=== PATIENT | female | born 1955 | race African-American/Black ===

== ENCOUNTER 2016-08-26 15:07 | Emergency (ER) | payer MEDICAID ==
[2016-08-26 15:33] VITALS: BP 153/94
[2016-08-26] MEDS ORDERED: IPRATROPIUM/ALBUTEROL 0.5-2.5 MG/3 ML AMPUL NEB ONE (15:35)
[2016-08-26] MEDS ORDERED: PREDNISONE 20 MG TABLET PO ONE (15:35)
--- NOTE | 2016-08-26 15:37 | ER Document Report ---
ED Medical Screen (RME) - General Chief Complaint: Cough Stated Complaint: COUGH Mode of Arrival: Ambulatory Information source: Patient Notes: 60-year-old female presents to the emergency department complaining of cough and shortness of breath over the last 4 days. Reports history of COPD and states feels like a flareup. Denies fever or chest pain without cough. I have greeted and performed a rapid initial assessment of this patient. A comprehensive ED assessment and evaluation of the patient, analysis of test results and completion of the medical decision making process will be conducted by additional ED providers. TRAVEL OUTSIDE OF THE [place] IN LAST 30 DAYS: No - Related Data Allergies/Adverse Reactions: No Known Allergies Allergy (Verified 08/26/16 15:35) Past Medical History - Social History Chew tobacco use (# tins/day): No Frequency of alcohol use: Occasional Drug Abuse: None - Past Medical History Cardiac Medical History: Reports: Hx Hypertension Pulmonary Medical History: Reports: Hx Asthma, Hx COPD Renal/ Medical History: Reports: Hx Kidney Stones. Denies: Hx Peritoneal Dialysis Past Surgical History: Reports: Hx Breast Surgery - biopsy right breast - Immunizations Hx Diphtheria, Pertussis, Tetanus Vaccination: Yes Physical Exam - Vital signs Vitals: Temp Pulse Resp BP Pulse Ox 98.3 F 81 18 153/94 H 95 08/26/16 15:31 08/26/16 15:31 08/26/16 15:31 08/26/16 15:31 08/26/16 15:31 - General General appearance: Alert In distress: None - Respiratory Respiratory status: No respiratory distress. No: Tachypnea Breath sounds: Rhonchi - Mild scattered bilaterally, Wheezing - Mild expiratory Course - Vital Signs Vital signs: Temp Pulse Resp BP Pulse Ox 98.3 F 81 18 153/94 H 95 08/26/16 15:31 08/26/16 15:31 08/26/16 15:31 08/26/16 15:31 08/26/16 15:31
--- NOTE | 2016-08-26 18:04 | ER Document Report ---
ED Respiratory Problem - General Chief Complaint: Cough Stated Complaint: COUGH Time seen by provider: 18:04 Mode of Arrival: Ambulatory Information source: Patient Notes: The patient is a 60-year-old female with a history of COPD and hypertension who presents to the emergency room with cough, shortness of breath, subjective fevers. She's been taking TheraFlu. TRAVEL OUTSIDE OF THE [place] IN LAST 30 DAYS: No - HPI Patient complains to provider of: COPD Onset: Last week Duration: Continuous Initiating Event: URI Quality of pain: Dull Severity: Mild Pain Level: 1 Context: Hx COPD Short of Breath: Mild Chest pain/discomfort: denies: Center, Constant, Heaviness, Intermittent, Left, Pain, Radiates to arm, Radiates to back, Radiates to jaw, Right, Tightness, Worse with deep breaths Cough: Nonproductive Sputum amount: denies: None, Scant, Small, Moderate, Large, Copious Sputum color: denies: Brown, Clear, Creamy, Henriquez, Green, Panther Burn tinged, Red (blood ), Red Specks, Rust, Small Clots, Perez, White, Yellow Sputum consistency: denies: Frothy, Mucoid, Mucoid Plug, Tenacious, Thick, Thin At home treatment: denies: Bronchodilators, CPAP, Diuretics, Inhaled steroids, Oral steroids, Oxygen, Singulair, Theophylline Associated symptoms: Chills, Congestion, Cough, Fever Similar symptoms previously: Yes Recently seen / treated by doctor: No - Related Data Allergies/Adverse Reactions: No Known Allergies Allergy (Verified 08/26/16 15:35) Past Medical History - General Information source: Patient - Social History Smoking Status: Current Every Day Smoker Cigarette use (# per day): Yes - 1 pack per day Chew tobacco use (# tins/day): No Smoking Education Provided: No Frequency of alcohol use: Occasional Drug Abuse: None Lives with: Family Family History: Reviewed & Not Pertinent Patient has suicidal ideation: No Patient has homicidal ideation: No - Past Medical History Cardiac Medical History: Reports: Hx Hypertension Pulmonary Medical History: Reports: Hx Asthma, Hx COPD Renal/ Medical History: Reports: Hx Kidney Stones. Denies: Hx Peritoneal Dialysis Past Surgical History: Reports: Hx Breast Surgery - biopsy right breast - Immunizations Hx Diphtheria, Pertussis, Tetanus Vaccination: Yes Review of Systems - Review of Systems Constitutional: Chills, Fever EENT: No symptoms reported Cardiovascular: No symptoms reported Respiratory: See HPI Gastrointestinal: No symptoms reported Genitourinary: No symptoms reported Female Genitourinary: No symptoms reported Musculoskeletal: No symptoms reported Skin: No symptoms reported Hematologic/Lymphatic: No symptoms reported Neurological/Psychological: No symptoms reported Physical Exam - Vital signs Vitals: Temp Pulse Resp BP Pulse Ox 98.3 F 81 18 153/94 H 95 08/26/16 15:31 08/26/16 15:08/26/16 15:08/26/16 15:08/26/16 15:31 Notes: Physical exam: GENERAL: [id number] female, alert and oriented 3, no acute distress. HEAD: Atraumatic, normocephalic. EYES: Pupils equal round and reactive to light, extraocular movements intact, sclera anicteric, conjunctiva are normal. ENT: TMs normal, nares patent, oropharynx clear without exudates. Moist mucous membranes. NECK: Normal range of motion, supple without lymphadenopathy or JVD. LUNGS: Bilateral wheezing HEART: Regular rate and rhythm without murmurs, rubs or gallops. ABDOMEN: Soft, normoactive bowel sounds. No tenderness to palpation. No guarding, no rebound. No masses appreciated. EXTREMITIES: Normal range of motion, no pitting or edema. No clubbing or cyanosis. NEUROLOGICAL: Cranial nerves II through XII grossly intact. Normal speech, normal gait. PSYCH: Normal mood, normal affect. SKIN: Warm, Dry, normal turgor, no rashes or lesions noted. Course - Vital Signs Vital signs: Temp Pulse Resp BP Pulse Ox 98.3 F 81 18 153/94 H 08/26/16 15:31 08/26/16 15:31 08/26/16 15:08/26/16 15:08/26/16 15:31 - Diagnostic Test Radiology reviewed: Image reviewed, Reports reviewed - Chest x-ray shows no infiltrates or effusions Discharge - Discharge Clinical Impression: bronchitis with bronchospasm, COPD exacerbation Condition: Stable Disposition: HOME, SELF-CARE Instructions: Bronchitis With Bronchospasm (Wheezing) ([facility]), Chronic Obstructive Lung Disease ([facility]) Additional Instructions: Recommendations: Rest, drink plenty of fluids. Take steroids as prescribed: Start the prednisone tomorrow (you were given today 's dose in the ER). Take the antibiotic as prescribed. Take the Percocet as needed: See the narcotic instruction sheet. Use the inhaler every 4-6 hours as needed. Follow-up with Dr. Crawford this coming week. Return to the emergency room for worsening shortness of breath. Prescriptions: Albuterol Sulfate [Albuterol Sulfate 2.5mg/3 mL] 2.5 mg IH Q4 #14 ml Azithromycin [Zithromax 250 mg Tablet] 250 mg PO ASDIR PRN #6 tablet PRN Reason: Nebulizer [Nebulizer Machine] 1 each MC ASDIR PRN #1 kit PRN Reason: Oxycodone HCl/Acetaminophen [Percocet 5-325 mg Tablet] 1 - 2 tab PO ASDIR PRN # 15 tablet PRN Reason: Prednisone [Deltasone 20 mg Tablet] 3 tab PO DAILY 5 Days Referrals: NAHUM ALANIS MD [Primary Care Provider] - Follow up in 3-5 days
[2016-08-26] MEDS ORDERED: GUAIFENESIN 600 MG TABLET.SA PO ONE (18:05)
[2016-08-26] MEDS ORDERED: NORMAL SALINE 500 ML IV PRN (18:05)
[2016-08-26] MEDS ORDERED: OXYCODONE-ACETAMINOPHEN 5-325 MG TABLET PO ONE (18:06)
[2016-08-26] MEDS ORDERED: ALBUTEROL SULFATE HFA (90 MCG/PUFF) 8 GM MDI (1 MDI/ER DISP) IH PRN (19:57)
[2016-08-26] MEDS ORDERED: AZITHROMYCIN 250 MG TABLET PO ONE (19:58)
== END 2016-08-26 20:22 | disposition home or self-care (01) ==
LOC: ER 15:07
DX: J44.1 Chronic obstructive pulmonary disease with (acute) exacerbation (principal); J45.909 Unspecified asthma, uncomplicated; I10 Essential (primary) hypertension; R05 Cough; R06.02 Shortness of breath; R50.9 Fever, unspecified; F17.210 Nicotine dependence, cigarettes, uncomplicated
CPT/HCPCS: 99283; 71020; Q0144; J3490 ×2; J7512; J7620

== ENCOUNTER 2016-10-27 06:32 | Inpatient (IN) | payer MEDICAID ==
[2016-10-27] MEDS ORDERED: DILTIAZEM HCL/D5W 125 MG/125 ML RTUINJ IV ONE (06:43)
[2016-10-27] MEDS: DILTIAZEM HCL/D5W 125 ML IV PRN ×2 (06:49→16:58)
--- NOTE | 2016-10-27 07:00 | ER Document Report ---
ED General - General Chief Complaint: Breathing Difficulty Stated Complaint: DIFFICULTY BREATHING/BACK PAIN Mode of Arrival: Medic Information source: Patient, Emergency Med Personnel, [facility] Records Notes: 60-year-old female history COPD A. fib presents with complaints of shortness of breath and heart racing. Patient was found by EMS to have a heart rate in the 180s was given Cardizem boluses. Patient noted to be satting 82% on room air TRAVEL OUTSIDE OF THE [place] IN LAST 30 DAYS: No - HPI Onset: Yesterday Onset/Duration: Persistent Quality of pain: No pain Severity: Mild Pain Level: Denies Associated symptoms: Nonproductive cough, Shortness of breath Exacerbated by: Denies Relieved by: Denies Similar symptoms previously: No Recently seen / treated by doctor: No - Related Data Allergies/Adverse Reactions: No Known Allergies Allergy (Verified 08/26/16 15:35) Past Medical History - Social History Smoking Status: Former Smoker Cigarette use (# per day): No Chew tobacco use (# tins/day): No Smoking Education Provided: No Family History: Reviewed & Not Pertinent - Past Medical History Cardiac Medical History: Reports: Hx Hypertension Pulmonary Medical History: Reports: Hx Asthma, Hx COPD Renal/ Medical History: Reports: Hx Kidney Stones. Denies: Hx Peritoneal Dialysis Past Surgical History: Reports: Hx Breast Surgery - biopsy right breast - Immunizations Hx Diphtheria, Pertussis, Tetanus Vaccination: Yes Review of Systems - Review of Systems Notes: REVIEW OF SYSTEMS: CONSTITUTIONAL : Denies fever, chills, or sweats. Denies recent illness. EENT: Denies eye, ear, throat, or mouth pain or symptoms. Denies nasal or sinus congestion or discharge. Denies throat, tongue, or mouth swelling or difficulty swallowing. CARDIOVASCULAR: Admits to palpitations RESPIRATORY: Admits to shortness of breath GASTROINTESTINAL: Denies abdominal pain or distention. Denies nausea, vomiting , or diarrhea. Denies blood in vomitus, stools, or per rectum. Denies black, tarry stools. Denies constipation. GENITOURINARY: Denies difficulty urinating, painful urination, burning, frequency, blood in urine, or discharge. FEMALE GENITOURINARY: Denies vaginal bleeding, heavy or abnormal periods, irregular periods. Denies vaginal discharge or odor. MUSCULOSKELETAL: Denies back or neck pain or stiffness. Denies joint pain or swelling. SKIN: Denies rash, lesions or sores. HEMATOLOGIC : Denies easy bruising or bleeding. LYMPHATIC: Denies swollen, enlarged glands. NEUROLOGICAL: Denies confusion or altered mental status. Denies passing out or loss of consciousness. Denies dizziness or lightheadedness. Denies headache. Denies weakness or paralysis or loss of use of either side. Denies problems with gait or speech. Denies sensory loss, numbness, or tingling. Denies seizures. PSYCHIATRIC: Denies anxiety or stress. Denies depression, suicidal ideation, or homicidal ideation. ALL OTHER SYSTEMS REVIEWED AND NEGATIVE. Dictation was performed using [employer] voice recognition software PHYSICAL EXAMINATION: GENERAL: Well-appearing, well-nourished and in no acute distress. HEAD: Atraumatic, normocephalic. EYES: Pupils equal round and reactive to light, extraocular movements intact, conjunctiva are normal. ENT: Nares patent, oropharynx clear without exudates. Moist mucous membranes. NECK: Normal range of motion, supple without lymphadenopathy LUNGS: Breath sounds clear to auscultation bilaterally and equal. No wheezes rales or rhonchi. Patient satting 90% on 4 L nasal cannula HEART: Irregular rate and rhythm ABDOMEN: Soft, nontender, nondistended abdomen. No guarding, no rebound. No masses appreciated. Female : deferred Musculoskeletal: Normal range of motion, no pitting or edema. No cyanosis. NEUROLOGICAL: Cranial nerves grossly intact. Normal speech, normal gait. Normal sensory, motor exams PSYCH: Normal mood, normal affect. SKIN: Warm, Dry, normal turgor, no rashes or lesions noted. Physical Exam - Vital signs Vitals: Resp Pulse Ox 45 H 92 10/27/16 06:46 10/27/16 06:46 Course - Re-evaluation Re-evalutation: 10/27/16 07:00 Patient will be sent emergently for CTa of her chest, she started on a Cardizem drip 10/27/16 08:42 Patient is noted to be hypokalemic with renal insufficiency, CT is still pending , she will be admitted to hospitalist service on Cardizem drip Spoke with Dr yañez he does not beleive this is his patient - Vital Signs Vital signs: Temp Pulse Resp BP Pulse Ox 39 H 128/56 H 95 10/27/16 07:16 10/27/16 07:16 10/27/16 07:16 - Laboratory Result Diagrams: 10/27/16 07:34 10/27/16 07:34 Laboratory results interpreted by me: 10/27/16 10/27/16 07:34 07:34 RBC 3.70 L Hgb 11.4 L Hct 33.9 L RDW 15.7 H Potassium 2.9 L* BUN 38 H Creatinine 1.78 H Est GFR ( Amer) 35 L Est GFR (Non-Af Amer) 29 L Glucose 70 L Calcium 8.1 L Total Bilirubin 4.9 H Direct Bilirubin 3.6 H AST 159 H ALT 71 H Creatine Kinase 834 H Total Protein 6.0 L Albumin 2.9 L - Diagnostic Test Radiology reviewed: Image reviewed, Reports reviewed Critical Care Note - Critical Care Note Total time excluding time spent on procedures (mins): 45 Comments: 41 minutes of critical care time spent in direct contact evaluating and reevaluating the patient, treating symptoms, reviewing labs and studies and speaking with family and consultants excluding any procedures Discharge - Discharge Clinical Impression: Hypokalemia, Hypoxemia, Atrial fibrillation with rapid ventricular response Condition: Critical Disposition: ADMITTED INPATIENT Admitting Provider: Hospitalist Unit Admitted: [facility]
[2016-10-27 07:49] LABS: HEMATOCRIT 33.9 % (36.0-47.0); HEMOGLOBIN 11.4 g/dL (12.0-15.5); HGB HCT DIFFERENCE 0.3; MEAN CORPUSCULAR HEMOGLOBIN 30.9 pg (27.0-33.4); MEAN CORPUSCULAR HGB CONC 33.7 g/dL (32.0-36.0); MEAN CORPUSCULAR VOLUME 91 fl (80-97); RED CELL DISTRIBUTION WIDTH 15.7 % (11.5-14.0); WHITE BLOOD COUNT 4.4 10^3/uL (4.0-10.5)
[2016-10-27 08:05] LABS: ALBUMIN 2.9 g/dL (3.5-5.0); ANION GAP 17 (5-19); BLOOD UREA NITROGEN 38 mg/dL (7-20); CALCIUM 8.1 mg/dL (8.4-10.2); CARBON DIOXIDE 25 mmol/L (22-30); CHLORIDE 99 mmol/L (98-107); CREATININE RESULT 1.78 mg/dL (0.52-1.25); GLUCOSE 70 mg/dL (75-110); SODIUM 141.2 mmol/L (137-145)
[2016-10-27 08:07] LABS: ALANINE AMINOTRANSFERASE 71 U/L (9-52); ALKALINE PHOSPHATASE 66 U/L (38-126); ASPARTATE AMINO TRANSFERASE 159 U/L (14-36); BILIRUBIN,DIRECT 3.6 mg/dL (0.0-0.4); BILIRUBIN,TOTAL 4.9 mg/dL (0.2-1.3); CREATINE KINASE 834 U/L (30-135)
[2016-10-27 08:11] LABS: POTASSIUM 2.9 mmol/L (3.6-5.0)
[2016-10-27] MEDS ORDERED: POTASSIUM CHLORIDE 10 MEQ TABLET.SA PO ONE ×2 (08:12→12:08)
[2016-10-27] MEDS ORDERED: NORMAL SALINE 1000 ML 1,000 ML IV PRN (08:16)
[2016-10-27 08:17] LABS: TROPONIN I 0.022 ng/mL
[2016-10-27 08:19] LABS: CREATINE KINASE MB < 0.22 ng/mL (<4.55)
[2016-10-27 08:39] LABS: BAND NEUTROPHILS % (MANUAL) 28 % (3-5); BASOPHILS % (MANUAL) 0 % (0-2); EOSINOPHILS % (MANUAL) 0 % (0-6); LYMPHOCYTES % (MANUAL) 15 % (13-45); NUCLEATED RED BLOOD CELLS 21 /100 WBC (0); TOTAL CELLS COUNTED 100
[2016-10-27 08:50] LABS: TOXIC GRANULATION 1+; TOXIC VACUOLATION PRESENT
[2016-10-27 08:51] LABS: ANISOCYTOSIS 1+; HYPOCHROMASIA 1+; PLATELET CLUMPS PRESENT; POLYCHROMASIA 1+; TARGET CELLS 2+
[2016-10-27] MEDS ORDERED: LEVOFLOXACIN 750 MG/D5W RTU 150 ML IV ONE (09:39)
[2016-10-27] MEDS ORDERED: MORPHINE SULFATE 10 MG/ML INJ IV ONE (09:50)
[2016-10-27] MEDS: NORMAL SALINE 1000 ML 1,000 ML IV PRN ×3 (10:01→15:36)
[2016-10-27] MEDS ORDERED: LEVALBUTEROL HCL NEB 1.25 MG/3 ML AMPUL NEB PRN (12:01)
[2016-10-27] MEDS ORDERED: ACETAMINOPHEN 325 MG TABLET PO PRN (12:01)
--- NOTE | 2016-10-27 13:11 | PDOC CONSULTATION ---
Consultation Consult Date: 10/27/16 Attending physician:: MAURA KNOX Consult reason:: Atrial fibrillation History of Present Illness Admission Date/PCP: 10/27/16 09:04 NAHUM ALANIS MD Patient complains of: Dyspnea, cough, fever and chills History of Present Illness: 60-year-old female history COPD A. fib presents with complaints of shortness of breath and heart racing. Patient on questioning admitted to having some cough as well as fever and chills. Patient's overall is a poor historian. Patient was found by EMS to have a heart rate in the 180s was given Cardizem boluses. Patient was noted to be hypoxemic and was placed on oxygen supplementation. On questioning patient denied chest pain. Patient denied any prior history of myocardial infarction or congestive heart failure. I was asked to evaluate patient in view of atrial fibrillation. Patient claims that she has a prior history of atrial fibrillation and irregular heart beat. She has not been on any chronic anticoagulation. Patient has noted intermittent racing of the heart off and on but mainly on exertion. Patient claims she has not being actively followed for this condition by any physician. Patient noted some increased palpitations recently. Past Medical History Cardiac Medical History: Reports: Atrial Fibrillation, Hypertension Pulmonary Medical History: Reports: Asthma, Chronic Obstructive Pulmonary Disease (COPD) Social History Information Source: Patient Smoking Status: Former Smoker Frequency of Alcohol Use: Social Drugs: Cocaine - Advance Directive Resuscitation Status: Full Code Surrogate healthcare decision maker:: Patient's children Family History Family History: Reviewed & Not Pertinent Parental Family History Reviewed: Yes Children Family History Reviewed: Yes Sibling(s) Family History Reviewed.: Yes - Negative for premature coronary artery disease or sudden cardiac in the family amongst first degree relatives. Medication/Allergy Home Medications: Albuterol Sulfate [Albuterol Sulfate 2.5mg/3 mL] 1 vial NEB Q4 10/27/16 Allergies/Adverse Reactions: No Known Allergies Allergy (Verified 08/26/16 15:35) Review of Systems Review of Systems: Please see history of present illness and past medical history as wall. Constitutional: Fever and chills reported. Head : No recent chronic headaches, recent head injury. Eyes: No recent eye pain, diplopia, redness, discharge, acute visual changes. Ears: No recent chronic ear pain, acute hearing loss, ear discharge. Oral cavity: No recent ulcerations, bleeding, oral cavity discomfort. Neck: No recent acute neck pain reported. Hematologic: No recent easy bruising or bleeding or hematologic malignancy reported. Lymphatic: No recent lymphatic malignancy, chronic lymphadenopathy reported yet Cardiovascular system review: See history of present illness. Describes history of palpitations in the past and previous diagnosis of atrial fibrillation when she was in her confinement. Respiratory system review: Recent cough with very scant sputum production reported but no hemoptysis, blood clots in the lungs reported. Mild Shortness of breath on exertion Gastrointestinal system review: Negative for any recent acute or chronic abdominal pain, hematemesis, melena, recent change in bowel habits. Genitourinary system review: No recent acute or chronic hematuria, flank pain, UTI etc. reported. Skin system review: Negative for any recent abnormal bruising, no rash, no pruritus reported. Neurologic: No prior history of strokes, mini strokes, seizure disorder. Psychologic: No history of major psychosis or major depression reported. Musculoskeletal: Minor aches and pains reported. No acute joint swelling reported. Endocrine: No recent polyuria, polydipsia, recent heat or cold intolerance. Physical Exam Vital Signs: Temp Pulse Resp BP Pulse Ox 99.4 F 33 H 113/75 94 10/27/16 11:53 10/27/16 12:30 10/27/16 12:30 10/27/16 12:30 Intake & Output 10/26/16 10/27/16 10/28/16 06:59 06:59 06:59 Weight 71.2 kg Exam: GENERAL: well-nourished and in no acute distress. Alert and oriented x3 HEAD: Atraumatic, normocephalic. EYES: Pupils equal round and reactive to light, extraocular movements intact, sclera anicteric, conjunctiva are normal. ENT: TMs normal, nares patent, oropharynx clear without exudates. Moist mucous membranes. No oral ulcerations or bleeding gums noted NECK: supple without lymphadenopathy. Trachea is central. No cervical or axillary lymphadenopathy noted. Carotids are 2+, JVD WNL LUNGS: Respiration seems nonlabored, no significant accessory muscle action noted. Right basal crackles, dullness and egophony noted. CHEST: Palpation of the chest wall shows no significant chest wall tenderness. No other significant abnormalities noted. 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 ABDOMEN: Soft, no significant tenderness appreciated, normoactive bowel sounds. No guarding, no rebound. No rigidity noted . No masses appreciated. EXTREMITIES: Pedal pulses are 1-2+, no calf tenderness noted. No clubbing or cyanosis.trace to 1+ pedal edema noted NEUROLOGICAL: Focused neurological exam showed no significant neurologic deficit. Normal speech, no focal weakness appreciated. PSYCH: Normal mood, normal affect. Judgment and insight within normal limits. SKIN: No significant ecchymosis, rash, ulcerations or signs of pruritus noted. MUSCULOSKELETAL EXAM: No significant joint swelling noted. Results Laboratory Results: 10/27/16 10:04 Lactic Acid 1.8 EKG Comments: Not available for review at this point Impressions: Chest/Abdomen CTA 10/27/16 06:41 IMPRESSION: Diffuse right lower lobe pneumonia. Assessment & Plan - Diagnosis (1) Atrial fibrillation with RVR Is this a current diagnosis for this admission?: Yes (2) Hypokalemia Is this a current diagnosis for this admission?: Yes (3) Pneumonia Qualifiers: Pneumonia type: due to unspecified organism Laterality: right Lung location: lower lobe of lung Qualified Code(s): J18.1 - Lobar pneumonia, unspecified organism Is this a current diagnosis for this admission?: Yes (4) Hypoxemia Is this a current diagnosis for this admission?: Yes - Notes Notes: Atrial fibrillation with rapid ventricular response: Patient gives history of prior atrial fibrillation. At this point will recommend rate control and chronic anticoagulation for at least one month. Possible that patient's atrial fibrillation could have been precipitated by pneumonia and hypokalemia. Hypokalemia: Recommend correction and maintaining potassium level over 4 mg/L. Recommend also checking magnesium level and keeping magnesium over 1.6 mg percent. Pneumonia: Patient noted to have right lower lobe pneumonia. Continue with antibiotic therapy. Hypoxemia: Continue with oxygen supplementation and treatment of pneumonia. Have ordered a 2-D echocardiogram to evaluate underlying cardiac structural abnormalities etc. and atrial fibrillation. - Time Time Spent: 30 to 50 Minutes - CODE STATUS was discussed, patient remains full code. Surrogate decision-maker MARY JO BEE. Multiple medical problems were addressed.More than 50% of the time spent coordinating care, discussing management plans with involved caregivers. Management plans discussed with involved personnels. Medical decision making was of moderate to high complexity, patient's has multiple severe comorbidities. Medications reviewed and adjusted accordingly: Yes
[2016-10-27] MEDS: IPRATROPIUM BROMIDE 0.02% NEB 0.5 MG/2.5 ML AMPUL NEB SCH ×2 (14:15→19:57)
[2016-10-27] MEDS: LEVALBUTEROL HCL NEB 1.25 MG/3 ML AMPUL NEB SCH ×2 (14:15→19:58)
[2016-10-27 14:26] LABS: CHOLESTEROL 118.74 mg/dL (0-200); Direct HDL 20 mg/dL (>40); MAGNESIUM 1.7 mg/dL (1.6-2.3); TRIGLYCERIDES 253 mg/dL (<150)
[2016-10-27 14:39] LABS: DIRECT LDL < 30 mg/dL (<100); VLDL CHOLESTEROL 50.6 mg/dL (10-31)
[2016-10-27 14:40] LABS: CREATINE KINASE MB 1.22 ng/mL (<4.55); TROPONIN I 0.019 ng/mL
--- NOTE | 2016-10-27 15:13 | PDOC H&P ---
History of Present Illness Admission Date/PCP: 10/27/16 12:01 NAHUM ALANIS MD Patient complains of: Shortness of breath History of Present Illness: 60-year-old female history COPD A. fib presents with complaints of shortness of breath and heart racing. Patient on questioning admitted to having some cough as well as fever and chills. Patient's overall is a poor historian. Apparently the patient has been sick this weekend with coughing and shortness of breath . There is associated wheezing . Cough is productive of yellowish phlegm . Patient will take home inhalers of 40 some relief of symptoms . Patient continues to do usual activities including cooking , doing outside grilling . Patient also chronic smoker and continues to smoke . Symptoms got progressively worse that she develops dyspnea on exertion with limited mobility around. Patient would intermittently rest and symptoms will improve . However earlier today it is worse therefore the ambulance was called . Patient was found by EMS to have a heart rate in the 180s was given Cardizem boluses. Patient was noted to be hypoxemic and was placed on oxygen supplementation. On questioning patient denied chest pain. Patient denied any prior history of myocardial infarction or congestive heart failure. In the emergency room, the patient was given boluses of fluids, intravenous Cardizem drip was instituted, patient was referred for admission. CT of the chest revealed no pulmonary embolism, but did show a dense infiltrate of the right lower. Past Medical History Past Medical History: Medication reconciliation pending verification from the patient's pharmacist. Cardiac Medical History: Reports: Atrial Fibrillation, Hyperlipidema, Hypertension Pulmonary Medical History: Reports: Asthma, Chronic Obstructive Pulmonary Disease (COPD) Psychiatric Medical History: Reports: Substance Abuse - Cocaine in the past, as well as alcohol, Tobacco Dependency, Other Past Surgical History Past Surgical History: Reports: None - Patient denies any recent operation. Social History Information Source: Patient Smoking Status: Current Every Day Smoker Cigarettes Packs Per Day: 2 Last Time Smoked: monday Frequency of Alcohol Use: Occasional Hx Recreational Drug Use: No Drugs: None Hx Prescription Drug Abuse: No - Advance Directive Resuscitation Status: Full Code Family History Family History: None - Patient denies any illness in the family Parental Family History Reviewed: Yes Children Family History Reviewed: Yes Sibling(s) Family History Reviewed.: Yes Medication/Allergy Home Medications: Albuterol Sulfate [Albuterol Sulfate 2.5mg/3 mL] 1 vial NEB Q4 10/27/16 Allergies/Adverse Reactions: No Known Allergies Allergy (Verified 08/26/16 15:35) Review of Systems Constitutional: PRESENT: headache(s) - Occasional, weakness - Generalized. ABSENT: chills, fever(s), night sweats, weight gain, weight loss Eyes: ABSENT: visual disturbances Ears: ABSENT: hearing changes Nose, Mouth, and Throat: PRESENT: sore throat - Mild. ABSENT: mouth pain Cardiovascular: PRESENT: dyspnea on exertion, palpitations. ABSENT: chest pain , edema, orthropnea Respiratory: PRESENT: cough, sputum - Yellowish, other - Wears oxygen at home. ABSENT: hemoptysis Gastrointestinal: ABSENT: abdominal pain, constipation, diarrhea, hematemesis, hematochezia, melena, nausea, vomiting Genitourinary: ABSENT: difficulty urinating, dysuria, hematuria Musculoskeletal: ABSENT: joint swelling Integumentary: ABSENT: pruritus, rash, wounds Neurological: ABSENT: abnormal gait, abnormal speech, confusion, dizziness, focal weakness, syncope Psychiatric: ABSENT: anxiety, depression, homidical ideation, suicidal ideation Endocrine: ABSENT: cold intolerance, heat intolerance, polydipsia, polyphagia, polyuria Hematologic/Lymphatic: ABSENT: easy bleeding, easy bruising Physical Exam Vital Signs: Temp Pulse Resp BP Pulse Ox 100.4 F 105 H 25 H 145/79 H 94 10/27/16 14:07 10/27/16 14:07 10/27/16 14:07 10/27/16 14:07 10/27/16 12:30 Intake & Output 10/26/16 10/27/16 10/28/16 06:59 06:59 06:59 Weight 82 kg General appearance: PRESENT: mild distress, obese Head exam: PRESENT: atraumatic, normocephalic Eye exam: PRESENT: conjunctiva pink, EOMI, PERRLA. ABSENT: scleral icterus Ear exam: PRESENT: normal external ear exam. ABSENT: drainage Mouth exam: PRESENT: dry mucosa, neck supple, tongue midline, other - No thrush noted Throat exam: ABSENT: post pharyngeal erythema, tonsillar erythema Neck exam: ABSENT: carotid bruit, JVD, lymphadenopathy, thyromegaly Respiratory exam: PRESENT: decreased breath sounds, wheezes - Mild bilateral. ABSENT: rales, rhonchi Cardiovascular exam: PRESENT: irregular rhythm, +S1, +S2. ABSENT: diastolic murmur, gallop, rubs, systolic murmur Pulses: PRESENT: normal dorsalis pedis pul Vascular exam: PRESENT: normal capillary refill GI/Abdominal exam: PRESENT: hypoactive bowel sounds, normal bowel sounds, soft. ABSENT: distended, guarding, mass, organolmegaly, rebound, tenderness Rectal exam: PRESENT: deferred Extremities exam: PRESENT: full ROM, other - Trace lower extremity edema. ABSENT: calf tenderness, clubbing Neurological exam: PRESENT: alert, awake, oriented to person, oriented to place , oriented to time, oriented to situation Psychiatric exam: PRESENT: appropriate affect, normal mood. ABSENT: homicidal ideation, suicidal ideation Skin exam: PRESENT: dry, intact, warm. ABSENT: cyanosis, rash Results Laboratory Results: 10/27/16 13:47 Magnesium 1.7 Triglycerides 253 H Cholesterol 118.74 LDL Cholesterol Direct < 30 VLDL Cholesterol 50.6 H HDL Cholesterol 20 L 10/27/16 10/27/16 13:47 13:47 Creatine Kinase 1403 H CK-MB (CK-2) 1.22 Troponin I 0.019 Impressions: Chest/Abdomen CTA 10/27/16 06:41 IMPRESSION: Diffuse right lower lobe pneumonia. Assessment & Plan - Diagnosis (1) Pneumonia Qualifiers: Pneumonia type: due to unspecified organism Laterality: right Lung location: lower lobe of lung Qualified Code(s): J18.1 - Lobar pneumonia, unspecified organism Is this a current diagnosis for this admission?: Yes (2) Atrial fibrillation with RVR Is this a current diagnosis for this admission?: Yes (3) Sepsis Qualifiers: Sepsis type: sepsis due to unspecified organism Qualified Code(s): A41.9 - Sepsis, unspecified organism Is this a current diagnosis for this admission?: Yes (4) COPD exacerbation Is this a current diagnosis for this admission?: Yes (5) Hypokalemia Is this a current diagnosis for this admission?: Yes (6) Transaminitis Is this a current diagnosis for this admission?: Yes (7) Essential hypertension Is this a current diagnosis for this admission?: Yes (8) Hyperlipidemia Qualifiers: Hyperlipidemia type: unspecified Qualified Code(s): E78.5 - Hyperlipidemia, unspecified Is this a current diagnosis for this admission?: Yes (9) Substance abuse Is this a current diagnosis for this admission?: Yes - Time Time Spent: 50 to 70 Minutes - Inpatient Certification Based on my medical assessment, after consideration of the patient's comorbidities, presenting symptoms, or acuity I expect that the services needed warrant INPATIENT care.: Yes I certify that my determination is in accordance with my understanding of Medicare's requirements for reasonable and necessary INPATIENT services [42 CFR 412.3e].: Yes Medical Necessity: Need Close Monitoring Due to Risk of Patient Decompensation, Need For IV Fluids, Need For Continuous Telemetry Monitoring, Need for Nebulizer Therapy and Monitoring of Response, Risk of Complication if Not Cared For in Hospital 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 We will continue the Cardizem drip and wean. We will begin oral Cardizem as well. In the meantime we'll culture the patient's blood sputum and urine. Begin intravenous antibiotic with cefepime and Levaquin. We will replace electrolytes and hydrate the patient. Cardiology will be consulted and a 2-D echocardiogram will be obtained. I will put the patient on round the clock nebulizer and oral steroids. DVT prophylaxis with Lovenox will be placed. We will monitor electrolytes and creatinine. We will obtain an abdominal ultrasound to evaluate the abnormal liver function tests. Further testing depends on the initial evaluation as outlined above.
[2016-10-27] MEDS: METHYLPREDNISOLONE INJ 125 MG/2 ML SDV IV SCH ×2 (15:35→22:31)
[2016-10-27] MEDS: DILTIAZEM HCL 30 MG TABLET PO SCH (17:43)
[2016-10-27 17:48] LABS: APPEARANCE,URINE SLIGHTLY-CLOUDY; BILIRUBIN,URINE NEGATIVE (NEGATIVE); GLUCOSE, URINE NEGATIVE (NEGATIVE); KETONES,URINE NEGATIVE (NEGATIVE); LEUKOCYTE ESTERASE,URINE NEGATIVE (NEGATIVE); NITRITE,URINE NEGATIVE (NEGATIVE); PROTEIN,URINE 100 mg/dL (NEGATIVE); URINE SPECIFIC GRAVITY 1.033; UROBILINOGEN,URINE NEGATIVE mg/dL (<2.0)
--- NOTE | 2016-10-27 19:16 | XCELERA REPORT ---
[address] [address] Transthoracic Echocardiogram Report Name: SAMARA COLLIER Age: 60 yrs Gender: Female : 1955 Patient Status: Inpatient Patient Location: [id number]\S\[id number]\A Study Date: 10/27/2016 02:45 PM Height: 60 in Weight: 156 lb BSA: 1.7 m2 Procedure: A complete two-dimensional transthoracic echocardiogram was performed (2D, M-mode, spectral and color flow Doppler). The study was technically difficult with many images being suboptimal in quality. Reason For Study: atrial fibrillation Ordering Physician: AFIA SHER Performed By: Zuly Love Interpretation Summary The study was technically difficult with many images being suboptimal in quality. The left ventricular ejection fraction is normal. LV diastolic function could not be adequately assessed due to atrial fibrilation. There is mild concentric left ventricular hypertrophy. The left ventricle is grossly normal size. Wall motion cannot be accurately commented on, but no definite regional wall motion abnormalities noted. The right ventricle is mildly dilated. The left atrium is mildly dilated. The right atrium is normal in size There is a trace amount of mitral regurgitation There is no mitral valve stenosis. No aortic regurgitation is present. There is no aortic valve stenosis There is a trace or physiologic amount of tricuspid regurgitation Tricuspid regurgitation jet envelope not well defined to measure RV systolic pressure accurately. The aortic root is not well visualized but is probably normal size. The inferior vena cava was not well visualized There is no pericardial effusion. MMode/2D Measurements \T\ Calculations RVDd: 3.2 cm LVIDd: 4.3 cm FS: 29.8 % Ao root diam: 3.1 cm IVSd: 1.1 cm LVIDs: 3.0 cm EDV(Teich): 83.2 ml LVPWd: 1.1 cm ESV(Teich): 35.6 ml Ao root area: 7.5 cm2 EF(Teich): 57.3 % LA dimension: 3.7 cm Doppler Measurements \T\ Calculations MV E max dasia: MV P1/2t max dasia: Ao V2 max: LV V1 max P.5 cm/sec 90.1 cm/sec 134.7 cm/sec 2.8 mmHg MV P1/2t: 68.1 msec Ao max PG: LV V1 max: 7.3 mmHg 83.9 cm/sec MVA(P1/2t): 3.2 cm2 MV dec slope: 387.6 cm/sec2 PA V2 max: 116.0 cm/sec PA max P.4 mmHg Left Ventricle The left ventricle is grossly normal size. There is mild concentric left ventricular hypertrophy. The left ventricular ejection fraction is normal. LV diastolic function could not be adequately assessed due to atrial fibrilation. Wall motion cannot be accurately commented on, but no definite regional wall motion abnormalities noted. Right Ventricle The right ventricle is mildly dilated. There is normal right ventricular wall thickness. The right ventricular systolic function is normal. Atria The right atrium is normal in size. The left atrium is mildly dilated. Interarterial septum not well visualized and not well dopplered. Cannot comment on ASD/PFO presence. Mitral Valve The mitral valve leaflets are sclerotic, but show no functional abnormalities. There is no mitral valve stenosis. There is a trace amount of mitral regurgitation. Aortic Valve The aortic valve is grossly normal. There is no aortic valve stenosis. No aortic regurgitation is present. Tricuspid Valve The tricuspid valve is not well visualized, but is grossly normal. There is no tricuspid stenosis. There is a trace or physiologic amount of tricuspid regurgitation. Tricuspid regurgitation jet envelope not well defined to measure RV systolic pressure accurately. Pulmonic Valve The pulmonic valve is not well visualized. Great Vessels The aortic root is not well visualized but is probably normal size. The inferior vena cava was not well visualized. Effusions There is no pericardial effusion. : AFIA SHER > Afia Sher
[2016-10-27 21:22] LABS: CREATINE KINASE MB 0.81 ng/mL (<4.55); TROPONIN I 0.02 ng/mL
[2016-10-27 21:41] LABS: PATH REVIEW PATHOLOGIST REVIEWED
[2016-10-27] MEDS ORDERED: CEFEPIME 2 GM/D5W RTU 50 ML IV SCH (22:00)
[2016-10-27] MEDS: CEFEPIME HCL 2 GM in DEXTROSE 5%-WATER 50 ML IV SCH (22:30)
[2016-10-27] MEDS: GUAIFENESIN 600 MG TABLET.SA PO SCH (22:31)
[2016-10-28] MEDS: DILTIAZEM HCL 30 MG TABLET PO SCH ×4 (00:14→17:23)
[2016-10-28] MEDS: IPRATROPIUM BROMIDE 0.02% NEB 0.5 MG/2.5 ML AMPUL NEB SCH ×4 (01:40→20:22)
[2016-10-28] MEDS: LEVALBUTEROL HCL NEB 1.25 MG/3 ML AMPUL NEB SCH ×4 (01:40→20:22)
[2016-10-28 02:30] LABS: HGB HCT DIFFERENCE 0.6; MEAN CORPUSCULAR HEMOGLOBIN 30.9 pg (27.0-33.4); MEAN CORPUSCULAR HGB CONC 34.1 g/dL (32.0-36.0); MEAN CORPUSCULAR VOLUME 91 fl (80-97); RED BLOOD COUNT 2.97 10^6/uL (3.72-5.28); RED CELL DISTRIBUTION WIDTH 15.4 % (11.5-14.0)
[2016-10-28 02:35] LABS: HEMOGLOBIN 9.2 g/dL (12.0-15.5)
[2016-10-28 02:48] LABS: ANION GAP 14 (5-19); BLOOD UREA NITROGEN 35 mg/dL (7-20); CALCIUM 7.2 mg/dL (8.4-10.2); CARBON DIOXIDE 20 mmol/L (22-30); CHLORIDE 107 mmol/L (98-107); CREATININE RESULT 1.35 mg/dL (0.52-1.25); GLUCOSE 132 mg/dL (75-110); POTASSIUM 3.2 mmol/L (3.6-5.0); SODIUM 140.7 mmol/L (137-145)
[2016-10-28 02:57] LABS: CREATINE KINASE MB 1.86 ng/mL (<4.55)
[2016-10-28 02:58] LABS: CREATINE KINASE 2334 U/L (30-135)
[2016-10-28 03:03] LABS: BASOPHILS % (MANUAL) 0 % (0-2); EOSINOPHILS % (MANUAL) 0 % (0-6); LYMPHOCYTES % (MANUAL) 11 % (13-45); TOTAL CELLS COUNTED 100
[2016-10-28 03:05] LABS: ANISOCYTOSIS 1+; POIKILOCYTOSIS 1+; POLYCHROMASIA 1+; TARGET CELLS 1+; TOXIC GRANULATION 1+; TOXIC VACUOLATION PRESENT; TROPONIN I < 0.012 ng/mL
[2016-10-28 03:08] LABS: BAND NEUTROPHILS % (MANUAL) 24 % (3-5)
[2016-10-28 03:12] LABS: WHITE BLOOD COUNT 9.6 10^3/uL (4.0-10.5)
[2016-10-28] MEDS: NORMAL SALINE 1000 ML 1,000 ML IV PRN ×3 (03:23→23:50)
[2016-10-28] MEDS: LANSOPRAZOLE 30 MG TAB.RAP.DR PO SCH (07:51)
[2016-10-28] MEDS: METHYLPREDNISOLONE INJ 125 MG/2 ML SDV IV SCH ×3 (07:52→21:44)
[2016-10-28] MEDS: ENOXAPARIN SODIUM INJ 40 MG/0.4 ML DISP.SYRIN SUBCUT SCH (08:26)
[2016-10-28] MEDS: GUAIFENESIN 600 MG TABLET.SA PO SCH ×2 (08:29→21:44)
[2016-10-28] MEDS: CEFEPIME HCL 2 GM in DEXTROSE 5%-WATER 50 ML IV SCH ×2 (08:30→21:42)
[2016-10-28 09:58] LABS: NUCLEATED RED BLOOD CELLS 16 /100 WBC (0)
--- NOTE | 2016-10-28 10:51 | PDOC PROGRESS REPORT ---
Subjective Progress Note for:: 10/28/16 Subjective:: Patient improved. Shortness of breath is better. Tachycardia is better. No temperature spikes, nausea or vomiting, respiratory distress, chest pain, PND, orthopnea. Denies having any diarrhea. Physical Exam Vital Signs: Temp Pulse Resp BP Pulse Ox 98.4 F 85 16 100/58 L 96 10/28/16 07:26 10/28/16 09:56 10/28/16 07:36 10/28/16 09:56 10/28/16 07:36 Pulse Oximeter Continuous Start: 10/27/16 12: 02 Freq: RTQ4 Status: Active Document 10/28/16 07:36 LDA (Rec: 10/28/16 09:17 LDA [id number]) Pulse Oximetry Assessment Oxygen Saturation (92-100) 96 Oxygen Flow Rate (L/min) 3 Equipment Usage Equipment in Use Continuous SpO2 Machine # 14 Intake & Output 10/27/16 10/28/16 10/29/16 06:59 06:59 06:59 Intake Total 193 Balance 1931 Weight 67.8 kg General appearance: PRESENT: no acute distress, cooperative Head exam: PRESENT: normocephalic Eye exam: PRESENT: EOMI Mouth exam: PRESENT: moist, neck supple Neck exam: ABSENT: JVD Respiratory exam: PRESENT: clear to auscultation adelso - Anteriorly bilateral, decreased breath sounds. ABSENT: rhonchi, wheezes Cardiovascular exam: PRESENT: irregular rhythm. ABSENT: gallop GI/Abdominal exam: PRESENT: soft. ABSENT: distended, tenderness Extremities exam: PRESENT: other - Trace edema Neurological exam: PRESENT: alert, awake, oriented to situation Skin exam: PRESENT: dry, warm. ABSENT: cyanosis Results Laboratory Results: 10/28/16 02:19 10/28/16 02:19 10/27/16 10/27/16 10/28/16 13:47 15:15 02:19 WBC 9.6 D RBC 2.97 L Hgb 9.2 L D Hct 27.0 L MCV 91 MCH 30.9 MCHC 34.1 RDW 15.4 H Plt Count 157 Seg Neutrophils % Not Reportable Lymphocytes % Not Reportable Monocytes % Not Reportable Eosinophils % Not Reportable Basophils % Not Reportable Absolute Neutrophils Not Reportable Absolute Lymphocytes Not Reportable Absolute Monocytes Not Reportable Absolute Eosinophils Not Reportable Absolute Basophils Not Reportable Sodium Potassium Chloride Carbon Dioxide Anion Gap BUN Creatinine Est GFR ( Amer) Est GFR (Non-Af Amer) Glucose Calcium Magnesium 1.7 Triglycerides 253 H Cholesterol 118.74 LDL Cholesterol Direct < 30 VLDL Cholesterol 50.6 H HDL Cholesterol 20 L Urine Color YELLOW Urine Appearance SLIGHTLY-CLOUDY Urine pH 6.0 Ur Specific [place] 1.033 Urine Protein 100 H Urine Glucose (UA) NEGATIVE Urine Ketones NEGATIVE Urine Blood MODERATE H Urine Nitrite NEGATIVE Ur Leukocyte Esterase NEGATIVE Urine WBC (Auto) 3 Urine RBC (Auto) 2 10/28/16 02:19 WBC RBC Hgb Hct MCV MCH MCHC RDW Plt Count Seg Neutrophils % Lymphocytes % Monocytes % Eosinophils % Basophils % Absolute Neutrophils Absolute Lymphocytes Absolute Monocytes Absolute Eosinophils Absolute Basophils Sodium 140.7 Potassium 3.2 L Chloride 107 Carbon Dioxide 20 L Anion Gap 14 BUN 35 H Creatinine 1.35 H Est GFR ( Amer) 48 L Est GFR (Non-Af Amer) 40 L Glucose 132 H Calcium 7.2 L Magnesium Triglycerides Cholesterol LDL Cholesterol Direct VLDL Cholesterol HDL Cholesterol Urine Color Urine Appearance Urine pH Ur Specific [place] Urine Protein Urine Glucose (UA) Urine Ketones Urine Blood Urine Nitrite Ur Leukocyte Esterase Urine WBC (Auto) Urine RBC (Auto) 10/27/16 10/27/16 10/27/16 13:47 13:47 20:15 Creatine Kinase 1403 H 2079 H CK-MB (CK-2) 1.22 Troponin I 0.019 10/27/16 10/28/16 10/28/16 20:15 02:19 02:19 Creatine Kinase 2334 H Cancelled CK-MB (CK-2) 0.81 Troponin I 0.020 10/28/16 02:19 Creatine Kinase CK-MB (CK-2) 1.86 Troponin I < 0.012 Impressions: Chest/Abdomen CTA 10/27/16 06:41 IMPRESSION: Diffuse right lower lobe pneumonia. Abdomen Ultrasound 10/28/16 00:00 IMPRESSION: FATTY LIVER. PANCREAS PARTIALLY OR COMPLETELY OBSCURED. No shadowing gallstones. Mild gallbladder sludge. . Assessment & Plan - Diagnosis (1) Pneumonia Qualifiers: Pneumonia type: due to unspecified organism Laterality: right Lung location: lower lobe of lung Qualified Code(s): J18.1 - Lobar pneumonia, unspecified organism Is this a current diagnosis for this admission?: Yes (2) Atrial fibrillation with RVR Is this a current diagnosis for this admission?: Yes (3) Sepsis Qualifiers: Sepsis type: sepsis due to unspecified organism Qualified Code(s): A41.9 - Sepsis, unspecified organism Is this a current diagnosis for this admission?: Yes (4) COPD exacerbation Is this a current diagnosis for this admission?: Yes (5) Hypokalemia Is this a current diagnosis for this admission?: Yes (6) Transaminitis Is this a current diagnosis for this admission?: Yes (7) Essential hypertension Is this a current diagnosis for this admission?: Yes (8) Hyperlipidemia Qualifiers: Hyperlipidemia type: unspecified Qualified Code(s): E78.5 - Hyperlipidemia, unspecified Is this a current diagnosis for this admission?: Yes (9) Substance abuse Is this a current diagnosis for this admission?: Yes - Time Time Spent with patient: 25-34 minutes - Plan Summary Plan Summary: Continue current antibiotics. Continue steroids and nebulizers. Continue Cardizem orally. Decrease intravenous fluids. Replace potassium. Recheck electrolytes. Recheck liver function tests in a.m. abnormality may just be related to sludge. Continue supportive care. Discontinue Cardizem drip.
[2016-10-28] MEDS: POTASSIUM CHLORIDE 10 MEQ TABLET.SA PO SCH ×2 (11:05→14:38)
--- NOTE | 2016-10-28 12:52 | PDOC PROGRESS REPORT ---
Subjective Progress Note for:: 10/28/16 Subjective:: Patient seems to be doing better with gradual improvement. Pt is denying any chest arm or neck discomfort. Patient denying any PND, orthopnea. Patient denied any sustained palpitations, dizziness, syncope, near syncope. Patient denying any fever chills. Patient denying any other significant discomfort. Patient is maintaining atrial fibrillation which seems at least persistent. Review of systems: Rest review of systems negative. Medications: Medications have been reviewed. Physical Exam Vital Signs: Temp Pulse Resp BP Pulse Ox 98.4 F 85 16 100/58 L 97 10/28/16 07:26 10/28/16 09:56 10/28/16 07:36 10/28/16 09:56 10/28/16 11:42 Pulse Oximeter Continuous Start: 10/27/16 12: 02 Freq: RTQ4 Status: Active Document 10/28/16 11:42 LDA (Rec: 10/28/16 11:42 LDA [email or web address]) Pulse Oximetry Assessment Oxygen Saturation (92-100) 97 Oxygen Flow Rate (L/min) 3 Oxygen Delivery Method Nasal Cannula Equipment Usage Equipment in Use Continuous SpO2 Machine # 14 Intake & Output 10/27/16 10/28/16 10/29/16 06:59 06:59 06:59 Intake Total 1930 Balance 193 Weight 67.8 kg Exam: GENERAL: well-nourished and in no acute distress. Alert and oriented x3 HEAD: Atraumatic, normocephalic. EYES: Pupils equal round and reactive to light, extraocular movements intact, sclera anicteric, conjunctiva are normal. ENT: TMs normal, nares patent, oropharynx clear without exudates. Moist mucous membranes. No oral ulcerations or bleeding gums noted NECK: supple without lymphadenopathy. Trachea is central. No cervical or axillary lymphadenopathy noted. Carotids are 2+, JVD WNL LUNGS: Respiration seems nonlabored, no significant accessory muscle action noted. Right basal fine crackles, dullness and egophony noted. CHEST: Palpation of the chest wall shows no significant chest wall tenderness. No other significant abnormalities noted. 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 ABDOMEN: Soft, no significant tenderness appreciated, normoactive bowel sounds. No guarding, no rebound. No rigidity noted . No masses appreciated. EXTREMITIES: Pedal pulses are 1-2+, no calf tenderness noted. No clubbing or cyanosis.trace pedal edema noted NEUROLOGICAL: Focused neurological exam showed no significant neurologic deficit. Normal speech, no focal weakness appreciated. PSYCH: Normal mood, normal affect. Judgment and insight within normal limits. SKIN: No significant ecchymosis, rash, ulcerations or signs of pruritus noted. MUSCULOSKELETAL EXAM: No significant joint swelling noted. Results Laboratory Results: 10/28/16 02:19 10/28/16 02:19 10/27/16 10/27/16 10/28/16 13:47 15:15 02:19 WBC 9.6 D RBC 2.97 L Hgb 9.2 L D Hct 27.0 L MCV 91 MCH 30.9 MCHC 34.1 RDW 15.4 H Plt Count 157 Seg Neutrophils % Not Reportable Lymphocytes % Not Reportable Monocytes % Not Reportable Eosinophils % Not Reportable Basophils % Not Reportable Absolute Neutrophils Not Reportable Absolute Lymphocytes Not Reportable Absolute Monocytes Not Reportable Absolute Eosinophils Not Reportable Absolute Basophils Not Reportable Sodium Potassium Chloride Carbon Dioxide Anion Gap BUN Creatinine Est GFR ( Amer) Est GFR (Non-Af Amer) Glucose Calcium Magnesium 1.7 Triglycerides 253 H Cholesterol 118.74 LDL Cholesterol Direct < 30 VLDL Cholesterol 50.6 H HDL Cholesterol 20 L Urine Color YELLOW Urine Appearance SLIGHTLY-CLOUDY Urine pH 6.0 Ur Specific [place] 1.033 Urine Protein 100 H Urine Glucose (UA) NEGATIVE Urine Ketones NEGATIVE Urine Blood MODERATE H Urine Nitrite NEGATIVE Ur Leukocyte Esterase NEGATIVE Urine WBC (Auto) 3 Urine RBC (Auto) 2 10/28/16 02:19 WBC RBC Hgb Hct MCV MCH MCHC RDW Plt Count Seg Neutrophils % Lymphocytes % Monocytes % Eosinophils % Basophils % Absolute Neutrophils Absolute Lymphocytes Absolute Monocytes Absolute Eosinophils Absolute Basophils Sodium 140.7 Potassium 3.2 L Chloride 107 Carbon Dioxide 20 L Anion Gap 14 BUN 35 H Creatinine 1.35 H Est GFR ( Amer) 48 L Est GFR (Non-Af Amer) 40 L Glucose 132 H Calcium 7.2 L Magnesium Triglycerides Cholesterol LDL Cholesterol Direct VLDL Cholesterol HDL Cholesterol Urine Color Urine Appearance Urine pH Ur Specific [place] Urine Protein Urine Glucose (UA) Urine Ketones Urine Blood Urine Nitrite Ur Leukocyte Esterase Urine WBC (Auto) Urine RBC (Auto) 10/27/16 10/27/16 10/27/16 13:47 13:47 20:15 Creatine Kinase 1403 H 2079 H CK-MB (CK-2) 1.22 Troponin I 0.019 10/27/16 10/28/16 10/28/16 20:15 02:19 02:19 Creatine Kinase 2334 H Cancelled CK-MB (CK-2) 0.81 Troponin I 0.020 10/28/16 02:19 Creatine Kinase CK-MB (CK-2) 1.86 Troponin I < 0.012 Impressions: Chest/Abdomen CTA 10/27/16 06:41 IMPRESSION: Diffuse right lower lobe pneumonia. Abdomen Ultrasound 10/28/16 00:00 IMPRESSION: FATTY LIVER. PANCREAS PARTIALLY OR COMPLETELY OBSCURED. No shadowing gallstones. Mild gallbladder sludge. . Assessment & Plan - Diagnosis (1) Atrial fibrillation with RVR Is this a current diagnosis for this admission?: Yes (2) Hypokalemia Is this a current diagnosis for this admission?: Yes (3) Pneumonia Qualifiers: Pneumonia type: due to unspecified organism Laterality: right Lung location: lower lobe of lung Qualified Code(s): J18.1 - Lobar pneumonia, unspecified organism Is this a current diagnosis for this admission?: Yes (4) Hypoxemia Is this a current diagnosis for this admission?: Yes (5) Elevated CK Is this a current diagnosis for this admission?: Yes - Notes Notes: Atrial fibrillation with rapid ventricular response: So far atrial fibrillation is persistent. Rate is now better controlled. Continue current dose of Cardizem. Patient gives history of prior atrial fibrillation. At this point will recommend rate control and chronic anticoagulation for at least one month if not long-term. Possible that patient's atrial fibrillation could have been precipitated by pneumonia and hypokalemia. Hypokalemia: Recommend correction and maintaining potassium level over 4 mg/L. Recommend also checking magnesium level and keeping magnesium over 1.6 mg percent. Pneumonia: Patient noted to have lower lobe pneumonia. Continue with antibiotic therapy. Hypoxemia: Continue with oxygen supplementation and treatment of pneumonia. Elevated total CK: Most likely related to sepsis, hypokalemia, hypophosphatemia etc. Could consider repeating a total CK prior to discharge. 2-D echocardiogram was obtained yesterday and reviewed. It showed well- preserved LVEF. No significant valvular abnormalities or other structural cardiac abnormalities were noted. - Time Time with patient: Greater than 35 minutes - 2-D echo results, ultrasound liver results and prognosis with atrial fibrillation etc. discussed. CODE STATUS was discussed, patient remains full code. Surrogate decision-maker unchanged. Multiple medical problems were addressed.More than 50% of the time spent coordinating care, discussing management plans with involved caregivers. Management plans discussed with involved personnels. Medical decision making was of moderate to high complexity, patient's has multiple severe comorbidities. Medications reviewed and adjusted accordingly: Yes
[2016-10-29] MEDS: DILTIAZEM HCL 30 MG TABLET PO SCH ×5 (00:02→23:44)
[2016-10-29] MEDS: LEVALBUTEROL HCL NEB 1.25 MG/3 ML AMPUL NEB SCH ×4 (02:00→21:03)
[2016-10-29] MEDS: IPRATROPIUM BROMIDE 0.02% NEB 0.5 MG/2.5 ML AMPUL NEB SCH ×4 (02:00→19:55)
[2016-10-29 06:05] LABS: ALANINE AMINOTRANSFERASE 123 U/L (9-52); ALBUMIN 2.5 g/dL (3.5-5.0); ALKALINE PHOSPHATASE 79 U/L (38-126); ANION GAP 15 (5-19); ASPARTATE AMINO TRANSFERASE 481 U/L (14-36); BILIRUBIN,DIRECT 2.1 mg/dL (0.0-0.4); BILIRUBIN,TOTAL 2.8 mg/dL (0.2-1.3); BLOOD UREA NITROGEN 41 mg/dL (7-20); CALCIUM 8.3 mg/dL (8.4-10.2); CARBON DIOXIDE 18 mmol/L (22-30); CHLORIDE 112 mmol/L (98-107); CREATININE RESULT 1.15 mg/dL (0.52-1.25); GLUCOSE 151 mg/dL (75-110); POTASSIUM 3.8 mmol/L (3.6-5.0); SODIUM 145.1 mmol/L (137-145); TOTAL PROTEIN 5.5 g/dL (6.3-8.2)
[2016-10-29] MEDS: METHYLPREDNISOLONE INJ 125 MG/2 ML SDV IV SCH ×3 (06:54→21:26)
[2016-10-29] MEDS: LANSOPRAZOLE 30 MG TAB.RAP.DR PO SCH (06:55)
[2016-10-29 07:19] LABS: HEMATOCRIT 25.6 % (36.0-47.0); HEMOGLOBIN 8.6 g/dL (12.0-15.5); HGB HCT DIFFERENCE 0.2; MEAN CORPUSCULAR HEMOGLOBIN 30.7 pg (27.0-33.4); MEAN CORPUSCULAR HGB CONC 33.5 g/dL (32.0-36.0); MEAN CORPUSCULAR VOLUME 91 fl (80-97); RED CELL DISTRIBUTION WIDTH 15.4 % (11.5-14.0)
[2016-10-29 07:25] LABS: WHITE BLOOD COUNT 22.7 10^3/uL (4.0-10.5)
[2016-10-29] MEDS: ENOXAPARIN SODIUM INJ 40 MG/0.4 ML DISP.SYRIN SUBCUT SCH (08:38)
[2016-10-29] MEDS: GUAIFENESIN 600 MG TABLET.SA PO SCH ×2 (09:33→21:26)
[2016-10-29] MEDS: LEVOFLOXACIN 750 MG/D5W RTU 750 MG/150 ML RTUPB IV SCH (09:33)
[2016-10-29] MEDS: CEFEPIME HCL 2 GM in DEXTROSE 5%-WATER 50 ML IV SCH (10:45)
[2016-10-29] MEDS ORDERED: 1/2 NORMAL SALINE 1,000 ML IV PRN (10:53)
--- NOTE | 2016-10-29 11:03 | PDOC PROGRESS REPORT ---
Subjective Progress Note for:: 10/29/16 Subjective:: Continues to feel better. Denies any abdominal pain at all, no nausea or vomiting, no chills or fever. Tolerating oral intake well. Shortness of breath is much better. No diarrhea. No chest pain, denies any wheezing. Still with a lot of coughing however. Physical Exam Vital Signs: Temp Pulse Resp BP Pulse Ox 98.1 F 89 16 119/77 98 10/29/16 08:19 10/29/16 08:32 10/29/16 08:32 10/29/16 08:19 10/29/16 08:32 Pulse Oximeter Continuous Start: 10/27/16 12: 02 Freq: RTQ4 Status: Active Document 10/29/16 08:32 LDA (Rec: 10/29/16 08:52 LDA [email or web address]) Pulse Oximetry Assessment Oxygen Saturation (92-100) 98 Oxygen Flow Rate (L/min) 3 Oxygen Delivery Method Nasal Cannula Equipment Usage Equipment in Use Continuous SpO2 Machine # 14 Intake & Output 10/28/16 10/29/16 10/30/16 06:59 06:59 06:59 Intake Total 1931 2555 Output Total 0 Balance 1931 2555 Weight 67.8 kg 68.5 kg General appearance: PRESENT: no acute distress, cooperative, obese Head exam: PRESENT: normocephalic Eye exam: PRESENT: EOMI Mouth exam: PRESENT: moist, neck supple Neck exam: ABSENT: JVD Respiratory exam: PRESENT: rhonchi - few. ABSENT: crackles, wheezes Cardiovascular exam: PRESENT: irregular rhythm. ABSENT: gallop GI/Abdominal exam: PRESENT: hypoactive bowel sounds, soft. ABSENT: distended, tenderness Extremities exam: PRESENT: other - Trace lower extremity edema Neurological exam: PRESENT: alert, awake, oriented to situation Skin exam: PRESENT: dry, warm. ABSENT: cyanosis Results Laboratory Results: 10/29/16 06:31 10/29/16 04:43 10/29/16 10/29/16 10/29/16 04:43 04:43 06:31 WBC Cancelled 22.7 H D RBC Cancelled 2.80 L Hgb Cancelled 8.6 L Hct Cancelled 25.6 L MCV Cancelled 91 MCH Cancelled 30.7 MCHC Cancelled 33.5 RDW Cancelled 15.4 H Plt Count Cancelled 180 Sodium 145.1 H Potassium 3.8 Chloride 112 H Carbon Dioxide 18 L Anion Gap 15 BUN 41 H Creatinine 1.15 Est GFR ( Amer) 58 L Est GFR (Non-Af Amer) 48 L Glucose 151 H Calcium 8.3 L Total Bilirubin 2.8 H AST 481 H ALT 123 H Alkaline Phosphatase 79 Total Protein 5.5 L Albumin 2.5 L 10/27/16 10/27/16 10/27/16 13:47 13:47 20:15 Creatine Kinase 1403 H 2079 H CK-MB (CK-2) 1.22 Troponin I 0.019 10/27/16 10/28/16 10/28/16 20:15 02:19 02:19 Creatine Kinase 2334 H Cancelled CK-MB (CK-2) 0.81 Troponin I 0.020 10/28/16 02:19 Creatine Kinase CK-MB (CK-2) 1.86 Troponin I < 0.012 Impressions: Chest/Abdomen CTA 10/27/16 06:41 IMPRESSION: Diffuse right lower lobe pneumonia. Abdomen Ultrasound 10/28/16 00:00 IMPRESSION: FATTY LIVER. PANCREAS PARTIALLY OR COMPLETELY OBSCURED. No shadowing gallstones. Mild gallbladder sludge. . Assessment & Plan - Diagnosis (1) Pneumonia Qualifiers: Pneumonia type: due to unspecified organism Laterality: right Lung location: lower lobe of lung Qualified Code(s): J18.1 - Lobar pneumonia, unspecified organism Is this a current diagnosis for this admission?: Yes (2) Atrial fibrillation with RVR Is this a current diagnosis for this admission?: Yes (3) Sepsis Qualifiers: Sepsis type: sepsis due to unspecified organism Qualified Code(s): A41.9 - Sepsis, unspecified organism Is this a current diagnosis for this admission?: Yes (4) COPD exacerbation Is this a current diagnosis for this admission?: Yes (5) Hypokalemia Is this a current diagnosis for this admission?: Yes (6) Transaminitis Is this a current diagnosis for this admission?: Yes (7) Essential hypertension Is this a current diagnosis for this admission?: Yes (8) Hyperlipidemia Qualifiers: Hyperlipidemia type: unspecified Qualified Code(s): E78.5 - Hyperlipidemia, unspecified Is this a current diagnosis for this admission?: Yes (9) Substance abuse Is this a current diagnosis for this admission?: Yes - Time Time Spent with patient: 25-34 minutes - Plan Summary Plan Summary: We will increase intravenous fluids. Monitor liver function test. Obtain hepatitis panel. WBC elevation might be just related to steroids. We will recheck in the morning. We will discontinue cefepime and continue the intravenous Levaquin. Monitor creatinine and electrolytes.heart rate is controlled at this time. Heart rate is currently controlled at this time.
--- NOTE | 2016-10-29 12:00 | PDOC PROGRESS REPORT ---
Subjective Progress Note for:: 10/29/16 Subjective:: Patient seems to be doing better with gradual improvement. Pt is denying any chest arm or neck discomfort. Patient denying any PND, orthopnea. Patient denied any sustained palpitations, dizziness, syncope, near syncope. Patient denying any fever chills. Patient denying any other significant discomfort. Patient is maintaining atrial fibrillation which seems at least persistent. Still in atrial fibrillation, heart rate is well controlled. Review of systems: Rest review of systems negative. Medications: Medications have been reviewed. Physical Exam Vital Signs: Temp Pulse Resp BP Pulse Ox 98.1 F 89 16 119/77 98 10/29/16 08:19 10/29/16 08:32 10/29/16 08:32 10/29/16 08:19 10/29/16 08:32 Pulse Oximeter Continuous Start: 10/27/16 12: 02 Freq: RTQ4 Status: Active Document 10/29/16 08:32 LDA (Rec: 10/29/16 08:52 LDA [email or web address]) Pulse Oximetry Assessment Oxygen Saturation (92-100) 98 Oxygen Flow Rate (L/min) 3 Oxygen Delivery Method Nasal Cannula Equipment Usage Equipment in Use Continuous SpO2 Machine # 14 Intake & Output 10/28/16 10/29/16 10/30/16 06:59 06:59 06:59 Intake Total 1931 2555 Output Total 0 Balance 1931 2555 Weight 67.8 kg 68.5 kg Exam: GENERAL: well-nourished and in no acute distress. Alert and oriented x3 HEAD: Atraumatic, normocephalic. EYES: Pupils equal round and reactive to light, extraocular movements intact, sclera anicteric, conjunctiva are normal. ENT: TMs normal, nares patent, oropharynx clear without exudates. Moist mucous membranes. No oral ulcerations or bleeding gums noted NECK: supple without lymphadenopathy. Trachea is central. No cervical or axillary lymphadenopathy noted. Carotids are 2+, JVD WNL LUNGS: Respiration seems nonlabored, no significant accessory muscle action noted. Right basal crackles noted. Mild right basal dullness noted on percussion. CHEST: Palpation of the chest wall shows no significant chest wall tenderness. No other significant abnormalities noted. 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 ABDOMEN: Soft, no significant tenderness appreciated, normoactive bowel sounds. No guarding, no rebound. No rigidity noted . No masses appreciated. EXTREMITIES: Pedal pulses are 1-2+, no calf tenderness noted. No clubbing or cyanosis.trace to 1+ pedal edema noted NEUROLOGICAL: Focused neurological exam showed no significant neurologic deficit. Normal speech, no focal weakness appreciated. PSYCH: Normal mood, normal affect. Judgment and insight within normal limits. SKIN: No significant ecchymosis, rash, ulcerations or signs of pruritus noted. MUSCULOSKELETAL EXAM: No significant joint swelling noted. Results Laboratory Results: 10/29/16 06:31 10/29/16 04:43 10/29/16 10/29/16 10/29/16 04:43 04:43 06:31 WBC Cancelled 22.7 H D RBC Cancelled 2.80 L Hgb Cancelled 8.6 L Hct Cancelled 25.6 L MCV Cancelled 91 MCH Cancelled 30.7 MCHC Cancelled 33.5 RDW Cancelled 15.4 H Plt Count Cancelled 180 Sodium 145.1 H Potassium 3.8 Chloride 112 H Carbon Dioxide 18 L Anion Gap 15 BUN 41 H Creatinine 1.15 Est GFR ( Amer) 58 L Est GFR (Non-Af Amer) 48 L Glucose 151 H Calcium 8.3 L Total Bilirubin 2.8 H AST 481 H ALT 123 H Alkaline Phosphatase 79 Total Protein 5.5 L Albumin 2.5 L 10/27/16 10/27/16 10/27/16 13:47 13:47 20:15 Creatine Kinase 1403 H 2079 H CK-MB (CK-2) 1.22 Troponin I 0.019 10/27/16 10/28/16 10/28/16 20:15 02:19 02:19 Creatine Kinase 2334 H Cancelled CK-MB (CK-2) 0.81 Troponin I 0.020 10/28/16 02:19 Creatine Kinase CK-MB (CK-2) 1.86 Troponin I < 0.012 Impressions: Chest/Abdomen CTA 10/27/16 06:41 IMPRESSION: Diffuse right lower lobe pneumonia. Abdomen Ultrasound 10/28/16 00:00 IMPRESSION: FATTY LIVER. PANCREAS PARTIALLY OR COMPLETELY OBSCURED. No shadowing gallstones. Mild gallbladder sludge. . Assessment & Plan - Diagnosis (1) Atrial fibrillation with RVR Is this a current diagnosis for this admission?: Yes (2) Hypokalemia Is this a current diagnosis for this admission?: Yes (3) Pneumonia Qualifiers: Pneumonia type: due to unspecified organism Laterality: right Lung location: lower lobe of lung Qualified Code(s): J18.1 - Lobar pneumonia, unspecified organism Is this a current diagnosis for this admission?: Yes (4) Hypoxemia Is this a current diagnosis for this admission?: Yes (5) Elevated CK Is this a current diagnosis for this admission?: Yes - Notes Notes: Atrial fibrillation with rapid ventricular response: So far atrial fibrillation is persistent. Rate is now better controlled. Continue current dose of Cardizem. Patient gives history of prior atrial fibrillation. At this point will recommend rate control and chronic anticoagulation for at least one month if not long-term. Hypokalemia: Recommend correction and maintaining potassium level over 4 mg/L. Recommend also checking magnesium level and keeping magnesium over 1.6 mg percent. Hypokalemia has improved. Pneumonia: Patient noted to have right lower lobe pneumonia. Continue with antibiotic therapy. Hypoxemia: Continue with oxygen supplementation and treatment of pneumonia. Elevated total CK: Most likely related to sepsis, hypokalemia, hypophosphatemia etc. Could consider repeating a total CK prior to discharge. Abnormal liver function test: Patient had ultrasound of the abdomen. Possibly related to pneumonia. May consider GI evaluation 2-D echocardiogram was reviewed. It showed well-preserved LVEF. No significant valvular abnormalities or other structural cardiac abnormalities were noted. - Time Time with patient: 15-25 minutes - CODE STATUS was discussed, patient remains full code. Surrogate decision-maker MARY JO BEE. Multiple medical problems were addressed.More than 50% of the time spent coordinating care, discussing management plans with involved caregivers. Management plans discussed with involved personnels. Medical decision making was of moderate complexity, patient's has multiple severe comorbidities. Medications reviewed and adjusted accordingly: Yes
[2016-10-29] MEDS: 1/2 NORMAL SALINE 1,000 ML IV PRN ×2 (12:03→23:45)
[2016-10-30] MEDS: IPRATROPIUM BROMIDE 0.02% NEB 0.5 MG/2.5 ML AMPUL NEB SCH ×4 (01:42→20:20)
[2016-10-30] MEDS: LEVALBUTEROL HCL NEB 1.25 MG/3 ML AMPUL NEB SCH ×4 (01:42→20:22)
[2016-10-30 04:41] LABS: HEMATOCRIT 24.7 % (36.0-47.0); HEMOGLOBIN 8.2 g/dL (12.0-15.5); HGB HCT DIFFERENCE -0.1; MEAN CORPUSCULAR HEMOGLOBIN 30.3 pg (27.0-33.4); MEAN CORPUSCULAR HGB CONC 33.2 g/dL (32.0-36.0); MEAN CORPUSCULAR VOLUME 91 fl (80-97); RED BLOOD COUNT 2.71 10^6/uL (3.72-5.28); RED CELL DISTRIBUTION WIDTH 15.2 % (11.5-14.0); WHITE BLOOD COUNT 27.7 10^3/uL (4.0-10.5)
[2016-10-30 05:02] LABS: ALANINE AMINOTRANSFERASE 123 U/L (9-52); ALBUMIN 2.4 g/dL (3.5-5.0); ALKALINE PHOSPHATASE 76 U/L (38-126); ANION GAP 15 (5-19); ASPARTATE AMINO TRANSFERASE 226 U/L (14-36); BILIRUBIN,DIRECT 1.1 mg/dL (0.0-0.4); BILIRUBIN,TOTAL 1.7 mg/dL (0.2-1.3); BLOOD UREA NITROGEN 45 mg/dL (7-20); CALCIUM 8.2 mg/dL (8.4-10.2); CARBON DIOXIDE 17 mmol/L (22-30); CHLORIDE 109 mmol/L (98-107); CREATINE KINASE 1551 U/L (30-135); CREATININE RESULT 1.14 mg/dL (0.52-1.25); GLUCOSE 138 mg/dL (75-110); POTASSIUM 3.6 mmol/L (3.6-5.0); SODIUM 140.6 mmol/L (137-145); TOTAL PROTEIN 5.3 g/dL (6.3-8.2)
[2016-10-30] MEDS: DILTIAZEM HCL 30 MG TABLET PO SCH ×4 (05:43→23:58)
[2016-10-30] MEDS: METHYLPREDNISOLONE INJ 125 MG/2 ML SDV IV SCH (05:43)
[2016-10-30] MEDS: LANSOPRAZOLE 30 MG TAB.RAP.DR PO SCH (05:44)
[2016-10-30 06:01] LABS: BAND NEUTROPHILS % (MANUAL) 8 % (3-5); BASOPHILS % (MANUAL) 0 % (0-2); EOSINOPHILS % (MANUAL) 0 % (0-6); LYMPHOCYTES % (MANUAL) 2 % (13-45); TOTAL CELLS COUNTED 100
[2016-10-30 06:04] LABS: ANISOCYTOSIS SLIGHT; BURR CELLS SLIGHT; OVALOCYTES 1+; POIKILOCYTOSIS 2+; POLYCHROMASIA SLIGHT; TOXIC GRANULATION 1+; TOXIC VACUOLATION PRESENT
[2016-10-30 06:05] LABS: TARGET CELLS 1+; TEAR DROP CELLS SLIGHT
[2016-10-30 06:06] LABS: NUCLEATED RED BLOOD CELLS 18 /100 WBC (0)
[2016-10-30] MEDS: GUAIFENESIN 600 MG TABLET.SA PO SCH ×2 (10:50→21:38)
[2016-10-30] MEDS: ENOXAPARIN SODIUM INJ 40 MG/0.4 ML DISP.SYRIN SUBCUT SCH (10:50)
[2016-10-30] MEDS ORDERED: 1/2 NORMAL SALINE 1,000 ML IV PRN (11:17)
--- NOTE | 2016-10-30 11:27 | PDOC PROGRESS REPORT ---
Subjective Progress Note for:: 10/30/16 Subjective:: Shortness of breath is much better. Denies any nausea or vomiting chills or fever. Denies diarrhea. Able to move around in the room. No dizziness or lightheadedness. No PND or orthopnea. No wheezing. Physical Exam Vital Signs: Temp Pulse Resp BP Pulse Ox 97.7 F 93 16 130/85 H 91 L 10/30/16 08:01 10/30/16 08:01 10/30/16 08:01 10/30/16 08:01 10/30/16 08:01 Pulse Oximeter Continuous Start: 10/27/16 12: 02 Freq: RTQ4 Status: Active Document 10/30/16 07:33 LDA (Rec: 10/30/16 07:37 LDA [email or web address]) Pulse Oximetry Assessment Oxygen Saturation (92-100) 100 Oxygen Flow Rate (L/min) 3 Oxygen Delivery Method Nasal Cannula Equipment Usage Equipment in Use Continuous SpO2 Machine # 14 Intake & Output 10/29/16 10/30/16 10/31/16 06:59 06:59 06:59 Intake Total 2555 2435 Output Total 0 600 Balance 2555 1835 Weight 68.5 kg 71.9 kg General appearance: PRESENT: no acute distress, cooperative, obese Head exam: PRESENT: normocephalic Eye exam: PRESENT: EOMI Mouth exam: PRESENT: moist, neck supple Neck exam: ABSENT: JVD Respiratory exam: PRESENT: clear to auscultation [place] - Anteriorly, decreased breath sounds - Right base posteriorly. ABSENT: rhonchi, wheezes Cardiovascular exam: PRESENT: irregular rhythm. ABSENT: gallop GI/Abdominal exam: PRESENT: normal bowel sounds, soft. ABSENT: distended, tenderness Extremities exam: ABSENT: pedal edema Neurological exam: PRESENT: alert, awake, oriented to person, oriented to place , oriented to time, oriented to situation Skin exam: PRESENT: dry, warm. ABSENT: cyanosis Results Laboratory Results: 10/30/16 04:03 10/30/16 04:03 10/30/16 10/30/16 04:03 04:03 WBC 27.7 H RBC 2.71 L Hgb 8.2 L Hct 24.7 L MCV 91 MCH 30.3 MCHC 33.2 RDW 15.2 H Plt Count 184 Seg Neutrophils % Not Reportable Lymphocytes % Not Reportable Monocytes % Not Reportable Eosinophils % Not Reportable Basophils % Not Reportable Absolute Neutrophils Not Reportable Absolute Lymphocytes Not Reportable Absolute Monocytes Not Reportable Absolute Eosinophils Not Reportable Absolute Basophils Not Reportable Sodium 140.6 Potassium 3.6 Chloride 109 H Carbon Dioxide 17 L Anion Gap 15 BUN 45 H Creatinine 1.14 Est GFR ( Amer) 59 L Est GFR (Non-Af Amer) 48 L Glucose 138 H Calcium 8.2 L Total Bilirubin 1.7 H AST 226 H ALT 123 H Alkaline Phosphatase 76 Total Protein 5.3 L Albumin 2.4 L 10/27/16 10/27/16 10/27/16 13:47 13:47 20:15 Creatine Kinase 1403 H 2079 H CK-MB (CK-2) 1.22 Troponin I 0.019 10/27/16 10/28/16 10/28/16 20:15 02:19 02:19 Creatine Kinase 2334 H Cancelled CK-MB (CK-2) 0.81 Troponin I 0.020 10/28/16 10/30/16 02:19 04:03 Creatine Kinase 1551 H CK-MB (CK-2) 1.86 Troponin I < 0.012 Impressions: Chest/Abdomen CTA 10/27/16 06:41 IMPRESSION: Diffuse right lower lobe pneumonia. Abdomen Ultrasound 10/28/16 00:00 IMPRESSION: FATTY LIVER. PANCREAS PARTIALLY OR COMPLETELY OBSCURED. No shadowing gallstones. Mild gallbladder sludge. . Assessment & Plan - Diagnosis (1) Pneumonia Qualifiers: Pneumonia type: due to unspecified organism Laterality: right Lung location: lower lobe of lung Qualified Code(s): J18.1 - Lobar pneumonia, unspecified organism Is this a current diagnosis for this admission?: Yes (2) Atrial fibrillation with RVR Is this a current diagnosis for this admission?: Yes (3) Sepsis Qualifiers: Sepsis type: sepsis due to unspecified organism Qualified Code(s): A41.9 - Sepsis, unspecified organism Is this a current diagnosis for this admission?: Yes (4) COPD exacerbation Is this a current diagnosis for this admission?: Yes (5) Hypokalemia Is this a current diagnosis for this admission?: Yes (6) Transaminitis Is this a current diagnosis for this admission?: Yes (7) Essential hypertension Is this a current diagnosis for this admission?: Yes (8) Hyperlipidemia Qualifiers: Hyperlipidemia type: unspecified Qualified Code(s): E78.5 - Hyperlipidemia, unspecified Is this a current diagnosis for this admission?: Yes (9) Substance abuse Is this a current diagnosis for this admission?: Yes - Time Time Spent with patient: 25-34 minutes - Plan Summary Plan Summary: WBC is trending up. We will add cefepime to current antibiotic therapy. Obtain follow-up chest x-ray. Discontinue steroids. Check HIDA scan for the abnormal liver function tests. Awaiting hepatitis panel. Out of bed with physical therapy.
[2016-10-30] MEDS ORDERED: CEFEPIME 1 GM/D5W RTU 1 GM/50 ML RTUPB IV SCH (11:30)
--- NOTE | 2016-10-30 13:03 | PDOC PROGRESS REPORT ---
Subjective Progress Note for:: 10/30/16 Subjective:: Patient seems to be doing better with gradual improvement. Pt is denying any chest arm or neck discomfort. Patient denying any PND, orthopnea. Patient denied any sustained palpitations, dizziness, syncope, near syncope. Patient denying any fever chills. Patient denying any other significant discomfort. Patient claims significant improvement in her dyspnea. Lab work was reviewed. Liver functions are improving. Patient however noted to have drop in hemoglobin gradually. Patient is maintaining atrial fibrillation which seems at least persistent. Still in atrial fibrillation, heart rate is well controlled. Review of systems: Rest review of systems negative. Medications: Medications have been reviewed. Physical Exam Vital Signs: Temp Pulse Resp BP Pulse Ox 97.7 F 93 16 130/85 H 98 10/30/16 08:01 10/30/16 08:01 10/30/16 08:01 10/30/16 08:01 10/30/16 12:00 Pulse Oximeter Continuous Start: 10/27/16 12: 02 Freq: RTQ4 Status: Active Document 10/30/16 12:00 LDA (Rec: 10/30/16 12:52 LDA [email or web address]) Pulse Oximetry Assessment Oxygen Saturation (92-100) 98 Oxygen Flow Rate (L/min) 2 Oxygen Delivery Method Nasal Cannula Equipment Usage Equipment in Use Continuous SpO2 Machine # 14 Intake & Output 10/29/16 10/30/16 10/31/16 06:59 06:59 06:59 Intake Total 2555 2435 Output Total 0 600 Balance 2555 1835 Weight 68.5 kg 71.9 kg Exam: GENERAL: well-nourished and in no acute distress. Alert and oriented x3 HEAD: Atraumatic, normocephalic. EYES: Pupils equal round and reactive to light, extraocular movements intact, sclera anicteric, conjunctiva are normal. ENT: TMs normal, nares patent, oropharynx clear without exudates. Moist mucous membranes. No oral ulcerations or bleeding gums noted NECK: supple without lymphadenopathy. Trachea is central. No cervical or axillary lymphadenopathy noted. Carotids are 2+, JVD WNL LUNGS: Respiration seems nonlabored, no significant accessory muscle action noted. Right basal crackles are noted No wheezes rales or rhonchi noted. Mild right basal dullness noted. CHEST: Palpation of the chest wall shows no significant chest wall tenderness. No other significant abnormalities noted. 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 ABDOMEN: Soft, no significant tenderness appreciated, normoactive bowel sounds. No guarding, no rebound. No rigidity noted . No masses appreciated. EXTREMITIES: Pedal pulses are 1-2+, no calf tenderness noted. No clubbing or cyanosis.trace pedal edema noted NEUROLOGICAL: Focused neurological exam showed no significant neurologic deficit. Normal speech, no focal weakness appreciated. PSYCH: Normal mood, normal affect. Judgment and insight within normal limits. SKIN: No significant ecchymosis, rash, ulcerations or signs of pruritus noted. MUSCULOSKELETAL EXAM: No significant joint swelling noted. Results Laboratory Results: 10/30/16 04:03 10/30/16 04:03 10/30/16 10/30/16 04:03 04:03 WBC 27.7 H RBC 2.71 L Hgb 8.2 L Hct 24.7 L MCV 91 MCH 30.3 MCHC 33.2 RDW 15.2 H Plt Count 184 Seg Neutrophils % Not Reportable Lymphocytes % Not Reportable Monocytes % Not Reportable Eosinophils % Not Reportable Basophils % Not Reportable Absolute Neutrophils Not Reportable Absolute Lymphocytes Not Reportable Absolute Monocytes Not Reportable Absolute Eosinophils Not Reportable Absolute Basophils Not Reportable Sodium 140.6 Potassium 3.6 Chloride 109 H Carbon Dioxide 17 L Anion Gap 15 BUN 45 H Creatinine 1.14 Est GFR ( Amer) 59 L Est GFR (Non-Af Amer) 48 L Glucose 138 H Calcium 8.2 L Total Bilirubin 1.7 H AST 226 H ALT 123 H Alkaline Phosphatase 76 Total Protein 5.3 L Albumin 2.4 L 10/27/16 10/27/16 10/27/16 13:47 13:47 20:15 Creatine Kinase 1403 H 2079 H CK-MB (CK-2) 1.22 Troponin I 0.019 10/27/16 10/28/16 10/28/16 20:15 02:19 02:19 Creatine Kinase 2334 H Cancelled CK-MB (CK-2) 0.81 Troponin I 0.020 10/28/16 10/30/16 02:19 04:03 Creatine Kinase 1551 H CK-MB (CK-2) 1.86 Troponin I < 0.012 Impressions: Chest/Abdomen CTA 10/27/16 06:41 IMPRESSION: Diffuse right lower lobe pneumonia. Abdomen Ultrasound 10/28/16 00:00 IMPRESSION: FATTY LIVER. PANCREAS PARTIALLY OR COMPLETELY OBSCURED. No shadowing gallstones. Mild gallbladder sludge. . Assessment & Plan - Diagnosis (1) Atrial fibrillation with RVR Is this a current diagnosis for this admission?: Yes (2) Hypokalemia Is this a current diagnosis for this admission?: Yes (3) Pneumonia Qualifiers: Pneumonia type: due to unspecified organism Laterality: right Lung location: lower lobe of lung Qualified Code(s): J18.1 - Lobar pneumonia, unspecified organism Is this a current diagnosis for this admission?: Yes (4) Hypoxemia Is this a current diagnosis for this admission?: Yes (5) Abnormal liver function test Is this a current diagnosis for this admission?: Yes - Notes Notes: Atrial fibrillation with RVR: Heart rate is well controlled. Currently patient just on Lovenox, DVT prophylaxis dose. We need to make a decision about chronic anticoagulation. Patient [id number] however is low. Therefore there is not much significant benefit be obtained from chronic anticoagulation. Hypokalemia: Improved Pneumonia: Improved will review chest x-ray and will obtain one tomorrow morning , with PA and lateral. Hypoxemia: Patient noted to have intermittent low oxygen saturation. Abnormal liver function tests: Possibly related to significant pneumonia but sometimes could be related to sepsis. These are improving. Will order chest x-ray PA and lateral for tomorrow morning, we will also check an EKG. - Time Time with patient: 15-25 minutes - CODE STATUS was discussed, patient remains full code. Surrogate decision-maker unchanged. Multiple medical problems were addressed.More than 50% of the time spent coordinating care, discussing management plans with involved caregivers. Management plans discussed with involved personnels. Medical decision making was of moderate complexity, patient's has multiple severe comorbidities.
[2016-10-30] MEDS: CEFEPIME 1 GM/D5W RTU 1 GM/50 ML RTUPB IV SCH (14:56)
[2016-10-30] MEDS: 1/2 NORMAL SALINE 1,000 ML IV PRN (23:58)
[2016-10-31] MEDS: IPRATROPIUM BROMIDE 0.02% NEB 0.5 MG/2.5 ML AMPUL NEB SCH ×4 (01:44→19:43)
[2016-10-31] MEDS: LEVALBUTEROL HCL NEB 1.25 MG/3 ML AMPUL NEB SCH ×4 (01:44→19:43)
[2016-10-31] MEDS: CEFEPIME 1 GM/D5W RTU 1 GM/50 ML RTUPB IV SCH ×2 (03:16→14:36)
[2016-10-31 05:12] LABS: HEMATOCRIT 24.9 % (36.0-47.0); HEMOGLOBIN 8.3 g/dL (12.0-15.5); MEAN CORPUSCULAR HEMOGLOBIN 30.6 pg (27.0-33.4); MEAN CORPUSCULAR HGB CONC 33.3 g/dL (32.0-36.0); MEAN CORPUSCULAR VOLUME 92 fl (80-97); RED BLOOD COUNT 2.71 10^6/uL (3.72-5.28); RED CELL DISTRIBUTION WIDTH 15.5 % (11.5-14.0)
[2016-10-31 05:26] LABS: ANION GAP 14 (5-19); BLOOD UREA NITROGEN 45 mg/dL (7-20); CALCIUM 8.6 mg/dL (8.4-10.2); CARBON DIOXIDE 18 mmol/L (22-30); CHLORIDE 109 mmol/L (98-107); CREATINE KINASE 1277 U/L (30-135); GLUCOSE 139 mg/dL (75-110); POTASSIUM 4.1 mmol/L (3.6-5.0); SODIUM 140.5 mmol/L (137-145)
[2016-10-31 05:57] LABS: WHITE BLOOD COUNT 24.7 10^3/uL (4.0-10.5)
[2016-10-31] MEDS: DILTIAZEM HCL 30 MG TABLET PO SCH ×3 (06:52→17:24)
[2016-10-31] MEDS: LANSOPRAZOLE 30 MG TAB.RAP.DR PO SCH (06:52)
[2016-10-31] MEDS: LEVOFLOXACIN 750 MG/D5W RTU 750 MG/150 ML RTUPB IV SCH (10:28)
[2016-10-31] MEDS: GUAIFENESIN 600 MG TABLET.SA PO SCH ×2 (10:28→21:31)
--- NOTE | 2016-10-31 10:42 | EKG REPORT ---
SEVERITY:- ABNORMAL ECG - A-FLUTTER W/ PREDOM 4:1 AV BLOCK, A-RATE 283 BORDERLINE INFERIOR Q WAVES BORDERLINE PROLONGED QT INTERVAL : Confirmed by: Afia Rodrigues 31-Oct-2016 10:41:19
[2016-10-31] MEDS: ENOXAPARIN SODIUM INJ 40 MG/0.4 ML DISP.SYRIN SUBCUT SCH (11:46)
--- NOTE | 2016-10-31 14:27 | PDOC PROGRESS REPORT ---
Subjective Progress Note for:: 10/31/16 Subjective:: Patient continues to improve. No nausea or vomiting. No abdominal pain or diarrhea. Denies any increasing shortness of breath. Did have coughing reportedly with some dried blood on one episode. Patient denies any chest pain at all. No dizziness or lightheadedness. She mentioned is not on oxygen at home, but has home nebulizer. Physical Exam Vital Signs: Temp Pulse Resp BP Pulse Ox 98.1 F 78 16 112/78 96 10/31/16 11:15 10/31/16 13:38 10/31/16 13:38 10/31/16 11:15 10/31/16 13:38 Pulse Oximeter Continuous Start: 10/27/16 12: 02 Freq: RTQ4 Status: Complete Document 10/31/16 12:00 HCR (Rec: 10/31/16 13:07 HCR [email or web address]) Pulse Oximetry Assessment Equipment Usage Equipment Standby Continuous SpO2 Machine # 14 Intake & Output 10/30/16 10/31/16 11/01/16 06:59 06:59 06:59 Intake Total 2435 1529 100 Output Total 600 650 Balance 1835 879 100 Weight 71.9 kg 73 kg General appearance: PRESENT: no acute distress, cooperative Head exam: PRESENT: normocephalic Eye exam: PRESENT: EOMI Mouth exam: PRESENT: moist, neck supple Neck exam: ABSENT: JVD Respiratory exam: PRESENT: clear to auscultation adelso. ABSENT: rhonchi, wheezes Cardiovascular exam: PRESENT: irregular rhythm. ABSENT: gallop GI/Abdominal exam: PRESENT: soft. ABSENT: distended, tenderness Extremities exam: ABSENT: pedal edema Neurological exam: PRESENT: alert, awake, oriented to situation Skin exam: ABSENT: cyanosis Results Laboratory Results: 10/31/16 04:07 10/31/16 04:07 10/31/16 10/31/16 04:07 04:07 WBC 24.7 H RBC 2.71 L Hgb 8.3 L Hct 24.9 L MCV 92 MCH 30.6 MCHC 33.3 RDW 15.5 H Plt Count 241 Sodium 140.5 Potassium 4.1 Chloride 109 H Carbon Dioxide 18 L Anion Gap 14 BUN 45 H Creatinine 1.20 Est GFR ( Amer) 55 L Est GFR (Non-Af Amer) 46 L Glucose 139 H Calcium 8.6 10/27/16 10/27/16 10/27/16 13:47 13:47 20:15 Creatine Kinase 1403 H 2079 H CK-MB (CK-2) 1.22 Troponin I 0.019 10/27/16 10/28/16 10/28/16 20:15 02:19 02:19 Creatine Kinase 2334 H Cancelled CK-MB (CK-2) 0.81 Troponin I 0.020 10/28/16 10/30/16 10/31/16 02:19 04:03 04:07 Creatine Kinase 1551 H 1277 H CK-MB (CK-2) 1.86 Troponin I < 0.012 Impressions: Chest/Abdomen CTA 10/27/16 06:41 IMPRESSION: Diffuse right lower lobe pneumonia. Abdomen Ultrasound 10/28/16 00:00 IMPRESSION: FATTY LIVER. PANCREAS PARTIALLY OR COMPLETELY OBSCURED. No shadowing gallstones. Mild gallbladder sludge. . Chest X-Ray 10/30/16 00:00 IMPRESSION: Right lower lobe pneumonia. Hepatobiliary Scan Nuclear Medicine 10/31/16 00:00 IMPRESSION: NORMAL STUDY WITHOUT CYSTIC OR COMMON DUCT OBSTRUCTION. NORMAL GALLBLADDER EJECTION FRACTION. IV CHOLECYSTOKININ REPRODUCED THE PATIENT'S SYMPTOMS. Assessment & Plan - Diagnosis (1) Pneumonia Qualifiers: Pneumonia type: due to unspecified organism Laterality: right Lung location: lower lobe of lung Qualified Code(s): J18.1 - Lobar pneumonia, unspecified organism Is this a current diagnosis for this admission?: Yes (2) Atrial fibrillation with RVR Is this a current diagnosis for this admission?: Yes (3) Sepsis Qualifiers: Sepsis type: sepsis due to unspecified organism Qualified Code(s): A41.9 - Sepsis, unspecified organism Is this a current diagnosis for this admission?: Yes (4) COPD exacerbation Is this a current diagnosis for this admission?: Yes (5) Hypokalemia Is this a current diagnosis for this admission?: Yes (6) Transaminitis Is this a current diagnosis for this admission?: Yes (7) Essential hypertension Is this a current diagnosis for this admission?: Yes (8) Hyperlipidemia Qualifiers: Hyperlipidemia type: unspecified Qualified Code(s): E78.5 - Hyperlipidemia, unspecified Is this a current diagnosis for this admission?: Yes (9) Substance abuse Is this a current diagnosis for this admission?: Yes - Time Time Spent with patient: 25-34 minutes - Plan Summary Plan Summary: Patient's heart rate improved. WBC seems to trend down. I will continue current antibiotics. No increasing infiltrate on follow-up chest x-ray. HIDA scan was negative. Persistent increased probably related to steroids. This has been discontinued. We will check for home oxygen requirement. Continue nebulizers. Continue physical therapy. Possible discharge in the morning if WBC continues to improve.
--- NOTE | 2016-10-31 20:08 | PDOC PROGRESS REPORT ---
Subjective Progress Note for:: 10/31/16 Subjective:: Patient seems to be doing better. She is going down for hepatobiliary scan. Pt is denying any chest arm or neck discomfort. Patient denying any PND, orthopnea. Patient denied any sustained palpitations, dizziness, syncope, near syncope. Patient denying any fever chills. Patient denying any other significant discomfort. Patient claims significant improvement in her dyspnea. Lab work was reviewed. Liver functions are improving. Patient however noted to have drop in hemoglobin gradually. Chest x-ray obtained yesterday was reviewed showed significant improvement in pulmonary infiltrate. Patient is maintaining atrial fibrillation which is persistent. Still in atrial fibrillation, heart rate is well controlled. Review of systems: Rest review of systems negative. Medications: Medications have been reviewed. Physical Exam Vital Signs: Temp Pulse Resp BP Pulse Ox 98.6 F 70 20 129/91 H 92 10/31/16 19:22 10/31/16 19:22 10/31/16 19:22 10/31/16 19:22 10/31/16 19:22 Pulse Oximeter Continuous Start: 10/27/16 12: 02 Freq: RTQ4 Status: Complete Document 10/31/16 12:00 HCR (Rec: 10/31/16 13:07 HCR [email or web address]) Pulse Oximetry Assessment Equipment Usage Equipment Standby Continuous SpO2 Machine # 14 Intake & Output 10/30/16 10/31/16 11/01/16 06:59 06:59 06:59 Intake Total 2435 1529 1950 Output Total 600 650 900 Balance 0121 777 1397 Weight 71.9 kg 73 kg Exam: GENERAL: well-nourished and in no acute distress. Alert and oriented x3 HEAD: Atraumatic, normocephalic. EYES: Pupils equal round and reactive to light, extraocular movements intact, sclera anicteric, conjunctiva are normal. ENT: TMs normal, nares patent, oropharynx clear without exudates. Moist mucous membranes. No oral ulcerations or bleeding gums noted NECK: supple without lymphadenopathy. Trachea is central. No cervical or axillary lymphadenopathy noted. Carotids are 2+, JVD WNL LUNGS: Respiration seems nonlabored, no significant accessory muscle action noted. Right basal crackles are noted. No dullness appreciated today. CHEST: Palpation of the chest wall shows no significant chest wall tenderness. No other significant abnormalities noted. 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 ABDOMEN: Soft, no significant tenderness appreciated, normoactive bowel sounds. No guarding, no rebound. No rigidity noted . No masses appreciated. EXTREMITIES: Pedal pulses are 1-2+, no calf tenderness noted. No clubbing or cyanosis.trace pedal edema noted NEUROLOGICAL: Focused neurological exam showed no significant neurologic deficit. Normal speech, no focal weakness appreciated. PSYCH: Normal mood, normal affect. Judgment and insight within normal limits. SKIN: No significant ecchymosis, rash, ulcerations or signs of pruritus noted. MUSCULOSKELETAL EXAM: No significant joint swelling noted. Results Laboratory Results: 10/31/16 04:07 10/31/16 04:07 10/31/16 10/31/16 04:07 04:07 WBC 24.7 H RBC 2.71 L Hgb 8.3 L Hct 24.9 L MCV 92 MCH 30.6 MCHC 33.3 RDW 15.5 H Plt Count 241 Sodium 140.5 Potassium 4.1 Chloride 109 H Carbon Dioxide 18 L Anion Gap 14 BUN 45 H Creatinine 1.20 Est GFR ( Amer) 55 L Est GFR (Non-Af Amer) 46 L Glucose 139 H Calcium 8.6 10/27/16 10/27/16 10/27/16 13:47 13:47 20:15 Creatine Kinase 1403 H 2079 H CK-MB (CK-2) 1.22 Troponin I 0.019 10/27/16 10/28/16 10/28/16 20:15 02:19 02:19 Creatine Kinase 2334 H Cancelled CK-MB (CK-2) 0.81 Troponin I 0.020 10/28/16 10/30/16 10/31/16 02:19 04:03 04:07 Creatine Kinase 1551 H 1277 H CK-MB (CK-2) 1.86 Troponin I < 0.012 Impressions: Chest/Abdomen CTA 10/27/16 06:41 IMPRESSION: Diffuse right lower lobe pneumonia. Abdomen Ultrasound 10/28/16 00:00 IMPRESSION: FATTY LIVER. PANCREAS PARTIALLY OR COMPLETELY OBSCURED. No shadowing gallstones. Mild gallbladder sludge. . Chest X-Ray 10/30/16 00:00 IMPRESSION: Right lower lobe pneumonia. Hepatobiliary Scan Nuclear Medicine 10/31/16 00:00 IMPRESSION: NORMAL STUDY WITHOUT CYSTIC OR COMMON DUCT OBSTRUCTION. NORMAL GALLBLADDER EJECTION FRACTION. IV CHOLECYSTOKININ REPRODUCED THE PATIENT'S SYMPTOMS. Assessment & Plan - Diagnosis (1) Atrial fibrillation with RVR Is this a current diagnosis for this admission?: Yes (2) Hypokalemia Is this a current diagnosis for this admission?: Yes (3) Pneumonia Qualifiers: Pneumonia type: due to unspecified organism Laterality: right Lung location: lower lobe of lung Qualified Code(s): J18.1 - Lobar pneumonia, unspecified organism Is this a current diagnosis for this admission?: Yes (4) Hypoxemia Is this a current diagnosis for this admission?: Yes (5) Abnormal liver function test Is this a current diagnosis for this admission?: Yes - Notes Notes: Atrial fibrillation: Heart rate well controlled on current dose of Cardizem. Will recommend switching to long acting Cardizem. Hypokalemia: This has resolved. Pneumonia: This has improved. Hypoxemia: Improved Abnormal liver function test: Possibly related to sepsis and pneumonia. This is improving. Chest x-ray results reviewed with the patient. Will follow tomorrow. As noted above due to low chads score at this point along with pneumonia, will not recommend chronic anticoagulation but may need to be considered as an outpatient on going basis. - Time Time with patient: 15-25 minutes - CODE STATUS was discussed, patient remains full code. Surrogate decision-maker unchanged. Multiple medical problems were addressed.More than 50% of the time spent coordinating care, discussing management plans with involved caregivers. Management plans discussed with involved personnels. Medical decision making was of moderate to high complexity , patient's has multiple severe comorbidities. Medications reviewed and adjusted accordingly: Yes
[2016-10-31] MEDS: 1/2 NORMAL SALINE 1,000 ML IV PRN (21:00)
[2016-10-31] MEDS: DILTIAZEM HCL 120 MG CAP.SR.24H PO SCH (21:29)
[2016-11-01] MEDS: IPRATROPIUM BROMIDE 0.02% NEB 0.5 MG/2.5 ML AMPUL NEB SCH ×4 (01:59→19:41)
[2016-11-01] MEDS: LEVALBUTEROL HCL NEB 1.25 MG/3 ML AMPUL NEB SCH ×4 (01:59→19:41)
[2016-11-01] MEDS: CEFEPIME 1 GM/D5W RTU 1 GM/50 ML RTUPB IV SCH ×2 (02:26→14:39)
[2016-11-01 05:00] LABS: HEMATOCRIT 25.6 % (36.0-47.0); HEMOGLOBIN 8.4 g/dL (12.0-15.5); HGB HCT DIFFERENCE -0.4; MEAN CORPUSCULAR HEMOGLOBIN 30.3 pg (27.0-33.4); MEAN CORPUSCULAR HGB CONC 32.8 g/dL (32.0-36.0); MEAN CORPUSCULAR VOLUME 93 fl (80-97); RED BLOOD COUNT 2.77 10^6/uL (3.72-5.28); RED CELL DISTRIBUTION WIDTH 15.5 % (11.5-14.0)
[2016-11-01] MEDS: LANSOPRAZOLE 30 MG TAB.RAP.DR PO SCH (05:43)
[2016-11-01] MEDS: ENOXAPARIN SODIUM INJ 40 MG/0.4 ML DISP.SYRIN SUBCUT SCH (09:17)
[2016-11-01] MEDS: DILTIAZEM HCL 120 MG CAP.SR.24H PO SCH ×2 (09:19→21:23)
[2016-11-01] MEDS: GUAIFENESIN 600 MG TABLET.SA PO SCH ×2 (09:20→21:22)
[2016-11-01] MEDS: 1/2 NORMAL SALINE 1,000 ML IV PRN (11:42)
--- NOTE | 2016-11-01 14:45 | PDOC PROGRESS REPORT ---
Subjective Progress Note for:: 11/01/16 Subjective:: Patient complains of some cough. Physical Exam Vital Signs: Temp Pulse Resp BP Pulse Ox 98.3 F 87 18 150/85 H 97 11/01/16 12:56 11/01/16 14:00 11/01/16 13:48 11/01/16 12:56 11/01/16 12:56 Pulse Oximeter Continuous Start: 10/27/16 12: 02 Freq: RTQ4 Status: Complete Document 10/31/16 12:00 HCR (Rec: 10/31/16 13:07 HCR [email or web address]) Pulse Oximetry Assessment Equipment Usage Equipment Standby Continuous SpO2 Machine # 14 Intake & Output 10/31/16 11/01/16 11/02/16 06:59 06:59 06:59 Intake Total 1529 3950 900 Output Total 650 1400 1000 Balance 879 2550 -100 Weight 73 kg 76.8 kg General appearance: PRESENT: no acute distress Eye exam: PRESENT: conjunctiva pink. ABSENT: scleral icterus Mouth exam: PRESENT: moist, tongue midline Neck exam: ABSENT: JVD Respiratory exam: PRESENT: clear to auscultation adelso, rhonchi - Coarse rhonchi bilaterally.. ABSENT: rales, wheezes Cardiovascular exam: PRESENT: RRR. ABSENT: diastolic murmur, rubs, systolic murmur GI/Abdominal exam: PRESENT: normal bowel sounds, soft. ABSENT: distended, guarding, mass, organolmegaly, rebound, tenderness Extremities exam: ABSENT: calf tenderness, clubbing, pedal edema Neurological exam: PRESENT: alert, awake, oriented to person, oriented to place , oriented to time, oriented to situation, CN II-XII grossly intact. ABSENT: motor sensory deficit Psychiatric exam: PRESENT: appropriate affect Skin exam: PRESENT: dry, intact, warm. ABSENT: cyanosis, rash Results Laboratory Results: 11/01/16 04:33 10/31/16 04:07 11/01/16 04:33 WBC 26.7 H RBC 2.77 L Hgb 8.4 L Hct 25.6 L MCV 93 MCH 30.3 MCHC 32.8 RDW 15.5 H Plt Count 293 10/27/16 10/27/16 10/27/16 13:47 13:47 20:15 Creatine Kinase 1403 H 2079 H CK-MB (CK-2) 1.22 Troponin I 0.019 10/27/16 10/28/16 10/28/16 20:15 02:19 02:19 Creatine Kinase 2334 H Cancelled CK-MB (CK-2) 0.81 Troponin I 0.020 10/28/16 10/30/16 10/31/16 02:19 04:03 04:07 Creatine Kinase 1551 H 1277 H CK-MB (CK-2) 1.86 Troponin I < 0.012 11/01/16 04:33 Creatine Kinase 1528 H CK-MB (CK-2) Troponin I Impressions: Chest/Abdomen CTA 10/27/16 06:41 IMPRESSION: Diffuse right lower lobe pneumonia. Abdomen Ultrasound 10/28/16 00:00 IMPRESSION: FATTY LIVER. PANCREAS PARTIALLY OR COMPLETELY OBSCURED. No shadowing gallstones. Mild gallbladder sludge. . Chest X-Ray 10/30/16 00:00 IMPRESSION: Right lower lobe pneumonia. Hepatobiliary Scan Nuclear Medicine 10/31/16 00:00 IMPRESSION: NORMAL STUDY WITHOUT CYSTIC OR COMMON DUCT OBSTRUCTION. NORMAL GALLBLADDER EJECTION FRACTION. IV CHOLECYSTOKININ REPRODUCED THE PATIENT'S SYMPTOMS. Assessment & Plan - Diagnosis (1) Pneumonia Qualifiers: Pneumonia type: due to unspecified organism Laterality: right Lung location: lower lobe of lung Qualified Code(s): J18.1 - Lobar pneumonia, unspecified organism Is this a current diagnosis for this admission?: YesPlan: Patient is clinically improving. Continue with the cefepime and Levaquin. Cultures are negative so far. (2) Atrial fibrillation with RVR Is this a current diagnosis for this admission?: YesPlan: Patient is in a regular rhythm currently. (3) COPD exacerbation Is this a current diagnosis for this admission?: YesPlan: Continue with nebulizers. (4) Elevated CK Is this a current diagnosis for this admission?: YesPlan: Continues to have elevated creatine kinase but denies any muscle pains. (5) Essential hypertension Is this a current diagnosis for this admission?: YesPlan: Blood pressure is under adequate control. (6) Hyperlipidemia Qualifiers: Hyperlipidemia type: unspecified Qualified Code(s): E78.5 - Hyperlipidemia, unspecified Is this a current diagnosis for this admission?: Yes - Time Time Spent with patient: 25-34 minutes - Inpatient Certification Medical Necessity: Need for IV Antibiotics - Plan Summary Plan Summary: Her white count remains elevated. If it begins to decrease we can hopefully discharge him on oral antibiotics.
--- NOTE | 2016-11-01 20:13 | PDOC PROGRESS REPORT ---
Subjective Progress Note for:: 11/01/16 Subjective:: Patient seems to be doing better. Pt is denying any chest arm or neck discomfort. Patient denying any PND, orthopnea. Patient denied any sustained palpitations, dizziness, syncope, near syncope. Patient denying any fever chills. Patient denying any other significant discomfort. Patient claims significant improvement in her dyspnea. Lab work was reviewed. Liver functions are improving. Patient actually noted to be in sinus rhythm. Review of systems: Rest review of systems negative. Medications: Medications have been reviewed. Physical Exam Vital Signs: Temp Pulse Resp BP Pulse Ox 98.3 F 85 20 131/79 H 94 11/01/16 15:23 11/01/16 15:23 11/01/16 15:23 11/01/16 15:23 11/01/16 15:23 Pulse Oximeter Continuous Start: 10/27/16 12: 02 Freq: RTQ4 Status: Complete Document 10/31/16 12:00 HCR (Rec: 10/31/16 13:07 HCR [email or web address]) Pulse Oximetry Assessment Equipment Usage Equipment Standby Continuous SpO2 Machine # 14 Intake & Output 10/31/16 11/01/16 11/02/16 06:59 06:59 06:59 Intake Total 1529 3950 2100 Output Total 650 1400 1300 Balance 879 2550 800 Weight 73 kg 76.8 kg Exam: GENERAL: well-nourished and in no acute distress. Alert and oriented x3 HEAD: Atraumatic, normocephalic. EYES: Pupils equal round and reactive to light, extraocular movements intact, sclera anicteric, conjunctiva are normal. ENT: TMs normal, nares patent, oropharynx clear without exudates. Moist mucous membranes. No oral ulcerations or bleeding gums noted NECK: supple without lymphadenopathy. Trachea is central. No cervical or axillary lymphadenopathy noted. Carotids are 2+, JVD WNL LUNGS: Respiration seems nonlabored, no significant accessory muscle action noted. A few right basal crackles noted. CHEST: Palpation of the chest wall shows no significant chest wall tenderness. No other significant abnormalities noted. 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 ABDOMEN: Soft, no significant tenderness appreciated, normoactive bowel sounds. No guarding, no rebound. No rigidity noted . No masses appreciated. EXTREMITIES: Pedal pulses are 1-2+, no calf tenderness noted. No clubbing or cyanosis.trace to 1+ pedal edema noted NEUROLOGICAL: Focused neurological exam showed no significant neurologic deficit. Normal speech, no focal weakness appreciated. PSYCH: Normal mood, normal affect. Judgment and insight within normal limits. SKIN: No significant ecchymosis, rash, ulcerations or signs of pruritus noted. MUSCULOSKELETAL EXAM: No significant joint swelling noted. Results Laboratory Results: 11/01/16 04:33 10/31/16 04:07 11/01/16 04:33 WBC 26.7 H RBC 2.77 L Hgb 8.4 L Hct 25.6 L MCV 93 MCH 30.3 MCHC 32.8 RDW 15.5 H Plt Count 293 10/27/16 10/27/16 10/27/16 13:47 13:47 20:15 Creatine Kinase 1403 H 2079 H CK-MB (CK-2) 1.22 Troponin I 0.019 10/27/16 10/28/16 10/28/16 20:15 02:19 02:19 Creatine Kinase 2334 H Cancelled CK-MB (CK-2) 0.81 Troponin I 0.020 10/28/16 10/30/16 10/31/16 02:19 04:03 04:07 Creatine Kinase 1551 H 1277 H CK-MB (CK-2) 1.86 Troponin I < 0.012 11/01/16 04:33 Creatine Kinase 1528 H CK-MB (CK-2) Troponin I Impressions: Chest/Abdomen CTA 10/27/16 06:41 IMPRESSION: Diffuse right lower lobe pneumonia. Abdomen Ultrasound 10/28/16 00:00 IMPRESSION: FATTY LIVER. PANCREAS PARTIALLY OR COMPLETELY OBSCURED. No shadowing gallstones. Mild gallbladder sludge. . Chest X-Ray 10/30/16 00:00 IMPRESSION: Right lower lobe pneumonia. Hepatobiliary Scan Nuclear Medicine 10/31/16 00:00 IMPRESSION: NORMAL STUDY WITHOUT CYSTIC OR COMMON DUCT OBSTRUCTION. NORMAL GALLBLADDER EJECTION FRACTION. IV CHOLECYSTOKININ REPRODUCED THE PATIENT'S SYMPTOMS. Assessment & Plan - Diagnosis (1) Atrial fibrillation with RVR Is this a current diagnosis for this admission?: Yes (2) Hypokalemia Is this a current diagnosis for this admission?: Yes (3) Pneumonia Qualifiers: Pneumonia type: due to unspecified organism Laterality: right Lung location: lower lobe of lung Qualified Code(s): J18.1 - Lobar pneumonia, unspecified organism Is this a current diagnosis for this admission?: Yes (4) Hypoxemia Is this a current diagnosis for this admission?: Yes (5) Abnormal liver function test Is this a current diagnosis for this admission?: Yes - Notes Notes: Atrial fibrillation: Rate converted to sinus rhythm. Patient was switched to long-acting Cardizem yesterday and she seems to be tolerating it well.. Hypokalemia: This has resolved. Pneumonia: This has improved. Hypoxemia: Improved Abnormal liver function test: Possibly related to sepsis and pneumonia. This is improving. Chest x-ray results reviewed with the patient. Will follow tomorrow. As noted above due to low chads score at this point along with pneumonia, will not recommend chronic anticoagulation but may need to be considered as an outpatient on going basis. Patient has converted to sinus rhythm. Will obtain a EKG for confirmation. At this point will sign off as patient is stable from cardiac standpoint. Discussed with Dr. rubio. - Time Time with patient: 15-25 minutes - CODE STATUS was discussed, patient remains full code. Surrogate decision-maker unchanged. Multiple medical problems were addressed.More than 50% of the time spent coordinating care, discussing management plans with involved caregivers. Management plans discussed with involved personnels. Medical decision making was of moderate to high complexity , patient's has multiple severe comorbidities. Medications reviewed and adjusted accordingly: Yes
--- NOTE | 2016-11-01 22:17 | EKG REPORT ---
SEVERITY:- ABNORMAL ECG - SINUS RHYTHM PROBABLE LEFT ATRIAL ABNORMALITY BORDERLINE T ABNORMALITIES, ANT-LAT LEADS : Confirmed by: Afia Rodrigues 01-Nov-2016 22:15:59
[2016-11-02] MEDS: IPRATROPIUM BROMIDE 0.02% NEB 0.5 MG/2.5 ML AMPUL NEB SCH ×2 (02:57→08:11)
[2016-11-02] MEDS: LEVALBUTEROL HCL NEB 1.25 MG/3 ML AMPUL NEB SCH ×2 (02:57→08:11)
[2016-11-02] MEDS: CEFEPIME 1 GM/D5W RTU 1 GM/50 ML RTUPB IV SCH (02:59)
[2016-11-02] MEDS: LANSOPRAZOLE 30 MG TAB.RAP.DR PO SCH (06:06)
[2016-11-02 06:56] LABS: HEMATOCRIT 26.4 % (36.0-47.0); HEMOGLOBIN 8.5 g/dL (12.0-15.5); HGB HCT DIFFERENCE -0.9; MEAN CORPUSCULAR HEMOGLOBIN 29.5 pg (27.0-33.4); MEAN CORPUSCULAR HGB CONC 32.2 g/dL (32.0-36.0); MEAN CORPUSCULAR VOLUME 92 fl (80-97); RED BLOOD COUNT 2.88 10^6/uL (3.72-5.28); RED CELL DISTRIBUTION WIDTH 15.8 % (11.5-14.0); WHITE BLOOD COUNT 19.1 10^3/uL (4.0-10.5)
[2016-11-02 07:11] LABS: ANION GAP 11 (5-19); BLOOD UREA NITROGEN 27 mg/dL (7-20); CALCIUM 8.3 mg/dL (8.4-10.2); CARBON DIOXIDE 20 mmol/L (22-30); CHLORIDE 109 mmol/L (98-107); CREATININE RESULT 0.84 mg/dL (0.52-1.25); GLUCOSE 92 mg/dL (75-110); POTASSIUM 3.9 mmol/L (3.6-5.0)
[2016-11-02 07:53] LABS: BAND NEUTROPHILS % (MANUAL) 3 % (3-5); BASOPHILS % (MANUAL) 0 % (0-2); EOSINOPHILS % (MANUAL) 2 % (0-6); LYMPHOCYTES % (MANUAL) 17 % (13-45); NUCLEATED RED BLOOD CELLS 14 /100 WBC (0); TOTAL CELLS COUNTED 100
[2016-11-02 08:03] LABS: ANISOCYTOSIS 1+; ROULEAUX 1+
[2016-11-02 08:04] LABS: HYPOCHROMASIA 1+; TARGET CELLS 1+
[2016-11-02 08:05] LABS: POLYCHROMASIA 1+; TOXIC GRANULATION SLIGHT
[2016-11-02] MEDS: ENOXAPARIN SODIUM INJ 40 MG/0.4 ML DISP.SYRIN SUBCUT SCH (08:34)
[2016-11-02] MEDS: DILTIAZEM HCL 120 MG CAP.SR.24H PO SCH (09:36)
[2016-11-02] MEDS: GUAIFENESIN 600 MG TABLET.SA PO SCH (09:36)
[2016-11-02 09:41] LABS: WHITE BLOOD COUNT 26.7 10^3/uL (4.0-10.5)
[2016-11-02] MEDS ORDERED: LEVOFLOXACIN 750 MG TABLET PO SCH (10:00)
[2016-11-02 11:11] VITALS: BP 137/71
[2016-11-02 14:09] LABS: PATH REVIEW PATHOLOGIST REVIEWED
--- NOTE | 2016-11-02 18:19 | PDOC DISCHARGE SUMMARY ---
General - Admit/Disc Date/PCP Admission Date/Primary Care Provider: 10/27/16 12:01 NAHUM ALANIS MD Discharge Date: 11/02/16 - Discharge Diagnosis (1) Pneumonia Is this a current diagnosis for this admission?: YesSummary: Negative cultures. (2) Atrial fibrillation with RVR Is this a current diagnosis for this admission?: YesSummary: Patient has returned to normal sinus rhythm. She was evaluated by cardiology felt that anticoagulation was not indicated. (3) COPD exacerbation Is this a current diagnosis for this admission?: Yes (4) Elevated CK Is this a current diagnosis for this admission?: Yes (5) Essential hypertension Is this a current diagnosis for this admission?: Yes (6) Hyperlipidemia Is this a current diagnosis for this admission?: Yes - Additional Information Resuscitation Status: Full Code Discharge Diet: Regular Discharge Activity: Activity As Tolerated Home Medications: Albuterol Sulfate [Albuterol Sulfate 2.5mg/3 mL] 1 vial NEB Q4 10/27/16 Diltiazem HCl [Cardizem Cd 120 mg Capsule] 120 mg PO Q12 #60 cap.sr.24h Levofloxacin [Levaquin 750 mg Tablet] 750 mg PO Q2DAYS #4 tablet 11/02/16 History of Present Illness History of Present Illness: SAMARA COLLIER is a 60 year old female with history of atrial fibrillation and COPD presented with shortness of breath and palpitations. Patient also had cough fevers and chills. The patient developed progressive dyspnea and she was found to have atrial fibrillation and rapid ventricular rate along with a pneumonia. Hospital Course Hospital Course: 60-year-old female who presented with shortness of breath was found to have atrial fibrillation with rapid ventricular rate as well as a right lower lobe pneumonia. Patient was put on cefepime and Levaquin initially. Patient negative cultures and she was changed to just Levaquin. The patient also did receive steroids because of COPD exacerbation. She was treated with diltiazem for her heart rate and eventually returned back to a normal sinus rhythm. She was evaluated by cardiology who felt that she did not need to be anticoagulated because of a low chads score. Patient was ambulating well without oxygen and had normal oxygen saturations. Physical Exam Vital Signs: Temp Pulse Resp BP Pulse Ox 98.4 F 71 16 137/71 H 93 11/02/16 11:20 11/02/16 11:20 11/02/16 11:20 11/02/16 11:20 11/02/16 11:20 Pulse Oximeter Continuous Start: 10/27/16 12: 02 Freq: RTQ4 Status: Complete Document 10/31/16 12:00 HCR (Rec: 10/31/16 13:07 HCR [email or web address]) Pulse Oximetry Assessment Equipment Usage Equipment Standby Continuous SpO2 Machine # 14 Intake & Output 11/01/16 11/02/16 11/03/16 06:59 06:59 06:59 Intake Total 3950 3550 Output Total 1400 2350 Balance 2550 1200 Weight 76.8 kg 78.2 kg General appearance: PRESENT: no acute distress Eye exam: PRESENT: conjunctiva pink. ABSENT: scleral icterus Mouth exam: PRESENT: moist, tongue midline Neck exam: ABSENT: JVD Respiratory exam: PRESENT: clear to auscultation adelso. ABSENT: rales, rhonchi, wheezes Cardiovascular exam: PRESENT: RRR. ABSENT: diastolic murmur, rubs, systolic murmur Vascular exam: PRESENT: normal capillary refill GI/Abdominal exam: PRESENT: normal bowel sounds, soft. ABSENT: distended, guarding, mass, organolmegaly, rebound, tenderness Extremities exam: ABSENT: calf tenderness, clubbing, pedal edema Neurological exam: PRESENT: alert, awake, oriented to person, oriented to place , oriented to time, oriented to situation, CN II-XII grossly intact. ABSENT: motor sensory deficit Psychiatric exam: PRESENT: appropriate affect Skin exam: PRESENT: dry, intact, warm. ABSENT: cyanosis, rash Results Laboratory Results: 11/02/16 05:21 11/02/16 05:21 11/01/16 11/02/16 11/02/16 04:33 05:21 05:21 WBC 26.7 H 19.1 H RBC 2.77 L 2.88 L Hgb 8.4 L 8.5 L Hct 25.6 L 26.4 L MCV 93 92 MCH 30.3 29.5 MCHC 32.8 32.2 RDW 15.5 H 15.8 H Plt Count 293 351 Seg Neutrophils % Not Reportable Lymphocytes % Not Reportable Monocytes % Not Reportable Eosinophils % Not Reportable Basophils % Not Reportable Absolute Neutrophils Not Reportable Absolute Lymphocytes Not Reportable Absolute Monocytes Not Reportable Absolute Eosinophils Not Reportable Absolute Basophils Not Reportable Sodium 140.0 Potassium 3.9 Chloride 109 H Carbon Dioxide 20 L Anion Gap 11 BUN 27 H Creatinine 0.84 Est GFR ( Amer) > 60 Est GFR (Non-Af Amer) > 60 Glucose 92 Calcium 8.3 L 10/27/16 10/27/16 10/27/16 13:47 13:47 20:15 Creatine Kinase 1403 H 2079 H CK-MB (CK-2) 1.22 Troponin I 0.019 10/27/16 10/28/16 10/28/16 20:15 02:19 02:19 Creatine Kinase 2334 H Cancelled CK-MB (CK-2) 0.81 Troponin I 0.020 10/28/16 10/30/16 10/31/16 02:19 04:03 04:07 Creatine Kinase 1551 H 1277 H CK-MB (CK-2) 1.86 Troponin I < 0.012 11/01/16 04:33 Creatine Kinase 1528 H CK-MB (CK-2) Troponin I Impressions: Chest/Abdomen CTA 10/27/16 06:41 IMPRESSION: Diffuse right lower lobe pneumonia. Abdomen Ultrasound 10/28/16 00:00 IMPRESSION: FATTY LIVER. PANCREAS PARTIALLY OR COMPLETELY OBSCURED. No shadowing gallstones. Mild gallbladder sludge. . Chest X-Ray 10/30/16 00:00 IMPRESSION: Right lower lobe pneumonia. Hepatobiliary Scan Nuclear Medicine 10/31/16 00:00 IMPRESSION: NORMAL STUDY WITHOUT CYSTIC OR COMMON DUCT OBSTRUCTION. NORMAL GALLBLADDER EJECTION FRACTION. IV CHOLECYSTOKININ REPRODUCED THE PATIENT'S SYMPTOMS. Qualifiers PATEINT BEING DISCHARGED WITH ANY OF THE FOLLOWING DIAGNOSIS?: No Plan Discharge Plan: Patient is discharged home in stable condition. Will follow up with primary care in 2 weeks. Time Spent: Less than 30 Minutes
== END 2016-11-02 12:15 | disposition home or self-care (01) | DRG 871 ==
LOC: ER 06:32 → EH 09:04 → UNDOADMIN 09:04 → EH 12:01 → 3W 12:49 → EH 12:49 → 3W 14:03
PROC: 3E0F73Z Introduction of Anti-inflammatory into Respiratory Tract, Via Natural or Artificial Opening (ICD-10-PCS; principal; 2016-10-27)
DX: A41.9 Sepsis, unspecified organism (principal); J18.1 Lobar pneumonia, unspecified organism; J44.0 Chronic obstructive pulmonary disease with (acute) lower respiratory infection; J44.1 Chronic obstructive pulmonary disease with (acute) exacerbation; I48.91 Unspecified atrial fibrillation; I10 Essential (primary) hypertension; E78.5 Hyperlipidemia, unspecified; F17.210 Nicotine dependence, cigarettes, uncomplicated; E87.6 Hypokalemia; F19.10 Other psychoactive substance abuse, uncomplicated; R74.0 Nonspecific elevation of levels of transaminase and lactic acid dehydrogenase [LDH]; R09.02 Hypoxemia; E83.39 Other disorders of phosphorus metabolism; Z79.899 Other long term (current) drug therapy; Z79.51 Long term (current) use of inhaled steroids
CPT/HCPCS: 36415; 71020; 71275; 76705; 78227; 80048; 80053; 80061; 80074; 80076; 81001; 82550; 82553; 83605; 83735; 84484; 85025; 85027; 87040; 93005; 93010; 93306; 93976; 94762; 96365; 96366; 99291; A9537; J0692; J1650; J1956; J2270; J2805; J2930; J3490; J7030; Q9969

== ENCOUNTER → 2016-11-30 | Outpatient (CLI) | payer MEDICAID ==
--- NOTE | 2016-11-30 08:21 | RADIOLOGY REPORT (SQ) ---
EXAM DESCRIPTION: CHEST PA/LAT COMPLETED DATE/TIME: 11/30/2016 7:50 am REASON FOR STUDY: PERSONAL HISTORY OF PNEUMONIA (RECURRENT) COMPARISON: 10/30/2016 EXAM PARAMETERS: NUMBER OF VIEWS: two views TECHNIQUE: Digital Frontal and Lateral radiographic views of the chest acquired. RADIATION DOSE: NA LIMITATIONS: none FINDINGS: LUNGS AND PLEURA: There is slight haziness remaining in the right lung base and posteriorl y on the lateral view. Compared to the earlier study, there is significant improvement. MEDIASTINUM AND HILAR STRUCTURES: No masses or contour abnormalities. HEART AND VASCULAR STRUCTURES: Heart normal size. No evidence for failure. BONES: No acute findings. HARDWARE: None in the chest. OTHER: No other significant finding. IMPRESSION: Significant improvement in the right lower lobe pneumonia with mild residual findings. TECHNICAL DOCUMENTATION: JOB ID: [id number] [email or web address]- All Rights Reserved
== END ==
LOC: RAD 07:39
PROVIDERS: ATTEND Family Medicine
DX: Z87.01 Personal history of pneumonia (recurrent) (principal)
CPT/HCPCS: 71020

== ENCOUNTER 2017-09-01 09:28 | Inpatient (IN) | payer MEDICAID ==
[2017-09-01] MEDS ORDERED: NORMAL SALINE 1000 ML 1,000 ML IV ONE (09:33)
[2017-09-01] MEDS ORDERED: IPRATROPIUM/ALBUTEROL 0.5-2.5 MG/3 ML AMPUL NEB ONE (09:42)
[2017-09-01 09:44] LABS: HEMATOCRIT 36.4 % (36.0-47.0); HEMOGLOBIN 11.8 g/dL (12.0-15.5); MEAN CORPUSCULAR HEMOGLOBIN 31.5 pg (27.0-33.4); MEAN CORPUSCULAR HGB CONC 32.6 g/dL (32.0-36.0); MEAN CORPUSCULAR VOLUME 97 fl (80-97); PLATELET COUNT 146 10^3/uL (150-450); RED BLOOD COUNT 3.77 10^6/uL (3.72-5.28); RED CELL DISTRIBUTION WIDTH 16.8 % (11.5-14.0); WHITE BLOOD COUNT 2.9 10^3/uL (4.0-10.5)
[2017-09-01 09:49] LABS: PROTHROMBIN TIME 12.8 SEC (11.4-15.4)
[2017-09-01 10:01] LABS: ALANINE AMINOTRANSFERASE 97 U/L (9-52); ALBUMIN 4.2 g/dL (3.5-5.0); ALKALINE PHOSPHATASE 190 U/L (38-126); ANION GAP 16 (5-19); ASPARTATE AMINO TRANSFERASE 307 U/L (14-36); BILIRUBIN,DIRECT 0.4 mg/dL (0.0-0.4); BILIRUBIN,TOTAL 1.1 mg/dL (0.2-1.3); BLOOD UREA NITROGEN 6 mg/dL (7-20); CALCIUM 9.2 mg/dL (8.4-10.2); CARBON DIOXIDE 26 mmol/L (22-30); CHLORIDE 98 mmol/L (98-107); GLUCOSE 89 mg/dL (75-110); POTASSIUM 3.4 mmol/L (3.6-5.0); SODIUM 139.8 mmol/L (137-145); TOTAL PROTEIN 7.3 g/dL (6.3-8.2)
--- NOTE | 2017-09-01 10:20 | RADIOLOGY REPORT (SQ) ---
EXAM DESCRIPTION: CHEST PA/LAT COMPLETED DATE/TIME: 09/01/2017 10:11 am REASON FOR STUDY: cough, fever COMPARISON: 11/30/2016 EXAM PARAMETERS: NUMBER OF VIEWS: two views TECHNIQUE: Digital Frontal and Lateral radiographic views of the chest acquired. RADIATION DOSE: NA LIMITATIONS: none FINDINGS: LUNGS AND PLEURA: Minimal increased density in left lung base suggesting pneumonia. MEDIASTINUM AND HILAR STRUCTURES: No masses or contour abnormalities. HEART AND VASCULAR STRUCTURES: Heart normal size. No evidence for failure. BONES: No acute findings. HARDWARE: None in the chest. OTHER: No other significant finding. IMPRESSION: Minimal increased density in the left lung base suggesting pneumonia. TECHNICAL DOCUMENTATION: JOB ID: [id number] [employer]- All Rights Reserved
[2017-09-01 10:22] LABS: ABSOLUTE LYMPHOCYTES# (MANUAL) 1.1 10^3/uL (0.5-4.7); ABSOLUTE MONOCYTES # (MANUAL) 0.3 10^3/uL (0.1-1.4); ABSOLUTE NEUTROPHILS# (MANUAL) 1.5 10^3/uL (1.7-8.2); BASOPHILS % (MANUAL) 0 % (0-2); EOSINOPHILS % (MANUAL) 0 % (0-6); LYMPHOCYTES % (MANUAL) 36 % (13-45); MONOCYTES % (MANUAL) 11 % (3-13); NUCLEATED RED BLOOD CELLS 1 /100 WBC (0); SEGMENTED NEUTROPHILS % (MAN) 52 % (42-78); TOTAL CELLS COUNTED 100
[2017-09-01 10:24] LABS: ANISOCYTOSIS 2+; PLATELET COMMENT DECREASED; TARGET CELLS 2+
[2017-09-01] MEDS ORDERED: CEFTRIAXONE 1 GM/D5W RTU 1 GM/50 ML RTUPB IV ONE (10:24)
--- NOTE | 2017-09-01 10:26 | ER Document Report ---
ED General - General Chief Complaint: Nausea/Vomiting Stated Complaint: WEAKNESS Time Seen by Provider: 09/01/17 09:33 Mode of Arrival: Medic Information source: Patient Notes: 61-year-old female history of COPD presents with complaints of generalized weakness of 4 day duration. Patient notes she has been feeling ill coughing febrile and has not been eating or drinking anything. Patient notes she has had history of A. fib is on Cardizem but has not been taking her medications or the past few days as well TRAVEL OUTSIDE OF THE [place] IN LAST 30 DAYS: No - HPI Onset: Last week Onset/Duration: Persistent Quality of pain: Achy Severity: Mild Pain Level: 1 Associated symptoms: Productive cough, Nausea, Vomiting, Shortness of breath Exacerbated by: Denies Relieved by: Denies Similar symptoms previously: Yes Recently seen / treated by doctor: Yes - Related Data Allergies/Adverse Reactions: No Known Allergies Allergy (Verified 08/26/16 15:35) Past Medical History - Social History Smoking Status: Never Smoker Cigarette use (# per day): No Chew tobacco use (# tins/day): No Smoking Education Provided: No Family History: Reviewed & Not Pertinent - Past Medical History Cardiac Medical History: Reports: Hx Atrial Fibrillation, Hx Hypercholesterolemia, Hx Hypertension Pulmonary Medical History: Reports: Hx Asthma, Hx COPD Renal/ Medical History: Reports: Hx Kidney Stones. Denies: Hx Peritoneal Dialysis Past Surgical History: Reports: Hx Breast Surgery - biopsy right breast - Immunizations Hx Diphtheria, Pertussis, Tetanus Vaccination: Yes Review of Systems - Review of Systems Notes: REVIEW OF SYSTEMS: CONSTITUTIONAL : Admits fevers chills EENT: Denies eye, ear, throat, or mouth pain or symptoms. Denies nasal or sinus congestion or discharge. Denies throat, tongue, or mouth swelling or difficulty swallowing. CARDIOVASCULAR: Denies chest pain. Denies palpitations or racing or irregular heart beat. Denies ankle edema. RESPIRATORY: Admits to productive cough GASTROINTESTINAL: Denies abdominal pain or distention. Denies nausea, vomiting , or diarrhea. Denies blood in vomitus, stools, or per rectum. Denies black, tarry stools. Denies constipation. GENITOURINARY: Denies difficulty urinating, painful urination, burning, frequency, blood in urine, or discharge. FEMALE GENITOURINARY: Denies vaginal bleeding, heavy or abnormal periods, irregular periods. Denies vaginal discharge or odor. MUSCULOSKELETAL: Denies back or neck pain or stiffness. Denies joint pain or swelling. SKIN: Denies rash, lesions or sores. HEMATOLOGIC : Denies easy bruising or bleeding. LYMPHATIC: Denies swollen, enlarged glands. NEUROLOGICAL: Denies confusion or altered mental status. Denies passing out or loss of consciousness. Denies dizziness or lightheadedness. Denies headache. Denies weakness or paralysis or loss of use of either side. Denies problems with gait or speech. Denies sensory loss, numbness, or tingling. Denies seizures. PSYCHIATRIC: Denies anxiety or stress. Denies depression, suicidal ideation, or homicidal ideation. ALL OTHER SYSTEMS REVIEWED AND NEGATIVE. PHYSICAL EXAMINATION: GENERAL: Frail ill-appearing female HEAD: Atraumatic, normocephalic. EYES: Pupils equal round and reactive to light, extraocular movements intact, conjunctiva are normal. ENT: Nares patent, oropharynx clear without exudates. Moist mucous membranes. NECK: Normal range of motion, supple without lymphadenopathy LUNGS: Tachypneic rhonchorous HEART: Tachycardic irregular rate and rhythm ABDOMEN: Soft, nontender, nondistended abdomen. No guarding, no rebound. No masses appreciated. Female : deferred Musculoskeletal: Normal range of motion, no pitting or edema. No cyanosis. NEUROLOGICAL: Cranial nerves grossly intact. Normal speech, normal gait. Normal sensory, motor exams PSYCH: Normal mood, normal affect. SKIN: Warm, Dry, normal turgor, no rashes or lesions noted. Dictation was performed using [employer] voice recognition software Physical Exam - Vital signs Vitals: Resp 38 H 09/01/17 09:36 Course - Re-evaluation Re-evalutation: 09/01/17 17:53 Patient's presentation is consistent with pneumonia, chest x-ray did confirm this, patient was started on antibiotics, initially heart rate was 150s-160s A. fib per EMS they had given a fluid bolus which improved the heart rates in the 90s, however while in the emergency department heart rate did go back into A. fib RVR, Cardizem bolus and drip were started. Patient will be admitted to the hospitalist service - Vital Signs Vital signs: Temp Pulse Resp BP Pulse Ox 102.9 F H 92 14 143/75 H 93 09/01/17 15:16 09/01/17 16:44 09/01/17 16:44 09/01/17 14:01 09/01/17 16:44 - Laboratory Result Diagrams: 09/01/17 09:00 09/01/17 09:00 Laboratory results interpreted by me: 09/01/17 09/01/17 09/01/17 09:00 09:00 09:00 WBC 2.9 L Hgb 11.8 L RDW 16.8 H Plt Count 146 L Abs Neuts (Manual) 1.5 L VBG pH Potassium 3.4 L BUN 6 L AST 307 H ALT 97 H Alkaline Phosphatase 190 H NT-Pro-B Natriuret Pep 4070 H 09/01/17 09:57 WBC Hgb RDW Plt Count Abs Neuts (Manual) VBG pH 7.44 H Potassium BUN AST ALT Alkaline Phosphatase NT-Pro-B Natriuret Pep - Diagnostic Test Radiology reviewed: Image reviewed, Reports reviewed - EKG Interpretation by Me Rhythm: A.Fib Critical Care Note - Critical Care Note Total time excluding time spent on procedures (mins): 37 Comments: 37 minutes of critical care time spent in direct contact evaluating and reevaluating the patient, treating symptoms, reviewing labs and studies and speaking with family and consultants excluding any procedures Discharge - Discharge Clinical Impression: Hypoxemia, COPD exacerbation Pneumonia Qualifiers: Pneumonia type: due to unspecified organism Laterality: left Lung location: lower lobe of lung Qualified Code(s): J18.1 - Lobar pneumonia, unspecified organism Condition: Fair Disposition: ADMITTED INPATIENT Admitting Provider: Hospitalist Unit Admitted: [facility]
[2017-09-01 10:27] LABS: VENOUS BLOOD BASE EXCESS 3.1 mmol/L; VENOUS BLOOD HCO3 27.6 mmol/L (20-32); VENOUS BLOOD PCO2 41.4 mmHg (35-63); VENOUS BLOOD PH 7.44 (7.30-7.42)
[2017-09-01] MEDS: NORMAL SALINE 1000 ML 1,000 ML IV PRN ×2 (10:39→12:23)
[2017-09-01] MEDS ORDERED: DILTIAZEM HCL INJ 25 MG/5 ML VIAL IV ONE (10:50)
[2017-09-01] MEDS ORDERED: DILTIAZEM HCL/D5W 125 MG/125 ML RTUINJ IV PRN (10:50)
[2017-09-01] MEDS ORDERED: CEFTRIAXONE INJ 1000 MG VIAL IV ONE (10:53)
[2017-09-01] MEDS ORDERED: ALBUTEROL SULFATE 0.083% NEB 2.5 MG/3 ML AMPUL NEB PRN (11:41)
[2017-09-01] MEDS ORDERED: BENZONATATE 100 MG CAPSULE PO PRN (12:02)
[2017-09-01] MEDS ORDERED: BENZONATATE 100 MG CAPSULE PO ONE (12:02)
[2017-09-01 12:09] LABS: APPEARANCE,URINE CLEAR; BILIRUBIN,URINE NEGATIVE (NEGATIVE); COLOR,URINE STRAW; GLUCOSE, URINE NEGATIVE (NEGATIVE); KETONES,URINE TRACE mg/dL (NEGATIVE); LEUKOCYTE ESTERASE,URINE NEGATIVE (NEGATIVE); NITRITE,URINE NEGATIVE (NEGATIVE); PROTEIN,URINE NEGATIVE (NEGATIVE); URINE SPECIFIC GRAVITY 1.005; UROBILINOGEN,URINE NEGATIVE mg/dL (<2.0)
--- NOTE | 2017-09-01 13:15 | EKG REPORT ---
SEVERITY:- ABNORMAL ECG - ATRIAL FIBRILLATION-FLUTTER MULTIPLE PREMATURE COMPLEXES, VENT. BORDERLINE T ABNORMALITIES, INFERIOR LEADS : Confirmed by: Wing Casey MD 01-Sep-2017 13:15:14
[2017-09-01] MEDS ORDERED: INFLUENZA ADLT QUAD (36MOS+) 2017-18 VAC 0.5 ML SYR IM PRN (14:24)
[2017-09-01] MEDS ORDERED: FUROSEMIDE INJ/PF 40 MG/4 ML SDV IV ONE (14:51)
[2017-09-01] MEDS ORDERED: LEVALBUTEROL HCL NEB 1.25 MG/3 ML AMPUL NEB PRN (14:52)
[2017-09-01] MEDS ORDERED: ENOXAPARIN SODIUM INJ 60 MG/0.6 ML DISP.SYRIN SUBCUT ONE (15:30)
--- NOTE | 2017-09-01 16:33 | RADIOLOGY REPORT (SQ) ---
EXAM DESCRIPTION: CTA CHEST COMPLETED DATE/TIME: 09/01/2017 4:19 pm REASON FOR STUDY: Hypoxia, afib, tachypnea COMPARISON: CT angio chest 10/27/2016 Chest films 09/01/2017, 11/30/2016 TECHNIQUE: CT scan of the chest performed using helical scanning technique with dynamic intravenous contrast injection. Images reviewed with lung, soft tissue and bone windows. Reconstructed coronal and sagittal MPR images reviewed. Additional 3 dimensional post-processing performed to develop Maximal Intensity Projection images (DC P). All images stored on PACS. All CT scanners at this facility use dose modulation, iterative reconstruction, and/or weight based d osing when appropriate to reduce radiation dose to as low as reasonably achievable (ALARA). [facility]: Dose Right [facility]: CareDose [facility]: Dose Right [facility]: Teradose 4D [facility]: [employer] Energy CONTRAST TYPE AND DOSE: contrast/concentration: Isovue 370.00 mg/ml; Total Contrast Delivered: 60.0 ml; Total Saline Delivered: 105.0 ml Contrast bolus optimized for the pulmonary arteries. Not diagnostic for the aorta. RENAL FUNCTION: Creatinine 0.7 RADIATION DOSE: CT Rad equipment meets quality standard of care and radiation dose reduction techniq ues were employed. CTDIvol: 11.2 - 11.3 mGy. DLP: 399 mGy-cm. . LIMITATIONS: None. FINDINGS: LUNGS AND PLEURA: There is early or developing infiltrate in the left lower lobe worrisome for pneumonia with new. Right lung clear. No pleural effusions or pneumothorax. No worrisome pulmonary nodules. AORTA AND GREAT VESSELS: No aneurysm. Contrast bolus not optimized for the aorta. HEART: No pericardial effusion. Moderate LAD coronary artery calcifications. Mild cardiomegaly PULMONARY ARTERIES: No emboli visualized in the main pulmonary arteries or the segmental branches. HILAR AND MEDIASTINAL STRUCTURES: No identified masses or abnormal nodes. HARDWARE: None in the chest. UPPER ABDOMEN: Profound fatty infiltration of the liver THYROID AND OTHER SOFT TISSUES: No masses. No adenopathy. BONES: No acute or significant finding. 3D MIPS: Confirm above findings. OTHER: No other significant finding. IMPRESSION: No CT angio evidence of acute pulmonary emboli Early or developing left lower lobe pneumonia. Asymmetric pulmonary edema could have this appearance . Advanced fatty infiltration the liver COMMENT: Quality ID # [id number]: Final reports with documentation of one or more dose reduction techniques (e.g., Automated exposure control, adjustment of the mA and/or kV according to patient size, use of iterative reconstruction technique) TECHNICAL DOCUMENTATION: JOB ID: [id number] [employer]- All Rights Reserved Reading location - IP/workstation name: [email or web address]
[2017-09-01] MEDS ORDERED: POTASSIUM CHLORIDE 10 MEQ TABLET.SA PO ONE (17:00)
[2017-09-01] MEDS: DOCUSATE SODIUM 100 MG CAPSULE PO SCH (17:45)
[2017-09-01 19:10] LABS: A TYPE INFLUENZA AG POSITIVE (NEGATIVE); B INFLUENZA AG NEGATIVE (NEGATIVE)
[2017-09-01] MEDS: ACETAMINOPHEN 325 MG TABLET PO PRN (19:43)
--- NOTE | 2017-09-01 19:53 | HISTORY AND PHYSICAL E ---
History and Physical NAME: SAMARA COLLIER : 1955 AGE: 61Y ADMITTED: 09/01/2017 ROOM: 333 CODE STATUS: Full code. PRIMARY CARE PROVIDER: Dr. Faulkner. CHIEF COMPLAINT: Shortness of breath. HISTORY OF PRESENT ILLNESS: The patient is a 61-year-old -[place] female with a past medical history of atrial fibrillation and chronic obstructive pulmonary disease. The patient presented to the emergency department with a chief complaint of weakness and shortness of breath. The patient stated that her symptoms had begun about 3 days ago where she noticed an increasing fatigue, also noted some nausea and an episode of vomiting. The patient denies any dizziness, chest pain. The patient does admit to a dry cough but has not been producing any sputum. The patient stated that she felt tightness and wheezing across her chest x-ray. The patient's chest x-ray was suggestive of a left lower lobe pneumonia and the patient was referred to the hospitalist for admission and management. While in the emergency department the patient was noted to be significantly tachycardic, was started and bolused on a Cardizem drip. The patient was found to be significantly hypertensive as well. The patient's creatinine was found to be 0.67 and the patient was bolused 3 liters of sepsis fluids. Upon evaluation the patient was found to be acutely dyspneic. The patient's BNP was found to be 4070 and the patient did have rales lung sounds. PAST MEDICAL HISTORY: 1. Atrial fibrillation. 2. Hypercholesterolemia. 3. Hypertension. 4. Chronic obstructive pulmonary disease. PAST SURGICAL HISTORY: Right breast biopsy. ALLERGIES: No known drug allergies. HOME MEDICATIONS: 1. Hydrochlorothiazide 25 mg p.o. daily. 2. Albuterol nebs 2.5 mg inhalation q.4 hours p.r.n. SOCIAL HISTORY: The patient currently resides at home. The patient's surrogate decision maker is her daughter, Madeline, who may be reached at [phone]. The patient does admit to tobacco use. The patient smokes between 1-2 packs of cigarettes daily. The patient denies any alcohol use or illicit drug use. FAMILY MEDICAL HISTORY: The patient denies any family history of atrial fibrillation but admits to a long family history of heart problems in general. The patient does have a daughter who is healthy. The patient's parents are of heart problems. REVIEW OF SYSTEMS: CONSTITUTIONAL: The patient denies any dizziness, admits to weakness, fevers, chills. The patient has had a very poor appetite. INTEGUMENTARY: The patient denies any diaphoresis, rashes, bruising, itching. HEENT: The patient denies any vision changes, hearing loss. No nasal drainage or sore throat. No headache. CARDIOVASCULAR: The patient admits to heart palpitations, as well as shortness of breath but denies any chest pain or edema. RESPIRATORY: Denies any sputum production or hemoptysis, admits to a strong cough. GASTROINTESTINAL: Denies any nausea, vomiting, diarrhea, abdominal pain. No diarrhea, bloody hematemesis, constipation, melena. No hematochezia. GENITOURINARY: Denies any hematuria, polyuria, or dysuria. MUSCULOSKELETAL: Denies any acute or chronic joint pains. NEUROLOGIC: No seizures, tremors, or loss of consciousness. HEMATOLOGIC: Denies any gogo bleeding, easy bruising. ENDOCRINE: Denies any recent weight changes. PSYCHIATRIC: Denies any suicidal or homicidal ideation. The rest of the review of the other organ systems is negative. PHYSICAL EXAMINATION: GENERAL: On examination the patient is a well-developed, well-nourished 61-year-old -[place] female who is awake, alert, and oriented to person, place, time, and situation. She is verbal, conversational, does not appear to be in any acute distress. VITAL SIGNS: Temperature is 102.9, pulse 117, respirations 18, blood pressure is 143/75, oxygen saturation is 95% on room air. SKIN: Warm and dry; no rash. She is not diaphoretic. HEENT: Pupils equal, round reactive to light and accommodation. Conjunctivae are pink. Sclerae are nonicteric. No mouth lesions. Tongue is midline. NECK: Supple. No JVD. No palpable lymphadenopathy or thyromegaly. CARDIOVASCULAR: Heart is irregularly irregular, tachycardic, no rub. CHEST: The patient does have bilateral basilar crackles. Symmetrical, mildly labored. ABDOMEN: Soft, nontender, nondistended. Bowel sounds are present. No palpable organomegaly. BACK: No CVA tenderness or sacral edema. EXTREMITIES: No clubbing, cyanosis, edema, or peripheral signs of embolization. Pedal pulses +1 noted bilaterally. Capillary refill is less than 1. DIAGNOSTICS: Lab values are as follows, hematology obtained on 09/01/2017; WBC 12.9, hemoglobin is 12.8, hematocrit is 36.4, platelet count is 146,000. Arterial blood gas obtained on 09/01/2017; pH is 7.44, pCO2 is 41.4, bicarb is 27.3. Chemistry obtained on 09/01/2017; sodium is 139, potassium 3.4, chloride is 98, carbon dioxide 26, BUN is 6, creatinine is 0.67, glucose 99, calcium of 9.2, bilirubin is 1.1, AST 307, ALT is 97, alk-phos 190. BNP is 4070. Total protein 7.3, albumin 4.2. IMPRESSION AND PLAN: 1. Left lower lobe pneumonia. Will cover for community acquired pneumonia at this time but also will screen for influenza and follow. 2. Sepsis secondary to the above. Do believe the patient has recommend too much sepsis fluids at this point as the patient does have crackles. In the meantime we will continue antibiotics and follow. 3. Hypokalemia. This is mild but will replace. 4. Atrial fibrillation with rapid ventricular response. The patient does appear more comfortable on Cardizem drip. Will continue now and cover the patient with Lovenox and will consult cardiology. 5. Acute on chronic hypoxemic respiratory failure. Will continue supplemental O2. Will use nebulizers judiciously given the patient's RVR. 6. Hypertension. Will hold the patient's home blood pressure medications but IV p.r.n. coverage. CODE STATUS: The patient is a full code. DISPOSITION: We will admit the patient to inpatient IMCU as the patient's expected length of stay should surpass 2 midnights. TIME SPENT: On this admission, including assessment, plan, physical examination, patient education, review of records is 60 minutes. DICTATING PHYSICIAN: ASHU GU NP [id number] PHY#: [id number] ID: [id number] JOB#: [id number] ACCT: [id number] cc: >
[2017-09-01 20:04] LABS: APPEARANCE,URINE CLEAR; BILIRUBIN,URINE NEGATIVE (NEGATIVE); COLOR,URINE STRAW; GLUCOSE, URINE NEGATIVE (NEGATIVE); KETONES,URINE TRACE mg/dL (NEGATIVE); LEUKOCYTE ESTERASE,URINE NEGATIVE (NEGATIVE); NITRITE,URINE NEGATIVE (NEGATIVE); PROTEIN,URINE NEGATIVE (NEGATIVE); URINE SPECIFIC GRAVITY 1.015; UROBILINOGEN,URINE NEGATIVE mg/dL (<2.0)
[2017-09-01] MEDS: ENOXAPARIN SODIUM INJ 80 MG/0.8 ML DISP.SYRIN SUBCUT SCH (21:58)
[2017-09-01] MEDS ORDERED: ENOXAPARIN SODIUM INJ 60 MG/0.6 ML DISP.SYRIN SUBCUT SCH (22:00)
[2017-09-01] MEDS: OSELTAMIVIR PHOSPHATE 75 MG CAPSULE PO SCH (22:04)
[2017-09-01] MEDS: GUAIFENESIN 600 MG TABLET.SA PO SCH (22:04)
[2017-09-01] MEDS: METOPROLOL TARTRATE 25 MG TABLET PO SCH (22:41)
[2017-09-02] MEDS ORDERED: VANCOMYCIN HCL 0 MG in DEXTROSE 5%-WATER 250 ML IV NR (04:00)
[2017-09-02] MEDS ORDERED: PIPERACILLIN/TAZOBACTAM 3.375 GM VIAL IV PRN (04:14)
[2017-09-02] MEDS ORDERED: VANCOMYCIN HCL INJ 1000 MG VIAL IV PRN (04:18)
[2017-09-02] MEDS ORDERED: PIPERACILLIN/TAZOBACTAM 3.375 GM VIAL IV ONE (04:26)
[2017-09-02] MEDS ORDERED: VANCOMYCIN HCL INJ 1000 MG VIAL ONE (04:27)
[2017-09-02] MEDS ORDERED: VANCOMYCIN HCL 1,000 MG in DEXTROSE 5%-WATER 250 ML IV ONE (04:30)
[2017-09-02] MEDS: PIPERACILLIN SODIUM/TAZOBACTAM 3.375 GM in NORMAL SALINE 100 ML IV SCH ×3 (06:13→17:11)
[2017-09-02 06:52] LABS: HEMATOCRIT 31.7 % (36.0-47.0); HEMOGLOBIN 10.4 g/dL (12.0-15.5); MEAN CORPUSCULAR HEMOGLOBIN 31.6 pg (27.0-33.4); MEAN CORPUSCULAR HGB CONC 32.8 g/dL (32.0-36.0); MEAN CORPUSCULAR VOLUME 96 fl (80-97); PLATELET COUNT 112 10^3/uL (150-450); RED BLOOD COUNT 3.29 10^6/uL (3.72-5.28); RED CELL DISTRIBUTION WIDTH 16.9 % (11.5-14.0); WHITE BLOOD COUNT 3.7 10^3/uL (4.0-10.5)
[2017-09-02 07:34] LABS: ANION GAP 14 (5-19); BLOOD UREA NITROGEN 5 mg/dL (7-20); CALCIUM 8.1 mg/dL (8.4-10.2); CARBON DIOXIDE 24 mmol/L (22-30); CHLORIDE 98 mmol/L (98-107); GLUCOSE 97 mg/dL (75-110); POTASSIUM 3.3 mmol/L (3.6-5.0); SODIUM 136.2 mmol/L (137-145)
[2017-09-02] MEDS ORDERED: CEFTRIAXONE SODIUM 1,000 MG in NORMAL SALINE 100 ML IV SCH (10:00)
[2017-09-02] MEDS ORDERED: CEFTRIAXONE 1 GM/D5W RTU 1 GM/50 ML RTUPB IV SCH (10:00)
[2017-09-02] MEDS ORDERED: AZITHROMYCIN 500 MG in DEXTROSE 5%-WATER 250 ML IV SCH (10:00)
[2017-09-02] MEDS ORDERED: ENOXAPARIN SODIUM INJ 40 MG/0.4 ML DISP.SYRIN SUBCUT SCH (10:00)
[2017-09-02] MEDS: ENOXAPARIN SODIUM INJ 80 MG/0.8 ML DISP.SYRIN SUBCUT SCH ×2 (10:38→21:26)
[2017-09-02] MEDS: ACETAMINOPHEN 325 MG TABLET PO PRN (10:38)
[2017-09-02] MEDS: OSELTAMIVIR PHOSPHATE 75 MG CAPSULE PO SCH ×2 (10:39→21:29)
[2017-09-02] MEDS: METOPROLOL TARTRATE 25 MG TABLET PO SCH ×2 (10:39→21:26)
[2017-09-02] MEDS: GUAIFENESIN 600 MG TABLET.SA PO SCH ×2 (10:39→21:29)
[2017-09-02] MEDS: DOCUSATE SODIUM 100 MG CAPSULE PO SCH ×2 (10:40→17:11)
--- NOTE | 2017-09-02 15:54 | PDOC PROGRESS REPORT ---
Subjective Progress Note for:: 09/02/17 Subjective:: Patient admitted with breath and patient found to be tachycardic as well as hypotensive in the emergency room. He was started on Cardizem drip and received IV fluid resuscitation. Patient states that she is feeling better today with improvement in his breathing. She is still weak which is to be expected. Reason For Visit: RVR, PNA Physical Exam Vital Signs: Temp Pulse Resp BP Pulse Ox 99.2 F 66 16 116/70 94 09/02/17 13:00 09/02/17 13:00 09/02/17 13:00 09/02/17 13:00 09/02/17 13:00 Intake & Output 09/01/17 09/02/17 09/03/17 06:59 06:59 06:59 Intake Total 894 Balance 894 Weight 56 kg General appearance: PRESENT: no acute distress, well-developed, well-nourished Head exam: PRESENT: atraumatic, normocephalic Eye exam: PRESENT: conjunctiva pink, EOMI, PERRLA. ABSENT: scleral icterus Ear exam: PRESENT: normal external ear exam Mouth exam: PRESENT: moist, tongue midline Neck exam: ABSENT: carotid bruit, JVD, lymphadenopathy, thyromegaly Respiratory exam: PRESENT: decreased breath sounds, rales, rhonchi. ABSENT: wheezes Cardiovascular exam: PRESENT: RRR. ABSENT: diastolic murmur, rubs, systolic murmur Pulses: PRESENT: normal dorsalis pedis pul Vascular exam: PRESENT: normal capillary refill GI/Abdominal exam: PRESENT: normal bowel sounds, soft. ABSENT: distended, guarding, mass, organolmegaly, rebound, tenderness Rectal exam: PRESENT: deferred Extremities exam: PRESENT: full ROM. ABSENT: calf tenderness, clubbing, pedal edema Neurological exam: PRESENT: alert, awake, oriented to person, oriented to place , oriented to time, oriented to situation, CN II-XII grossly intact. ABSENT: motor sensory deficit Psychiatric exam: PRESENT: appropriate affect, normal mood. ABSENT: homicidal ideation, suicidal ideation Skin exam: PRESENT: dry, intact, warm. ABSENT: cyanosis, rash Results Laboratory Results: 09/02/17 06:10 09/02/17 06:10 02/23/18 02/24/18 02/24/18 19:30 06:10 06:10 WBC 3.7 L RBC 3.29 L Hgb 10.4 L Hct 31.7 L MCV 96 MCH 31.6 MCHC 32.8 RDW 16.9 H Plt Count 112 L Sodium 136.2 L Potassium 3.3 L Chloride 98 Carbon Dioxide 24 Anion Gap 14 BUN 5 L Creatinine 0.68 Est GFR ( Amer) > 60 Est GFR (Non-Af Amer) > 60 Glucose 97 Calcium 8.1 L Magnesium 1.5 L Urine Color STRAW Urine Appearance CLEAR Urine pH 6.0 Ur Specific Randolph 1.015 Urine Protein NEGATIVE Urine Glucose (UA) NEGATIVE Urine Ketones TRACE H Urine Blood SMALL H Urine Nitrite NEGATIVE Ur Leukocyte Esterase NEGATIVE Urine WBC (Auto) 0 Urine RBC (Auto) 0 Impressions: Chest/Abdomen CTA 09/01/17 00:00 IMPRESSION: No CT angio evidence of acute pulmonary emboli Early or developing left lower lobe pneumonia. Asymmetric pulmonary edema could have this appearance. Advanced fatty infiltration the liver Chest X-Ray 09/01/17 09:34 IMPRESSION: Minimal increased density in the left lung base suggesting pneumonia. Assessment & Plan - Time Time Spent with patient: 15-24 minutes Medications reviewed and adjusted accordingly: Yes Anticipated discharge: Home - Plan Summary Plan Summary: Left lower lobe pneumonia currently on empiric antibiotics. Will continue with these 2. Influenza B+ currently on Tamiflu 3. Sepsis secondary to respiratory infection this is resolving 4. Atrial fibrillation with a rapid ventricular response. She is currently off Cardizem drip 5. Acute on chronic respiratory failure secondary to pneumonia and flu this is improving 6. Hypertension with blood pressure currently better controlled
[2017-09-02] MEDS ORDERED: POTASSIUM CHLORIDE 10 MEQ TABLET.SA PO ONE (15:55)
[2017-09-02] MEDS ORDERED: MAGNESIUM SULFATE 4 GM/100 ML RTUPB IV ONE (17:00)
[2017-09-02] MEDS: VANCOMYCIN HCL 500 MG in DEXTROSE 5%-WATER 100 ML IV SCH (18:15)
[2017-09-03] MEDS: PIPERACILLIN SODIUM/TAZOBACTAM 3.375 GM in NORMAL SALINE 100 ML IV SCH ×3 (00:01→12:44)
[2017-09-03] MEDS ORDERED: PIPERACILLIN SODIUM/TAZOBACTAM 3.375 GM in NORMAL SALINE 100 ML IV ONE (01:30)
[2017-09-03] MEDS: VANCOMYCIN HCL 500 MG in DEXTROSE 5%-WATER 100 ML IV SCH (05:34)
[2017-09-03] MEDS: OSELTAMIVIR PHOSPHATE 75 MG CAPSULE PO SCH ×2 (09:39→22:18)
[2017-09-03] MEDS: GUAIFENESIN 600 MG TABLET.SA PO SCH ×2 (09:39→22:17)
[2017-09-03] MEDS: ENOXAPARIN SODIUM INJ 80 MG/0.8 ML DISP.SYRIN SUBCUT SCH (09:39)
[2017-09-03] MEDS: METOPROLOL TARTRATE 25 MG TABLET PO SCH ×2 (09:40→22:17)
[2017-09-03] MEDS: DOCUSATE SODIUM 100 MG CAPSULE PO SCH ×2 (09:40→17:45)
--- NOTE | 2017-09-03 14:03 | PDOC PROGRESS REPORT ---
Subjective Progress Note for:: 09/03/17 Subjective:: Patient admitted with breath and patient found to be tachycardic as well as hypotensive in the emergency room. He was started on Cardizem drip and received IV fluid resuscitation. Patient states that she is feeling better today with improvement in his breathing. She is still weak which is to be expected. Reason For Visit: Atrial fib with RVR, PNA Physical Exam Vital Signs: Temp Pulse Resp BP Pulse Ox 98.6 F 72 18 140/74 H 93 09/03/17 12:58 09/03/17 12:58 09/03/17 12:58 09/03/17 12:58 09/03/17 12:58 Intake & Output 09/02/17 09/03/17 09/04/17 06:59 06:59 06:59 Intake Total 894 2214 Balance 894 2214 Weight 56 kg 57 kg General appearance: PRESENT: no acute distress Head exam: PRESENT: atraumatic, normocephalic Eye exam: PRESENT: conjunctiva pink, EOMI, PERRLA. ABSENT: scleral icterus Ear exam: PRESENT: normal external ear exam Mouth exam: PRESENT: moist, tongue midline Neck exam: ABSENT: carotid bruit, JVD, lymphadenopathy, thyromegaly Respiratory exam: PRESENT: rhonchi - scattered. ABSENT: rales, wheezes Cardiovascular exam: PRESENT: RRR. ABSENT: diastolic murmur, rubs, systolic murmur Pulses: PRESENT: normal dorsalis pedis pul Vascular exam: PRESENT: normal capillary refill GI/Abdominal exam: PRESENT: normal bowel sounds, soft. ABSENT: distended, guarding, mass, organolmegaly, rebound, tenderness Rectal exam: PRESENT: deferred Extremities exam: PRESENT: full ROM. ABSENT: calf tenderness, clubbing, pedal edema Neurological exam: PRESENT: alert, awake, oriented to person, oriented to place , oriented to time, oriented to situation, CN II-XII grossly intact. ABSENT: motor sensory deficit Psychiatric exam: PRESENT: appropriate affect, normal mood. ABSENT: homicidal ideation, suicidal ideation Skin exam: PRESENT: dry, intact, warm. ABSENT: cyanosis, rash Results Laboratory Results: 09/02/17 06:10 09/02/17 06:10 Impressions: Chest/Abdomen CTA 09/01/17 00:00 IMPRESSION: No CT angio evidence of acute pulmonary emboli Early or developing left lower lobe pneumonia. Asymmetric pulmonary edema could have this appearance. Advanced fatty infiltration the liver Chest X-Ray 09/01/17 09:34 IMPRESSION: Minimal increased density in the left lung base suggesting pneumonia. Assessment & Plan - Plan Summary Plan Summary: 1.Left lower lobe pneumonia currently on empiric antibiotics. Deescalate and start monotherapy with Levaquin 2. Influenza B+ currently on Tamiflu 4. Atrial fibrillation with a rapid ventricular response. She is currently off Cardizem drip. Will dc Lovenox full strength, cont Metoprolol as tolerated. Patient has a history of Atrial Fib but was not on anticoagulant, for unknown reasons. Her Chads score is <2, Echo not done. Will refer her back to her physician for further reevaluation and treatment 5. Acute on chronic respiratory failure secondary to pneumonia and flu this is improving 6. Hypertension with blood pressure currently better controlled
[2017-09-03] MEDS ORDERED: CEFTRIAXONE 1 GM/D5W RTU 1 GM/50 ML RTUPB IV SCH (15:00)
[2017-09-03 15:40] LABS: HEMATOCRIT 34.8 % (36.0-47.0); HEMOGLOBIN 11.4 g/dL (12.0-15.5); MEAN CORPUSCULAR HEMOGLOBIN 31.5 pg (27.0-33.4); MEAN CORPUSCULAR HGB CONC 32.7 g/dL (32.0-36.0); MEAN CORPUSCULAR VOLUME 96 fl (80-97); PLATELET COUNT 144 10^3/uL (150-450); RED BLOOD COUNT 3.61 10^6/uL (3.72-5.28); RED CELL DISTRIBUTION WIDTH 17.2 % (11.5-14.0); WHITE BLOOD COUNT 3.5 10^3/uL (4.0-10.5)
[2017-09-03] MEDS: CEFTRIAXONE SODIUM 1,000 MG in NORMAL SALINE 100 ML IV SCH (17:44)
[2017-09-04 06:17] LABS: HEMATOCRIT 31.9 % (36.0-47.0); HEMOGLOBIN 10.6 g/dL (12.0-15.5); MEAN CORPUSCULAR HEMOGLOBIN 31.9 pg (27.0-33.4); MEAN CORPUSCULAR HGB CONC 33.2 g/dL (32.0-36.0); MEAN CORPUSCULAR VOLUME 96 fl (80-97); PLATELET COUNT 131 10^3/uL (150-450); RED BLOOD COUNT 3.32 10^6/uL (3.72-5.28); RED CELL DISTRIBUTION WIDTH 17.1 % (11.5-14.0); WHITE BLOOD COUNT 2.9 10^3/uL (4.0-10.5)
[2017-09-04 06:39] LABS: ANION GAP 11 (5-19); BLOOD UREA NITROGEN 9 mg/dL (7-20); CALCIUM 8.8 mg/dL (8.4-10.2); CARBON DIOXIDE 26 mmol/L (22-30); CHLORIDE 102 mmol/L (98-107); GLUCOSE 97 mg/dL (75-110); POTASSIUM 3.5 mmol/L (3.6-5.0); SODIUM 139.3 mmol/L (137-145)
[2017-09-04] MEDS: ENOXAPARIN SODIUM INJ 40 MG/0.4 ML DISP.SYRIN SUBCUT SCH (10:06)
[2017-09-04] MEDS: GUAIFENESIN 600 MG TABLET.SA PO SCH ×2 (10:06→21:21)
[2017-09-04] MEDS: OSELTAMIVIR PHOSPHATE 75 MG CAPSULE PO SCH ×2 (10:06→21:21)
[2017-09-04] MEDS: METOPROLOL TARTRATE 25 MG TABLET PO SCH ×2 (10:07→21:22)
[2017-09-04] MEDS: DOCUSATE SODIUM 100 MG CAPSULE PO SCH ×2 (10:07→19:17)
--- NOTE | 2017-09-04 12:28 | PDOC PROGRESS REPORT ---
Subjective Progress Note for:: 09/04/17 Subjective:: Patient admitted with shortness of breath and patient found to be tachycardic as well as hypotensive in the emergency room. She was started on Cardizem drip and received IV fluid resuscitation. It has been in sinus rhythm and has been receiving metoprolol intermittently sometimes been held due to bradycardia. On further questioning she tells me that she was supposed to follow with a restorative rehab aide as she does have the known history of A. fib at least 3 years but has not really followed up. She is on no anticoagulant. Two-dimensional echocardiogram done about a year ago showed LV function to be grossly intact. Patient states that she is feeling better today with improvement in her breathing. Her blood cultures were noted to be positive for gram-positive cocci in clusters and so patient would be kept in hospital for further evaluation Reason For Visit: RVR, PNA Physical Exam Vital Signs: Temp Pulse Resp BP Pulse Ox 97.8 F 81 16 137/68 H 95 09/04/17 08:03 09/04/17 11:02 09/04/17 11:02 09/04/17 08:03 09/04/17 11:02 Intake & Output 09/03/17 09/04/17 09/05/17 06:59 06:59 06:59 Intake Total 2214 1451 Output Total 0 Balance 2214 1451 Weight 57 kg 57.6 kg General appearance: PRESENT: no acute distress, cooperative Head exam: PRESENT: atraumatic Eye exam: PRESENT: conjunctival injection Ear exam: PRESENT: bleeding Neck exam: ABSENT: carotid bruit, JVD, lymphadenopathy, thyromegaly Cardiovascular exam: PRESENT: bradycardia Pulses: PRESENT: normal dorsalis pedis pul GI/Abdominal exam: PRESENT: normal bowel sounds, soft. ABSENT: distended, guarding, mass, organolmegaly, rebound, tenderness Rectal exam: PRESENT: deferred Musculoskeletal exam: PRESENT: ambulatory Neurological exam: PRESENT: alert, awake, oriented to person, oriented to place , oriented to time, oriented to situation, CN II-XII grossly intact. ABSENT: motor sensory deficit Psychiatric exam: PRESENT: appropriate affect, normal mood. ABSENT: homicidal ideation, suicidal ideation Results Laboratory Results: 09/04/17 05:50 09/04/17 05:50 09/03/17 09/03/17 09/04/17 15:10 15:10 05:50 WBC 3.5 L 2.9 L RBC 3.61 L 3.32 L Hgb 11.4 L 10.6 L Hct 34.8 L 31.9 L MCV 96 96 MCH 31.5 31.9 MCHC 32.7 33.2 RDW 17.2 H 17.1 H Plt Count 144 L 131 L Sodium Potassium Chloride Carbon Dioxide Anion Gap BUN Creatinine 0.94 Est GFR ( Amer) > 60 Est GFR (Non-Af Amer) > 60 Glucose Calcium Magnesium 09/04/17 09/04/17 05:50 05:50 WBC RBC Hgb Hct MCV MCH MCHC RDW Plt Count Sodium 139.3 Potassium 3.5 L Chloride 102 Carbon Dioxide 26 Anion Gap 11 BUN 9 Creatinine Cancelled 0.68 Est GFR ( Amer) Cancelled > 60 Est GFR (Non-Af Amer) Cancelled > 60 Glucose 97 Calcium 8.8 Magnesium Cancelled 2.1 09/01/17 11:55 Clean Catch Midstream Urine Culture - Final Mixed Urogenital Melissa Yeast, Not Glenna Albicans Impressions: Chest/Abdomen CTA 09/01/17 00:00 IMPRESSION: No CT angio evidence of acute pulmonary emboli Early or developing left lower lobe pneumonia. Asymmetric pulmonary edema could have this appearance. Advanced fatty infiltration the liver Chest X-Ray 09/01/17 09:34 IMPRESSION: Minimal increased density in the left lung base suggesting pneumonia. Assessment & Plan - Plan Summary Plan Summary: 1.Left lower lobe pneumonia currently on empiric antibiotics. Cont monotherapy with Levaquin 2. Influenza B+ currently on Tamiflu 4. Atrial fibrillation with a rapid ventricular response. She is currently off Cardizem drip. Consult Dr. Rodrigues 5. Acute on chronic respiratory failure secondary to pneumonia and flu this is improving 6. Hypertension with blood pressure currently better controlled 7. 2 BC positive for Staph, full ID to follow. Patient has continued to improve in hospital, has remained afebrile, not septic and this is apparently a Coag negative staph. At this time I will not change her antibiotics but will keep a close eye on her, repeat BC today and reeval in am.
[2017-09-04] MEDS: CEFTRIAXONE SODIUM 1,000 MG in NORMAL SALINE 100 ML IV SCH (19:13)
[2017-09-04 21:23] LABS: ALANINE AMINOTRANSFERASE 61 U/L (9-52); ALBUMIN 3.3 g/dL (3.5-5.0); ALKALINE PHOSPHATASE 121 U/L (38-126); ASPARTATE AMINO TRANSFERASE 95 U/L (14-36); BILIRUBIN,DIRECT 0.5 mg/dL (0.0-0.4); BILIRUBIN,TOTAL 0.5 mg/dL (0.2-1.3); TOTAL PROTEIN 5.7 g/dL (6.3-8.2)
[2017-09-05] MEDS: GUAIFENESIN 600 MG TABLET.SA PO SCH ×2 (10:24→21:29)
[2017-09-05] MEDS: METOPROLOL TARTRATE 25 MG TABLET PO SCH ×2 (10:24→21:29)
[2017-09-05] MEDS: OSELTAMIVIR PHOSPHATE 75 MG CAPSULE PO SCH ×2 (10:25→21:29)
[2017-09-05] MEDS: ENOXAPARIN SODIUM INJ 40 MG/0.4 ML DISP.SYRIN SUBCUT SCH (10:25)
[2017-09-05] MEDS: DOCUSATE SODIUM 100 MG CAPSULE PO SCH ×2 (10:27→17:15)
--- NOTE | 2017-09-05 15:39 | PDOC PROGRESS REPORT ---
Subjective Progress Note for:: 09/05/17 Subjective:: Patient admitted with shortness of breath and patient found to be tachycardic as well as hypotensive in the emergency room. She was started on Cardizem drip and received IV fluid resuscitation. It has been in sinus rhythm and has been receiving metoprolol intermittently sometimes been held due to bradycardia. On further questioning she tells me that she was supposed to follow with a tobacco warehouse agent as she does have the known history of A. fib at least 3 years but has not really followed up. She is on no anticoagulant. Two-dimensional echocardiogram done about a year ago showed LV function to be grossly intact. Patient states that she is feeling better today with improvement in her breathing. Her blood cultures were noted to be positive for gram-positive cocci in clusters yielding Staphylococcus hominis. Repeat blood cultures are still pending. Patient remains on empiric ceftriaxone and remains asymptomatic. Reason For Visit: RVR, PNA Physical Exam Vital Signs: Temp Pulse Resp BP Pulse Ox 98.1 F 57 L 20 149/76 H 100 09/05/17 12:26 09/05/17 14:00 09/05/17 12:26 09/05/17 12:26 09/05/17 12:26 Intake & Output 09/04/17 09/05/17 09/06/17 06:59 06:59 06:59 Intake Total 1451 100 118 Output Total 0 Balance 1451 100 118 Weight 57.6 kg 59.1 kg General appearance: PRESENT: no acute distress Head exam: PRESENT: atraumatic, normocephalic Eye exam: PRESENT: conjunctiva pink, EOMI, PERRLA. ABSENT: scleral icterus Ear exam: PRESENT: normal external ear exam Mouth exam: PRESENT: moist, tongue midline Neck exam: ABSENT: carotid bruit, JVD, lymphadenopathy, thyromegaly Respiratory exam: PRESENT: clear to auscultation adelso. ABSENT: rales, rhonchi, wheezes Cardiovascular exam: PRESENT: RRR. ABSENT: diastolic murmur, rubs, systolic murmur Pulses: PRESENT: normal dorsalis pedis pul Vascular exam: PRESENT: normal capillary refill GI/Abdominal exam: PRESENT: normal bowel sounds, soft. ABSENT: distended, guarding, mass, organolmegaly, rebound, tenderness Rectal exam: PRESENT: deferred Extremities exam: PRESENT: full ROM. ABSENT: calf tenderness, clubbing, pedal edema Neurological exam: PRESENT: alert, awake, oriented to person, oriented to place , oriented to time, oriented to situation, CN II-XII grossly intact. ABSENT: motor sensory deficit Psychiatric exam: PRESENT: appropriate affect, normal mood. ABSENT: homicidal ideation, suicidal ideation Skin exam: PRESENT: dry, intact, warm. ABSENT: cyanosis, rash Results Laboratory Results: 09/04/17 05:50 09/04/17 05:50 09/04/17 09/04/17 19:28 20:33 Total Bilirubin Cancelled 0.5 AST Cancelled 95 H ALT Cancelled 61 H Alkaline Phosphatase Cancelled 121 Total Protein Cancelled 5.7 L Albumin Cancelled 3.3 L Impressions: Chest/Abdomen CTA 09/01/17 00:00 IMPRESSION: No CT angio evidence of acute pulmonary emboli Early or developing left lower lobe pneumonia. Asymmetric pulmonary edema could have this appearance. Advanced fatty infiltration the liver Chest X-Ray 09/01/17 09:34 IMPRESSION: Minimal increased density in the left lung base suggesting pneumonia. Assessment & Plan - Time Time Spent with patient: 15-24 minutes Medications reviewed and adjusted accordingly: Yes Anticipated discharge: Home - Inpatient Certification Medical Necessity: Need for IV Antibiotics - Plan Summary Plan Summary: 1.Left lower lobe pneumonia. Continue with ceftriaxone IV 2. Influenza B+ currently on Tamiflu. Her symptoms have resolved 4. Atrial fibrillation with a rapid ventricular response. She is currently off Cardizem drip. Dr. Rodrigues has seen patient on consult and two-dimensional echocardiogram is pending 5. Acute on chronic respiratory failure secondary to pneumonia and flu this is resolved 6. Hypertension with blood pressure currently better controlled 7. 2 BC positive for Staph, full ID to follow. Patient has continued to improve in hospital, has remained afebrile, not septic and this is apparently a Coag negative staph. At this time I will not change her antibiotics as I believe this is likely a contaminant but will keep a close eye on her, follow-up on repeat BC t and if patient remains stable with negative repeat blood culture she will be discharged in a.m.
[2017-09-05] MEDS: CEFTRIAXONE SODIUM 1,000 MG in NORMAL SALINE 100 ML IV SCH (17:17)
--- NOTE | 2017-09-05 19:24 | XCELERA REPORT ---
[address] [address] Transthoracic Echocardiogram Report Name: SAMARA COLLIER Age: 61 yrs Gender: Female : 1955 Patient Status: Inpatient Patient Location: [address] [place] [address] Study Date: 09/05/2017 09:23 AM Height: 60 in Weight: 126 lb BSA: 1.5 m2 Procedure: A complete two-dimensional transthoracic echocardiogram was performed (2D, M-mode, spectral and color flow Doppler). The study was technically adequate with some images being suboptimal in quality. Reason For Study: Staph bacteremia Ordering Physician: VICKI GAMA Performed By: Jada Rodrigez Interpretation Summary Left ventricular systolic function is low normal. There is borderline concentric left ventricular hypertrophy. LV diastolic function could not be adequately assessed. The left ventricle is grossly normal size. Wall motion cannot be accurately commented on, but no definite regional wall motion abnormalities noted. The right ventricular systolic function is normal. The left atrium is mildly dilated. The right atrium is normal in size There is a trace amount of mitral regurgitation There is no mitral valve stenosis. There is a trace amount of aortic regurgitation There is no aortic valve stenosis There is a trace or physiologic amount of tricuspid regurgitation There is no tricuspid stenosis. The aortic root is not well visualized but is probably normal size. The inferior vena cava appeared normal and decreased > 50% with respiration (RAP 5-10 mmHg) There is no pericardial effusion. MMode/2D Measurements & Calculations RVDd: 2.6 cm LVIDd: 4.9 cm FS: 33.8 % Ao root diam: 2.6 cm IVSd: 0.99 cm LVIDs: 3.2 cm EDV(Teich): 112.0 ml LVPWd: 0.88 cm ESV(Teich): 42.0 ml Ao root area: 5.4 cm2 EF(Teich): 62.5 % Doppler Measurements & Calculations MV E max dasia: MV dec slope: Ao V2 max: LV V1 max P.8 cm/sec 111.6 cm/sec 3.7 mmHg MV A max dasia: 363.4 cm/sec2 Ao max PG: LV V1 max: 49.0 cm/sec MV dec time: 5.0 mmHg 96.7 cm/sec MV E/A: 1.5 0.21 sec PA V2 max: PI end-d dasia: TR max dasia: 65.5 cm/sec 132.5 cm/sec 224.3 cm/sec PA max PG: TR max P.7 mmHg 20.2 mmHg Left Ventricle The left ventricle is grossly normal size. There is borderline concentric left ventricular hypertrophy. Left ventricular systolic function is low normal. LV diastolic function could not be adequately assessed. Wall motion cannot be accurately commented on, but no definite regional wall motion abnormalities noted. Right Ventricle The right ventricle is grossly normal size. There is normal right ventricular wall thickness. The right ventricular systolic function is normal. Atria The right atrium is normal in size. The left atrium is mildly dilated. Interarterial septum not well visualized and not well dopplered. Cannot comment on ASD/PFO presence. Mitral Valve The mitral valve leaflets are sclerotic, but show no functional abnormalities. There is no mitral valve stenosis. There is a trace amount of mitral regurgitation. Aortic Valve The aortic valve is grossly normal. There is no aortic valve stenosis. There is a trace amount of aortic regurgitation. Tricuspid Valve The tricuspid valve is not well visualized, but is grossly normal. There is no tricuspid stenosis. There is a trace or physiologic amount of tricuspid regurgitation. Pulmonic Valve The pulmonic valve is not well visualized. Great Vessels The aortic root is not well visualized but is probably normal size. The inferior vena cava appeared normal and decreased > 50% with respiration (RAP 5-10 mmHg). Effusions There is no pericardial effusion. Incidental Findings No definite vegetations noted but if clinical suspicion is high, then consider SHANNON and multiple blood cultures. : VICKI GAMA > Afia Rodrigues
--- NOTE | 2017-09-05 20:15 | PDOC CONSULTATION ---
Consultation Consult Date: 09/04/17 Attending physician:: SHREYAS MITCHELL Consult reason:: Atrial fibrillation History of Present Illness Admission Date/PCP: 09/01/17 10:49 SMITA DOWNING MD Patient complains of: Shortness of breath History of Present Illness: SAMARA COLLIER is a 61-year-old female history of COPD presents with complaints of generalized weakness of 4 day duration. Patient notes she has been feeling ill coughing febrile and has not been eating or drinking anything. Patient notes she has had history of A. fib is on Cardizem but has not been taking her medications or the past few days as well. In the emergency room she was noted to be in atrial fibrillation with rapid ventricular response. She was resuscitated with IV fluids and to intermittent IV metoprolol. By the time I saw the patient yesterday she had converted back to sinus rhythm. Patient does give history of atrial fibrillation in the past. 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 A 2D echocardiogram has been ordered and will be reviewed. Past Medical History Cardiac Medical History: Reports: Atrial Fibrillation, Hyperlipidema, Hypertension Pulmonary Medical History: Reports: Asthma, Chronic Obstructive Pulmonary Disease (COPD) Social History Information Source: Patient Smoking Status: Never Smoker Frequency of Alcohol Use: Rare Hx Recreational Drug Use: No Drugs: Cocaine Hx Prescription Drug Abuse: No - Advance Directive Resuscitation Status: Full Code Family History Family History: Hypertension Parental Family History Reviewed: Yes Children Family History Reviewed: Yes Sibling(s) Family History Reviewed.: Yes Medication/Allergy Home Medications: Albuterol Sulfate [Albuterol Sulfate 2.5mg/3 mL] 1 vial IH RTQ4HP PRN 09/01/17 Triamterene/Hydrochlorothiazid [Maxzide-25 Tablet] 1 tab PO DAILY 09/01/17 Benzonatate [Tessalon Perles 100 mg Capsule] 100 mg PO Q8HP PRN #14 capsule Cefuroxime Axetil [Ceftin 500 mg Tablet] 500 mg PO BID #7 tablet 09/04/17 Metoprolol Tartrate [Lopressor 25 mg Tablet] 12.5 mg PO Q12 30 Days tablet Oseltamivir Phosphate [Tamiflu 75 mg Capsule] 75 mg PO Q12 #4 capsule 09/04/17 Allergies/Adverse Reactions: No Known Allergies Allergy (Verified 08/26/16 15:35) Review of Systems Review of Systems: Please see history of present illness and past medical history as wall. Constitutional: Generalized weakness and fever or chills reported. Head : No recent chronic headaches, recent head injury. Eyes: No recent eye pain, diplopia, redness, discharge, acute visual changes. Ears: No recent chronic ear pain, acute hearing loss, ear discharge. Oral cavity: No recent ulcerations, bleeding, oral cavity discomfort. Neck: No recent acute neck pain reported. Hematologic: No recent easy bruising or bleeding or hematologic malignancy reported. Lymphatic: No recent lymphatic malignancy, chronic lymphadenopathy reported yet Cardiovascular system review: See history of present illness. Respiratory system review: No recent chronic cough, hemoptysis, blood clots in the lungs reported. Mild Shortness of breath on exertion Gastrointestinal system review: Negative for any recent acute or chronic abdominal pain, hematemesis, melena, recent change in bowel habits. Genitourinary system review: No recent acute or chronic hematuria, flank pain, UTI etc. reported. Skin system review: Negative for any recent abnormal bruising, no rash, no pruritus reported. Neurologic: No prior history of strokes, mini strokes, seizure disorder. Psychologic: No history of major psychosis or major depression reported. Musculoskeletal: Minor aches and pains reported. No acute joint swelling reported. Endocrine: No recent polyuria, polydipsia, recent heat or cold intolerance. Physical Exam Vital Signs: Temp Pulse Resp BP Pulse Ox 98.1 F 54 L 18 135/77 H 100 09/04/17 12:46 09/04/17 14:00 09/04/17 12:46 09/04/17 12:46 09/04/17 12:46 Intake & Output 09/03/17 09/04/17 09/05/17 06:59 06:59 06:59 Intake Total 2214 1451 0 Output Total 0 Balance 2214 1451 0 Weight 57 kg 57.6 kg Exam: GENERAL: well-nourished and in no acute distress. Alert and oriented x3 HEAD: Atraumatic, normocephalic. EYES: Pupils equal round and reactive to light, extraocular movements intact, sclera anicteric, conjunctiva are normal. ENT: TMs normal, nares patent, oropharynx clear without exudates. Moist mucous membranes. No oral ulcerations or bleeding gums noted NECK: supple without lymphadenopathy. Trachea is central. No cervical or axillary lymphadenopathy noted. Carotids are 2+, JVD WNL LUNGS: Respiration seems nonlabored, no significant accessory muscle action noted. Mild bibasilar fine crackles and few scattered wheezes rales or rhonchi noted. No significant dullness noted on percussion. CHEST: Palpation of the chest wall shows no significant chest wall tenderness. No other significant abnormalities noted. 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 ABDOMEN: Soft, no significant tenderness appreciated, normoactive bowel sounds. No guarding, no rebound. No rigidity noted . No masses appreciated. EXTREMITIES: Pedal pulses are 1-2+, no calf tenderness noted. No clubbing or cyanosis.trace to 1+ pedal edema noted NEUROLOGICAL: Focused neurological exam showed no significant neurologic deficit. Normal speech, no focal weakness appreciated. PSYCH: Normal mood, normal affect. Judgment and insight within normal limits. SKIN: No significant ecchymosis, rash, ulcerations or signs of pruritus noted. MUSCULOSKELETAL EXAM: No significant joint swelling noted. Results Laboratory Results: 09/04/17 05:50 09/04/17 05:50 09/04/17 09/04/17 09/04/17 05:50 05:50 05:50 WBC 2.9 L RBC 3.32 L Hgb 10.6 L Hct 31.9 L MCV 96 MCH 31.9 MCHC 33.2 RDW 17.1 H Plt Count 131 L Sodium 139.3 Potassium 3.5 L Chloride 102 Carbon Dioxide 26 Anion Gap 11 BUN 9 Creatinine Cancelled 0.68 Est GFR ( Amer) Cancelled > 60 Est GFR (Non-Af Amer) Cancelled > 60 Glucose 97 Calcium 8.8 Magnesium Cancelled 2.1 Total Bilirubin AST ALT Alkaline Phosphatase Total Protein Albumin 09/04/17 19:28 WBC RBC Hgb Hct MCV MCH MCHC RDW Plt Count Sodium Potassium Chloride Carbon Dioxide Anion Gap BUN Creatinine Est GFR ( Amer) Est GFR (Non-Af Amer) Glucose Calcium Magnesium Total Bilirubin Cancelled AST Cancelled ALT Cancelled Alkaline Phosphatase Cancelled Total Protein Cancelled Albumin Cancelled 09/01/17 11:55 Clean Catch Midstream Urine Culture - Final Mixed Urogenital Melissa Yeast, Not Glenna Albicans EKG Comments: Atrial fibrillation with minor nonspecific T-wave changes noted. Impressions: Chest/Abdomen CTA 09/01/17 00:00 IMPRESSION: No CT angio evidence of acute pulmonary emboli Early or developing left lower lobe pneumonia. Asymmetric pulmonary edema could have this appearance. Advanced fatty infiltration the liver Chest X-Ray 09/01/17 09:34 IMPRESSION: Minimal increased density in the left lung base suggesting pneumonia. Assessment & Plan - Diagnosis (1) Atrial fibrillation with RVR Is this a current diagnosis for this admission?: Yes (2) Essential hypertension Is this a current diagnosis for this admission?: Yes (3) Hyperlipidemia Qualifiers: Hyperlipidemia type: unspecified Qualified Code(s): E78.5 - Hyperlipidemia , unspecified Is this a current diagnosis for this admission?: Yes (4) COPD exacerbation Is this a current diagnosis for this admission?: Yes (5) Pneumonia Qualifiers: Pneumonia type: due to unspecified organism Laterality: left Lung location: lower lobe of lung Qualified Code(s): J18.1 - Lobar pneumonia, unspecified organism Is this a current diagnosis for this admission?: Yes (6) Abnormal liver function test Is this a current diagnosis for this admission?: Yes - Notes Notes: Atrial fibrillation with rapid ventricular response: Patient spontaneously converted to sinus rhythm. It is unclear whether this is new onset or patient has a prior history of atrial fibrillation. At this point recommend rate control. Patient [id number] score at best is 2 therefore could be considered for chronic anticoagulation. 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 Hypertension: Currently well controlled. Dyslipidemia: Continue statin therapy. COPD with exacerbation: Continue current management plans. Pneumonia: Continue antibiotic therapy. Abnormal liver function: Consider further evaluation as needed. - Time Time Spent: 30 to 50 Minutes - CODE STATUS was discussed, patient remains full code. Surrogate decision-maker unchanged. Multiple medical problems were addressed. More than 50% of the time spent coordinating care, discussing management plans with involved caregivers. Management plans discussed with involved personnels. Medical decision making was of moderate to high complexity , patient's has multiple comorbidities. Medications reviewed and adjusted accordingly: Yes
--- NOTE | 2017-09-05 20:18 | PDOC PROGRESS REPORT ---
Subjective Progress Note for:: 09/05/17 Subjective:: Patient seems to be doing better with gradual improvement. Pt is denying any chest arm or neck discomfort. Patient denying any PND, orthopnea. Patient denied any sustained palpitations, dizziness, syncope, near syncope. Patient denying any fever chills. Patient denying any other significant discomfort. Patient is maintaining sinus rhythm. Review of systems: Rest review of systems negative. Medications: Medications have been reviewed. Reason For Visit: RVR, PNA Physical Exam Vital Signs: Temp Pulse Resp BP Pulse Ox 98.3 F 55 L 20 146/71 H 100 09/05/17 16:27 09/05/17 16:27 09/05/17 16:27 09/05/17 16:27 09/05/17 16:27 Intake & Output 09/04/17 09/05/17 09/06/17 06:59 06:59 06:59 Intake Total 1451 100 592 Output Total 0 Balance 1451 100 592 Weight 57.6 kg 59.1 kg Exam: GENERAL: well-nourished and in no acute distress. Alert and oriented x3 HEAD: Atraumatic, normocephalic. EYES: Pupils equal round and reactive to light, extraocular movements intact, sclera anicteric, conjunctiva are normal. ENT: TMs normal, nares patent, oropharynx clear without exudates. Moist mucous membranes. No oral ulcerations or bleeding gums noted NECK: supple without lymphadenopathy. Trachea is central. No cervical or axillary lymphadenopathy noted. Carotids are 2+, JVD WNL LUNGS: Respiration seems nonlabored, no significant accessory muscle action noted. Fine crackles noted left base.. Few a scattered wheezes rales or rhonchi noted. No significant dullness noted on percussion. CHEST: Palpation of the chest wall shows no significant chest wall tenderness. No other significant abnormalities noted. 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 ABDOMEN: Soft, no significant tenderness appreciated, normoactive bowel sounds. No guarding, no rebound. No rigidity noted . No masses appreciated. EXTREMITIES: Pedal pulses are 1-2+, no calf tenderness noted. No clubbing or cyanosis.trace pedal edema noted NEUROLOGICAL: Focused neurological exam showed no significant neurologic deficit. Normal speech, no focal weakness appreciated. PSYCH: Normal mood, normal affect. Judgment and insight within normal limits. SKIN: No significant ecchymosis, rash, ulcerations or signs of pruritus noted. MUSCULOSKELETAL EXAM: No significant joint swelling noted. Results Laboratory Results: 09/04/17 05:50 09/04/17 05:50 09/04/17 20:33 Total Bilirubin 0.5 AST 95 H ALT 61 H Alkaline Phosphatase 121 Total Protein 5.7 L Albumin 3.3 L EKG Comments: Patient noted to be maintaining sinus rhythm. Impressions: Chest/Abdomen CTA 09/01/17 00:00 IMPRESSION: No CT angio evidence of acute pulmonary emboli Early or developing left lower lobe pneumonia. Asymmetric pulmonary edema could have this appearance. Advanced fatty infiltration the liver Chest X-Ray 09/01/17 09:34 IMPRESSION: Minimal increased density in the left lung base suggesting pneumonia. Assessment & Plan - Diagnosis (1) Atrial fibrillation with RVR Is this a current diagnosis for this admission?: Yes (2) Essential hypertension Is this a current diagnosis for this admission?: Yes (3) Hyperlipidemia Qualifiers: Hyperlipidemia type: unspecified Qualified Code(s): E78.5 - Hyperlipidemia , unspecified Is this a current diagnosis for this admission?: Yes (4) COPD exacerbation Is this a current diagnosis for this admission?: Yes (5) Pneumonia Qualifiers: Pneumonia type: due to unspecified organism Laterality: left Lung location: lower lobe of lung Qualified Code(s): J18.1 - Lobar pneumonia, unspecified organism Is this a current diagnosis for this admission?: Yes (6) Abnormal liver function test Is this a current diagnosis for this admission?: Yes - Notes Notes: Patient maintaining sinus rhythm. 2D echo results reviewed. Will discuss chronic anticoagulation issue with the patient in the morning. Atrial fibrillation with rapid ventricular response: Patient spontaneously converted to sinus rhythm. It is unclear whether this is new onset or patient has a prior history of atrial fibrillation. At this point recommend rate control. Patient [id number] score at best is 2 therefore could be considered for chronic anticoagulation. However it is quite possible that atrial fibrillation is precipitated by pneumonia therefore at this point feel that we could just place her on aspirin as long as it is assured that she follows up closely with her travel pt. 2D echo shows no high risk features. Will discuss chronic anticoagulation issue with the patient in the morning. Hypertension: Currently well controlled. Dyslipidemia: Continue statin therapy. COPD with exacerbation: Continue current management plans. Pneumonia: Continue antibiotic therapy. Abnormal liver function: Consider further evaluation as needed. 2D echo results reviewed and discussed. Considerable time spent discussing anticoagulation issue. Patient offered follow-up appointment in my office regarding further decision plans. - Time Time with patient: Greater than 35 minutes - CODE STATUS was discussed, patient remains full code. Surrogate decision-maker unchanged. Multiple medical problems were addressed. More than 50% of the time spent coordinating care, discussing management plans with involved caregivers. Management plans discussed with involved personnels. Medical decision making was of moderate to high complexity, patient's has multiple comorbidities. Medications reviewed and adjusted accordingly: Yes
[2017-09-06 05:53] LABS: HEMATOCRIT 30.7 % (36.0-47.0); HEMOGLOBIN 10.2 g/dL (12.0-15.5); MEAN CORPUSCULAR HEMOGLOBIN 31.8 pg (27.0-33.4); MEAN CORPUSCULAR HGB CONC 33.2 g/dL (32.0-36.0); MEAN CORPUSCULAR VOLUME 96 fl (80-97); PLATELET COUNT 177 10^3/uL (150-450); RED CELL DISTRIBUTION WIDTH 17.8 % (11.5-14.0); WHITE BLOOD COUNT 4.2 10^3/uL (4.0-10.5)
[2017-09-06 08:21] VITALS: BP 140/84
[2017-09-06] MEDS: DOCUSATE SODIUM 100 MG CAPSULE PO SCH (10:23)
[2017-09-06] MEDS: METOPROLOL TARTRATE 25 MG TABLET PO SCH (10:23)
[2017-09-06] MEDS: GUAIFENESIN 600 MG TABLET.SA PO SCH (10:25)
[2017-09-06] MEDS: OSELTAMIVIR PHOSPHATE 75 MG CAPSULE PO SCH (10:25)
[2017-09-06] MEDS: ENOXAPARIN SODIUM INJ 40 MG/0.4 ML DISP.SYRIN SUBCUT SCH (10:25)
--- NOTE | 2017-09-06 10:46 | PDOC DISCHARGE SUMMARY ---
General - Admit/Disc Date/PCP Admission Date/Primary Care Provider: 09/01/17 10:49 SMITA DOWNING MD Discharge Date: 09/06/17 - Discharge Diagnosis (1) Influenza A Is this a current diagnosis for this admission?: Yes (2) Acute respiratory failure Is this a current diagnosis for this admission?: Yes (3) Atrial fibrillation with RVR Is this a current diagnosis for this admission?: Yes (4) Transaminitis Is this a current diagnosis for this admission?: Yes (5) Essential hypertension Is this a current diagnosis for this admission?: Yes (6) Sepsis Is this a current diagnosis for this admission?: Yes (7) Pneumonia Is this a current diagnosis for this admission?: Yes Summary: Left Lung - Additional Information Resuscitation Status: Full Code Discharge Diet: Cardiac Discharge Activity: Activity As Tolerated Prescriptions: Benzonatate [Tessalon Perles 100 mg Capsule] 100 mg PO Q8HP PRN #14 capsule PRN Reason: Aspirin [Aspirin 325 mg Tablet] 325 mg PO DAILY #30 tablet Cefuroxime Axetil [Ceftin 500 mg Tablet] 500 mg PO BID #7 tablet Metoprolol Tartrate [Lopressor 25 mg Tablet] 12.5 mg PO Q12 30 Days tablet Home Medications: Albuterol Sulfate [Albuterol Sulfate 2.5mg/3 mL] 1 vial IH RTQ4HP PRN 09/01/17 Triamterene/Hydrochlorothiazid [Maxzide-25 Tablet] 1 tab PO DAILY 09/01/17 Benzonatate [Tessalon Perles 100 mg Capsule] 100 mg PO Q8HP PRN #14 capsule Cefuroxime Axetil [Ceftin 500 mg Tablet] 500 mg PO BID #7 tablet 09/04/17 Metoprolol Tartrate [Lopressor 25 mg Tablet] 12.5 mg PO Q12 30 Days tablet Aspirin [Aspirin 325 mg Tablet] 325 mg PO DAILY #30 tablet 09/06/17 History of Present Illness Patient complains of: Patient was admitted with difficulty breathing and shortness of breath and she was found to have pneumonia as well as influenza a. She was started on Tamiflu as well as intravenous antibiotics and patient was also found to be initially hypoxemic and so she received supplemental oxygen. History of Present Illness: SAMARA COLLIER is a 61 year old female Hospital Course Hospital Course: Patient was admitted with difficulty breathing and shortness of breath and she was found to have pneumonia as well as influenza a. She was started on Tamiflu as well as intravenous antibiotics and patient was also found to be initially hypoxemic and so she received supplemental oxygen. Patient was also in atrial fibrillation with a rapid ventricular response and was initially treated with intravenous Cardizem. She did spontaneously convert to sinus rhythm and she continued to improve respiratory beck with complete resolution of hypoxemia. Blood cultures drawn during the course of illness initially were positive for coagulase-negative Staphylococcus hominis. Patient continues to receive ceftriaxone throughout her hospital stay and subsequent blood cultures drawn were negative. There was no sign of any bacteremia with echocardiogram showing no endocarditis and with no clinical evidence of deterioration. As such it is likely that the Staphylococcus is a contaminant. Patient will complete her antibiotic course with oral Ceftin. She was seen by the radiology assistant due to the atrial fibrillation and it is felt that because of a low chads score and anticoagulant is not required at this time. She has been started on aspirin both suggest follow-up with her radiology assistant for further evaluation and management as needed. Two-dimensional echocardiogram reveals an acceptable ejection fraction. She was started on metoprolol for her pulse has been intermittently low and so at this point she will be reduced to 12.5 mg daily with further outpatient evaluation suggested an adjustment as needed. Patient has benefited maximally from her hospital stay and so she has been discharged home. Physical Exam Vital Signs: Temp Pulse Resp BP Pulse Ox 97.9 F 44 L 22 H 140/84 H 100 09/06/17 08:10 09/06/17 08:10 09/06/17 08:10 09/06/17 08:10 09/06/17 08:10 Intake & Output 09/05/17 09/06/17 09/07/17 06:59 06:59 06:59 Intake Total 100 822 Output Total 0 Balance 100 822 Weight 59.1 kg 59.6 kg General appearance: PRESENT: no acute distress, cooperative Head exam: PRESENT: atraumatic Eye exam: PRESENT: conjunctiva pink, EOMI, PERRLA. ABSENT: scleral icterus Ear exam: PRESENT: normal external ear exam Neck exam: ABSENT: carotid bruit, JVD, lymphadenopathy, thyromegaly Respiratory exam: PRESENT: clear to auscultation adelso. ABSENT: rales, rhonchi, wheezes Cardiovascular exam: PRESENT: RRR. ABSENT: diastolic murmur, rubs, systolic murmur Pulses: PRESENT: normal dorsalis pedis pul Vascular exam: PRESENT: normal capillary refill GI/Abdominal exam: PRESENT: normal bowel sounds, soft. ABSENT: distended, guarding, mass, organolmegaly, rebound, tenderness Rectal exam: PRESENT: deferred Extremities exam: PRESENT: full ROM. ABSENT: calf tenderness, clubbing, pedal edema Musculoskeletal exam: PRESENT: ambulatory, full ROM Neurological exam: PRESENT: alert, awake, oriented to person, oriented to place , oriented to time, oriented to situation, CN II-XII grossly intact. ABSENT: motor sensory deficit Psychiatric exam: PRESENT: appropriate affect Results Laboratory Results: 09/06/17 05:20 09/04/17 05:50 09/06/17 05:20 WBC 4.2 RBC 3.20 L Hgb 10.2 L Hct 30.7 L MCV 96 MCH 31.8 MCHC 33.2 RDW 17.8 H Plt Count 177 09/01/17 11:03 Blood Blood Culture - Final Staphylococcus Hominis Impressions: Chest/Abdomen CTA 09/01/17 00:00 IMPRESSION: No CT angio evidence of acute pulmonary emboli Early or developing left lower lobe pneumonia. Asymmetric pulmonary edema could have this appearance. Advanced fatty infiltration the liver Chest X-Ray 09/01/17 09:34 IMPRESSION: Minimal increased density in the left lung base suggesting pneumonia. Qualifiers - * PATEINT BEING DISCHARGED WITH ANY OF THE FOLLOWING DIAGNOSIS?: No Plan Time Spent: Greater than 30 Minutes
--- NOTE | 2017-09-06 11:56 | PDOC PROGRESS REPORT ---
Subjective Progress Note for:: 09/06/17 Subjective:: Patient seen on morning rounds. She is sitting at bedside table and eating breakfast. Patient seems to be doing better with gradual improvement. Pt is denying any chest arm or neck discomfort. Patient denying any PND, orthopnea. Patient denied any sustained palpitations, dizziness, syncope, near syncope. Patient denying any fever chills. Patient denying any other significant discomfort. Patient is maintaining sinus rhythm. Review of systems: Rest review of systems negative. Medications: Medications have been reviewed. Reason For Visit: RVR, PNA Physical Exam Vital Signs: Temp Pulse Resp BP Pulse Ox 97.9 F 44 L 22 H 140/84 H 100 09/06/17 11:49 09/06/17 11:49 09/06/17 11:49 09/06/17 08:10 09/06/17 11:49 Intake & Output 09/05/17 09/06/17 09/07/17 06:59 06:59 06:59 Intake Total 100 822 Output Total 0 Balance 100 822 Weight 59.1 kg 59.6 kg Exam: GENERAL: well-nourished and in no acute distress. Alert and oriented x3 HEAD: Atraumatic, normocephalic. EYES: Pupils equal round and reactive to light, extraocular movements intact, sclera anicteric, conjunctiva are normal. ENT: TMs normal, nares patent, oropharynx clear without exudates. Moist mucous membranes. No oral ulcerations or bleeding gums noted NECK: supple without lymphadenopathy. Trachea is central. No cervical or axillary lymphadenopathy noted. Carotids are 2+, JVD WNL LUNGS: Respiration seems nonlabored, no significant accessory muscle action noted. Few bibasilar crackles noted left more than right. No wheezes rales or rhonchi noted. No significant dullness noted on percussion. CHEST: Palpation of the chest wall shows no significant chest wall tenderness. No other significant abnormalities noted. HEART: [place] ENZYME CHEMIST, No PSH, 1/6 LES aortic area, 1/6 espinosa systolic murmur mitral area, no rubs, no gallops. ABDOMEN: Soft, no significant tenderness appreciated, normoactive bowel sounds. No guarding, no rebound. No rigidity noted . No masses appreciated. EXTREMITIES: Pedal pulses are 1-2+, no calf tenderness noted. No clubbing or cyanosis. Negative pedal edema noted NEUROLOGICAL: Focused neurological exam showed no significant neurologic deficit. Normal speech, no focal weakness appreciated. PSYCH: Normal mood, normal affect. Judgment and insight within normal limits. SKIN: No significant ecchymosis, rash, ulcerations or signs of pruritus noted. MUSCULOSKELETAL EXAM: No significant joint swelling noted. Results Laboratory Results: 09/06/17 05:20 09/04/17 05:50 09/06/17 05:20 WBC 4.2 RBC 3.20 L Hgb 10.2 L Hct 30.7 L MCV 96 MCH 31.8 MCHC 33.2 RDW 17.8 H Plt Count 177 09/01/17 11:03 Blood Blood Culture - Final Staphylococcus Hominis Impressions: Chest/Abdomen CTA 09/01/17 00:00 IMPRESSION: No CT angio evidence of acute pulmonary emboli Early or developing left lower lobe pneumonia. Asymmetric pulmonary edema could have this appearance. Advanced fatty infiltration the liver Chest X-Ray 09/01/17 09:34 IMPRESSION: Minimal increased density in the left lung base suggesting pneumonia. Assessment & Plan - Diagnosis (1) Atrial fibrillation with RVR Is this a current diagnosis for this admission?: Yes (2) Essential hypertension Is this a current diagnosis for this admission?: Yes (3) Hyperlipidemia Qualifiers: Hyperlipidemia type: unspecified Qualified Code(s): E78.5 - Hyperlipidemia , unspecified Is this a current diagnosis for this admission?: Yes (4) COPD exacerbation Is this a current diagnosis for this admission?: Yes (5) Pneumonia Qualifiers: Pneumonia type: due to unspecified organism Laterality: left Lung location: lower lobe of lung Qualified Code(s): J18.1 - Lobar pneumonia, unspecified organism Is this a current diagnosis for this admission?: Yes (6) Abnormal liver function test Is this a current diagnosis for this admission?: Yes - Notes Notes: Atrial fibrillation with rapid ventricular response: Patient spontaneously converted to sinus rhythm. It is unclear whether this is new onset or patient has a prior history of atrial fibrillation. At this point recommend rate control. Patient [id number] score at best is 2 therefore could be considered for chronic anticoagulation. However it is quite possible that atrial fibrillation is precipitated by pneumonia therefore at this point feel that we could just place her on aspirin as long as it is assured that she follows up closely with her tray drier. 2D echo shows no high risk features. At this point feel that any chronic anticoagulation issue can be decided as an outpatient. Patient advised to follow-up with me or tray drier of her choice. Hypertension: Currently well controlled. Dyslipidemia: Continue statin therapy. COPD with exacerbation: Continue current management plans. Pneumonia: Continue antibiotic therapy. Abnormal liver function: Consider further evaluation as needed. - Time Time with patient: Greater than 35 minutes - CODE STATUS was discussed, patient remains full code. Surrogate decision-maker unchanged. Multiple medical problems were addressed. More than 50% of the time spent coordinating care, discussing management plans with involved caregivers. Management plans discussed with involved personnels. Medical decision making was of moderate to high complexity, patient's has multiple comorbidities. Medications reviewed and adjusted accordingly: Yes
== END 2017-09-06 12:21 | disposition home or self-care (01) | DRG 871 ==
LOC: ER 09:28 → EH 10:49 → 3S 12:49
PROVIDERS: ADMIT Emergency Medicine; ATTEND Emergency Medicine
PROC: 3E0F73Z Introduction of Anti-inflammatory into Respiratory Tract, Via Natural or Artificial Opening (ICD-10-PCS; principal; 2017-09-01)
DX: A41.9 Sepsis, unspecified organism (principal); J10.00 Influenza due to other identified influenza virus with unspecified type of pneumonia; J96.21 Acute and chronic respiratory failure with hypoxia; J44.1 Chronic obstructive pulmonary disease with (acute) exacerbation; J44.0 Chronic obstructive pulmonary disease with (acute) lower respiratory infection; I48.91 Unspecified atrial fibrillation; I10 Essential (primary) hypertension; E78.00 Pure hypercholesterolemia, unspecified; E87.6 Hypokalemia; F17.210 Nicotine dependence, cigarettes, uncomplicated; R00.1 Bradycardia, unspecified; K76.0 Fatty (change of) liver, not elsewhere classified; Z79.899 Other long term (current) drug therapy; Z82.49 Family history of ischemic heart disease and other diseases of the circulatory system
CPT/HCPCS: 36415; 71046; 71275; 80048; 80053; 80076; 81001; 82565; 82803; 83605; 83735; 83880; 85025; 85027; 85610; 87040; 87077; 87086; 87186; 87804; 93005; 93010; 93306; 94640; 99291; J0696; J1650; J1940; J2543; J3370; J3475; J3490; J7030; J7060; J7620

== ENCOUNTER 2017-11-22 08:29 | Day surgery (SDC) | payer MEDICAID ==
[~2017-11-22 08:29] MED LIST: KETOROLAC TROMETHAMINE 0.45% 4 DROP/0.4 ML DROPERETTE OD PRN
[2017-11-22] MEDS ORDERED: LIDOCAINE 1% INJ-PF (10 MG/ML) 30 ML SDV ONE (08:35)
[2017-11-22] MEDS ORDERED: CHONDR SU A NA/HYALUR INTRAOC KIT (SURGICARE) ONE (08:35)
[2017-11-22] MEDS ORDERED: TOBRAMYCIN SULFATE/DEXAMETH OPH OINTMENT 3.5 GM ONE (08:35)
[2017-11-22] MEDS ORDERED: EPINEPHRINE INJ/PF 1 MG/1 ML AMPULE ONE (08:35)
[2017-11-22] MEDS: TETRACAINE HCL 0.5% OPH SOLN 0.6 ML DROPERETTE OD PRN ×3 (08:41→09:05)
[2017-11-22] MEDS: TROPICAMIDE 1% OPH SOLN 3 ML OD PRN ×3 (08:41→09:01)
[2017-11-22] MEDS: CYCLOPENTOLATE 0.2%/PHENYLEPHRINE 1% OPH SOLN 2 ML OD PRN ×3 (08:42→09:01)
[2017-11-22] MEDS: BESIFLOXACIN HCL 0.6% OPH SUSP 5 ML BOTTLE OD PRN ×3 (08:42→09:24)
[2017-11-22] MEDS ORDERED: MIDAZOLAM 2 MG/2 ML INJ ONE (08:48)
[2017-11-22] MEDS ORDERED: ALBUTEROL SULFATE 0.083% NEB 2.5 MG/3 ML AMPUL NEB ONE (08:50)
== END 2017-11-22 10:04 | disposition home or self-care (01) ==
LOC: SC 08:29
PROVIDERS: ATTEND Ophthalmology
DX: H25.11 Age-related nuclear cataract, right eye (principal); H40.1112 Primary open-angle glaucoma, right eye, moderate stage; H40.1121 Primary open-angle glaucoma, left eye, mild stage; J44.9 Chronic obstructive pulmonary disease, unspecified; I10 Essential (primary) hypertension; F17.210 Nicotine dependence, cigarettes, uncomplicated; I48.91 Unspecified atrial fibrillation; Z79.82 Long term (current) use of aspirin; Z79.899 Other long term (current) drug therapy; Z79.51 Long term (current) use of inhaled steroids
CPT/HCPCS: 66984; V2630; J2250; J3490 ×5; J0171; 142

== ENCOUNTER 2017-12-06 09:28 | Day surgery (SDC) | payer MEDICAID ==
[~2017-12-06 09:28] MED LIST changes: -KETOROLAC TROMETHAMINE 0.45% 4 DROP/0.4 ML DROPERETTE OD PRN; +KETOROLAC TROMETHAMINE 0.45% 4 DROP/0.4 ML DROPERETTE OS PRN
[2017-12-06] MEDS: TROPICAMIDE 1% OPH SOLN 3 ML OS PRN ×3 (09:38→10:08)
[2017-12-06] MEDS: CYCLOPENTOLATE 0.2%/PHENYLEPHRINE 1% OPH SOLN 2 ML OS PRN ×3 (09:38→10:08)
[2017-12-06] MEDS: BESIFLOXACIN HCL 0.6% OPH SUSP 5 ML BOTTLE OS PRN ×4 (09:39→10:44)
[2017-12-06] MEDS: TETRACAINE HCL 0.5% OPH SOLN 0.6 ML DROPERETTE OS PRN ×4 (09:40→10:24)
[2017-12-06] MEDS ORDERED: MIDAZOLAM 2 MG/2 ML INJ ONE (10:06)
[2017-12-06] MEDS: EPINEPHRINE INJ/PF 1 MG/1 ML AMPULE ONE ×2 (10:34)
[2017-12-06] MEDS: LIDOCAINE 1% INJ-PF (10 MG/ML) 30 ML SDV ONE ×2 (10:34)
[2017-12-06] MEDS: CHONDR SU A NA/HYALUR INTRAOC KIT (SURGICARE) ONE ×2 (10:34)
[2017-12-06] MEDS: TOBRAMYCIN SULFATE/DEXAMETH OPH OINTMENT 3.5 GM ONE ×2 (10:44)
== END 2017-12-06 11:19 | disposition home or self-care (01) ==
LOC: SC 09:28
PROVIDERS: ATTEND Ophthalmology
DX: H25.12 Age-related nuclear cataract, left eye (principal); Z98.41 Cataract extraction status, right eye; F17.210 Nicotine dependence, cigarettes, uncomplicated; J44.9 Chronic obstructive pulmonary disease, unspecified; I10 Essential (primary) hypertension; D64.9 Anemia, unspecified; I48.91 Unspecified atrial fibrillation; Z79.82 Long term (current) use of aspirin; Z79.899 Other long term (current) drug therapy
CPT/HCPCS: 66984; V2630; J2250; J3490 ×5; J0171; 142

== ENCOUNTER 2018-10-11 23:34 | Observation (INO) | payer MEDICAID ==
[2018-10-12] MEDS ORDERED: ASPIRIN 81 MG TABLET, CHEWABLE PO ONE (00:40)
[2018-10-12] MEDS ORDERED: IPRATROPIUM/ALBUTEROL 0.5-2.5 MG/3 ML AMPUL NEB ONE (00:42)
--- NOTE | 2018-10-12 00:47 | ER Document Report ---
ED Cardiac - General Chief Complaint: Chest Pain > 30 Stated Complaint: CHEST PAIN Time Seen by Provider: 10/12/18 00:29 Primary Care Provider: SMITA DOWNING MD [Primary Care Provider] - Follow up as needed Mode of Arrival: Ambulatory Information source: Patient TRAVEL OUTSIDE OF THE [place] IN LAST 30 DAYS: No - HPI Patient complains to provider of: Chest pain Notes: Patient here with complaints of chest pain and shortness of breath. She states the pain started yesterday. Seems to be worse with exertion. She also reports that she has shortness of breath is worse with exertion as well. She does have a history of COPD, so is not uncommon for her to have shortness of breath. She denies any fever. She has a chronic cough. She not coughing up any sputum. She complains of some mild chronic leg swelling bilaterally. She is a history of hypertension, high cholesterol, A. fib. She is not anticoagulated. She drinks alcohol daily. She states that she has had several beers today. She denies any recent long trips or surgeries. No leg pain. No cancer. No history of DVT or PE. She denies any known history of CAD. No previous stents. Pain is intermittent, mild, worse with exertion. She denies any specific chest pain currently. No other specific complaints at this time. - Related Data Allergies/Adverse Reactions: No Known Allergies Allergy (Verified 11/20/17 10:58) Past Medical History - General Information source: Patient - Social History Smoking Status: Current Every Day Smoker Family History: Hypertension - Past Medical History Cardiac Medical History: Reports: Hx Atrial Fibrillation, Hx Hypercholesterolemia, Hx Hypertension - MEDICATED Denies: Hx Heart Attack Pulmonary Medical History: Reports: Hx Asthma - MEDICATED PRN, Hx COPD Neurological Medical History: Denies: Hx Cerebrovascular Accident, Hx Seizures Renal/ Medical History: Reports: Hx Kidney Stones. Denies: Hx Peritoneal Dialysis GI Medical History: Denies: Hx Hepatitis, Hx Hiatal Hernia, Hx Ulcer Infectious Medical History: Denies: Hx Hepatitis Past Surgical History: Reports: Hx Breast Surgery - biopsy right breast. Denies: Hx Hysterectomy, Hx Mastectomy, Hx Open Heart Surgery, Hx Pacemaker - Immunizations Hx Diphtheria, Pertussis, Tetanus Vaccination: Yes Review of Systems - Review of Systems -: Yes All other systems reviewed and negative Physical Exam - Vital signs Vitals: Temp Pulse Resp BP Pulse Ox 97.5 F 84 20 135/77 H 97 10/11/18 23:56 10/11/18 23:56 10/11/18 23:56 10/11/18 23:56 10/11/18 23:56 - Notes Notes: GENERAL: alert, cooperative, nontoxic, no distress. HEAD: normocephalic, atraumatic EYES: conjunctiva pink without discharge, no external redness or swelling. EARS: no external swelling, no external redness NOSE: atraumatic, no external swelling MOUTH/THROAT: mucous membranes moist and pink, posterior pharynx without erythema, swelling, exudate. No trismus or drooling. NECK: soft, supple, full range of motion, no meningismus. CHEST: no distress, lungs equal throughout. Expiratory wheezes throughout. Good air movement. No rales, rhonchi. CARDIAC: regular rate irregular rhythm, no murmur, normal capillary refill, normal pulses. +1 pitting edema to the bilateral lower extremities ABDOMEN: Soft, nontender. BACK: full range of motion, no CVA tenderness. EXTREMITIES: full range of motion of all extremities. No redness, swelling pitting edema to the lower extremities. NEURO: alert and oriented x 3, no focal deficits, full range of motion of all extremities. PYSCH: appropriate mood, affect. Patient is cooperative. SKIN: pink, warm, dry, no rash. Course - Re-evaluation Re-evalutation: 10/12/18 03:38 Patient is nontoxic-appearing stable vitals. The patient here with complaints of exertional chest pain and shortness of breath. This started yesterday. Patient has a history of A. fib, COPD, hypertension, high cholesterol. She denies any history of CAD. She is a smoker. Heart score is 4. EKG shows A. fib rate controlled 94. Troponin is negative. Chest x-ray shows no acute abno rmality. Remainder the patient's labs are unremarkable aside from mild elevation of her LFTs, likely secondary to alcohol abuse. Alcohol was 274. Patient denies any history of withdrawal. At this point the patient will require admission to the hospital for further evaluation and management of her chest pain. I discussed this with the patient. I have discussed it with the hospitalist. - Vital Signs Vital signs: Temp Pulse Resp BP Pulse Ox 97.5 F 84 16 112/77 99 04/04/19 23:56 10/11/18 23:56 10/12/18 03:00 10/12/18 03:00 10/12/18 03:00 - Laboratory Result Diagrams: 10/12/18 00:54 10/12/18 00:54 Laboratory results interpreted by me: 10/12/18 10/12/18 10/12/18 00:54 00:54 00:54 RDW 16.7 H Seg Neuts % (Manual) 27 L Lymphocytes % (Manual) 62 H Abs Neuts (Manual) 1.1 L PT 16.4 H Carbon Dioxide 18 L BUN 25 H AST 91 H ALT 55 H Alkaline Phosphatase 180 H - Diagnostic Test Radiology reviewed: Image reviewed, Reports reviewed - Negative - EKG Interpretation by Me Rate: Normal Rhythm: A.Fib When compared to previous EKG there are: Other - A. fib with no obvious ST wave depression or elevation. No obvious STEMI. No change from previous EKG. Discharge - Discharge Clinical Impression: Chest pain, Atrial fibrillation, AA (alcohol abuse) Condition: Stable Disposition: ADMITTED OBSERVATION Admitting Provider: Brian (Hospitalist) Unit Admitted: Telemetry Referrals: SMITA DOWNING MD [Primary Care Provider] - Follow up as needed
[2018-10-12 01:25] LABS: INTERNATIONAL RATION (INR) 1.26; PARTIAL THROMBOPLASTIN TIME 32.8 SEC (23.5-35.8); PROTHROMBIN TIME 16.4 SEC (11.4-15.4)
[2018-10-12 01:45] LABS: ALANINE AMINOTRANSFERASE 55 U/L (9-52); ALBUMIN 4.3 g/dL (3.5-5.0); ALCOHOL 274 mg/dL (NONE DETECTED); ALKALINE PHOSPHATASE 180 U/L (38-126); ANION GAP 15 (5-19); ASPARTATE AMINO TRANSFERASE 91 U/L (14-36); BILIRUBIN,DIRECT 0.4 mg/dL (0.0-0.4); BILIRUBIN,TOTAL 0.9 mg/dL (0.2-1.3); BLOOD UREA NITROGEN 25 mg/dL (7-20); CALCIUM 9.5 mg/dL (8.4-10.2); CARBON DIOXIDE 18 mmol/L (22-30); CHLORIDE 106 mmol/L (98-107); CREATINE KINASE 88 U/L (30-135); GLUCOSE 91 mg/dL (75-110); POTASSIUM 3.6 mmol/L (3.6-5.0); TOTAL PROTEIN 8.1 g/dL (6.3-8.2)
[2018-10-12 01:54] LABS: CREATINE KINASE MB 1.62 ng/mL (<4.55); NT PRO BNP 429 pg/mL (5-900)
[2018-10-12 01:55] LABS: HEMATOCRIT 43.3 % (36.0-47.0); HEMOGLOBIN 14.7 g/dL (12.0-15.5); MEAN CORPUSCULAR HEMOGLOBIN 32.3 pg (27.0-33.4); MEAN CORPUSCULAR HGB CONC 33.9 g/dL (32.0-36.0); MEAN CORPUSCULAR VOLUME 95 fl (80-97); PLATELET COUNT 198 10^3/uL (150-450); RED BLOOD COUNT 4.55 10^6/uL (3.72-5.28); RED CELL DISTRIBUTION WIDTH 16.7 % (11.5-14.0)
[2018-10-12 01:58] LABS: ABSOLUTE LYMPHOCYTES# (MANUAL) 2.5 10^3/uL (0.5-4.7); ABSOLUTE MONOCYTES # (MANUAL) 0.3 10^3/uL (0.1-1.4); ABSOLUTE NEUTROPHILS# (MANUAL) 1.1 10^3/uL (1.7-8.2); BASOPHILS % (MANUAL) 2 % (0-2); EOSINOPHILS % (MANUAL) 0 % (0-6); LYMPHOCYTES % (MANUAL) 62 % (13-45); MONOCYTES % (MANUAL) 8 % (3-13); SEGMENTED NEUTROPHILS % (MAN) 27 % (42-78); TOTAL CELLS COUNTED 100
[2018-10-12 01:59] LABS: HYPOCHROMASIA 1+; PLATELET COMMENT ADEQUATE; POLYCHROMASIA 1+
--- NOTE | 2018-10-12 02:00 | RADIOLOGY REPORT (SQ) ---
EXAM DESCRIPTION: Chest single view CLINICAL HISTORY: 62 years Female, cp COMPARISON: 09/01/2017 FINDINGS: Lungs are clear, with no focal infiltrate, pneumothorax, or pleural effusion. Mediastinum is within normal limits for this positioning. Bony structures are unremarkable. IMPRESSION: 1. No acute pulmonary findings.
[2018-10-12 02:06] LABS: URINE AMPHETAMINES SCREEN NEGATIVE; URINE BARBITURATES SCREEN NEGATIVE; URINE BENZODIAZEPINES SCREEN NEGATIVE; URINE COCAINE SCREEN NEGATIVE; URINE MARIJUANA (THC) SCREEN NEGATIVE; URINE METHADONE SCREEN NEGATIVE; URINE PHENCYCLIDINE SCREEN NEGATIVE
[2018-10-12] MEDS ORDERED: IPRATROPIUM/ALBUTEROL 0.5-2.5 MG/3 ML AMPUL NEB PRN (04:05)
[2018-10-12] MEDS ORDERED: ONDANSETRON HCL INJ/PF 4 MG/2 ML SDV IV PRN (04:05)
[2018-10-12] MEDS ORDERED: GLUCAGON,HUMAN RECOMB 1 MG INJ SUBCUT PRN (04:05)
[2018-10-12] MEDS ORDERED: ACETAMINOPHEN 325 MG TABLET PO PRN (04:05)
[2018-10-12] MEDS ORDERED: DEXTROSE 50%-WATER 25 GM/50 ML DISP.SYRIN IV PRN ×2 (04:05)
[2018-10-12] MEDS ORDERED: DEXTROSE 40% GEL 15 GM TUBE PO PRN ×2 (04:05)
--- NOTE | 2018-10-12 05:37 | PDOC H&P ---
History of Present Illness Admission Date/PCP: 10/12/18 03:42 SMITA DOWNING MD Patient complains of: chest discomfort History of Present Illness: SAMARA COLLIER is a 62 year old woman who has an alcohol use disorder and who came to the ED with complaints of chest pain and shortness of breath. She states the pain started yesterday. Seems to be worse with exertion and worse with palpation of chest. She describes the pain as intermittent aching and intermittent sudden onset sharpness. No diaphoresis, nausea, emesis or radiation of pain. Nothing has really made the pain better. SHe felt that earlier today her left leg was weaker than her right, now resolved. She also reports that she has shortness of breath, and is worse with exertion as well. She does have a history of COPD, so is not uncommon for her to have shortness of breath. She denies any fever. She has a chronic cough. She is coughing up white sputum. She denies any recent long trips or surgeries. No leg pain. No cancer. No history of DVT or PE. She denies any known history of CAD. Admitted to hospitalist under obs status for CP evaluation. Past Medical History Cardiac Medical History: Reports: Atrial Fibrillation, Hyperlipidema, Hypertension - MEDICATED Denies: Coronary Artery Disease, Myocardial Infarction, Pulmonary Embolism Pulmonary Medical History: Reports: Asthma - MEDICATED PRN, Chronic Obstructive Pulmonary Disease (COPD) EENT Medical History: Denies: Cataracts, Ears Neurological Medical History: Denies: Ischemic CVA, Seizures Endocrine Medical History: Denies: Hypothyroidism Renal/ Medical History: Denies: Chronic Kidney Disease Malignancy Medical History: Denies: None GI Medical History: Denies: Gastroesophageal Reflux Disease, Hepatitis, Hiatal Hernia Musculoskeltal Medical History: Reports: Arthritis Denies: Fibromyalgia Skin Medical History: Denies: Eczema, Psoriasis Psychiatric Medical History: Reports: Alcohol Dependency, Tobacco Dependency Traumatic Medical History: Reports: None Hematology: Denies: Anemia, Sickle Cell Disease Infectious Medical History: Reports: None Past Surgical History Past Surgical History: Reports: Other - she had a right breast biopsy, neg for malignancy Social History Information Source: Patient, [facility] Records Occupation: retired, disabled for COPD and orthopedic abnormalities Lives with: Family Smoking Status: Current Every Day Smoker Cigarettes Packs Per Day: 0.5 Frequency of Alcohol Use: Heavy Amount of Alcoholic Beverages Per Day: at least a few beers Hx Recreational Drug Use: No Hx Prescription Drug Abuse: No Past Social History Note: lives with her daughter in [place] - Advance Directive Resuscitation Status: Full Code Surrogate healthcare decision maker:: meenu Ramirez [phone] Family History Family History: CAD, CVA, Hypertension, Malignancy Parental Family History Reviewed: Yes Children Family History Reviewed: Yes Sibling(s) Family History Reviewed.: Yes Medication/Allergy Home Medications: Albuterol Sulfate [Albuterol Sulfate 2.5mg/3 mL] 1 vial IH [id number] PRN 09/01/17 Triamterene/Hydrochlorothiazid [Maxzide-25 Tablet] 1 tab PO DAILY 09/01/17 Metoprolol Tartrate [Lopressor 25 mg Tablet] 12.5 mg PO Q12 30 Days tablet 09/04/17 Aspirin [Aspirin 325 mg Tablet] 325 mg PO DAILY #30 tablet 09/06/17 Allergies/Adverse Reactions: No Known Allergies Allergy (Verified 11/20/17 10:58) Review of Systems ROS unobtainable: Other - not full ROS as she is intoxicated Constitutional: PRESENT: weakness Eyes: ABSENT: visual disturbances Ears: ABSENT: hearing changes Nose, Mouth, and Throat: ABSENT: headache(s), sore throat Cardiovascular: PRESENT: chest pain, dyspnea on exertion. ABSENT: orthropnea, palpitations Respiratory: PRESENT: cough, dyspnea, sputum Gastrointestinal: PRESENT: dysphagia. ABSENT: abdominal pain, coffee ground emesis, melena, nausea Genitourinary: ABSENT: difficulty urinating, dysuria Musculoskeletal: PRESENT: back pain Integumentary: ABSENT: diaphoresis Neurological: ABSENT: focal weakness Psychiatric: ABSENT: anxiety, depression Physical Exam Vital Signs: Temp Pulse Resp BP Pulse Ox 97.5 F 84 16 112/77 99 10/11/18 23:56 10/11/18 23:56 10/12/18 03:00 10/12/18 03:00 10/12/18 03:00 Intake & Output 10/10/18 10/11/18 10/12/18 06:59 06:59 06:59 Weight 63.5 kg General appearance: PRESENT: no acute distress, cooperative, thin Head exam: PRESENT: atraumatic, normocephalic Eye exam: PRESENT: conjunctival injection, EOMI. ABSENT: periorbital swelling, scleral icterus Ear exam: PRESENT: normal external ear exam Mouth exam: PRESENT: moist, tongue midline, other - white coating over tongue Teeth exam: ABSENT: edentulous Respiratory exam: PRESENT: chest wall tenderness, clear to auscultation adelso, unlabored, wheezes. ABSENT: rales Cardiovascular exam: PRESENT: RRR. ABSENT: systolic murmur Pulses: PRESENT: normal radial pulses, normal dorsalis pedis pul Vascular exam: PRESENT: normal capillary refill GI/Abdominal exam: PRESENT: normal bowel sounds, soft. ABSENT: distended, ten derness Rectal exam: PRESENT: deferred Gentrourinary exam: ABSENT: indwelling catheter Extremities exam: ABSENT: pedal edema, tenderness Neurological exam: PRESENT: awake, oriented to person, oriented to place, oriented to situation, CN II-XII grossly intact Psychiatric exam: PRESENT: appropriate affect. ABSENT: anxious, depressed Focused psych exam: ABSENT: paranoid Skin exam: PRESENT: intact, warm. ABSENT: dry Results Laboratory Results: 10/12/18 00:54 10/12/18 00:54 10/12/18 10/12/18 00:54 00:54 WBC 4.0 RBC 4.55 Hgb 14.7 Hct 43.3 MCV 95 MCH 32.3 MCHC 33.9 RDW 16.7 H Plt Count 198 Seg Neutrophils % Not Reportable Lymphocytes % Not Reportable Monocytes % Not Reportable Eosinophils % Not Reportable Basophils % Not Reportable Absolute Neutrophils Not Reportable Absolute Lymphocytes Not Reportable Absolute Monocytes Not Reportable Absolute Eosinophils Not Reportable Absolute Basophils Not Reportable Sodium 139.0 Potassium 3.6 Chloride 106 Carbon Dioxide 18 L Anion Gap 15 BUN 25 H Creatinine 0.75 Est GFR ( Amer) > 60 Est GFR (Non-Af Amer) > 60 Glucose 91 Calcium 9.5 Magnesium 2.1 Total Bilirubin 0.9 AST 91 H ALT 55 H Alkaline Phosphatase 180 H Total Protein 8.1 Albumin 4.3 10/12/18 10/12/18 10/12/18 00:54 00:54 02:11 Creatine Kinase 88 CK-MB (CK-2) 1.62 Troponin I Not Reportable < 0.012 NT-Pro-B Natriuret Pep 429 Impressions: Chest X-Ray 10/12/18 00:40 IMPRESSION: 1. No acute pulmonary findings. Assessment and Plan - Diagnosis (1) Chest pain Is this a current diagnosis for this admission?: Yes Plan: has TTP over the chest wall, so musculoskeletal pain, tylenol prn. Also has a dull ache that comes and goes, mild, cardiac enzymes ordered. EKG shows rate controlled afib. Tele ordered. She is intoxicated so stress test may not be safe, will monitor and reeval later today to see if stress test is indicated. (2) COPD (chronic obstructive pulmonary disease) Qualifiers: COPD type: COPD with acute exacerbation Qualified Code(s): J44.1 - Chronic obstructive pulmonary disease with (acute) exacerbation Is this a current diagnosis for this admission?: Yes Plan: pt has expiratory wheezing, some dyspnea and recent sputum, CXR clear. Will start prednisone for 5 days, 20 mg per day. Will start scheudled and prn duonebs. Will start doxycycline 100 mg po BID. (3) Atrial fibrillation Qualifiers: Atrial fibrillation type: chronic Qualified Code(s): I48.2 - Chronic atrial fibrillation Is this a current diagnosis for this admission?: Yes Plan: stable, cont her home meds, she is not anticoagulated, she is not sure why, perhaps we can learn this from her daughter who will be in this am (4) Alcohol use disorder Is this a current diagnosis for this admission?: Yes Plan: EtOH level elevated, smells of EtoH, not withdrawing but certainly has that potential, will watch closely and start withdrawal start meds if indicated - Time Time Spent with patient: 35 or more minutes Anticipated discharge: Home Within: within 24 hours - Inpatient Certification Based on my medical assessment, after consideration of the patient's comorbidities, presenting symptoms, or acuity I expect that the services needed warrant INPATIENT care.: No I certify that my determination is in accordance with my understanding of Medicare's requirements for reasonable and necessary INPATIENT services [42 CFR 412.3e].: No
[2018-10-12] MEDS ORDERED: ALBUTEROL SULFATE 0.042% NEB (1.25 MG/3 ML) AMPUL NEB PRN (05:40)
[2018-10-12] MEDS: HEPARIN SOD (PORCINE) 5,000 UNIT/ML 1 ML SYRINGE SUBCUT SCH ×2 (06:10→14:40)
--- NOTE | 2018-10-12 07:39 | EKG REPORT ---
SEVERITY:- ABNORMAL ECG - ATRIAL FIBRILLATION, V-RATE 77-130 LEFT VENTRICULAR HYPERTROPHY INFERIOR INFARCT, AGE INDETERMINATE : Confirmed by: Wing Casey MD 12-Oct-2018 07:38:54
[2018-10-12] MEDS: IPRATROPIUM/ALBUTEROL 0.5-2.5 MG/3 ML AMPUL NEB SCH ×2 (08:31→14:01)
[2018-10-12 08:58] LABS: INTERNATIONAL RATION (INR) 1.42; PROTHROMBIN TIME 18.1 SEC (11.4-15.4)
[2018-10-12 08:59] LABS: PARTIAL THROMBOPLASTIN TIME 36.5 SEC (23.5-35.8)
[2018-10-12 09:26] LABS: CREATINE KINASE MB 1.42 ng/mL (<4.55)
[2018-10-12 09:35] LABS: TROPONIN I < 0.012 ng/mL
[2018-10-12] MEDS ORDERED: DOXYCYCLINE HYCLATE 100 MG TABLET PO SCH (10:00)
[2018-10-12] MEDS ORDERED: PREDNISONE 10 MG TABLET PO SCH (10:00)
[2018-10-12] MEDS ORDERED: ASPIRIN 81 MG TABLET, CHEWABLE PO SCH (10:00)
[2018-10-12] MEDS ORDERED: METOPROLOL TARTRATE 25 MG TABLET PO ONE (11:27)
[2018-10-12 15:32] LABS: CREATINE KINASE MB 1.47 ng/mL (<4.55)
[2018-10-12 15:34] LABS: TROPONIN I < 0.012 ng/mL
[2018-10-12 16:29] VITALS: BP 145/72
[2018-10-12] MEDS ORDERED: METOPROLOL TARTRATE 25 MG TABLET PO SCH (22:00)
--- NOTE | 2018-10-13 08:26 | PDOC DISCHARGE SUMMARY ---
General - Admit/Disc Date/PCP Admission Date/Primary Care Provider: 10/12/18 03:42 SMITA DOWNING MD Discharge Date: 10/12/18 - Discharge Diagnosis (1) Chest pain Is this a current diagnosis for this admission?: Yes Summary: The patient's troponins were all less than 0.012. EKG revealed no acute changes. 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 The patient was chest pain free this morning. I will discharge the patient to home. I will defer to her primary care provider for additional stress testing. Noncardiac chest pain for this patient may likely be reflux related versus musculoskeletal. (2) Essential hypertension Is this a current diagnosis for this admission?: Yes Summary: Blood pressure was slightly increased. I will continue on her current metoprolol and triamterene hydrochlorothiazide dose. Further adjustments in medication can be made by her primary care provider. (3) Atrial fibrillation Is this a current diagnosis for this admission?: Yes Summary: Good rate control with metoprolol. She is not on anticoagulation. I will defer to her primary care provider in addition of anticoagulation. She does have el evated liver enzymes and this could be a concern along with her alcohol use for long-term anticoagulation. (4) Alcohol use disorder Is this a current diagnosis for this admission?: Yes Summary: Serum alcohol was markedly elevated on admission. The patient has a history of alcohol use disorder. I will defer to the primary care provider for ongoing counseling and encouragement in an alcohol treatment program. (5) Abnormal liver function test Is this a current diagnosis for this admission?: Yes Summary: Elevated transaminases. Most likely due to chronic alcohol use. Defer to primary care provider for outpatient management. - Additional Information Resuscitation Status: Full Code Discharge Diet: Cardiac Discharge Activity: Activity As Tolerated, Balance Activity w/Rest Prescriptions: Doxycycline Hyclate [Vibramycin 100 mg Tablet] 100 mg PO Q12 10 Days #20 tablet Metoprolol Succinate [Toprol Xl 25 mg Tab.sr] 25 mg PO DAILY #30 tab.sr.24h Prednisone [Deltasone 20 mg Tablet] 20 mg PO DAILY 4 Days #4 tablet Home Medications: Aspirin [Aspirin 81 mg Chewable Tablet] 81 mg PO DAILY tab.chew 10/12/18 Doxycycline Hyclate [Vibramycin 100 mg Tablet] 100 mg PO Q12 10 Days #20 tablet 10/12/18 Metoprolol Succinate [Toprol Xl 25 mg Tab.sr] 25 mg PO DAILY #30 tab.sr.24h 10/12/18 Prednisone [Deltasone 20 mg Tablet] 20 mg PO DAILY 4 Days #4 tablet 10/12/18 History of Present Illness Patient complains of: Chest pain History of Present Illness: SAMARA COLLIER is a 62 year old female with a history of atrial fibrillation and hypertension presented with complaints of chest discomfort and shortness of breath. She reports that the discomfort started the day before admission. It was felt to be worse with exertion and there was increased discomfort with palpation of the chest. The pain is described as intermittent and aching but can have a sudden onset of sharp quality. There was no diaphoresis, nausea, vomiting or radiation of the discomfort. The patient was referred to the hospital service for admission. Hospital Course Hospital Course: This morning the patient is pain-free. Serial enzymes were all less than 0.012. Her EKG is negative for any acute ischemic change. I explained to the patient that there is no evidence of an acute cardiac issue. Her heart rate is well controlled with metoprolol and her blood pressure is reasonably controlled with the metoprolol and triamterene hydrochlorothiazide. The patient will follow up with her primary care for any further investigations or changes in her treatment regimen with regard to anticoagulation, statin therapy etc. Physical Exam Vital Signs: Temp Pulse Resp BP Pulse Ox 98.3 F 79 16 135/87 H 96 10/12/18 11:05 10/12/18 14:00 10/12/18 14:00 10/12/18 11:05 10/12/18 14:00 Intake & Output 10/11/18 10/12/18 10/13/18 06:59 06:59 06:59 Weight 65.2 kg 65.2 kg General appearance: PRESENT: no acute distress, cooperative, well-developed Head exam: PRESENT: atraumatic, normocephalic Respiratory exam: PRESENT: clear to auscultation adelso, symmetrical, unlabored. ABSENT: rales, rhonchi, tachypnea, wheezes Cardiovascular exam: PRESENT: irregular rhythm GI/Abdominal exam: PRESENT: normal bowel sounds, soft. ABSENT: distended, tenderness Rectal exam: PRESENT: deferred Neurological exam: PRESENT: alert, awake, oriented to person, oriented to place, oriented to time, oriented to situation Psychiatric exam: PRESENT: appropriate affect. ABSENT: agitated, anxious Focused psych exam: ABSENT: delusional, restlessness Results Laboratory Results: 10/12/18 00:54 10/12/18 00:54 10/12/18 10/12/18 10/12/18 00:54 00:54 02:11 WBC 4.0 RBC 4.55 Hgb 14.7 Hct 43.3 MCV 95 MCH 32.3 MCHC 33.9 RDW 16.7 H Plt Count 198 Seg Neutrophils % Not Reportable Lymphocytes % Not Reportable Monocytes % Not Reportable Eosinophils % Not Reportable Basophils % Not Reportable Absolute Neutrophils Not Reportable Absolute Lymphocytes Not Reportable Absolute Monocytes Not Reportable Absolute Eosinophils Not Reportable Absolute Basophils Not Reportable Sodium 139.0 Potassium 3.6 Chloride 106 Carbon Dioxide 18 L Anion Gap 15 BUN 25 H Creatinine 0.75 Est GFR ( Amer) > 60 Est GFR (Non-Af Amer) > 60 Glucose 91 Calcium 9.5 Magnesium 2.1 Total Bilirubin 0.9 AST 91 H ALT 55 H Alkaline Phosphatase 180 H Total Protein 8.1 Albumin 4.3 TSH 1.94 10/12/18 10/12/18 10/12/18 00:54 00:54 02:11 Creatine Kinase 88 CK-MB (CK-2) 1.62 Troponin I Not Reportable < 0.012 NT-Pro-B Natriuret Pep 429 10/12/18 10/12/18 10/12/18 08:21 08:21 14:42 Creatine Kinase 55 76 CK-MB (CK-2) 1.42 Troponin I < 0.012 NT-Pro-B Natriuret Pep 10/12/18 14:42 Creatine Kinase CK-MB (CK-2) 1.47 Troponin I < 0.012 NT-Pro-B Natriuret Pep Impressions: Chest X-Ray 10/12/18 00:40 IMPRESSION: 1. No acute pulmonary findings. Qualifiers - * PATIENT BEING DISCHARGED WITH ANY OF THE FOLLOWING DIAGNOSIS: No Plan Time Spent: Greater than 30 Minutes
== END 2018-10-12 18:51 | disposition home or self-care (01) ==
LOC: ER 23:34 → EH 10-12 03:42 → 4N 10-12 06:47
PROVIDERS: ADMIT Internal Medicine; ATTEND Internal Medicine
DX: R07.89 Other chest pain (principal); I10 Essential (primary) hypertension; I48.2 Chronic atrial fibrillation; R74.0 Nonspecific elevation of levels of transaminase and lactic acid dehydrogenase [LDH]; R06.02 Shortness of breath; J44.1 Chronic obstructive pulmonary disease with (acute) exacerbation; F17.210 Nicotine dependence, cigarettes, uncomplicated; R53.1 Weakness; R13.10 Dysphagia, unspecified; M54.9 Dorsalgia, unspecified; F10.229 Alcohol dependence with intoxication, unspecified; Y90.8 Blood alcohol level of 240 mg/100 ml or more; Z82.49 Family history of ischemic heart disease and other diseases of the circulatory system; Z82.3 Family history of stroke; Z79.82 Long term (current) use of aspirin; Z79.899 Other long term (current) drug therapy
CPT/HCPCS: 93005; 94640 ×3; 99285; 36415; 82553; 80307 ×2; 82550; 83735; 84443; 85025; 85610; 85730; 80053; 84484; 83880; 71045; 93010; J1644; J3490 ×3; J7512; J7620; G0378

== ENCOUNTER 2018-12-03 08:17 | Inpatient (IN) | payer MEDICAID ==
--- NOTE | 2018-12-03 09:02 | RADIOLOGY REPORT (SQ) ---
EXAM DESCRIPTION: CHEST SINGLE VIEW COMPLETED DATE/TIME: 12/03/2018 8:47 am REASON FOR STUDY: difficulty breathing / cough COMPARISON: 10/12/2018. EXAM PARAMETERS: NUMBER OF VIEWS: One view. TECHNIQUE: Single frontal radiographic view of the chest acquired. RADIATION DOSE: NA LIMITATIONS: None. FINDINGS: LUNGS AND PLEURA: No acute infiltrates or effusions. MEDIASTINUM AND HILAR STRUCTURES: No masses. Contour normal. HEART AND VASCULAR STRUCTURES: Cardiomegaly. Pulmonary vasculature is prominent. BONES: No acute findings. HARDWARE: None in the chest. OTHER: No other significant finding. IMPRESSION: Cardiomegaly with mild pulmonary vascular congestion. TECHNICAL DOCUMENTATION: JOB ID: [id number] 2010 [employer]- All Rights Reserved Reading location - IP/workstation name: [email or web address]
[2018-12-03] MEDS ORDERED: IPRATROPIUM/ALBUTEROL 0.5-2.5 MG/3 ML AMPUL NEB ONE (09:59)
[2018-12-03 10:05] LABS: ALANINE AMINOTRANSFERASE 23 U/L (9-52); ALBUMIN 2.8 g/dL (3.5-5.0); ALKALINE PHOSPHATASE 87 U/L (38-126); ANION GAP 8 (5-19); ASPARTATE AMINO TRANSFERASE 37 U/L (14-36); BILIRUBIN,DIRECT 0.4 mg/dL (0.0-0.4); BILIRUBIN,TOTAL 0.7 mg/dL (0.2-1.3); BLOOD UREA NITROGEN 8 mg/dL (7-20); CALCIUM 7.3 mg/dL (8.4-10.2); CARBON DIOXIDE 20 mmol/L (22-30); CHLORIDE 114 mmol/L (98-107); GLUCOSE 72 mg/dL (75-110); POTASSIUM 3.6 mmol/L (3.6-5.0); SODIUM 141.6 mmol/L (137-145); TOTAL PROTEIN 5.6 g/dL (6.3-8.2)
--- NOTE | 2018-12-03 10:09 | ER Document Report ---
ED Respiratory Problem - General Chief Complaint: Shortness Of Breath Stated Complaint: SHORT OF BREATH Time Seen by Provider: 12/03/18 09:31 Primary Care Provider: SMITA DOWNING MD [Primary Care Provider] - Follow up as needed Information source: Patient Notes: 62-year-old male with past medical history of COPD, osteoarthritis, high blood pressure, who presents today with 4 days ago with the onset of runny nose, congestion, cough, and shortness of breath. Patient has had no fevers, vomit ing, diarrhea, chest pain, calf pain or leg swelling. Patient does not currently smoke. She is not on home oxygen. EMS provided a nebulizer and a dose of steroids. TRAVEL OUTSIDE OF THE [place] IN LAST 30 DAYS: No - Related Data Allergies/Adverse Reactions: No Known Allergies Allergy (Verified 12/03/18 08:23) Past Medical History - Social History Smoking Status: Current Every Day Smoker Chew tobacco use (# tins/day): No Frequency of alcohol use: Heavy Drug Abuse: None Family History: CAD, CVA, Hypertension, Malignancy Patient has suicidal ideation: No Patient has homicidal ideation: No - Past Medical History Cardiac Medical History: Reports: Hx Atrial Fibrillation, Hx Congestive Heart Failure, Hx Hypercholesterolemia, Hx Hypertension Denies: Hx Coronary Artery Disease, Hx Heart Attack, Hx Pulmonary Embolism Pulmonary Medical History: Reports: Hx COPD Denies: Hx Asthma, Hx Bronchitis, Hx Pneumonia, Hx Tuberculosis Neurological Medical History: Denies: Hx Cerebrovascular Accident, Hx Seizures Endocrine Medical History: Denies: Hx Hypothyroidism Renal/ Medical History: Denies: Hx End Stage Renal Disease, Hx Kidney Stones, Hx Peritoneal Dialysis GI Medical History: Denies: Hx Cirrhosis, Hx Gastroesophageal Reflux Disease, Hx Hepatitis, Hx Hiatal Hernia, Hx Ulcer Musculoskeletal Medical History: Denies Hx Arthritis, Denies Hx Fibromyalgia, Denies Hx Multiple Sclerosis Skin Medical History: Denies Hx Eczema, Denies Hx Psoriasis Psychiatric Medical History: Denies: Hx Bipolar Disorder, Hx Depression, Hx Schizophrenia Infectious Medical History: Denies: Hx Hepatitis Past Surgical History: Reports: Hx Breast Surgery - biospy, Other - she had a right breast biopsy, neg for malignancy. Denies: Hx Hysterectomy, Hx Mastectomy, Hx Open Heart Surgery, Hx Pacemaker - Immunizations Hx Diphtheria, Pertussis, Tetanus Vaccination: Yes Review of Systems - Review of Systems Constitutional: denies: Fever EENT: Nose congestion, Nose discharge. denies: Eye discharge Cardiovascular: denies: Chest pain, Palpitations Respiratory: Cough, Short of breath, Wheezing. denies: Hurts to breathe, Hemoptysis Gastrointestinal: denies: Vomiting Genitourinary: denies: Dysuria Musculoskeletal: denies: Leg swelling Skin: Other - no hives. denies: Rash Neurological/Psychological: Other - no slurred speech -: Yes All other systems reviewed and negative Physical Exam - Vital signs Vitals: Temp Pulse Resp BP Pulse Ox 98.2 F 73 25 H 161/90 H 100 12/03/18 08:22 12/03/18 08:22 12/03/18 08:22 12/03/18 08:22 12/03/18 08:22 Notes: Reviewed vital signs and nursing note as charted by RN. CONSTITUTIONAL: Alert and oriented and responds appropriately to questions. Well-appearing; well-nourished HEAD: Normocephalic; atraumatic EYES: PERRL; Conjunctivae clear, sclerae non-icteric ENT: Normal nose; bilateral nonpurulent nasal rhinorrhea; moist mucous membranes; pharynx without lesions noted NECK: Supple without meningismus; non-tender; no cervical lymphadenopathy, no masses CARD: Regular rate and rhythm; no murmurs; symmetric distal pulses RESP: Normal chest excursion without splinting or tachypnea; breath sounds clear and equal bilaterally; and expiratory wheezing bilaterally without rhonchi or rales present ABD/GI: Normal bowel sounds; non-distended; soft, non-tender; no palpable organomegaly or masses BACK: The back appears normal and is non-tender to palpation EXT: Normal ROM in all joints; non-tender to palpation; no edema SKIN: No acute lesions noted NEURO: CN 2-12 intact; 5/5 bilateral upper and lower extremity strength with sensation intact to light touch PSYCH: The patient's mood and manner are appropriate. Grooming and personal hygi peace are appropriate. Course - Re-evaluation Re-evalutation: 12/03/18 10:09 Given the history and physical examination in this well-appearing patient in no acute distress, vital signs as recorded, with nasal congestion, cough, and bi lateral wheezing on examination, without any chest pain or leg swelling, I do believe ACS, PE, and dissection to be unlikely. We will obtain an x-ray of the chest as well as basic labs and reassess. I will provide a repeat duo nebulizer. 12/03/18 10:15 Reviewing the patient's past medical chart history it appears that the patient was admitted in October for some nonspecific chest pain. Patient had atrial fibrillation and found to have a highly elevated alcohol level with some mildly abnormal liver enzymes. Patient denies drinking any alcohol at this time. Patient is supposed to have follow-up with her primary care physician regarding anticoagulation and rate control. Heart rate as recorded here. Awaiting EKG. 12/03/18 10:49 EKG shows a heart of 74, normal sinus rhythm, normal axis, no ST elevation or depression. Comparing to previous EKG, it appears that atrial fibrillation has resolved. 12/03/18 11:38 Labs as recorded. Wheezing has improved. X-ray as recorded. Slightly in creased heart size and lung vascular markings. I have added on a BNP. Patient has no urinary tract symptoms. 12/03/18 13:08 Patient still has a slightly increased respiratory rate of 26. I will provide a dose of Lasix and admit the patient for possible echo and further cardiac assessment . - Vital Signs Vital signs: Temp Pulse Resp BP Pulse Ox 98.3 F 67 32 H 156/91 H 97 12/03/18 11:24 12/03/18 11:24 12/03/18 11:24 12/03/18 11:24 12/03/18 12:00 - Laboratory Result Diagrams: 12/03/18 10:41 12/03/18 09:27 Laboratory results interpreted by me: 12/03/18 12/03/18 12/03/18 09:27 10:06 10:41 RBC 3.45 L Hgb 10.7 L Hct 33.8 L MCV 98 H MCHC 31.6 L RDW 17.4 H Chloride 114 H Carbon Dioxide 20 L Creatinine 0.51 L Glucose 72 L Calcium 7.3 L AST 37 H NT-Pro-B Natriuret Pep Total Protein 5.6 L Albumin 2.8 L Urine Protein 100 H Urine Blood SMALL H Urine Urobilinogen 2.0 H Ur Leukocyte Esterase LARGE H 12/03/18 12:00 RBC Hgb Hct MCV MCHC RDW Chloride Carbon Dioxide Creatinine Glucose Calcium AST NT-Pro-B Natriuret Pep 3600 H Total Protein Albumin Urine Protein Urine Blood Urine Urobilinogen Ur Leukocyte Esterase Discharge - Discharge Clinical Impression: New onset of congestive heart failure, Wheezing Condition: Fair Disposition: ADMITTED OBSERVATION Admitting Provider: Anisa (Hospitalist) Unit Admitted: Telemetry Referrals: SMITA DOWNING MD [Primary Care Provider] - Follow up as needed
[2018-12-03 10:42] LABS: APPEARANCE,URINE CLOUDY; BILIRUBIN,URINE NEGATIVE (NEGATIVE); GLUCOSE, URINE NEGATIVE (NEGATIVE); KETONES,URINE NEGATIVE (NEGATIVE); LEUKOCYTE ESTERASE,URINE LARGE (NEGATIVE); NITRITE,URINE NEGATIVE (NEGATIVE); PROTEIN,URINE 100 mg/dL (NEGATIVE); URINE SPECIFIC GRAVITY 1.021
[2018-12-03 10:44] LABS: COLOR,URINE DARK YELLOW
[2018-12-03 10:48] LABS: ABSOLUTE LYMPHOCYTES (AUTO) 0.9 10^3/uL (0.5-4.7); ABSOLUTE MONOCYTES (AUTO) 0.2 10^3/uL (0.1-1.4); ABSOLUTE NEUT (AUTO) 3.8 10^3/uL (1.7-8.2); BASOPHILS % (AUTO) 0.8 % (0-2); EOSINOPHILS % (AUTO) 0.7 % (0-6); HEMATOCRIT 33.8 % (36.0-47.0); HEMOGLOBIN 10.7 g/dL (12.0-15.5); LYMPHOCYTES % (AUTO) 17.8 % (13-45); MEAN CORPUSCULAR HEMOGLOBIN 30.9 pg (27.0-33.4); MEAN CORPUSCULAR HGB CONC 31.6 g/dL (32.0-36.0); MEAN CORPUSCULAR VOLUME 98 fl (80-97); MONOCYTES % (AUTO) 3.5 % (3-13); PLATELET COUNT 218 10^3/uL (150-450); RED BLOOD COUNT 3.45 10^6/uL (3.72-5.28); RED CELL DISTRIBUTION WIDTH 17.4 % (11.5-14.0); SEGMENTED NEUTROPHILS % (AUTO) 77.2 % (42-78); TOTAL CELLS COUNTED % (AUTO) 100 %; WHITE BLOOD COUNT 4.9 10^3/uL (4.0-10.5)
[2018-12-03 12:37] LABS: NT PRO BNP 3600 pg/mL (5-900); TROPONIN I < 0.012 ng/mL
[2018-12-03] MEDS ORDERED: FUROSEMIDE INJ/PF 40 MG/4 ML SDV IV ONE (13:09)
[2018-12-03] MEDS ORDERED: ONDANSETRON HCL INJ/PF 4 MG/2 ML SDV IV PRN (13:51)
--- NOTE | 2018-12-03 14:04 | EKG REPORT ---
SEVERITY:- NORMAL ECG - SINUS RHYTHM : Confirmed by: Cindy Mandujano MD 03-Dec-2018 14:03:55
[2018-12-03] MEDS ORDERED: LORAZEPAM INJ 2 MG/1 ML VIAL IV PRN (14:12)
--- NOTE | 2018-12-03 14:12 | PDOC H&P ---
History of Present Illness Admission Date/PCP: 12/03/18 13:25 SMITA DOWNING MD History of Present Illness: SAMARA COLLIER is a 62 year old black female patient with past medical history of hypertension, COPD, tobacco dependence, history of polysubstance abuse, alcohol dependence, history of A. fib not on any anticoagulation presented with 4-day history of cough and shortness of breath. Patient states she has been in her usual baseline state of health up until 4 days when she started to have the above-mentioned complaint is which is worsening gradually. Her shortness of breath is relieved by resting and precipitated by exertion. Denies any fevers, chills, palpitation or diaphoresis. She does not have any nausea, vomiting abdominal pain, diarrhea, urinary complaints. Patient has history of polysubstance abuse but she claimed she is clean for the last 6 years. She drinks 3-4 bottles of beer on daily basis. She smokes 2 to 3 cigarettes daily and reports that a pack of cigarettes lasts for for 4 month. Her blood work shows elevated BNP of 7 600 and her urinalysis positive for pyuria and large leukocyte esterase. Her chest x-ray reported as cardiomegaly with mild pulmonary vascular congestion. Past Medical History Cardiac Medical History: Reports: Atrial Fibrillation, Congestive Heart Failure, Hyperlipidema, Hypertension Denies: Coronary Artery Disease, Myocardial Infarction, Pulmonary Embolism Pulmonary Medical History: Reports: Chronic Obstructive Pulmonary Disease (COPD) Denies: Asthma, Bronchitis, Pneumonia, Tuberculosis Neurological Medical History: Denies: Seizures Endocrine Medical History: Denies: Hypothyroidism Renal/ Medical History: Denies: End Stage Renal Disease GI Medical History: Denies: Cirrhosis, Gastroesophageal Reflux Disease, Hepatitis, Hiatal Hernia Musculoskeltal Medical History: Denies: Arthritis, Fibromyalgia Skin Medical History: Denies: Eczema, Psoriasis Psychiatric Medical History: Denies: Bipolar Disorder, Depression Hematology: Denies: Anemia, Sickle Cell Disease, Bleeding Tendencies Past Surgical History Past Surgical History: Reports: Other - she had a right breast biopsy, neg for malignancy Denies: Amputation, Hysterectomy, Mastectomy, Pacemaker Social History Smoking Status: Current Every Day Smoker Frequency of Alcohol Use: Heavy Hx Recreational Drug Use: No Drugs: Cocaine Hx Prescription Drug Abuse: No - Advance Directive Resuscitation Status: Full Code Family History Family History: CAD, CVA, Hypertension, Malignancy Parental Family History Reviewed: Yes Children Family History Reviewed: Yes Sibling(s) Family History Reviewed.: Yes Medication/Allergy Home Medications: Aspirin [Aspirin 81 mg Chewable Tablet] 81 mg PO DAILY tab.chew 10/12/18 Doxycycline Hyclate [Vibramycin 100 mg Tablet] 100 mg PO Q12 10 Days #20 tablet 10/12/18 Metoprolol Succinate [Toprol Xl 25 mg Tab.sr] 25 mg PO DAILY #30 tab.sr.24h 10/12/18 Prednisone [Deltasone 20 mg Tablet] 20 mg PO DAILY 4 Days #4 tablet 10/12/18 Allergies/Adverse Reactions: No Known Allergies Allergy (Verified 12/03/18 08:23) Review of Systems Constitutional: ABSENT: chills, fever(s), headache(s), weight gain, weight loss Eyes: ABSENT: visual disturbances Ears: ABSENT: hearing changes Cardiovascular: ABSENT: chest pain, dyspnea on exertion, edema, orthropnea, palpitations Respiratory: PRESENT: cough, dyspnea Gastrointestinal: ABSENT: abdominal pain, constipation, diarrhea, hematemesis, hematochezia, nausea, vomiting Genitourinary: ABSENT: dysuria, hematuria Musculoskeletal: ABSENT: joint swelling Integumentary: ABSENT: rash, wounds Neurological: ABSENT: abnormal gait, abnormal speech, confusion, dizziness, focal weakness, syncope Psychiatric: ABSENT: anxiety, depression, homidical ideation, suicidal ideation Endocrine: ABSENT: cold intolerance, heat intolerance, polydipsia, polyuria Hematologic/Lymphatic: ABSENT: easy bleeding, easy bruising Physical Exam Vital Signs: Temp Pulse Resp BP Pulse Ox 98.3 F 67 32 H 156/91 H 97 12/03/18 11:24 12/03/18 11:24 12/03/18 11:24 12/03/18 11:24 12/03/18 12:00 Intake & Output 12/02/18 12/03/18 12/04/18 06:59 06:59 06:59 Weight 62.3 kg General appearance: PRESENT: mild distress Head exam: PRESENT: atraumatic Eye exam: PRESENT: conjunctiva pink Mouth exam: PRESENT: moist Neck exam: PRESENT: JVD Respiratory exam: PRESENT: clear to auscultation adelso. ABSENT: rales, rhonchi, wheezes Cardiovascular exam: PRESENT: RRR. ABSENT: diastolic murmur, rubs, systolic murmur GI/Abdominal exam: PRESENT: normal bowel sounds, soft. ABSENT: distended, guarding, mass, organolmegaly, rebound, tenderness Extremities exam: PRESENT: +2 edema Neurological exam: PRESENT: alert, awake, oriented to time, oriented to situation Results Laboratory Results: 12/03/18 10:41 12/03/18 09:27 12/03/18 12/03/18 12/03/18 09:27 09:27 10:06 WBC Cancelled RBC Cancelled Hgb Cancelled Hct Cancelled MCV Cancelled MCH Cancelled MCHC Cancelled RDW Cancelled Plt Count Cancelled Seg Neutrophils % Cancelled Lymphocytes % Cancelled Monocytes % Cancelled Eosinophils % Cancelled Basophils % Cancelled Absolute Neutrophils Cancelled Absolute Lymphocytes Cancelled Absolute Monocytes Cancelled Absolute Eosinophils Cancelled Absolute Basophils Cancelled Sodium 141.6 Potassium 3.6 Chloride 114 H Carbon Dioxide 20 L Anion Gap 8 BUN 8 Creatinine 0.51 L Est GFR ( Amer) > 60 Est GFR (Non-Af Amer) > 60 Glucose 72 L Calcium 7.3 L Total Bilirubin 0.7 AST 37 H ALT 23 Alkaline Phosphatase 87 Total Protein 5.6 L Albumin 2.8 L Urine Color DARK YELLOW Urine Appearance CLOUDY Urine pH 5.0 Ur Specific Gay 1.021 Urine Protein 100 H Urine Glucose (UA) NEGATIVE Urine Ketones NEGATIVE Urine Blood SMALL H Urine Nitrite NEGATIVE Ur Leukocyte Esterase LARGE H Urine WBC (Auto) 106 Urine RBC (Auto) 65 12/03/18 10:41 WBC 4.9 RBC 3.45 L Hgb 10.7 L Hct 33.8 L MCV 98 H MCH 30.9 MCHC 31.6 L RDW 17.4 H Plt Count 218 Seg Neutrophils % 77.2 Lymphocytes % 17.8 Monocytes % 3.5 Eosinophils % 0.7 Basophils % 0.8 Absolute Neutrophils 3.8 Absolute Lymphocytes 0.9 Absolute Monocytes 0.2 Absolute Eosinophils 0.0 Absolute Basophils 0.0 Sodium Potassium Chloride Carbon Dioxide Anion Gap BUN Creatinine Est GFR ( Amer) Est GFR (Non-Af Amer) Glucose Calcium Total Bilirubin AST ALT Alkaline Phosphatase Total Protein Albumin Urine Color Urine Appearance Urine pH Ur Specific Gay Urine Protein Urine Glucose (UA) Urine Ketones Urine Blood Urine Nitrite Ur Leukocyte Esterase Urine WBC (Auto) Urine RBC (Auto) 12/03/18 12/03/18 09:27 12:00 Troponin I Cancelled < 0.012 NT-Pro-B Natriuret Pep Cancelled 3600 H Impressions: Chest X-Ray 12/03/18 08:39 IMPRESSION: Cardiomegaly with mild pulmonary vascular congestion. Assessment and Plan - Diagnosis (1) New onset of congestive heart failure Is this a current diagnosis for this admission?: Yes Plan: CHF presents unspecified. She will be managed with Lasix IV, lisinopril and carvedilol. Echo requested. Keep her on supplemental oxygen. Daily weights and strict input output monitoring. (2) UTI (urinary tract infection) Is this a current diagnosis for this admission?: Yes Plan: Patient has been started on ceftriaxone. (3) COPD (chronic obstructive pulmonary disease) Qualifiers: Emphysema type: unspecified Is this a current diagnosis for this admission?: Yes Plan: Patient does not have wheezing. Patient has been started on PRN bronchodilator. (4) History of atrial fibrillation Is this a current diagnosis for this admission?: Yes Plan: Rate controlled. May be paroxysmal atrial fibrillation. (5) Hypertension Qualifiers: Hypertension type: essential hypertension Qualified Code(s): I10 - Essential (primary) hypertension Is this a current diagnosis for this admission?: Yes Plan: It has been on carvedilol lisinopril and will continue her home medications. (6) Hyperlipidemia Is this a current diagnosis for this admission?: Yes Plan: Continue statin. (7) Tobacco dependence Is this a current diagnosis for this admission?: Yes Plan: Patient encouraged and counseled to quit smoking. (8) Alcohol dependence Is this a current diagnosis for this admission?: Yes Plan: Patient reports that she drinks 3-4 bottles beer per day. We will put her on alcohol withdrawal protocol. (9) History of polysubstance abuse Is this a current diagnosis for this admission?: Yes Plan: Patient claims that she is clean for more than 6 years. She is encouraged to remain clean.
[2018-12-03] MEDS ORDERED: CEFTRIAXONE 1 GM/D5W RTU 1 GM/50 ML RTUPB IV SCH (14:30)
[2018-12-03] MEDS: IPRATROPIUM/ALBUTEROL 0.5-2.5 MG/3 ML AMPUL NEB SCH ×2 (14:30→19:30)
[2018-12-03] MEDS: LISINOPRIL 10 MG TABLET PO SCH (15:36)
[2018-12-03] MEDS: ENOXAPARIN SODIUM INJ 40 MG/0.4 ML DISP.SYRIN SUBCUT SCH (15:36)
[2018-12-03 17:27] LABS: URINE AMPHETAMINES SCREEN NEGATIVE; URINE BARBITURATES SCREEN NEGATIVE; URINE BENZODIAZEPINES SCREEN NEGATIVE; URINE COCAINE SCREEN NEGATIVE; URINE MARIJUANA (THC) SCREEN NEGATIVE; URINE METHADONE SCREEN NEGATIVE; URINE PHENCYCLIDINE SCREEN NEGATIVE
[2018-12-03] MEDS: DOCUSATE SODIUM 100 MG/10 ML UDC PO SCH (17:48)
[2018-12-03] MEDS: CEFTRIAXONE SODIUM 1,000 MG in DEXTROSE 5%-WATER 50 ML IV SCH (17:48)
[2018-12-03] MEDS: CARVEDILOL 12.5 MG TABLET PO SCH (21:06)
[2018-12-03] MEDS: FAMOTIDINE 20 MG TABLET PO SCH (21:06)
[2018-12-03] MEDS: FUROSEMIDE INJ/PF 40 MG/4 ML SDV IV SCH (21:07)
[2018-12-04] MEDS: IPRATROPIUM/ALBUTEROL 0.5-2.5 MG/3 ML AMPUL NEB SCH ×4 (02:11→20:58)
[2018-12-04 05:02] LABS: ABSOLUTE BASOPHILS # (AUTO) 0.1 10^3/uL (0.0-0.2); ABSOLUTE LYMPHOCYTES (AUTO) 1.7 10^3/uL (0.5-4.7); ABSOLUTE MONOCYTES (AUTO) 0.5 10^3/uL (0.1-1.4); ABSOLUTE NEUT (AUTO) 3.9 10^3/uL (1.7-8.2); BASOPHILS % (AUTO) 1.7 % (0-2); EOSINOPHILS % (AUTO) 0.1 % (0-6); HEMATOCRIT 31.5 % (36.0-47.0); HEMOGLOBIN 10.3 g/dL (12.0-15.5); LYMPHOCYTES % (AUTO) 27.5 % (13-45); MEAN CORPUSCULAR HEMOGLOBIN 31.4 pg (27.0-33.4); MEAN CORPUSCULAR HGB CONC 32.8 g/dL (32.0-36.0); MEAN CORPUSCULAR VOLUME 96 fl (80-97); MONOCYTES % (AUTO) 7.6 % (3-13); PLATELET COUNT 216 10^3/uL (150-450); RED BLOOD COUNT 3.29 10^6/uL (3.72-5.28); RED CELL DISTRIBUTION WIDTH 17.1 % (11.5-14.0); SEGMENTED NEUTROPHILS % (AUTO) 63.1 % (42-78); TOTAL CELLS COUNTED % (AUTO) 100 %; WHITE BLOOD COUNT 6.1 10^3/uL (4.0-10.5)
[2018-12-04] MEDS: FUROSEMIDE INJ/PF 40 MG/4 ML SDV IV SCH (05:26)
[2018-12-04 05:28] LABS: ANION GAP 11 (5-19); BLOOD UREA NITROGEN 22 mg/dL (7-20); CALCIUM 9.5 mg/dL (8.4-10.2); CARBON DIOXIDE 27 mmol/L (22-30); CHLORIDE 102 mmol/L (98-107); GLUCOSE 112 mg/dL (75-110); POTASSIUM 3.8 mmol/L (3.6-5.0); SODIUM 140.4 mmol/L (137-145)
[2018-12-04] MEDS ORDERED: METOPROLOL SUCCINATE 25 MG TAB.SR.24H PO SCH (10:00)
[2018-12-04] MEDS ORDERED: FUROSEMIDE INJ/PF 40 MG/4 ML SDV IV SCH (10:00)
[2018-12-04] MEDS: ASPIRIN 81 MG TABLET, CHEWABLE PO SCH (10:48)
[2018-12-04] MEDS: DOCUSATE SODIUM 100 MG/10 ML UDC PO SCH ×2 (10:49→17:51)
[2018-12-04] MEDS: CARVEDILOL 12.5 MG TABLET PO SCH ×2 (10:49→21:18)
[2018-12-04] MEDS: LISINOPRIL 10 MG TABLET PO SCH (10:49)
[2018-12-04] MEDS: FAMOTIDINE 20 MG TABLET PO SCH ×2 (10:50→21:18)
[2018-12-04] MEDS: ENOXAPARIN SODIUM INJ 40 MG/0.4 ML DISP.SYRIN SUBCUT SCH (10:50)
--- NOTE | 2018-12-04 11:51 | PDOC PROGRESS REPORT ---
Subjective Progress Note for:: 12/04/18 Subjective:: 62 year old black female patient with past medical history of hypertension, COPD, tobacco dependence, history of polysubstance abuse, alcohol dependence, history of A. fib not on any anticoagulation presented with 4-day history of cough and shortness of breath. Patient states she has been in her usual baseline state of health up until 4 days when she started to have the above- mentioned complaint is which is worsening gradually. Her shortness of breath is relieved by resting and precipitated by exertion. Denies any fevers, chills, palpitation or diaphoresis. She does not have any nausea, vomiting abdominal pain, diarrhea, urinary complaints. Patient has history of polysubstance abuse but she claimed she is clean for the last 6 years. She drinks 3-4 bottles of beer on daily basis. She smokes 2 to 3 cigarettes daily and reports that a pack of cigarettes lasts for for 4 month. Her blood work shows elevated BNP of 7 600 and her urinalysis positive for pyuria and large leukocyte esterase. Her chest x-ray reported as cardiomegaly with mild pulmonary vascular congestion. 12/[id number]/[id number]-htlm-old female admitted with new onset CHF. Patient has history of hypertension, COPD, tobacco dependency, polysubstance abuse, alcohol abuse, history of atrial fibrillation not on anticoagulation. She is presented with symptoms of cough and shortness of breath. At the time of admission BNP 7600 and chest x-ray shows cardiomegaly with mild pulmonary vascular congestion. Echocardiogram was done report is pending. Comfortable in the chair communicating well denies any problems. Reason For Visit: NEW ONSET CHF Physical Exam Vital Signs: Temp Pulse Resp BP Pulse Ox 97.9 F 68 20 144/77 H 98 12/04/18 07:00 12/04/18 08:16 12/04/18 08:16 12/04/18 07:00 12/04/18 08:16 Intake & Output 12/03/18 12/04/18 12/05/18 06:59 06:59 06:59 Intake Total 1230 Output Total 50 Balance 1180 Weight 62.3 kg General appearance: PRESENT: no acute distress, well-developed Head exam: PRESENT: atraumatic Eye exam: PRESENT: PERRLA Mouth exam: PRESENT: moist, tongue midline Teeth exam: PRESENT: poor dentation Neck exam: ABSENT: carotid bruit, JVD, lymphadenopathy, thyromegaly Respiratory exam: PRESENT: decreased breath sounds Cardiovascular exam: PRESENT: RRR. ABSENT: diastolic murmur, rubs, systolic murmur GI/Abdominal exam: PRESENT: normal bowel sounds, soft. ABSENT: distended, guarding, mass, organolmegaly, rebound, tenderness Rectal exam: PRESENT: deferred Extremities exam: PRESENT: full ROM. ABSENT: calf tenderness, clubbing, pedal edema Neurological exam: PRESENT: alert, awake, oriented to person, oriented to place, oriented to time, oriented to situation, CN II-XII grossly intact. ABSENT: motor sensory deficit Psychiatric exam: PRESENT: appropriate affect, normal mood. ABSENT: homicidal ideation, suicidal ideation Results Laboratory Results: 12/04/18 04:48 12/04/18 04:48 12/04/18 12/04/18 12/04/18 04:48 04:48 04:48 WBC 6.1 RBC 3.29 L Hgb 10.3 L Hct 31.5 L MCV 96 MCH 31.4 MCHC 32.8 RDW 17.1 H Plt Count 216 Seg Neutrophils % 63.1 Lymphocytes % 27.5 Monocytes % 7.6 Eosinophils % 0.1 Basophils % 1.7 Absolute Neutrophils 3.9 Absolute Lymphocytes 1.7 Absolute Monocytes 0.5 Absolute Eosinophils 0.0 Absolute Basophils 0.1 Sodium 140.4 Potassium 3.8 Chloride 102 Carbon Dioxide 27 Anion Gap 11 BUN 22 H Creatinine 0.85 Est GFR ( Amer) > 60 Est GFR (Non-Af Amer) > 60 Glucose 112 H Calcium 9.5 TSH 1.65 12/03/18 12:58 Clean Catch Midstream Urine Culture - Final Mixed Urogenital Manuel 12/03/18 12/03/18 09:27 12:00 Troponin I Cancelled < 0.012 NT-Pro-B Natriuret Pep Cancelled 3600 H Impressions: Chest X-Ray 12/03/18 08:39 IMPRESSION: Cardiomegaly with mild pulmonary vascular congestion. Assessment and Plan - Diagnosis (1) New onset of congestive heart failure Is this a current diagnosis for this admission?: Yes Plan: CHF presents unspecified. She will be managed with Lasix IV, lisinopril and carvedilol. Echo requested. Keep her on supplemental oxygen. Daily weights and strict input output monitoring. 12/[id number]/[id number]-lncx-old female admitted with shortness of breath BNP was 7600 at the time of admission chest x-ray shows cardiomegaly associated with mild pulmonary vascular congestion. Patient pulse ox is 97% on room air. Patient input is 1230 output is 50 mL. Weight is 62.3 kg is unchanged. Placed on fluid restriction 1500 cc/day. Echocardiogram report is pending. (2) History of atrial fibrillation Is this a current diagnosis for this admission?: Yes Plan: Rate controlled. May be paroxysmal atrial fibrillation. 12/04/2018-patient might have history of paroxysmal atrial fibrillation not on chronic anticoagulation at this point. Heart rate is relatively controlled. (3) Alcohol dependence Is this a current diagnosis for this admission?: Yes Plan: Patient reports that she drinks 3-4 bottles beer per day. We will put her on alcohol withdrawal protocol. 12/04/2018-patient admitted drinking 3-4 bottles of beer per day, watching for the DTs. (4) Hypertension Qualifiers: Hypertension type: essential hypertension Qualified Code(s): I10 - Essential (primary) hypertension Is this a current diagnosis for this admission?: Yes Plan: It has been on carvedilol lisinopril and will continue her home medications. 12/04/2018-patient has history of hypertension blood pressure today is 120/68 well controlled. Presently on Coreg 12.5 mg po bid and lisinopril 10 mg po d aily. (5) UTI (urinary tract infection) Is this a current diagnosis for this admission?: Yes Plan: Patient has been started on ceftriaxone. 12/04/2018-patient is presently on IV ceftriaxone. Urine culture positive for mixed urogenital manuel. Patient is afebrile. (6) History of polysubstance abuse Is this a current diagnosis for this admission?: Yes Plan: Patient claims that she is clean for more than 6 years. She is encouraged to remain clean. (7) Tobacco dependence Is this a current diagnosis for this admission?: Yes Plan: Patient encouraged and counseled to quit smoking. 12/04/2018-patient has history of chronic smoking smokes close to 1 pack/day smoking counseling was provided for more than 10 minutes. Strongly advised to quit smoking. - Time Time Spent with patient: 15-24 minutes Smoking Cessation Education: over 10 minutes Medications reviewed and adjusted accordingly: Yes Anticipated discharge: Home
[2018-12-04] MEDS: CEFTRIAXONE SODIUM 1,000 MG in DEXTROSE 5%-WATER 50 ML IV SCH (11:59)
--- NOTE | 2018-12-04 20:33 | XCELERA REPORT ---
[address] [address] Transthoracic Echocardiogram Report Name: SAMARA COLLIER Age: 62 yrs Gender: Female : 1955 Patient Status: Inpatient Patient Location: [address] [place] [address] Study Date: 12/04/2018 09:12 AM Height: 60 in Weight: 137 lb BSA: 1.6 m2 Procedure: A two-dimensional transthoracic echocardiogram with color flow and Doppler was performed. The study was technically difficult with many images being suboptimal in quality. Reason For Study: 5shortness of breath, elevated BNP, History: shortness of breath, elevated BNP. Ordering Physician: AARON CHOW Performed By: Annel Morgan Interpretation Summary The left ventricle is normal in size. There is normal left ventricular wall thickness. The left ventricular ejection fraction is within normal limits. LV EF is 60% Doppler measurements suggest normal left ventricular diastolic function The left ventricular wall motion is normal. There is no thrombus. Probably no ASD,VSd ,or PFO seen. The right ventricle is not well visualized secondary to technical limitations The left atrial size is normal. There is no evidence of mitral valve prolapse. There is no vegetation seen on the mitral valve. There is no mitral valve stenosis. There is a mild amount of mitral regurgitation There is no aortic valvular vegetation. There is no aortic valve stenosis There is no LVOT obstruction. There is a trace amount of aortic regurgitation There is no tricuspid stenosis. There is a mild amount of tricuspid regurgitation There is mild to moderate pulmonary hypertension by echo RVSP is 44 to 49 mm of Hg , with RA mean of 5 to 10. There is no pulmonic valvular stenosis. There is no pulmonic valvular regurgitation. The aortic root is normal size. The inferior vena cava appeared normal and decreased > 50% with respiration (RAP 5-10 mmHg) There is no pericardial effusion. MMode/2D Measurements & Calculations RVDd: 2.7 cm LVIDd: 4.7 cm FS: 30.8 % Ao root diam: 3.1 cm IVSd: 0.99 cm LVIDs: 3.2 cm EDV(Teich): LVPWd: 1.2 cm 99.9 ml Ao root area: ESV(Teich): 7.4 cm2 41.5 ml EF(Teich): 58.5 % EDV(MOD-sp4): SV(MOD-sp4): 109.0 ml 73.1 ml ESV(MOD-sp4): 35.9 ml EF(MOD-sp4): 67.1 % Doppler Measurements & Calculations MV E max dasia: MV dec slope: Ao V2 max: LV V1 max P.3 cm/sec 139.4 cm/sec 4.3 mmHg MV A max dasia: 595.9 cm/sec2 Ao max PG: LV V1 max: 33.1 cm/sec MV dec time: 0.16 sec 7.8 mmHg 103.5 cm/sec MV E/A: 3.0 LV dP/dt: 2771 mmHg/s PA V2 max: TR max dasia: 70.9 cm/sec 297.3 cm/sec PA max P.0 mmHgTR max P.5 mmHg Left Ventricle The left ventricle is normal in size. There is normal left ventricular wall thickness. The left ventricular ejection fraction is within normal limits. LV EF is 60%. Doppler measurements suggest normal left ventricular diastolic function. The left ventricular wall motion is normal. There is no thrombus. Probably no ASD,VSd ,or PFO seen. Right Ventricle The right ventricle is not well visualized secondary to technical limitations. Atria The right atrium is normal. The left atrial size is normal. Mitral Valve There is no evidence of mitral valve prolapse. There is no vegetation seen on the mitral valve. There is no mitral valve stenosis. There is a mild amount of mitral regurgitation. Aortic Valve There is no aortic valvular vegetation. There is no aortic valve stenosis. There is no LVOT obstruction. There is a trace amount of aortic regurgitation. Tricuspid Valve There is no tricuspid stenosis. There is a mild amount of tricuspid regurgitation. There is mild to moderate pulmonary hypertension by echo. RVSP is 44 to 49 mm of Hg , with RA mean of 5 to 10. Pulmonic Valve There is no pulmonic valvular stenosis. There is no pulmonic valvular regurgitation. Great Vessels The aortic root is normal size. The inferior vena cava appeared normal and decreased > 50% with respiration (RAP 5-10 mmHg). Effusions There is no pericardial effusion. : AARON CHOW > Cindy Mandujano
[2018-12-05] MEDS: IPRATROPIUM/ALBUTEROL 0.5-2.5 MG/3 ML AMPUL NEB SCH ×3 (02:20→13:24)
[2018-12-05 07:19] LABS: ABSOLUTE BASOPHILS # (AUTO) 0.1 10^3/uL (0.0-0.2); ABSOLUTE EOSINOPHILS # (AUTO) 0.1 10^3/uL (0.0-0.6); ABSOLUTE LYMPHOCYTES (AUTO) 1.5 10^3/uL (0.5-4.7); ABSOLUTE MONOCYTES (AUTO) 0.4 10^3/uL (0.1-1.4); ABSOLUTE NEUT (AUTO) 1.7 10^3/uL (1.7-8.2); BASOPHILS % (AUTO) 1.9 % (0-2); EOSINOPHILS % (AUTO) 3.3 % (0-6); HEMATOCRIT 31.7 % (36.0-47.0); HEMOGLOBIN 10.3 g/dL (12.0-15.5); LYMPHOCYTES % (AUTO) 40.1 % (13-45); MEAN CORPUSCULAR HEMOGLOBIN 31.1 pg (27.0-33.4); MEAN CORPUSCULAR HGB CONC 32.5 g/dL (32.0-36.0); MEAN CORPUSCULAR VOLUME 96 fl (80-97); MONOCYTES % (AUTO) 9.9 % (3-13); PLATELET COUNT 245 10^3/uL (150-450); RED CELL DISTRIBUTION WIDTH 16.9 % (11.5-14.0); SEGMENTED NEUTROPHILS % (AUTO) 44.8 % (42-78); TOTAL CELLS COUNTED % (AUTO) 100 %; WHITE BLOOD COUNT 3.7 10^3/uL (4.0-10.5)
[2018-12-05 07:30] LABS: ALANINE AMINOTRANSFERASE 38 U/L (9-52); ALBUMIN 3.4 g/dL (3.5-5.0); ALKALINE PHOSPHATASE 97 U/L (38-126); ANION GAP 8 (5-19); ASPARTATE AMINO TRANSFERASE 51 U/L (14-36); BILIRUBIN,DIRECT 0.3 mg/dL (0.0-0.4); BILIRUBIN,TOTAL 0.4 mg/dL (0.2-1.3); BLOOD UREA NITROGEN 25 mg/dL (7-20); CALCIUM 9.1 mg/dL (8.4-10.2); CARBON DIOXIDE 29 mmol/L (22-30); CHLORIDE 102 mmol/L (98-107); GLUCOSE 84 mg/dL (75-110); POTASSIUM 3.7 mmol/L (3.6-5.0); SODIUM 139.3 mmol/L (137-145); TOTAL PROTEIN 6.4 g/dL (6.3-8.2)
[2018-12-05] MEDS: DOCUSATE SODIUM 100 MG/10 ML UDC PO SCH (09:26)
[2018-12-05] MEDS: LISINOPRIL 10 MG TABLET PO SCH (09:26)
[2018-12-05] MEDS: ASPIRIN 81 MG TABLET, CHEWABLE PO SCH (09:26)
[2018-12-05] MEDS: FAMOTIDINE 20 MG TABLET PO SCH (09:27)
[2018-12-05] MEDS: CARVEDILOL 12.5 MG TABLET PO SCH (09:27)
[2018-12-05] MEDS: ENOXAPARIN SODIUM INJ 40 MG/0.4 ML DISP.SYRIN SUBCUT SCH (09:28)
[2018-12-05] MEDS ORDERED: FUROSEMIDE INJ/PF 40 MG/4 ML SDV IV SCH (10:00)
[2018-12-05 12:41] VITALS: BP 148/85
--- NOTE | 2018-12-05 16:08 | PDOC DISCHARGE SUMMARY ---
General - Admit/Disc Date/PCP Admission Date/Primary Care Provider: 12/03/18 13:51 SMITA DOWNING MD Discharge Date: 12/05/18 - Discharge Diagnosis (1) New onset of congestive heart failure Is this a current diagnosis for this admission?: Yes Summary: CHF presents unspecified. She will be managed with Lasix IV, lisinopril and carvedilol. Echo requested. Keep her on supplemental oxygen. Daily weights and strict input output monitoring. 12/04/[id number]ry-old female admitted with shortness of breath BNP was 7600 at the time of admission chest x-ray shows cardiomegaly associated with mild pulmonary vascular congestion. Patient pulse ox is 97% on room air. Patient input is 1230 output is 50 mL. Weight is 62.3 kg is unchanged. Placed on fluid restriction 1500 cc/day. Echocardiogram report is pending. 12/05/2018-patient admitted with shortness of breath chest x-ray suggestive of cardiomegaly with pulmonary congestion and elevated BNP D echocardiogram grade was normal. Echocardiogram report indicates EF is more than 60% no diastolic dysfunction was noticed. This time diagnosis is CHF unspecified. Patient is euvolemic. Not in distress. Pulse ox is 96% room air. Plan is to discharge her home. (2) History of atrial fibrillation Is this a current diagnosis for this admission?: Yes Summary: Rate controlled. May be paroxysmal atrial fibrillation. 12/04/2018-patient might have history of paroxysmal atrial fibrillation not on chronic anticoagulation at this point. Heart rate is relatively controlled. 12/05/2018-patient has chronic paroxysms leg atrial fibrillation not been rate controlled rhythm now. Discussed about chronic anticoagulation patient states she is going to follow-up with [facility] as an outpatient and she is not ready to start on anticoagulation at this time. She understood the risks of not starting anticoagulation. (3) Alcohol dependence Is this a current diagnosis for this admission?: Yes (4) Hypertension Is this a current diagnosis for this admission?: Yes Summary: It has been on carvedilol lisinopril and will continue her home medications. 12/04/2018-patient has history of hypertension blood pressure today is 120/68 well controlled. Presently on Coreg 12.5 mg po bid and lisinopril 10 mg po daily. 12/05/2018-patient has history of chronic essential hypertension. Blood pressure today is 148/85. Relatively stable. Patient is advised to continue Coreg 12.5 mg p.o. twice daily lisinopril 10 mg p.o. daily at home. Strongly advised to follow-up with primary care physician in 1 week time. (5) UTI (urinary tract infection) Is this a current diagnosis for this admission?: Yes Summary: Patient has been started on ceftriaxone. 12/04/2018-patient is presently on IV ceftriaxone. Urine culture positive for mixed urogenital manuel. Patient is afebrile. 12/05/2018-urine cultures came back mixed urogenital manuel. Antibiotics are discontinued patient is asymptomatic. (6) History of polysubstance abuse Is this a current diagnosis for this admission?: Yes (7) Tobacco dependence Is this a current diagnosis for this admission?: Yes - Additional Information Resuscitation Status: Full Code Discharge Diet: Cardiac Discharge Activity: Activity As Tolerated, Balance Activity w/Rest, Weigh Daily Prescriptions: Carvedilol [Coreg 12.5 mg Tablet] 6.25 mg PO Q12 #60 tablet Lisinopril [Prinivil 10 mg Tablet] 10 mg PO DAILY #30 tablet Home Medications: Aspirin [Aspirin 81 mg Chewable Tablet] 81 mg PO DAILY tab.chew 10/12/18 Metoprolol Succinate [Toprol Xl 25 mg Tab.sr] 25 mg PO DAILY #30 tab.sr.24h 10/12/18 Carvedilol [Coreg 12.5 mg Tablet] 6.25 mg PO Q12 #60 tablet 12/05/18 Lisinopril [Prinivil 10 mg Tablet] 10 mg PO DAILY #30 tablet 12/05/18 History of Present Illness History of Present Illness: SAMARA COLLIER is a 62 year old female 62 year old black female patient with past medical history of hypertension, COPD, tobacco dependence, history of polysubstance abuse, alcohol dependence, h istory of A. fib not on any anticoagulation presented with 4-day history of cough and shortness of breath. Patient states she has been in her usual baseline state of health up until 4 days when she started to have the above- mentioned complaint is which is worsening gradually. Her shortness of breath is relieved by resting and precipitated by exertion. Denies any fevers, chills, palpitation or diaphoresis. She does not have any nausea, vomiting abdominal pain, diarrhea, urinary complaints. Patient has history of polysubstance abuse but she claimed she is clean for the last 6 years. She drinks 3-4 bottles of beer on daily basis. She smokes 2 to 3 cigarettes daily and reports that a pack of cigarettes lasts for for 4 month. Her blood work shows elevated BNP of 7 600 and her urinalysis positive for pyuria and large leukocyte esterase. Her chest x-ray reported as cardiomegaly with mild pulmonary vascular congestion. Hospital Course Hospital Course: 12/05/2018-this [id number] female with history of hypertension, chronic atrial fibrillation not on anticoagulation, history of polysubstance abuse admitted for shortness of breath found to have elevated BNP, cardiomegaly pulmonary vascular congestion. Based on the clinical findings and looks like she has a systolic heart failure. But echocardiogram came back normal. Physical Exam Vital Signs: Temp Pulse Resp BP Pulse Ox 98.2 F 58 L 16 148/85 H 100 12/05/18 12:40 12/05/18 12:40 12/05/18 12:40 12/05/18 12:40 12/05/18 12:40 Intake & Output 12/04/18 12/05/18 12/06/18 06:59 06:59 06:59 Intake Total 1230 2435 300 Output Total 50 2575 100 Balance 1180 -140 200 Weight 62.3 kg 63.8 kg General appearance: PRESENT: no acute distress, well-developed Head exam: PRESENT: atraumatic Eye exam: PRESENT: PERRLA Mouth exam: PRESENT: moist, tongue midline Neck exam: ABSENT: carotid bruit, JVD, lymphadenopathy, thyromegaly Respiratory exam: PRESENT: decreased breath sounds Cardiovascular exam: PRESENT: RRR. ABSENT: diastolic murmur, rubs, systolic murmur GI/Abdominal exam: PRESENT: normal bowel sounds, soft. ABSENT: distended, guarding, mass, organolmegaly, rebound, tenderness Rectal exam: PRESENT: deferred Neurological exam: PRESENT: alert, awake, oriented to person, oriented to place, oriented to time, oriented to situation, CN II-XII grossly intact. ABSENT: motor sensory deficit Psychiatric exam: PRESENT: appropriate affect, normal mood. ABSENT: homicidal ideation, suicidal ideation Results Laboratory Results: 12/05/18 06:30 12/05/18 06:30 12/05/18 12/05/18 06:30 06:30 WBC 3.7 L RBC 3.30 L Hgb 10.3 L Hct 31.7 L MCV 96 MCH 31.1 MCHC 32.5 RDW 16.9 H Plt Count 245 Seg Neutrophils % 44.8 Lymphocytes % 40.1 Monocytes % 9.9 Eosinophils % 3.3 Basophils % 1.9 Absolute Neutrophils 1.7 Absolute Lymphocytes 1.5 Absolute Monocytes 0.4 Absolute Eosinophils 0.1 Absolute Basophils 0.1 Sodium 139.3 Potassium 3.7 Chloride 102 Carbon Dioxide 29 Anion Gap 8 BUN 25 H Creatinine 0.85 Est GFR ( Amer) > 60 Est GFR (Non-Af Amer) > 60 Glucose 84 Calcium 9.1 Magnesium 1.8 Total Bilirubin 0.4 AST 51 H ALT 38 Alkaline Phosphatase 97 Total Protein 6.4 Albumin 3.4 L 12/03/18 12/03/18 12/05/18 09:27 12:00 06:30 Troponin I Cancelled < 0.012 NT-Pro-B Natriuret Pep Cancelled 3600 H 1130 H Impressions: Chest X-Ray 12/03/18 08:39 IMPRESSION: Cardiomegaly with mild pulmonary vascular congestion. Qualifiers - * PATIENT BEING DISCHARGED WITH ANY OF THE FOLLOWING DIAGNOSIS: No VTE patient discharged on overlapping Therapy?: No Acute Heart Failure Is this a Heart Failure Patient?: No
== END 2018-12-05 14:21 | disposition home or self-care (01) | DRG 291 ==
LOC: ER 08:17 → EH 13:25 → OBSVTOIN 13:51 → 4S 15:20
PROVIDERS: ADMIT Internal Medicine; ATTEND Internal Medicine
PROC: 3E0234Z Introduction of Serum, Toxoid and Vaccine into Muscle, Percutaneous Approach (ICD-10-PCS; principal; 2018-12-03)
DX: I11.0 Hypertensive heart disease with heart failure (principal); I50.21 Acute systolic (congestive) heart failure; N39.0 Urinary tract infection, site not specified; I48.0 Paroxysmal atrial fibrillation; F10.20 Alcohol dependence, uncomplicated; J44.9 Chronic obstructive pulmonary disease, unspecified; F17.210 Nicotine dependence, cigarettes, uncomplicated; E78.5 Hyperlipidemia, unspecified; I48.2 Chronic atrial fibrillation; E78.00 Pure hypercholesterolemia, unspecified; F19.11 Other psychoactive substance abuse, in remission; Z79.82 Long term (current) use of aspirin; Z79.899 Other long term (current) drug therapy; Z82.3 Family history of stroke; Z82.49 Family history of ischemic heart disease and other diseases of the circulatory system; Z80.9 Family history of malignant neoplasm, unspecified
CPT/HCPCS: 36415; 71045; 80048; 80053; 80307; 81001; 83735; 83880; 84443; 84484; 85025; 87040; 87086; 93005; 93010; 93306; 94640; 96374; 99285; J0696; J1650; J1940; J7060; J7620

== ENCOUNTER 2019-04-02 13:24 | Emergency (ER) | payer MEDICAID ==
--- NOTE | 2019-04-02 14:09 | ER Document Report ---
ED Medical Screen (RME) - General Stated Complaint: BREATHING PROBLEMS Time Seen by Provider: 04/02/19 14:04 Primary Care Provider: SMITA DOWNING MD [Primary Care Provider] - Follow up as needed Mode of Arrival: Wheelchair Information source: Patient Notes: 63-year-old female with history of cardiac disease CHF presents emergency department with epigastric abdominal pain that started on Monday. She reports she felt something pop in her stomach. Reports green diarrhea this morning. Also reports peripheral edema. Reports hurts when she lays down. Denies chest pain. I have greeted and performed a rapid initial assessment of this patient. A comprehensive ED assessment and evaluation of the patient, analysis of test results and completion of the medical decision making process will be conducted by additional ED providers. Dictation of this chart was performed using voice recognition software; therefore, there may be some unintended grammatical errors. TRAVEL OUTSIDE OF THE [place] IN LAST 30 DAYS: No - Related Data Allergies/Adverse Reactions: No Known Allergies Allergy (Verified 04/02/19 14:03) Past Medical History - Past Medical History Cardiac Medical History: Reports: Hx Atrial Fibrillation, Hx Hypercholesterolemia, Hx Hypertension Denies: Hx Congestive Heart Failure, Hx Coronary Artery Disease, Hx Heart Attack, Hx Pulmonary Embolism Pulmonary Medical History: Reports: Hx COPD Denies: Hx Asthma, Hx Bronchitis, Hx Pneumonia, Hx Tuberculosis Neurological Medical History: Denies: Hx Cerebrovascular Accident, Hx Seizures, Hx Parkinson's Disease Endocrine Medical History: Denies: Hx Hypothyroidism Renal/ Medical History: Denies: Hx End Stage Renal Disease, Hx Kidney Stones, Hx Peritoneal Dialysis GI Medical History: Denies: Hx Cirrhosis, Hx Gastroesophageal Reflux Disease, Hx Hepatitis, Hx Hiatal Hernia, Hx Ulcer Musculoskeltal Medical History: Denies Hx Arthritis, Denies Hx Fibromyalgia, Denies Hx Multiple Sclerosis Skin Medical History: Denies Hx Eczema, Denies Hx Psoriasis Psychiatric Medical History: Denies: Hx Bipolar Disorder, Hx Depression, Hx Schizophrenia Infectious Medical History: Denies: Hx Hepatitis Past Surgical History: Reports: Hx Breast Surgery - biopsy right breast, Other - she had a right breast biopsy, neg for malignancy. Denies: Hx Hysterectomy, Hx Mastectomy, Hx Open Heart Surgery, Hx Pacemaker - Immunizations Hx Diphtheria, Pertussis, Tetanus Vaccination: Yes History of Influenza Vaccine for 04/2017 - 09/2017 Season: Refused Physical Exam - Vital signs Vitals: Temp Pulse Resp BP Pulse Ox 97.5 F 83 20 127/86 H 95 04/02/19 13:48 04/02/19 13:48 04/02/19 13:48 04/02/19 13:48 04/02/19 13:48 Course - Vital Signs Vital signs: Temp Pulse Resp BP Pulse Ox 97.5 F 83 20 127/86 H 95 04/02/19 13:48 04/02/19 13:48 04/02/19 13:48 04/02/19 13:48 04/02/19 13:48 Doctor's Discharge - Discharge Referrals: SMITA DOWNING MD [Primary Care Provider] - Follow up as needed
--- NOTE | 2019-04-02 15:01 | RADIOLOGY REPORT (SQ) ---
EXAM DESCRIPTION: CHEST 2 VIEWS COMPLETED DATE/TIME: 04/02/2019 2:52 pm REASON FOR STUDY: DIFF BREATH COMPARISON: PA view of the chest from 12/03/2018. EXAM PARAMETERS: NUMBER OF VIEWS: two views TECHNIQUE: Digital Frontal and Lateral radiographic views of the chest acquired. RADIATION DOSE: NA LIMITATIONS: none FINDINGS: LUNGS AND PLEURA: No consolidation, pleural effusion or pneumothorax. MEDIASTINUM AND HILAR STRUCTURES: Stable mediastinal and hilar contours. HEART AND VASCULAR STRUCTURES: The cardiac silhouette appears enlarged. The pulmonary vasculature is within normal limits. BONES: No acute findings. HARDWARE: None. OTHER: No other finding. IMPRESSION: Stable cardiomegaly. No acute cardiopulmonary process. TECHNICAL DOCUMENTATION: JOB ID: [id number] [employer]- All Rights Reserved Reading location - IP/workstation name: [email or web address]
--- NOTE | 2019-04-02 15:03 | RADIOLOGY REPORT (SQ) ---
EXAM DESCRIPTION: KUB/ABDOMEN (SINGLE VIEW) COMPLETED DATE/TIME: 04/02/2019 2:52 pm REASON FOR STUDY: ABD PAIN BLOATING COMPARISON: None. NUMBER OF VIEWS: One view. TECHNIQUE: Supine radiographic image of the abdomen acquired. LIMITATIONS: None. FINDINGS: BOWEL GAS PATTERN: There is a paucity of bowel gas in the abdomen. There are no dilated l oops of bowel. Evaluation for differential air-fluid levels and free intraperitoneal gas is limited due to supine technique. CALCIFICATIONS: There are no calcifications projecting within the renal fossae a, along the expected course of the ureters, or within the mid pelvis. SOFT TISSUES: Pelvic phleboliths. HARDWARE: None in the abdomen. BONES: No acute fracture. OTHER: No other finding. IMPRESSION: Nonspecific nonobstructive bowel gas pattern. TECHNICAL DOCUMENTATION: JOB ID: [id number] [employer]- All Rights Reserved Reading location - IP/workstation name: [email or web address]
[2019-04-02 16:59] LABS: ABSOLUTE LYMPHOCYTES (AUTO) 0.8 10^3/uL (0.5-4.7); ABSOLUTE MONOCYTES (AUTO) 0.3 10^3/uL (0.1-1.4); BASOPHILS % (AUTO) 0.5 % (0-2); EOSINOPHILS % (AUTO) 0.2 % (0-6); HEMATOCRIT 40.9 % (36.0-47.0); HEMOGLOBIN 13.1 g/dL (12.0-15.5); LYMPHOCYTES % (AUTO) 18.6 % (13-45); MEAN CORPUSCULAR HEMOGLOBIN 29.6 pg (27.0-33.4); MEAN CORPUSCULAR HGB CONC 32.1 g/dL (32.0-36.0); MEAN CORPUSCULAR VOLUME 92 fl (80-97); MONOCYTES % (AUTO) 7.7 % (3-13); PLATELET COUNT 135 10^3/uL (150-450); RED BLOOD COUNT 4.43 10^6/uL (3.72-5.28); RED CELL DISTRIBUTION WIDTH 16.6 % (11.5-14.0); TOTAL CELLS COUNTED % (AUTO) 100 %; WHITE BLOOD COUNT 4.1 10^3/uL (4.0-10.5)
[2019-04-02 17:22] LABS: ALBUMIN 4.1 g/dL (3.5-5.0); ALKALINE PHOSPHATASE 126 U/L (38-126); ANION GAP 14 (5-19); ASPARTATE AMINO TRANSFERASE 54 U/L (14-36); BILIRUBIN,DIRECT 0.6 mg/dL (0.0-0.4); BILIRUBIN,TOTAL 1.8 mg/dL (0.2-1.3); BLOOD UREA NITROGEN 16 mg/dL (7-20); CALCIUM 10.2 mg/dL (8.4-10.2); CARBON DIOXIDE 23 mmol/L (22-30); CHLORIDE 101 mmol/L (98-107); CREATINE KINASE 43 U/L (30-135); GLUCOSE 99 mg/dL (75-110); POTASSIUM 4.6 mmol/L (3.6-5.0); TOTAL PROTEIN 7.3 g/dL (6.3-8.2)
[2019-04-02 17:32] LABS: TROPONIN I 0.014 ng/mL
--- NOTE | 2019-04-02 19:39 | RADIOLOGY REPORT (SQ) ---
EXAM DESCRIPTION: CTA CHEST COMPLETED DATE/TIME: 04/02/2019 7:21 pm REASON FOR STUDY: sob COMPARISON: Chest radiograph TECHNIQUE: CT scan of the chest performed using helical scanning technique with dynamic intravenous contrast injection. Images reviewed with lung, soft tissue and bone windows. Reconstructed coronal and sagittal MPR images reviewed. Additional 3 dimensional post-processing performed to develop Maximal Intensity Projection images (MA P). All images stored on PACS. All CT scanners at this facility use dose modulation, iterative reconstruction, and/or weight based d osing when appropriate to reduce radiation dose to as low as reasonably achievable (ALARA). [facility]: Dose Right [facility]: CareDose [facility]: Dose Right [facility]: Teradose 4D [facility]: [employer] CONTRAST TYPE AND DOSE: contrast/concentration: Isovue 350.00 mg/ml; Total Contrast Delivered: 51.0 ml; Total Saline Delivered: 72.0 ml Contrast bolus optimized for the pulmonary arteries. Not diagnostic for the aorta. RENAL FUNCTION: GFR > 60. RADIATION DOSE: CT Rad equipment meets quality standard of care and radiation dose reduction techniq ues were employed. CTDIvol: 13.2 - 14.9 mGy. DLP: 495 mGy-cm. . LIMITATIONS: None. FINDINGS: LUNGS AND PLEURA: No masses, infiltrates, or pneumothorax. No pleural effusions or pleura l calcifications. AORTA AND GREAT VESSELS: No aneurysm. Contrast bolus not optimized for the aorta. HEART: No pericardial effusion. Moderate coronary artery calcification. Reflux and hepatic veins. S uggests right heart failure. PULMONARY ARTERIES: No emboli visualized in the main pulmonary arteries or the segmental branches. HILAR AND MEDIASTINAL STRUCTURES: No identified masses or abnormal nodes. HARDWARE: None in the chest. UPPER ABDOMEN: Generalize ascites. THYROID AND OTHER SOFT TISSUES: No masses. No adenopathy. BONES: No acute or significant finding. 3D MIPS: Confirm above findings. OTHER: No other significant finding. IMPRESSION: No pulmonary emboli. Likely right heart failure. Generalized ascites in the visualized abdomen. COMMENT: Quality ID # [id number]: Final reports with documentation of one or more dose reduction techniques (e.g., Automated exposure control, adjustment of the mA and/or kV according to patient size, use of iterative reconstruction technique) TECHNICAL DOCUMENTATION: JOB ID: [id number] [employer]- All Rights Reserved Reading location - IP/workstation name: [email or web address]
[2019-04-02 20:04] LABS: APPEARANCE,URINE SLIGHTLY-CLOUDY; BILIRUBIN,URINE SMALL (NEGATIVE); COLOR,URINE AMBER; GLUCOSE, URINE NEGATIVE (NEGATIVE); KETONES,URINE TRACE mg/dL (NEGATIVE); LEUKOCYTE ESTERASE,URINE SMALL (NEGATIVE); NITRITE,URINE NEGATIVE (NEGATIVE); PROTEIN,URINE 100 mg/dL (NEGATIVE); URINE SPECIFIC GRAVITY 1.026
[2019-04-02] MEDS ORDERED: FUROSEMIDE INJ/PF 40 MG/4 ML SDV IV ONE (20:34)
--- NOTE | 2019-04-02 20:46 | ER Document Report ---
ED General - General Chief Complaint: Upper Abdominal Pain Stated Complaint: BREATHING PROBLEMS Time Seen by Provider: 04/02/19 14:04 Primary Care Provider: SMITA DOWNING MD [Primary Care Provider] - Follow up as needed Mode of Arrival: Wheelchair Information source: Patient TRAVEL OUTSIDE OF THE [place] IN LAST 30 DAYS: No - HPI Notes: Patient presents stating that she has trouble breathing. She states that over the last couple of days she will have bouts where she feels that she breathing normal and she suddenly cannot get her breath. She states that she has had some coughing. She is a smoker. She states she has a history of COPD and uses inhalers at home. She also states she has a history of congestive heart failure but does not take water pills. Patient denies any pain. She has had no fevers. No significant productive cough. She states she feels like her legs have been swelling and she has put on some weight. Symptoms are worse with exertion and better with rest. They are moderate. They are constant. There is no radiation of the symptoms. - Related Data Allergies/Adverse Reactions: No Known Allergies Allergy (Verified 04/02/19 14:03) Past Medical History - General Information source: Patient - Social History Smoking Status: Current Every Day Smoker Chew tobacco use (# tins/day): No Frequency of alcohol use: Social Drug Abuse: None Family History: CAD, CVA, Hypertension, Malignancy Patient has suicidal ideation: No Patient has homicidal ideation: No - Past Medical History Cardiac Medical History: Reports: Hx Atrial Fibrillation, Hx Hypercholesterolem ia, Hx Hypertension Denies: Hx Congestive Heart Failure, Hx Coronary Artery Disease, Hx Heart Attack, Hx Pulmonary Embolism Pulmonary Medical History: Reports: Hx COPD Denies: Hx Asthma, Hx Bronchitis, Hx Pneumonia, Hx Tuberculosis Neurological Medical History: Denies: Hx Cerebrovascular Accident, Hx Seizures, Hx Parkinson's Disease Endocrine Medical History: Denies: Hx Hypothyroidism Renal/ Medical History: Denies: Hx End Stage Renal Disease, Hx Kidney Stones, Hx Peritoneal Dialysis GI Medical History: Denies: Hx Cirrhosis, Hx Gastroesophageal Reflux Disease, Hx Hepatitis, Hx Hiatal Hernia, Hx Ulcer Musculoskeletal Medical History: Denies Hx Arthritis, Denies Hx Fibromyalgia, Denies Hx Multiple Sclerosis Skin Medical History: Denies Hx Eczema, Denies Hx Psoriasis Psychiatric Medical History: Denies: Hx Bipolar Disorder, Hx Depression, Hx Schizophrenia Infectious Medical History: Denies: Hx Hepatitis Past Surgical History: Reports: Hx Breast Surgery - biopsy right breast, Other - she had a right breast biopsy, neg for malignancy. Denies: Hx Hysterectomy, Hx Mastectomy, Hx Open Heart Surgery, Hx Pacemaker - Immunizations Hx Diphtheria, Pertussis, Tetanus Vaccination: Yes Review of Systems - Review of Systems Constitutional: denies: Chills, Fever EENT: denies: Nose congestion, Nose discharge Cardiovascular: Dyspnea. denies: Chest pain, Palpitations Respiratory: Cough, Short of breath -: Yes All other systems reviewed and negative Physical Exam - Vital signs Vitals: Temp Pulse Resp BP Pulse Ox 97.5 F 83 20 127/86 H 95 04/02/19 13:48 04/02/19 13:48 04/02/19 13:48 04/02/19 13:48 04/02/19 13:48 Interpretation: Normal - General General appearance: Appears well, Alert - HEENT Head: Normocephalic, Atraumatic Eyes: Normal Pupils: PERRL - Respiratory Respiratory status: No respiratory distress Chest status: Nontender Breath sounds: Decreased air movement, Rhonchi Chest palpation: Normal - Cardiovascular Rhythm: Regular Heart sounds: Normal auscultation Murmur: No - Abdominal Inspection: Normal Distension: No distension Bowel sounds: Normal Tenderness: Nontender Organomegaly: No organomegaly - Back Back: Normal, Nontender - Extremities General upper extremity: Normal inspection, Nontender, Normal color, Normal ROM, Normal temperature General lower extremity: Normal inspection, Nontender, Edema - 2+ bilaterally lower extremity, Normal color, Normal ROM, Normal temperature, Normal weight bearing. No: Severo's sign - Neurological Neuro grossly intact: Yes Cognition: Normal Orientation: AAOx4 Shannan Coma Scale Eye Opening: Spontaneous [place] Coma Scale Verbal: Oriented [place] Coma Scale Motor: Obeys Commands [place] Coma Scale Total: 15 Speech: Normal Motor strength normal: LUE, RUE, LLE, RLE Sensory: Normal - Psychological Associated symptoms: Normal affect, Normal mood - Skin Skin Temperature: Warm Skin Moisture: Dry Skin Color: Normal Course - Re-evaluation Re-evalutation: 04/02/19 20:52 Patient presented with some intermittent shortness of breath. Patient has CT findings consistent with some right heart failure. She has no evidence of s ignificant pulmonary edema at this time. I will treat her with some Lasix and send her home with Lasix to follow-up with her primary care physician. Her vital signs are stable. The rest of her evaluation was essentially unremarkable. - Vital Signs Vital signs: Temp Pulse Resp BP Pulse Ox 97.4 F 83 21 H 139/94 H 100 04/02/19 19:20 04/02/19 19:20 04/02/19 20:01 04/02/19 20:00 04/02/19 20:01 - Laboratory Result Diagrams: 04/02/19 16:40 04/02/19 16:40 Laboratory results interpreted by me: 04/02/19 04/02/19 04/02/19 16:40 16:40 16:40 RDW 16.6 H Plt Count 135 L Total Bilirubin 1.8 H Direct Bilirubin 0.6 H AST 54 H NT-Pro-B Natriuret Pep 5950 H Urine Protein Urine Ketones Urine Blood Urine Bilirubin Urine Urobilinogen Ur Leukocyte Esterase 04/02/19 19:50 RDW Plt Count Total Bilirubin Direct Bilirubin AST NT-Pro-B Natriuret Pep Urine Protein 100 H Urine Ketones TRACE H Urine Blood SMALL H Urine Bilirubin SMALL H Urine Urobilinogen 4.0 H Ur Leukocyte Esterase SMALL H - Diagnostic Test Radiology reviewed: Image reviewed, Reports reviewed - EKG Interpretation by Me EKG shows normal: Sinus rhythm Rate: Normal - 82 Rhythm: NSR [place]/QRS: No: Right axis deviation, Left axis deviation Discharge - Discharge Clinical Impression: Right heart failure Qualifiers: Heart failure chronicity: acute on chronic Qualified Code(s): I50.813 - Acute on chronic right heart failure Condition: Stable Disposition: HOME, SELF-CARE Instructions: Congestive Heart Failure ([facility]) Additional Instructions: Please call your primary care physician as soon as possible to arrange follow-up Prescriptions: Furosemide [Lasix 40 mg Tablet] 40 mg PO QAM #30 tablet Referrals: SMITA DOWNING MD [Primary Care Provider] - Follow up tomorrow
[2019-04-02 21:14] VITALS: BP 127/86
--- NOTE | 2019-04-03 11:20 | EKG REPORT ---
SEVERITY:- ABNORMAL ECG - CONSIDER A FLUTTER, REC REPEAT EKG INFERIOR INFARCT, AGE INDETERMINATE LATERAL LEADS ARE ALSO INVOLVED : Confirmed by: Afia Rodrigues 03-Apr-2019 11:20:13
== END 2019-04-02 21:14 | disposition home or self-care (01) ==
LOC: ER 13:24
DX: I11.0 Hypertensive heart disease with heart failure (principal); I50.813 Acute on chronic right heart failure; J44.9 Chronic obstructive pulmonary disease, unspecified; Z79.899 Other long term (current) drug therapy; R06.02 Shortness of breath; R63.5 Abnormal weight gain; R60.0 Localized edema; F17.200 Nicotine dependence, unspecified, uncomplicated; Z82.49 Family history of ischemic heart disease and other diseases of the circulatory system
CPT/HCPCS: 93005; 99284; 96374; 36415; 82550; 83690; 85025; 80053; 81001; 84484; 83880; 71046; 74018; 71275; 93010; J1940

== ENCOUNTER 2019-04-05 00:52 | Emergency (ER) | payer MEDICAID ==
[2019-04-05] MEDS ORDERED: METHYLPREDNISOLONE INJ 125 MG/2 ML SDV IV ONE (01:44)
[2019-04-05] MEDS ORDERED: ALBUTEROL SULFATE 0.083% NEB 2.5 MG/3 ML AMPUL NEB ONE (01:44)
--- NOTE | 2019-04-05 01:53 | ER Document Report ---
ED General - General Chief Complaint: Breathing Difficulty Stated Complaint: DIFFICULTY BREATHING Time Seen by Provider: 04/05/19 01:36 Primary Care Provider: SMITA DOWNING MD [Primary Care Provider] - Follow up as needed TRAVEL OUTSIDE OF THE [place] IN LAST 30 DAYS: No - HPI Notes: 63-year-old female smoker known history of COPD presents difficulty breathing. Describes to 3 days increasingly severe dyspnea, nonproductive cough. No associated chest pain. Moderate severe intensity. Worse with exertion. No other modifying factors, no other associated symptoms, no other provocative or palliative factors. - Related Data Allergies/Adverse Reactions: No Known Allergies Allergy (Verified 04/02/19 14:03) Past Medical History - Social History Smoking Status: Current Every Day Smoker Drug Abuse: None Family History: CAD, CVA, Hypertension, Malignancy - Past Medical History Cardiac Medical History: Reports: Hx Atrial Fibrillation, Hx Hypercholesterolemia, Hx Hypertension Denies: Hx Congestive Heart Failure, Hx Coronary Artery Disease, Hx Heart Attack, Hx Pulmonary Embolism Pulmonary Medical History: Reports: Hx COPD Denies: Hx Asthma, Hx Bronchitis, Hx Pneumonia, Hx Tuberculosis Neurological Medical History: Denies: Hx Cerebrovascular Accident, Hx Seizures, Hx Parkinson's Disease Endocrine Medical History: Denies: Hx Hypothyroidism Renal/ Medical History: Denies: Hx End Stage Renal Disease, Hx Kidney Stones, Hx Peritoneal Dialysis GI Medical History: Denies: Hx Cirrhosis, Hx Gastroesophageal Reflux Disease, Hx Hepatitis, Hx Hiatal Hernia, Hx Ulcer Musculoskeletal Medical History: Denies Hx Arthritis, Denies Hx Fibromyalgia, Denies Hx Multiple Sclerosis Skin Medical History: Denies Hx Eczema, Denies Hx Psoriasis Psychiatric Medical History: Denies: Hx Bipolar Disorder, Hx Depression, Hx Schizophrenia Infectious Medical History: Denies: Hx Hepatitis Past Surgical History: Reports: Hx Breast Surgery - biopsy right breast, Other - she had a right breast biopsy, neg for malignancy. Denies: Hx Hysterectomy, Hx Mastectomy, Hx Open Heart Surgery, Hx Pacemaker - Immunizations Hx Diphtheria, Pertussis, Tetanus Vaccination: Yes Review of Systems - Review of Systems Notes: Review of systems as in the history of present illness, otherwise negative x 10 systems. Physical Exam - Vital signs Vitals: Temp Pulse Resp BP Pulse Ox 97.3 F 136 H 20 130/97 H 97 04/05/19 01:03 04/05/19 01:03 04/05/19 01:03 04/05/19 01:03 04/05/19 01:03 - Notes Notes: General: Well developed . HEENT: Normocephalic, atraumatic. Pupils equal round reactive to light. No JVD. Chest: No trauma. Respiratory: G Fair air exchange, diminished breath sounds with end expiratory wheezing, increased work of breathing Cardiac: Regular rhythm. No murmurs or gallops. Abdomen: Soft, benign. Nondistended. Nontender. Back: No asymmetry or gross abnormality. Motor: Grossly normal power and tone. Neurologic: Alert, nonfocal. Cranial nerves II-12 are intact. Sensation intact. Vascular: Well perfused. Normal peripheral pulses. Skin: No petechiae or purpura. Course - Re-evaluation Re-evalutation: 04/05/19 01:53 Female likely COPD exacerbation, concern for underlying pneumonia as well. We will proceed with laboratory evaluation, chest x-ray EKG, bronchodilators steroids, reevaluate. 04/05/19 03:01 Patient had marked improvement in clearance of her wheezing, resting comfortably, discharged home with a prescription for prednisone, continue bronchodilators. Her graph labs reviewed, CBC and chemistries unremarkable, troponin normal. Chest x-ray shows no acute abnormality. On my evaluation prior to discharge, heart rate is 102. 04/05/19 03:03 - Vital Signs Vital signs: Temp Pulse Resp BP Pulse Ox 97.3 F 136 H 28 H 130/97 H 95 04/05/19 01:03 04/05/19 01:03 04/05/19 02:00 04/05/19 01:03 04/05/19 01:41 - Laboratory Result Diagrams: 04/05/19 02:03 04/05/19 02:03 Laboratory results interpreted by me: 04/05/19 04/05/19 02:03 02:03 RDW 16.6 H Est GFR ( Amer) 55 L Est GFR (MDRD) Non-Af 46 L Glucose 116 H AST 70 H - EKG Interpretation by Ut EKG shows normal: Sinus rhythm, [place], Intervals - No acute ischemic changes, nonspecific ST-T changes Discharge - Discharge Clinical Impression: COPD exacerbation Condition: Stable Disposition: HOME, SELF-CARE Instructions: Chronic Obstructive Lung Disease ([facility]) Prescriptions: Prednisone [Deltasone 20 mg Tablet] 3 tab PO DAILY 5 Days tablet Referrals: SMITA DOWNING MD [Primary Care Provider] - Follow up tomorrow
--- NOTE | 2019-04-05 02:08 | RADIOLOGY REPORT (SQ) ---
EXAM DESCRIPTION: XR CHEST 1 VIEW COMPLETED DATE/TME: 04/05/2019 01:28 CLINICAL HISTORY: 63 years, Female, shortness of breath COMPARISON: 04/02/2019 NUMBER OF VIEWS: One TECHNIQUE: AP view the chest LIMITATIONS: None. FINDINGS: The lungs are clear. The heart is enlarged. There is no pneumothorax or pleural effusion. There is no acute fracture. IMPRESSION: No acute cardiopulmonary abnormality copyright 2010 [employer]- All Rights Reserved
[2019-04-05 02:19] LABS: ABSOLUTE EOSINOPHILS # (AUTO) 0.1 10^3/uL (0.0-0.6); ABSOLUTE LYMPHOCYTES (AUTO) 1.2 10^3/uL (0.5-4.7); ABSOLUTE MONOCYTES (AUTO) 0.5 10^3/uL (0.1-1.4); ABSOLUTE NEUT (AUTO) 3.5 10^3/uL (1.7-8.2); BASOPHILS % (AUTO) 0.6 % (0-2); EOSINOPHILS % (AUTO) 1.3 % (0-6); HEMATOCRIT 37.9 % (36.0-47.0); HEMOGLOBIN 12.3 g/dL (12.0-15.5); LYMPHOCYTES % (AUTO) 21.7 % (13-45); MEAN CORPUSCULAR HEMOGLOBIN 29.7 pg (27.0-33.4); MEAN CORPUSCULAR HGB CONC 32.5 g/dL (32.0-36.0); MEAN CORPUSCULAR VOLUME 92 fl (80-97); MONOCYTES % (AUTO) 10.3 % (3-13); PLATELET COUNT 154 10^3/uL (150-450); RED BLOOD COUNT 4.14 10^6/uL (3.72-5.28); RED CELL DISTRIBUTION WIDTH 16.6 % (11.5-14.0); SEGMENTED NEUTROPHILS % (AUTO) 66.1 % (42-78); TOTAL CELLS COUNTED % (AUTO) 100 %; WHITE BLOOD COUNT 5.3 10^3/uL (4.0-10.5)
[2019-04-05 02:36] LABS: ALKALINE PHOSPHATASE 106 U/L (38-126); ANION GAP 12 (5-19); ASPARTATE AMINO TRANSFERASE 70 U/L (14-36); BILIRUBIN,DIRECT 0.3 mg/dL (0.0-0.4); BILIRUBIN,TOTAL 0.8 mg/dL (0.2-1.3); BLOOD UREA NITROGEN 20 mg/dL (7-20); CALCIUM 9.7 mg/dL (8.4-10.2); CARBON DIOXIDE 25 mmol/L (22-30); CHLORIDE 105 mmol/L (98-107); GLUCOSE 116 mg/dL (75-110); TOTAL PROTEIN 7.4 g/dL (6.3-8.2)
[2019-04-05 03:42] VITALS: BP 135/100
--- NOTE | 2019-04-06 08:57 | EKG REPORT ---
SEVERITY:- ABNORMAL ECG - ATRIAL FLUTTER, FIB PROBABLE INFERIOR INFARCT, AGE INDETERMINATE CONSIDER POSTERIOR WALL INVOLVEMENT : Confirmed by: Afia Rodrigues 06-Apr-2019 08:55:51
== END 2019-04-05 03:42 | disposition home or self-care (01) ==
LOC: ER 00:52
DX: J44.1 Chronic obstructive pulmonary disease with (acute) exacerbation (principal); R06.00 Dyspnea, unspecified; F17.200 Nicotine dependence, unspecified, uncomplicated; I48.91 Unspecified atrial fibrillation; E78.00 Pure hypercholesterolemia, unspecified; I10 Essential (primary) hypertension
CPT/HCPCS: 93005; 94640; 99285; 96374; 36415; 85025; 80053; 84484; 71045; 93010; J2930

== ENCOUNTER 2019-04-05 17:10 | Emergency (ER) | payer MEDICAID ==
[2019-04-05] MEDS ORDERED: LACTULOSE SYRUP 20 GM/30 ML UDCUP PO ONE (17:41)
--- NOTE | 2019-04-05 17:43 | ER Document Report ---
ED Medical Screen (RME) - General Chief Complaint: Constipation Stated Complaint: CONSTIPATION Time Seen by Provider: 04/05/19 17:34 Primary Care Provider: SMITA DONWING MD [Primary Care Provider] - Follow up as needed Notes: Patient is a 63-year-old female who presents the emergency department with a chief complaint of constipation. She was seen last night in the emergency department and had a full work-up done and was diagnosed with congestive heart failure. She states that she does not have any difficulty breathing, but states that her last problem was 3 days ago. She has a feeling of needing to have a bowel movement, but has not had one. She has some discomfort but no extreme pain. Exam: Soft, distended abdomen. Will order lactulose to see if the patient has a bowel movement. I have greeted and performed a rapid initial assessment of this patient. A comprehensive ED assessment and evaluation of the patient, analysis of test results and completion of medical decision making process will be conducted by an additional ED providers. TRAVEL OUTSIDE OF THE [place] IN LAST 30 DAYS: No - Related Data Allergies/Adverse Reactions: No Known Allergies Allergy (Verified 04/02/19 14:03) Past Medical History - Social History Frequency of alcohol use: Heavy Drug Abuse: None - Past Medical History Cardiac Medical History: Reports: Hx Atrial Fibrillation, Hx Hypercholesterolemia, Hx Hypertension Denies: Hx Congestive Heart Failure, Hx Coronary Artery Disease, Hx Heart Attack, Hx Pulmonary Embolism Pulmonary Medical History: Reports: Hx COPD Denies: Hx Asthma, Hx Bronchitis, Hx Pneumonia, Hx Tuberculosis Neurological Medical History: Denies: Hx Cerebrovascular Accident, Hx Seizures, Hx Parkinson's Disease Endocrine Medical History: Denies: Hx Hypothyroidism Renal/ Medical History: Denies: Hx End Stage Renal Disease, Hx Kidney Stones, Hx Peritoneal Dialysis GI Medical History: Denies: Hx Cirrhosis, Hx Gastroesophageal Reflux Disease, Hx Hepatitis, Hx Hiatal Hernia, Hx Ulcer Musculoskeltal Medical History: Denies Hx Arthritis, Denies Hx Fibromyalgia, Denies Hx Multiple Sclerosis Skin Medical History: Denies Hx Eczema, Denies Hx Psoriasis Psychiatric Medical History: Denies: Hx Bipolar Disorder, Hx Depression, Hx Schizophrenia Infectious Medical History: Denies: Hx Hepatitis Past Surgical History: Reports: Hx Breast Surgery - biopsy right breast, Other - she had a right breast biopsy, neg for malignancy. Denies: Hx Hysterectomy, Hx Mastectomy, Hx Open Heart Surgery, Hx Pacemaker - Immunizations Hx Diphtheria, Pertussis, Tetanus Vaccination: Yes History of Influenza Vaccine for 04/2017 - 09/2017 Season: Refused Physical Exam - Vital signs Vitals: Temp Pulse Resp BP Pulse Ox 97.5 F 109 H 18 155/126 H 95 04/05/19 17:24 04/05/19 17:24 04/05/19 17:24 04/05/19 17:24 04/05/19 17:24 Course - Vital Signs Vital signs: Temp Pulse Resp BP Pulse Ox 97.5 F 109 H 18 155/126 H 95 04/05/19 17:24 04/05/19 17:24 04/05/19 17:24 04/05/19 17:24 04/05/19 17:24 Doctor's Discharge - Discharge Referrals: SMITA DOWNING MD [Primary Care Provider] - Follow up as needed
--- NOTE | 2019-04-05 20:00 | ER Document Report ---
ED General - General Chief Complaint: Constipation Stated Complaint: CONSTIPATION Time Seen by Provider: 04/05/19 17:34 Primary Care Provider: SMITA DOWNING MD [Primary Care Provider] - Follow up as needed TRAVEL OUTSIDE OF THE [place] IN LAST 30 DAYS: No - HPI Notes: Patient has been having 4-day history of constipation and worsening abdominal pain. He has been in the emergency department several times over the last week for breathing illness. Today her chief complaint is constipation. She was provided lactulose in triage prior to me seeing her. - Related Data Allergies/Adverse Reactions: No Known Allergies Allergy (Verified 04/02/19 14:03) Past Medical History - Social History Smoking Status: Current Every Day Smoker Frequency of alcohol use: Heavy Drug Abuse: None Family History: CAD, CVA, Hypertension, Malignancy Patient has suicidal ideation: No Patient has homicidal ideation: No - Past Medical History Cardiac Medical History: Reports: Hx Atrial Fibrillation, Hx Hypercholesterolemia, Hx Hypertension Denies: Hx Congestive Heart Failure, Hx Coronary Artery Disease, Hx Heart Attack, Hx Pulmonary Embolism Pulmonary Medical History: Reports: Hx COPD Denies: Hx Asthma, Hx Bronchitis, Hx Pneumonia, Hx Tuberculosis Neurological Medical History: Denies: Hx Cerebrovascular Accident, Hx Seizures, Hx Parkinson's Disease Endocrine Medical History: Denies: Hx Hypothyroidism Renal/ Medical History: Denies: Hx End Stage Renal Disease, Hx Kidney Stones, Hx Peritoneal Dialysis GI Medical History: Denies: Hx Cirrhosis, Hx Gastroesophageal Reflux Disease, Hx Hepatitis, Hx Hiatal Hernia, Hx Ulcer Musculoskeletal Medical History: Denies Hx Arthritis, Denies Hx Fibromyalgia, Denies Hx Multiple Sclerosis Skin Medical History: Denies Hx Eczema, Denies Hx Psoriasis Psychiatric Medical History: Denies: Hx Bipolar Disorder, Hx Depression, Hx Schizophrenia Infectious Medical History: Denies: Hx Hepatitis Past Surgical History: Reports: Hx Breast Surgery - biopsy right breast, Other - she had a right breast biopsy, neg for malignancy. Denies: Hx Hysterectomy, Hx Mastectomy, Hx Open Heart Surgery, Hx Pacemaker - Immunizations Hx Diphtheria, Pertussis, Tetanus Vaccination: Yes Review of Systems - Review of Systems Constitutional: No symptoms reported EENT: No symptoms reported Cardiovascular: No symptoms reported Respiratory: No symptoms reported Gastrointestinal: See HPI Genitourinary: No symptoms reported Female Genitourinary: No symptoms reported Musculoskeletal: No symptoms reported Skin: No symptoms reported Hematologic/Lymphatic: No symptoms reported Neurological/Psychological: No symptoms reported Physical Exam - Vital signs Vitals: Temp Pulse Resp BP Pulse Ox 97.5 F 109 H 18 155/126 H 95 04/05/19 17:24 04/05/19 17:24 04/05/19 17:24 04/05/19 17:24 04/05/19 17:24 - General General appearance: Appears well, Alert Course - Re-evaluation Re-evalutation: 04/05/19 20:28 Nonspecific bowel gas pattern on KUB, patient is in bed and having contractions but has not had a bowel movement. Will order a CT abdomen pelvis at this time to further evaluate patient's etiology of pain. Upon chart review she had lab work performed approximately 2 in the morning of this day and labs within normal limits are nonsignificant will not redraw labs at this time. 04/05/19 22:24 No signs of obstruction on exam. Patient has not had a bowel movement lactulose. Will provide Fleet enema prescription as well as MiraLAX. Return precautions provided - Vital Signs Vital signs: Temp Pulse Resp BP Pulse Ox 97.4 F 107 H 18 148/112 H 100 04/05/19 22:02 04/05/19 22:02 04/05/19 22:02 04/05/19 22:02 04/05/19 22:02 Discharge - Discharge Clinical Impression: Constipation Qualifiers: Constipation type: unspecified constipation type Qualified Code(s): K59.00 - Constipation, unspecified Condition: Good Disposition: HOME, SELF-CARE Instructions: Constipation ([facility]) Prescriptions: Na Phos,M-B/Na Phos,Di-Ba [Fleet Enema (Adult) 133 ml] 133 ml VA ONCE PRN #1 enema PRN Reason: Polyethylene Glycol 3350 [Miralax Powder 17 gm/Packet] 1 packet PO DAILY #30 pkg Referrals: SMITA DOWNING MD [Primary Care Provider] - Follow up as needed
--- NOTE | 2019-04-05 20:04 | RADIOLOGY REPORT (SQ) ---
EXAM DESCRIPTION: KUB/ABDOMEN (SINGLE VIEW) COMPLETED DATE/TIME: 04/05/2019 7:47 pm REASON FOR STUDY: constipation COMPARISON: None. NUMBER OF VIEWS: One view. TECHNIQUE: Supine radiographic image of the abdomen acquired. LIMITATIONS: None. FINDINGS: BOWEL GAS PATTERN: Scattered gas-filled nondilated bowel loops. CALCIFICATIONS: No suspici ous calcifications. SOFT TISSUES: No gross mass or suggestion of organomegaly. HARDWARE: None in the abdomen.. BONES: No acute fracture. No worrisome bone lesions. OTHER: No other significant finding. IMPRESSION: NON-SPECIFIC BOWEL GAS PATTERN. TECHNICAL DOCUMENTATION: JOB ID: [id number] [place]-72 2010 [employer]- All Rights Reserved Reading location - IP/workstation name: [email or web address]
--- NOTE | 2019-04-05 21:44 | RADIOLOGY REPORT (SQ) ---
EXAM DESCRIPTION: CT abdomen and pelvis without contrast CLINICAL HISTORY: 63 years Female, constipation per pt, eval for obstruction COMPARISON: None. TECHNIQUE: Axial images of the abdomen and pelvis were performed without the use of intravenous contrast, with sagittal and coronal reformatted images. This exam was performed according to our departmental dose-optimization program which includes use of Automated Exposure Control, adjustment of the mA and/or kV according to patient size and/or use of iterative reconstruction technique. FINDINGS: There may be mild irregularity of the liver surface, raising the possibility of cirrhosis. There is a moderate amount of ascites in the abdomen and pelvis. There is subcutaneous edema. There are streaky changes throughout the abdominal fat. There is some gallbladder wall calcification, and possibly gallstones as well. There are atherosclerotic changes involving the abdominal aorta, but there is no aneurysm. No evidence of bowel obstruction. There is no significant radiographic abnormality of the spleen, pancreas, adrenal glands or kidneys. IMPRESSION: Possible cirrhosis. Moderate amount of ascites. Subcutaneous edema. Streaky changes throughout the abdominal fat may represent benign edema, however, other etiologies such as peritonitis cannot be excluded. Gallbladder wall calcification and possibly gallstones.
[2019-04-05 22:03] VITALS: BP 148/112
== END 2019-04-05 22:25 | disposition home or self-care (01) ==
LOC: ER 17:10
DX: K59.00 Constipation, unspecified (principal); R10.9 Unspecified abdominal pain; F17.200 Nicotine dependence, unspecified, uncomplicated; I48.91 Unspecified atrial fibrillation; E78.00 Pure hypercholesterolemia, unspecified; I10 Essential (primary) hypertension
CPT/HCPCS: 74018; 74176; J3490; 99284

== ENCOUNTER 2019-05-23 20:36 | Emergency (ER) | payer MEDICAID ==
--- NOTE | 2019-05-23 22:41 | ER Document Report ---
ED Medical Screen (RME) - General Chief Complaint: Abdominal Pain Stated Complaint: ABDOMINAL PAIN Time Seen by Provider: 05/23/19 22:38 Primary Care Provider: SMITA DOWNING MD [Primary Care Provider] - Follow up as needed TRAVEL OUTSIDE OF THE [place] IN LAST 30 DAYS: No - HPI Notes: 05/23/19 22:40 Patient is a 63-year-old female with history of COPD who presents complaining of upper abdominal cramping and feeling constipated. Patient states that although she does have some bowel movements every day, they are small and hard. Patient states that she feels bloated as well and is concerned about a 'blockage.' No fever, vomiting, diarrhea, chest pain. I have treated and performed a rapid initial assessment of this patient. A comprehensive ED assessment and evaluation of the patient, analysis of test results and completion of medical decision making process will be conducted by additional ED providers. PHYSICAL EXAMINATION: GENERAL: Well-appearing, well-nourished and in no acute distress. A&Ox4. Answers questions appropriately. Abd: grossly nontender heart: RRR - Related Data Allergies/Adverse Reactions: No Known Allergies Allergy (Verified 04/02/19 14:03) Past Medical History - Past Medical History Cardiac Medical History: Reports: Hx Atrial Fibrillation, Hx Hypercholesterolemia, Hx Hypertension Denies: Hx Congestive Heart Failure, Hx Coronary Artery Disease, Hx Heart Attack, Hx Pulmonary Embolism Pulmonary Medical History: Reports: Hx COPD Denies: Hx Asthma, Hx Bronchitis, Hx Pneumonia, Hx Tuberculosis Neurological Medical History: Denies: Hx Cerebrovascular Accident, Hx Seizures, Hx Parkinson's Disease Endocrine Medical History: Denies: Hx Hypothyroidism Renal/ Medical History: Denies: Hx End Stage Renal Disease, Hx Kidney Stones, Hx Peritoneal Dialysis GI Medical History: Denies: Hx Cirrhosis, Hx Gastroesophageal Reflux Disease, Hx Hepatitis, Hx Hiatal Hernia, Hx Ulcer Musculoskeltal Medical History: Denies Hx Arthritis, Denies Hx Fibromyalgia, Denies Hx Multiple Sclerosis Skin Medical History: Denies Hx Eczema, Denies Hx Psoriasis Psychiatric Medical History: Denies: Hx Bipolar Disorder, Hx Depression, Hx Schizophrenia Infectious Medical History: Denies: Hx Hepatitis Past Surgical History: Reports: Hx Breast Surgery - biopsy right breast, Other - she had a right breast biopsy, neg for malignancy. Denies: Hx Hysterectomy, Hx Mastectomy, Hx Open Heart Surgery, Hx Pacemaker - Immunizations Hx Diphtheria, Pertussis, Tetanus Vaccination: Yes Physical Exam - Vital signs Vitals: Temp Pulse Resp BP Pulse Ox 97.4 F 100 20 120/87 H 100 05/23/19 21:02 05/23/19 21:02 05/23/19 21:02 05/23/19 21:02 05/23/19 21:02 Course - Vital Signs Vital signs: Temp Pulse Resp BP Pulse Ox 97.4 F 100 20 120/87 H 100 05/23/19 21:02 05/23/19 21:02 05/23/19 21:02 05/23/19 21:02 05/23/19 21:02 Doctor's Discharge - Discharge Referrals: SMITA DOWNING MD [Primary Care Provider] - Follow up as needed
--- NOTE | 2019-05-23 23:18 | RADIOLOGY REPORT (SQ) ---
EXAM DESCRIPTION: XR ABDOMEN 1 VIEW (KUB) COMPLETED DATE/TME: 05/23/2019 22:42 CLINICAL HISTORY: 63 years, Female, trouble with BM's COMPARISON: 04/05/2019 abdomen NUMBER OF VIEWS: 1 TECHNIQUE: AP abdomen LIMITATIONS: None. FINDINGS: The bowel gas pattern is nonspecific. Evaluation for free air limited on a supine view. Nondilated air-filled loops of small bowel centrally. Osteopenia. IMPRESSION: Nonspecific bowel gas pattern copyright 2010 [employer] [facility] [employer]- All Rights Reserved
--- NOTE | 2019-05-24 02:55 | ER Document Report ---
ED General - General Chief Complaint: Abdominal Pain Stated Complaint: ABDOMINAL PAIN Time Seen by Provider: 05/23/19 22:38 Primary Care Provider: SMITA DOWNING MD [Primary Care Provider] - Follow up as needed TRAVEL OUTSIDE OF THE [place] IN LAST 30 DAYS: No - HPI Patient complains to provider of: constipation Notes: 63 y/o presenting to ED for abdominal fullness that she attributes to constipation she states that she has to strain to stool and has small hard stools no urinary pain, nausea, vomiting, fever her belly feels distended she has a h/o cirrhosis and has had ascites previously on CT in - Related Data Allergies/Adverse Reactions: No Known Allergies Allergy (Verified 04/02/19 14:03) Home Medications: prednisone, HTCZ, lasix, Past Medical History - Social History Smoking Status: Current Some Day Smoker Frequency of alcohol use: None Drug Abuse: None Family History: CAD, CVA, Hypertension, Malignancy Patient has suicidal ideation: No Patient has homicidal ideation: No - Past Medical History Cardiac Medical History: Reports: Hx Atrial Fibrillation, Hx Hypercholesterolemia, Hx Hypertension Denies: Hx Congestive Heart Failure, Hx Coronary Artery Disease, Hx Heart Attack, Hx Pulmonary Embolism Pulmonary Medical History: Reports: Hx COPD Denies: Hx Asthma, Hx Bronchitis, Hx Pneumonia, Hx Tuberculosis Neurological Medical History: Denies: Hx Cerebrovascular Accident, Hx Seizures, Hx Parkinson's Disease Endocrine Medical History: Denies: Hx Hypothyroidism Renal/ Medical History: Denies: Hx End Stage Renal Disease, Hx Kidney Stones, Hx Peritoneal Dialysis GI Medical History: Denies: Hx Cirrhosis, Hx Gastroesophageal Reflux Disease, Hx Hepatitis, Hx Hiatal Hernia, Hx Ulcer Musculoskeletal Medical History: Denies Hx Arthritis, Denies Hx Fibromyalgia, Denies Hx Multiple Sclerosis Skin Medical History: Denies Hx Eczema, Denies Hx Psoriasis Psychiatric Medical History: Denies: Hx Bipolar Disorder, Hx Depression, Hx Schizophrenia Infectious Medical History: Denies: Hx Hepatitis Past Surgical History: Reports: Hx Breast Surgery - biopsy right breast, Other - she had a right breast biopsy, neg for malignancy. Denies: Hx Hysterectomy, Hx Mastectomy, Hx Open Heart Surgery, Hx Pacemaker - Immunizations Hx Diphtheria, Pertussis, Tetanus Vaccination: Yes Review of Systems - Review of Systems Constitutional: No symptoms reported EENT: No symptoms reported Cardiovascular: No symptoms reported Respiratory: No symptoms reported Gastrointestinal: Abdomen distended, Abdominal pain. denies: Nausea, Vomiting Genitourinary: No symptoms reported Female Genitourinary: No symptoms reported Musculoskeletal: No symptoms reported Skin: No symptoms reported Hematologic/Lymphatic: No symptoms reported Neurological/Psychological: No symptoms reported Physical Exam - Vital signs Vitals: Temp Pulse Resp BP Pulse Ox 97.4 F 100 20 120/87 H 100 05/23/19 21:02 05/23/19 21:02 05/23/19 21:02 05/23/19 21:02 05/23/19 21:02 Interpretation: Normal - General General appearance: Appears well, Alert - HEENT Head: Normocephalic, Atraumatic Eyes: Normal Pupils: PERRL Mucous membranes: Normal Pharynx: Normal Neck: Normal. No: Meningismus - Respiratory Respiratory status: No respiratory distress Chest status: Nontender Breath sounds: Normal Chest palpation: Normal - Cardiovascular Rhythm: Regular Heart sounds: Normal auscultation Murmur: No - Abdominal Inspection: Normal Distension: No distension Bowel sounds: Normal Tenderness: Nontender. No: Tender Organomegaly: No organomegaly - Back Back: Normal, Nontender - Extremities General upper extremity: Normal inspection, Nontender, Normal color, Normal ROM, Normal temperature General lower extremity: Normal inspection, Nontender, Normal color, Normal ROM, Normal temperature, Normal weight bearing. No: Severo's sign - Neurological Neuro grossly intact: Yes Cognition: Normal Orientation: AAOx4 Shannan Coma Scale Eye Opening: Spontaneous Shannan Coma Scale Verbal: Oriented [place] Coma Scale Motor: Obeys Commands Shannan Coma Scale Total: 15 Speech: Normal Motor strength normal: LUE, RUE, LLE, RLE Sensory: Normal - Psychological Associated symptoms: Normal affect, Normal mood - Skin Skin Temperature: Warm Skin Moisture: Dry Skin Color: Normal Course - Re-evaluation Re-evalutation: 05/24/19 03:17 abdomen mildly tender and mildly distended check labs, urine, and KUB reviewed CT from Sep w/ cirrhosis changes and ascites 05/24/19 06:15 labs still have not been drawn signed out to Dr Arteaga for follow up on labs and disposition - Vital Signs Vital signs: Temp Pulse Resp BP Pulse Ox 97.5 F 74 20 136/107 H 96 05/24/19 02:16 05/24/19 02:16 05/24/19 02:16 05/24/19 02:16 05/24/19 02:16 - Diagnostic Test Radiology reviewed: Image reviewed, Reports reviewed Discharge - Discharge Clinical Impression: Elevated blood pressure reading Abdominal pain Qualifiers: Abdominal location: unspecified location Qualified Code(s): R10.9 - Unspecified abdominal pain Constipation Qualifiers: Constipation type: unspecified constipation type Qualified Code(s): K59.00 - Constipation, unspecified Cirrhosis Qualifiers: Hepatic cirrhosis type: unspecified hepatic cirrhosis Ascites presence: with ascites Qualified Code(s): K74.60 - Unspecified cirrhosis of liver; R18.8 - Other ascites Condition: Stable Disposition: OTHER Instructions: Abdominal Pain ([facility]) Referrals: SMITA DOWNING MD [Primary Care Provider] - Follow up as needed
[2019-05-24 07:04] LABS: ABSOLUTE LYMPHOCYTES (AUTO) 1.1 10^3/uL (0.5-4.7); ABSOLUTE MONOCYTES (AUTO) 0.3 10^3/uL (0.1-1.4); ABSOLUTE NEUT (AUTO) 2.6 10^3/uL (1.7-8.2); BASOPHILS % (AUTO) 0.7 % (0-2); EOSINOPHILS % (AUTO) 0.4 % (0-6); HEMATOCRIT 43.4 % (36.0-47.0); HEMOGLOBIN 14.1 g/dL (12.0-15.5); LYMPHOCYTES % (AUTO) 26.5 % (13-45); MEAN CORPUSCULAR HEMOGLOBIN 29.4 pg (27.0-33.4); MEAN CORPUSCULAR HGB CONC 32.4 g/dL (32.0-36.0); MEAN CORPUSCULAR VOLUME 91 fl (80-97); MONOCYTES % (AUTO) 8.2 % (3-13); PLATELET COUNT 181 10^3/uL (150-450); RED BLOOD COUNT 4.78 10^6/uL (3.72-5.28); SEGMENTED NEUTROPHILS % (AUTO) 64.2 % (42-78); TOTAL CELLS COUNTED % (AUTO) 100 %
[2019-05-24 07:22] LABS: ALKALINE PHOSPHATASE 89 U/L (38-126); ANION GAP 16 (5-19); ASPARTATE AMINO TRANSFERASE 36 U/L (14-36); BILIRUBIN,DIRECT 0.6 mg/dL (0.0-0.4); BILIRUBIN,TOTAL 1.7 mg/dL (0.2-1.3); BLOOD UREA NITROGEN 26 mg/dL (7-20); CALCIUM 9.7 mg/dL (8.4-10.2); CARBON DIOXIDE 19 mmol/L (22-30); CHLORIDE 107 mmol/L (98-107); GLUCOSE 83 mg/dL (75-110); POTASSIUM 5.1 mmol/L (3.6-5.0); TOTAL PROTEIN 7.7 g/dL (6.3-8.2)
[2019-05-24 08:46] VITALS: BP 133/96
== END 2019-05-24 08:39 | disposition home or self-care (01) ==
LOC: ER 20:36
DX: K59.00 Constipation, unspecified (principal); K74.60 Unspecified cirrhosis of liver; R10.9 Unspecified abdominal pain; J44.9 Chronic obstructive pulmonary disease, unspecified; I10 Essential (primary) hypertension; Z79.52 Long term (current) use of systemic steroids; Z79.899 Other long term (current) drug therapy
CPT/HCPCS: 36415; 74018; 80053; 83690; 84484; 85025

== ENCOUNTER 2019-05-31 17:45 | Inpatient (IN) | payer MEDICAID ==
[2019-05-31] MEDS ORDERED: IPRATROPIUM/ALBUTEROL 0.5-2.5 MG/3 ML AMPUL NEB ONE ×2 (18:03→20:16)
[2019-05-31] MEDS ORDERED: METHYLPREDNISOLONE INJ 125 MG/2 ML SDV IV ONE (18:03)
[2019-05-31] MEDS ORDERED: MAGNESIUM SULFATE/D5W 1 GM/100 ML RTUPB IV ONE ×2 (18:04)
[2019-05-31] MEDS ORDERED: NORMAL SALINE 1000 ML 1,000 ML IV PRN (18:05)
--- NOTE | 2019-05-31 18:05 | ER Document Report ---
ED Medical Screen (RME) - General Chief Complaint: Shortness Of Breath Stated Complaint: BREATHING PROBLEMS Time Seen by Provider: 05/31/19 17:57 Primary Care Provider: SMITA DOWNING MD [Primary Care Provider] - Follow up as needed TRAVEL OUTSIDE OF THE [place] IN LAST 30 DAYS: No - HPI Notes: 05/31/19 18:01 Patient is a 63-year-old female with history of COPD, a-fib, HTN who presents complaining of shortness of breath and wheezing over the past couple days, but states that this is otherwise been chronic intermittent for her. She has been eating and drinking without difficulty. She is urinating normally. Patient states that her bowels are small and hard and does have some fullness to her abdomen which she has been seen for this past week. She does not have any chest pain or fever. No vomiting. I have treated and performed a rapid initial assessment of this patient. A comprehensive ED assessment and evaluation of the patient, analysis of test results and completion of medical decision making process will be conducted by additional ED providers. PHYSICAL EXAMINATION: GENERAL: mild resp distress. A&Ox4. Answers questions appropriately. Lungs: Bibasilar rales noted with wheezing primarily expiratory. No retractions. Patient is speaking in 2-3 word sentences. - Related Data Allergies/Adverse Reactions: No Known Allergies Allergy (Verified 04/02/19 14:03) Past Medical History - Past Medical History Cardiac Medical History: Reports: Hx Atrial Fibrillation, Hx Hypercholesterolemia, Hx Hypertension Denies: Hx Congestive Heart Failure, Hx Coronary Artery Disease, Hx Heart Attack, Hx Pulmonary Embolism Pulmonary Medical History: Reports: Hx COPD Denies: Hx Asthma, Hx Bronchitis, Hx Pneumonia, Hx Tuberculosis Neurological Medical History: Denies: Hx Cerebrovascular Accident, Hx Seizures, Hx Parkinson's Disease Endocrine Medical History: Denies: Hx Hypothyroidism Renal/ Medical History: Denies: Hx End Stage Renal Disease, Hx Kidney Stones, Hx Peritoneal Dialysis GI Medical History: Denies: Hx Cirrhosis, Hx Gastroesophageal Reflux Disease, Hx Hepatitis, Hx Hiatal Hernia, Hx Ulcer Musculoskeltal Medical History: Denies Hx Arthritis, Denies Hx Fibromyalgia, Denies Hx Multiple Sclerosis Skin Medical History: Denies Hx Eczema, Denies Hx Psoriasis Psychiatric Medical History: Denies: Hx Bipolar Disorder, Hx Depression, Hx Schizophrenia Infectious Medical History: Denies: Hx Hepatitis Past Surgical History: Reports: Hx Breast Surgery - biopsy right breast, Other - she had a right breast biopsy, neg for malignancy. Denies: Hx Hysterectomy, Hx Mastectomy, Hx Open Heart Surgery, Hx Pacemaker - Immunizations Hx Diphtheria, Pertussis, Tetanus Vaccination: Yes Physical Exam - Vital signs Vitals: Temp Pulse Resp BP Pulse Ox 97.9 F 139 H 22 H 158/123 H 96 05/31/19 17:59 05/31/19 17:59 05/31/19 17:59 05/31/19 17:59 05/31/19 17:59 Course - Vital Signs Vital signs: Temp Pulse Resp BP Pulse Ox 97.9 F 139 H 22 H 158/123 H 96 05/31/19 17:59 05/31/19 17:59 05/31/19 17:59 05/31/19 17:59 05/31/19 17:59 Doctor's Discharge - Discharge Referrals: SMITA DOWNING MD [Primary Care Provider] - Follow up as needed
--- NOTE | 2019-05-31 19:13 | RADIOLOGY REPORT (SQ) ---
EXAM DESCRIPTION: CHEST SINGLE VIEW COMPLETED DATE/TIME: 05/31/2019 7:01 pm REASON FOR STUDY: SOB COMPARISON: 04/05/2019 EXAM PARAMETERS: NUMBER OF VIEWS: One view. TECHNIQUE: Single frontal radiographic view of the chest acquired. RADIATION DOSE: NA LIMITATIONS: None. FINDINGS: LUNGS AND PLEURA: No opacities, masses or pneumothorax. No pleural effusion. MEDIASTINUM AND HILAR STRUCTURES: No masses. Contour normal. HEART AND VASCULAR STRUCTURES: Cardiomegaly. No pulmonary edema. BONES: No acute findings. HARDWARE: None in the chest. OTHER: No other significant finding. IMPRESSION: Cardiomegaly without pulmonary edema. TECHNICAL DOCUMENTATION: JOB ID: [id number] [employer]- All Rights Reserved Reading location - IP/workstation name: [email or web address]
[2019-05-31 19:41] LABS: VENOUS BLOOD BASE EXCESS -0.3 mmol/L; VENOUS BLOOD HCO3 26.4 mmol/L (20-32); VENOUS BLOOD PCO2 51.3 mmHg (35-63); VENOUS BLOOD PH 7.33 (7.30-7.42)
[2019-05-31 19:42] LABS: ABSOLUTE BASOPHILS # (AUTO) 0.1 10^3/uL (0.0-0.2); ABSOLUTE LYMPHOCYTES (AUTO) 1.1 10^3/uL (0.5-4.7); ABSOLUTE MONOCYTES (AUTO) 0.4 10^3/uL (0.1-1.4); ABSOLUTE NEUT (AUTO) 3.7 10^3/uL (1.7-8.2); EOSINOPHILS % (AUTO) 0.6 % (0-6); HEMATOCRIT 42.6 % (36.0-47.0); HEMOGLOBIN 13.7 g/dL (12.0-15.5); LYMPHOCYTES % (AUTO) 21.1 % (13-45); MEAN CORPUSCULAR HEMOGLOBIN 29.6 pg (27.0-33.4); MEAN CORPUSCULAR HGB CONC 32.1 g/dL (32.0-36.0); MEAN CORPUSCULAR VOLUME 92 fl (80-97); MONOCYTES % (AUTO) 7.1 % (3-13); PLATELET COUNT 183 10^3/uL (150-450); RED BLOOD COUNT 4.62 10^6/uL (3.72-5.28); RED CELL DISTRIBUTION WIDTH 16.4 % (11.5-14.0); SEGMENTED NEUTROPHILS % (AUTO) 70.2 % (42-78); TOTAL CELLS COUNTED % (AUTO) 100 %; WHITE BLOOD COUNT 5.3 10^3/uL (4.0-10.5)
[2019-05-31 19:56] LABS: ALBUMIN 4.3 g/dL (3.5-5.0); ALKALINE PHOSPHATASE 92 U/L (38-126); ANION GAP 15 (5-19); ASPARTATE AMINO TRANSFERASE 43 U/L (14-36); BILIRUBIN,DIRECT 0.7 mg/dL (0.0-0.4); BILIRUBIN,TOTAL 2.1 mg/dL (0.2-1.3); BLOOD UREA NITROGEN 19 mg/dL (7-20); CALCIUM 9.9 mg/dL (8.4-10.2); CARBON DIOXIDE 23 mmol/L (22-30); CHLORIDE 107 mmol/L (98-107); GLUCOSE 127 mg/dL (75-110); POTASSIUM 4.3 mmol/L (3.6-5.0); TOTAL PROTEIN 8.3 g/dL (6.3-8.2)
[2019-05-31 20:10] LABS: TROPONIN I 0.037 ng/mL
[2019-05-31] MEDS ORDERED: FUROSEMIDE INJ/PF 40 MG/4 ML SDV IV ONE (20:17)
--- NOTE | 2019-05-31 20:20 | ER Document Report ---
ED General - General Chief Complaint: Shortness Of Breath Stated Complaint: BREATHING PROBLEMS Time Seen by Provider: 05/31/19 17:57 Notes: Patient is a 63-year-old female that comes to the emergency department for chief complaint of difficulty breathing, and also abdominal pain and swelling. She also reports swelling in both of her legs. She has states that for the past 2 days or so she has had increased difficulty breathing and wheezing. She denies fever, vomiting, chest pain. She states she has difficulty eating and feels very full. Past medical history includes COPD with intermittent smoking (she is not on oxygen at home reportedly), CHF on lasix, A. fib, hypertension, hyperlipidemia. She denies abdominal surgeries. She lives at home with her daughter. TRAVEL OUTSIDE OF THE [place] IN LAST 30 DAYS: No - Related Data Allergies/Adverse Reactions: No Known Allergies Allergy (Verified 04/02/19 14:03) Home Medications: Stool Softner Past Medical History - General Information source: Patient - Social History Smoking Status: Current Some Day Smoker Chew tobacco use (# tins/day): No Frequency of alcohol use: Rare Lives with: Family Family History: CAD, CVA, Hypertension, Malignancy Patient has suicidal ideation: No Patient has homicidal ideation: No - Past Medical History Cardiac Medical History: Reports: Hx Atrial Fibrillation, Hx Congestive Heart Failure, Hx Hypercholesterolemia, Hx Hypertension Denies: Hx Coronary Artery Disease, Hx Heart Attack, Hx Pulmonary Embolism Pulmonary Medical History: Reports: Hx COPD Denies: Hx Asthma, Hx Bronchitis, Hx Pneumonia, Hx Tuberculosis Neurological Medical History: Denies: Hx Cerebrovascular Accident, Hx Seizures, Hx Parkinson's Disease Endocrine Medical History: Denies: Hx Hypothyroidism Renal/ Medical History: Denies: Hx End Stage Renal Disease, Hx Kidney Stones, Hx Peritoneal Dialysis GI Medical History: Denies: Hx Cirrhosis, Hx Gastroesophageal Reflux Disease, Hx Hepatitis, Hx Hiatal Hernia, Hx Ulcer Musculoskeletal Medical History: Denies Hx Arthritis, Denies Hx Fibromyalgia, Denies Hx Multiple Sclerosis Skin Medical History: Denies Hx Eczema, Denies Hx Psoriasis Psychiatric Medical History: Denies: Hx Bipolar Disorder, Hx Depression, Hx Schizophrenia Infectious Medical History: Denies: Hx Hepatitis Past Surgical History: Reports: Hx Breast Surgery - biopsy right breast, Other - she had a right breast biopsy, neg for malignancy. Denies: Hx Hysterectomy, Hx Mastectomy, Hx Open Heart Surgery, Hx Pacemaker - Immunizations Hx Diphtheria, Pertussis, Tetanus Vaccination: Yes Review of Systems - Review of Systems Constitutional: No symptoms reported EENT: No symptoms reported Cardiovascular: No symptoms reported Respiratory: See HPI Gastrointestinal: See HPI Genitourinary: No symptoms reported Female Genitourinary: No symptoms reported Musculoskeletal: No symptoms reported Skin: No symptoms reported Hematologic/Lymphatic: No symptoms reported Neurological/Psychological: No symptoms reported Physical Exam - Vital signs Vitals: Temp Pulse Resp BP Pulse Ox 97.9 F 139 H 22 H 158/123 H 96 05/31/19 17:59 05/31/19 17:59 05/31/19 17:59 05/31/19 17:59 05/31/19 17:59 - Notes Notes: GENERAL: Alert, interacts well. Does not appear to be in distress HEAD: Normocephalic, atraumatic. EYES: Pupils equal, round, and reactive to light. Extraocular movements intact. ENT: Oral mucosa moist, tongue midline. Oropharynx unremarkable. Airway patent. NECK: Full range of motion. Supple. Trachea midline. LUNGS: Mild tachypnea, expiratory wheezes, few scattered rales in the lower lungs. No severe distress, she can speak in complete sentences now. HEART: Tachycardia which is borderline, normal rhythm, no murmur ABDOMEN: Abdomen is distended, possibly ascites. Mild generalized tenderness without specific area of tenderness or guarding. Bowel sounds faint. EXTREMITIES: Moves all 4 extremities spontaneously. 2+ pitting edema bilaterally, normal radial and dorsalis pedis pulses bilaterally. No cyanosis. BACK: no cervical, thoracic, lumbar midline tenderness. No saddle anesthesia, normal distal neurovascular exam. Moves all extremities in full range of motion. NEUROLOGICAL: Alert and oriented x3. Normal speech. Cranial nerves II through XII grossly intact. PSYCH: Normal affect, normal mood. SKIN: Warm, dry, normal turgor. No rashes or lesions noted. Course - Re-evaluation Re-evalutation: Patient with tachycardia, appears to have mixed COPD and CHF exacerbation with both wheezes and rales, lower extremity edema noted, she also has a swollen abdomen which actually appears more like ascites but is not tender suggesting spontaneous bacterial peritonitis. No fever. Blood pressure is borderline high. When I first evaluated the patient I found that her IV fluids were running with 2 L of saline bolus to be given from triage, I stopped this and p atient had only been given about 250 cc. CBC unremarkable, chemistry shows slightly elevated bilirubin but this is not significantly changed from prior. Troponin indeterminate, BNP is greater than 8 000 which is significantly increased from prior. Because of her generalized pain, abdominal swelling, elevated bilirubin, I discussed with patient and decision was made to CAT scan the belly. Patient also be given Lasix and additional DuoNeb's. She is significantly improved after initial treatments however. CAT scan showing widespread ascites, gallstones, no acute findings. Patient admits to previous heavy alcohol use but denies heavy alcohol use now. She denies drinking alcohol recently. Patient attempted to get up but her heart rate instantly went up to about 135. Patient became significantly tachypneic as well. Patient was placed back in the bed, I discussed the results, will discuss with hospitalist for admission for COPD exacerbation, CHF exacerbation, worsening ascites. Discussed with Dr. Meléndez, hospitalist, patient will be excepted to IMCU full admission. Patient states understanding and agreement with plan. - Vital Signs Vital signs: Temp Pulse Resp BP Pulse Ox 97.4 F 98 26 H 100/69 100 06/01/19 01:37 06/01/19 01:37 06/01/19 01:37 06/01/19 01:37 06/01/19 01:37 - Laboratory Result Diagrams: 05/31/19 19:20 05/31/19 19:20 Laboratory results interpreted by me: 05/31/19 05/31/19 05/31/19 19:20 19:20 19:20 RDW 16.4 H Sodium 145.2 H Est GFR ( Amer) 57 L Est GFR (MDRD) Non-Af 48 L Glucose 127 H Lactic Acid (Sepsis) Total Bilirubin 2.1 H Direct Bilirubin 0.7 H AST 43 H NT-Pro-B Natriuret Pep 8300 H Total Protein 8.3 H Urine Protein Urine Blood 05/31/19 05/31/19 19:20 20:57 RDW Sodium Est GFR ( Amer) Est GFR (MDRD) Non-Af Glucose Lactic Acid (Sepsis) 2.9 H Total Bilirubin Direct Bilirubin AST NT-Pro-B Natriuret Pep Total Protein Urine Protein 30 H Urine Blood SMALL H Discharge - Discharge Clinical Impression: COPD exacerbation, Tachycardia CHF exacerbation Qualifiers: Heart failure type: unspecified Qualified Code(s): I50.9 - Heart failure, unspecified Ascites Qualifiers: Ascites type: other type Qualified Code(s): R18.8 - Other ascites Condition: Stable Disposition: ADMITTED INPATIENT Admitting Provider: Medhat (Hospitalist) Unit Admitted: [facility]
[2019-05-31 21:35] LABS: APPEARANCE,URINE CLEAR; BILIRUBIN,URINE NEGATIVE (NEGATIVE); COLOR,URINE YELLOW; GLUCOSE, URINE NEGATIVE (NEGATIVE); KETONES,URINE NEGATIVE (NEGATIVE); PROTEIN,URINE 30 mg/dL (NEGATIVE); URINE SPECIFIC GRAVITY 1.011; UROBILINOGEN,URINE NEGATIVE mg/dL (<2.0)
--- NOTE | 2019-05-31 22:05 | RADIOLOGY REPORT (SQ) ---
EXAM DESCRIPTION: RadLex: CT ABDOMEN PELVIS WITH IV CONTRAST CLINICAL HISTORY: 63 years Female; abd pain and swelling TECHNIQUE: CT of the abdomen and pelvis using intravenous contrast. All CT scans at this facility use dose modulation, iterative reconstruction, and/or weight based dosing when appropriate to reduce radiation dose to as low as reasonably achievable. COMPARISON: CT 04/05/2019 FINDINGS: Minimal left pleural effusion. Abdomen: Liver:No focal lesions. No intrahepatic ductal distention. Gallbladder: Nondistended. Hyperdensity consistent with either partial wall calcification or gallstones is again noted. Pancreas:Within normal limits Spleen:Within normal limits Right kidney:No hydronephrosis. No focal lesion. Left kidney:No hydronephrosis. No focal lesion. Adrenal glands:Within normal limits Vascular structures: Moderate aortic and branch calcifications. No aortic aneurysm or dissection. No major branch occlusion. Pelvis: Small bowel:No significant distention. Appendix:Within normal limits Colon: Nondistended. Large volume ascites has increased since the prior exam. No pleural enhancement. No free air. There is persistent diffuse subcutaneous edema. Bones: No acute bone findings. Bladder: Unremarkable. Uterine fundus is somewhat lobular, suggesting uterine fibroids, as on prior exam. No adnexal enlargement. IMPRESSION: 1. Ascites, increased since 04/05/2019 2. Exam is otherwise unchanged. 3. Gallstones versus gallbladder wall calcification 4. No bowel obstruction or perforation 5. Diffuse soft tissue edema, suggesting hypoproteinemia
[2019-05-31] MEDS ORDERED: NITROGLYCERIN 5 MG (0.2 MG/HR) PATCH.TD24 TD ONE (22:51)
[2019-05-31 23:23] LABS: URINE AMPHETAMINES SCREEN NEGATIVE; URINE BARBITURATES SCREEN NEGATIVE; URINE BENZODIAZEPINES SCREEN NEGATIVE; URINE MARIJUANA (THC) SCREEN NEGATIVE; URINE METHADONE SCREEN NEGATIVE; URINE PHENCYCLIDINE SCREEN NEGATIVE
[2019-05-31] MEDS ORDERED: HYDRALAZINE HCL INJ/PF 20 MG/1 ML SDV IV PRN (23:23)
[2019-05-31 23:24] LABS: URINE COCAINE SCREEN UNCONFIRMED POSITIVE
[2019-05-31] MEDS ORDERED: MAGNESIUM HYDROXIDE SUSP 30 ML UDCUP PO PRN (23:24)
[2019-05-31] MEDS ORDERED: ONDANSETRON HCL INJ/PF 4 MG/2 ML SDV IV PRN (23:24)
[2019-05-31] MEDS: CLONIDINE HCL 0.2 MG TABLET PO SCH (23:50)
[2019-05-31 23:55] LABS: INTERNATIONAL RATION (INR) 1.34; PROTHROMBIN TIME 16.7 SEC (11.4-15.4)
[2019-06-01 00:12] LABS: CREATINE KINASE MB 0.65 ng/mL (<4.55); TROPONIN I 0.032 ng/mL
[2019-06-01] MEDS ORDERED: LOSARTAN POTASSIUM 25 MG TABLET PO ONE (00:30)
[2019-06-01] MEDS ORDERED: FUROSEMIDE INJ/PF 40 MG/4 ML SDV IV ONE (00:30)
[2019-06-01] MEDS ORDERED: CARVEDILOL 12.5 MG TABLET PO ONE (01:00)
[2019-06-01] MEDS: POTASSIUM CHLORIDE 10 MEQ TABLET.ER PO ONE ×2 (01:04→01:11)
[2019-06-01] MEDS ORDERED: PHYTONADIONE 5 MG TABLET PO ONE (04:07)
--- NOTE | 2019-06-01 04:26 | PDOC H&P ---
History of Present Illness Admission Date/PCP: 05/31/19 22:51 SMITA DOWNING MD Patient complains of: Shortness of breath History of Present Illness: SAMARA COLLIER is a 63 year old female with past medical history hypertension, COPD, alcohol tobacco and cocaine abuse who presents with approximately 2 months of increased lower extremity edema and abdominal d istention prompting her to seek evaluation emergency room. CT of the abdomen pelvis reveals ascites and calcified gallbladder. She denies chest pain or productive cough but admits regular and recent cocaine and alcohol abuse. She receives supplemental oxygen, IV Lasix and referred to the hospitalist for admission. Patient admits noncompliance with previously prescribed medication. Past Medical History Cardiac Medical History: Reports: Atrial Fibrillation, Congestive Heart Failure, Hyperlipidema, Hypertension Denies: Coronary Artery Disease, Myocardial Infarction, Pulmonary Embolism Pulmonary Medical History: Reports: Chronic Obstructive Pulmonary Disease (COPD) Denies: Asthma, Bronchitis, Pneumonia, Tuberculosis Neurological Medical History: Denies: Seizures Endocrine Medical History: Denies: Hypothyroidism Renal/ Medical History: Denies: End Stage Renal Disease GI Medical History: Denies: Cirrhosis, Gastroesophageal Reflux Disease, Hepatitis, Hiatal Hernia Musculoskeltal Medical History: Denies: Arthritis, Fibromyalgia Skin Medical History: Denies: Eczema, Psoriasis Psychiatric Medical History: Reports: Alcohol Dependency, Substance Abuse, Tobacco Dependency Denies: Bipolar Disorder, Depression Hematology: Denies: Anemia, Sickle Cell Disease, Bleeding Tendencies Past Surgical History Past Surgical History: Reports: Other - she had a right breast biopsy, neg for malignancy Denies: Amputation, Hysterectomy, Mastectomy, Pacemaker Social History Information Source: Patient, [facility] Records Lives with: Family Smoking Status: Current Some Day Smoker Electronic Cigarette use?: No Frequency of Alcohol Use: Heavy Hx Recreational Drug Use: No Drugs: Cocaine Hx Prescription Drug Abuse: No - Advance Directive Resuscitation Status: Full Code Family History Family History: CAD, CVA, Hypertension, Malignancy Parental Family History Reviewed: Yes Children Family History Reviewed: Yes Sibling(s) Family History Reviewed.: Yes Medication/Allergy Home Medications: Aspirin [Aspirin 81 mg Chewable Tablet] 81 mg PO DAILY tab.chew 10/12/18 Metoprolol Succinate [Toprol Xl 25 mg Tab.sr] 25 mg PO DAILY #30 tab.sr.24h 10/12/18 Carvedilol [Coreg 12.5 mg Tablet] 6.25 mg PO Q12 #60 tablet 12/05/18 Lisinopril [Prinivil 10 mg Tablet] 10 mg PO DAILY #30 tablet 12/05/18 Furosemide [Lasix 40 mg Tablet] 40 mg PO QAM #30 tablet 04/02/19 Na Phos,M-B/Na Phos,Di-Ba [Fleet Enema (Adult) 133 ml] 133 ml [place] ONCE PRN #1 enema 04/05/19 Polyethylene Glycol 3350 [Miralax Powder 17 gm/Packet] 1 packet PO DAILY #30 pkg 04/05/19 Prednisone [Deltasone 20 mg Tablet] 3 tab PO DAILY 5 Days tablet 04/05/19 Polyethylene Glycol 3350 [Miralax] 1 cap PO DAILY #527 powder 05/24/19 Allergies/Adverse Reactions: No Known Allergies Allergy (Verified 04/02/19 14:03) Review of Systems Constitutional: PRESENT: as per HPI, fatigue, weakness, weight gain Eyes: ABSENT: visual disturbances Ears: ABSENT: hearing changes Cardiovascular: PRESENT: as per HPI, dyspnea on exertion, edema, orthropnea, palpitations. ABSENT: chest pain Respiratory: PRESENT: as per HPI, cough, dyspnea Gastrointestinal: PRESENT: bloating. ABSENT: abdominal pain, constipation, diarrhea, hematemesis, hematochezia, nausea, vomiting Genitourinary: ABSENT: dysuria, hematuria Musculoskeletal: ABSENT: joint swelling Integumentary: ABSENT: rash, wounds Neurological: ABSENT: abnormal gait, abnormal speech, confusion, dizziness, focal weakness, syncope Psychiatric: ABSENT: anxiety, depression, homidical ideation, suicidal ideation Endocrine: ABSENT: cold intolerance, heat intolerance, polydipsia, polyuria Hematologic/Lymphatic: ABSENT: easy bleeding, easy bruising Physical Exam Vital Signs: Temp Pulse Resp BP Pulse Ox 97.4 F 98 26 H 100/69 100 06/01/19 01:37 06/01/19 01:37 06/01/19 01:37 06/01/19 01:37 06/01/19 01:37 Intake & Output 05/30/19 05/31/19 06/01/19 11:59 11:59 11:59 Intake Total 525 Output Total 1300 Balance -775 Weight 63.5 kg General appearance: PRESENT: cooperative, disheveled, mild distress, well- developed, well-nourished Head exam: PRESENT: atraumatic, normocephalic Eye exam: PRESENT: conjunctiva pink, EOMI, PERRLA. ABSENT: scleral icterus Ear exam: PRESENT: normal external ear exam Mouth exam: PRESENT: moist, tongue midline Neck exam: ABSENT: carotid bruit, JVD, lymphadenopathy, thyromegaly Respiratory exam: PRESENT: accessory muscle use, crackles, prolonged expiratory phas, retraction, symmetrical, tachypnea. ABSENT: rhonchi, stridor Cardiovascular exam: PRESENT: gallop, rubs, systolic murmur, tachycardia Pulses: PRESENT: normal dorsalis pedis pul Vascular exam: PRESENT: normal capillary refill GI/Abdominal exam: PRESENT: ascites, distended, soft. ABSENT: firm, guarding Rectal exam: PRESENT: deferred Extremities exam: PRESENT: full ROM, +1 edema. ABSENT: calf tenderness, clubbing, pedal edema Neurological exam: PRESENT: alert, awake, oriented to person, oriented to place, oriented to time, oriented to situation, CN II-XII grossly intact. ABSENT: motor sensory deficit Psychiatric exam: PRESENT: manic, unusual affect Skin exam: PRESENT: dry, intact, warm. ABSENT: cyanosis, rash Results Laboratory Results: 05/31/19 19:20 05/31/19 19:20 05/31/19 05/31/19 05/31/19 19:20 19:20 19:20 WBC 5.3 RBC 4.62 Hgb 13.7 Hct 42.6 MCV 92 MCH 29.6 MCHC 32.1 RDW 16.4 H Plt Count 183 Seg Neutrophils % 70.2 VBG pH 7.33 VBG pCO2 51.3 VBG HCO3 26.4 VBG Base Excess -0.3 Sodium 145.2 H Potassium 4.3 Chloride 107 Carbon Dioxide 23 Anion Gap 15 BUN 19 Creatinine 1.15 Est GFR ( Amer) 57 L Glucose 127 H Calcium 9.9 Total Bilirubin 2.1 H AST 43 H Alkaline Phosphatase 92 Total Protein 8.3 H Albumin 4.3 TSH Urine Color Urine Appearance Urine pH Ur Specific [place] Urine Protein Urine Glucose (UA) Urine Ketones Urine Blood Urine RBC (Auto) 05/31/19 05/31/19 20:57 23:25 WBC RBC Hgb Hct MCV MCH MCHC RDW Plt Count Seg Neutrophils % VBG pH VBG pCO2 VBG HCO3 VBG Base Excess Sodium Potassium Chloride Carbon Dioxide Anion Gap BUN Creatinine Est GFR ( Amer) Glucose Calcium Total Bilirubin AST Alkaline Phosphatase Total Protein Albumin TSH 8.90 H Urine Color YELLOW Urine Appearance CLEAR Urine pH 5.0 Ur Specific [place] 1.011 Urine Protein 30 H Urine Glucose (UA) NEGATIVE Urine Ketones NEGATIVE Urine Blood SMALL H Urine RBC (Auto) 1 05/31/19 05/31/19 05/31/19 19:20 23:25 23:25 Creatine Kinase 34 CK-MB (CK-2) Troponin I 0.037 Cancelled NT-Pro-B Natriuret Pep 8300 H 05/31/19 23:25 Creatine Kinase CK-MB (CK-2) 0.65 Troponin I 0.032 NT-Pro-B Natriuret Pep Impressions: Chest X-Ray 05/31/19 18:03 IMPRESSION: Cardiomegaly without pulmonary edema. Abdomen/Pelvis CT 05/31/19 20:18 IMPRESSION: 1. Ascites, increased since 04/05/2019 2. Exam is otherwise unchanged. 3. Gallstones versus gallbladder wall calcification 4. No bowel obstruction or perforation 5. 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 Optimize blood pressure and volume, avoid beta-anita, thiamine, follow-up 2D echo (2) Hyperbilirubinemia Is this a current diagnosis for this admission?: Yes Plan: Concerning given gallbladder calcification on CT, alcohol abuse and risk for hepatitis. Follow-up hepatitis profile, follow-up Chem-12, outpatient GI consult (3) Cocaine abuse Is this a current diagnosis for this admission?: Yes Plan: Education, avoid beta-anita, clonidine and Valium as needed (4) Ascites Qualifiers: Ascites type: other type Qualified Code(s): R18.8 - Other ascites Is this a current diagnosis for this admission?: Yes Plan: Likely secondary to cardiomyopathy, consider paracentesis or outpatient GI follow-up (5) AA (alcohol abuse) Is this a current diagnosis for this admission?: Yes Plan: Education, thiamine and folate, benzodiazepine as needed - Time Time Spent with patient: 25-34 minutes - Inpatient Certification Medical Necessity: Need Close Monitoring Due to Risk of Patient Decompensation
[2019-06-01] MEDS ORDERED: INFLUENZA QUAD (6MOS+) 2019-20 VAC 0.5 ML SYR IM ONE (05:07)
[2019-06-01] MEDS ORDERED: PHYTONADIONE 5 MG TABLET ONE ×2 (05:39→05:41)
[2019-06-01] MEDS: HEPARIN SOD (PORCINE) 5,000 UNIT/ML 1 ML VIAL SUBCUT SCH ×3 (05:51→21:14)
[2019-06-01] MEDS: CLONIDINE HCL 0.2 MG TABLET PO SCH ×3 (05:51→18:19)
[2019-06-01] MEDS: THIAMINE HCL 100 MG TABLET PO SCH ×2 (05:51→09:22)
[2019-06-01 05:56] LABS: HEMATOCRIT 37.2 % (36.0-47.0); HEMOGLOBIN 12.3 g/dL (12.0-15.5); MEAN CORPUSCULAR HEMOGLOBIN 29.9 pg (27.0-33.4); MEAN CORPUSCULAR HGB CONC 33.1 g/dL (32.0-36.0); MEAN CORPUSCULAR VOLUME 90 fl (80-97); PLATELET COUNT 142 10^3/uL (150-450); RED BLOOD COUNT 4.12 10^6/uL (3.72-5.28); RED CELL DISTRIBUTION WIDTH 15.8 % (11.5-14.0); WHITE BLOOD COUNT 3.2 10^3/uL (4.0-10.5)
[2019-06-01 06:14] LABS: ANION GAP 11 (5-19); BLOOD UREA NITROGEN 18 mg/dL (7-20); CALCIUM 9.4 mg/dL (8.4-10.2); CARBON DIOXIDE 26 mmol/L (22-30); CHLORIDE 104 mmol/L (98-107); CHOLESTEROL 103.66 mg/dL (0-200); CREATINE KINASE 30 U/L (30-135); GLUCOSE 233 mg/dL (75-110); POTASSIUM 3.6 mmol/L (3.6-5.0); TRIGLYCERIDES 63 mg/dL (<150)
[2019-06-01 06:19] LABS: ABSOLUTE LYMPHOCYTES# (MANUAL) 0.2 10^3/uL (0.5-4.7); ABSOLUTE MONOCYTES # (MANUAL) 0.2 10^3/uL (0.1-1.4); BASOPHILS % (MANUAL) 0 % (0-2); EOSINOPHILS % (MANUAL) 0 % (0-6); LYMPHOCYTES % (MANUAL) 7 % (13-45); MONOCYTES % (MANUAL) 5 % (3-13); NUCLEATED RED BLOOD CELLS 1 /100 WBC (0); SEGMENTED NEUTROPHILS % (MAN) 88 % (42-78); TOTAL CELLS COUNTED 100
[2019-06-01 06:20] LABS: ANISOCYTOSIS SLIGHT; BURR CELLS SLIGHT; OVALOCYTES SLIGHT; PLATELET COMMENT DECREASED; POIKILOCYTOSIS SLIGHT; POLYCHROMASIA SLIGHT; TEAR DROP CELLS SLIGHT; TOXIC GRANULATION SLIGHT
[2019-06-01 06:25] LABS: DIRECT LDL 40 mg/dL (<100)
[2019-06-01 06:26] LABS: CREATINE KINASE MB 0.61 ng/mL (<4.55); TROPONIN I 0.024 ng/mL
[2019-06-01] MEDS: LOSARTAN POTASSIUM 25 MG TABLET PO SCH ×2 (09:22→21:25)
[2019-06-01] MEDS: FUROSEMIDE INJ/PF 40 MG/4 ML SDV IV SCH ×2 (09:22→21:13)
[2019-06-01] MEDS: DOCUSATE SODIUM 100 MG CAPSULE PO SCH (09:22)
[2019-06-01] MEDS: POTASSIUM CHLORIDE 10 MEQ TABLET.ER PO SCH ×2 (09:23→09:29)
[2019-06-01] MEDS: ASPIRIN 81 MG TABLET, ENT COATED PO SCH (09:23)
[2019-06-01] MEDS ORDERED: CARVEDILOL 12.5 MG TABLET PO SCH (10:00)
[2019-06-01 12:30] LABS: ALBUMIN 3.9 g/dL (3.5-5.0); ALKALINE PHOSPHATASE 78 U/L (38-126); ANION GAP 16 (5-19); ASPARTATE AMINO TRANSFERASE 36 U/L (14-36); BILIRUBIN,DIRECT 0.5 mg/dL (0.0-0.4); BILIRUBIN,TOTAL 1.3 mg/dL (0.2-1.3); BLOOD UREA NITROGEN 19 mg/dL (7-20); CALCIUM 9.6 mg/dL (8.4-10.2); CARBON DIOXIDE 24 mmol/L (22-30); CHLORIDE 103 mmol/L (98-107); GLUCOSE 167 mg/dL (75-110); POTASSIUM 3.6 mmol/L (3.6-5.0); TOTAL PROTEIN 7.6 g/dL (6.3-8.2)
[2019-06-01 12:43] LABS: CREATINE KINASE MB 0.74 ng/mL (<4.55); TROPONIN I 0.02 ng/mL
[2019-06-01 12:47] LABS: FREE T3 2.13 pg/mL (2.77-5.27); FREE T4 (FREE THYROXINE) 1.28 ng/dL (0.78-2.19)
[2019-06-01] MEDS: PREDNISONE 20 MG TABLET PO SCH ×2 (13:14→18:18)
--- NOTE | 2019-06-01 13:24 | PDOC PROGRESS REPORT ---
Subjective Progress Note for:: 06/01/19 Subjective:: This is a 63 year old female with past medical history hypertension, COPD, alcohol tobacco and cocaine abuse who presents with approximately 2 months of increased lower extremity edema, shortness of breath and abdominal distention. CT of the abdomen pelvis reveals large volume ascites increased from previous CT and calcified gallbladder. Upon encounter, she appears comfortable. She does complain of abdominal distention. She says that her shortness of breath is improved. She does have mild bilateral wheezes on examination. Denies chest pain. Reason For Visit: COPD,ANASACRA HEART FAILURE Physical Exam Vital Signs: Temp Pulse Resp BP Pulse Ox 97.2 F 106 H 23 H 109/83 99 06/01/19 07:51 06/01/19 07:51 06/01/19 07:51 06/01/19 07:51 06/01/19 07:51 Intake & Output 05/31/19 06/01/19 06/02/19 06:59 06:59 06:59 Intake Total 525 Output Total 2050 Balance -1525 Weight 139 lb 15.896 oz General appearance: PRESENT: no acute distress, well-developed, well-nourished Head exam: PRESENT: atraumatic, normocephalic Eye exam: PRESENT: conjunctiva pink, EOMI, PERRLA. ABSENT: scleral icterus Ear exam: PRESENT: normal external ear exam Mouth exam: PRESENT: moist, tongue midline Neck exam: ABSENT: carotid bruit, JVD, lymphadenopathy, thyromegaly Respiratory exam: PRESENT: wheezes. ABSENT: rales, rhonchi Cardiovascular exam: PRESENT: RRR. ABSENT: diastolic murmur, rubs, systolic murmur Pulses: PRESENT: normal dorsalis pedis pul GI/Abdominal exam: PRESENT: ascites, distended. ABSENT: tenderness Rectal exam: PRESENT: deferred Extremities exam: PRESENT: full ROM, +1 edema. ABSENT: calf tenderness, clubbing Neurological exam: PRESENT: alert, awake, oriented to person, oriented to place, oriented to time, CN II-XII grossly intact. ABSENT: motor sensory deficit Results Laboratory Results: 06/01/19 05:45 06/01/19 05:45 05/31/19 05/31/19 05/31/19 19:20 19:20 19:20 WBC 5.3 RBC 4.62 Hgb 13.7 Hct 42.6 MCV 92 MCH 29.6 MCHC 32.1 RDW 16.4 H Plt Count 183 Seg Neutrophils % 70.2 VBG pH 7.33 VBG pCO2 51.3 VBG HCO3 26.4 VBG Base Excess -0.3 Sodium 145.2 H Potassium 4.3 Chloride 107 Carbon Dioxide 23 Anion Gap 15 BUN 19 Creatinine 1.15 Est GFR ( Amer) 57 L Glucose 127 H Calcium 9.9 Total Bilirubin 2.1 H AST 43 H Alkaline Phosphatase 92 Total Protein 8.3 H Albumin 4.3 Triglycerides Cholesterol LDL Cholesterol Direct VLDL Cholesterol HDL Cholesterol TSH Urine Color Urine Appearance Urine pH Ur Specific [place] Urine Protein Urine Glucose (UA) Urine Ketones Urine Blood Urine RBC (Auto) 05/31/19 05/31/19 06/01/19 20:57 23:25 05:45 WBC 3.2 L RBC 4.12 Hgb 12.3 Hct 37.2 MCV 90 MCH 29.9 MCHC 33.1 RDW 15.8 H Plt Count 142 L Seg Neutrophils % Not Reportable VBG pH VBG pCO2 VBG HCO3 VBG Base Excess Sodium Potassium Chloride Carbon Dioxide Anion Gap BUN Creatinine Est GFR ( Amer) Glucose Calcium Total Bilirubin AST Alkaline Phosphatase Total Protein Albumin Triglycerides Cholesterol LDL Cholesterol Direct VLDL Cholesterol HDL Cholesterol TSH 8.90 H Urine Color YELLOW Urine Appearance CLEAR Urine pH 5.0 Ur Specific [place] 1.011 Urine Protein 30 H Urine Glucose (UA) NEGATIVE Urine Ketones NEGATIVE Urine Blood SMALL H Urine RBC (Auto) 1 06/01/19 05:45 WBC RBC Hgb Hct MCV MCH MCHC RDW Plt Count Seg Neutrophils % VBG pH VBG pCO2 VBG HCO3 VBG Base Excess Sodium 141.1 Potassium 3.6 Chloride 104 Carbon Dioxide 26 Anion Gap 11 BUN 18 Creatinine 1.07 Est GFR ( Amer) > 60 Glucose 233 H Calcium 9.4 Total Bilirubin AST Alkaline Phosphatase Total Protein Albumin Triglycerides 63 Cholesterol 103.66 LDL Cholesterol Direct 40 VLDL Cholesterol 13.0 HDL Cholesterol 42 TSH Urine Color Urine Appearance Urine pH Ur Specific [place] Urine Protein Urine Glucose (UA) Urine Ketones Urine Blood Urine RBC (Auto) 05/31/19 05/31/19 05/31/19 19:20 23:25 23:25 Creatine Kinase 34 CK-MB (CK-2) Troponin I 0.037 Cancelled NT-Pro-B Natriuret Pep 8300 H 05/31/19 06/01/19 06/01/19 23:25 05:45 05:45 Creatine Kinase 30 CK-MB (CK-2) 0.65 0.61 Troponin I 0.032 0.024 NT-Pro-B Natriuret Pep Impressions: Chest X-Ray 05/31/19 18:03 IMPRESSION: Cardiomegaly without pulmonary edema. Abdomen/Pelvis CT 05/31/19 20:18 IMPRESSION: 1. Ascites, increased since 04/05/2019 2. Exam is otherwise unchanged. 3. Gallstones versus gallbladder wall calcification 4. No bowel obstruction or perforation 5. Diffuse soft tissue edema, suggesting hypoproteinemia Assessment and Plan - Diagnosis (1) Ascites Qualifiers: Ascites type: other type Qualified Code(s): R18.8 - Other ascites Is this a current diagnosis for this admission?: Yes Plan: CT of the abdomen pelvis reveals large volume ascites increased from previous CT and calcified gallbladder. Will order for paracentesis and ascitic fluid analysis. Patient had a recent echo in November this year and showed normal EF and normal diastolic function, it did show mild-moderate pulmonary HTN. (2) COPD exacerbation Is this a current diagnosis for this admission?: Yes Plan: Continue breathing treatments. Add prednisone. (3) Elevated TSH Is this a current diagnosis for this admission?: Yes Plan: Check T3 and T4. (4) History of atrial fibrillation Is this a current diagnosis for this admission?: Yes (5) Hypertension Qualifiers: Hypertension type: essential hypertension Qualified Code(s): I10 - Essential (primary) hypertension Is this a current diagnosis for this admission?: Yes (6) Alcohol use disorder Is this a current diagnosis for this admission?: Yes Plan: Patient reports that she has cut on her drinking and only now drinks very o ccasionally (once a month). - Time Time Spent with patient: 25-34 minutes
--- NOTE | 2019-06-01 17:27 | EKG REPORT ---
SEVERITY:- ABNORMAL ECG - ATRIAL FLUTTER/FIBRILLATION, A-RATE 278 PROBABLE INFERIOR INFARCT, AGE INDETERMINATE LATERAL LEADS ARE ALSO INVOLVED : Confirmed by: Wing Casey MD 01-Jun-2019 17:26:45
[2019-06-01] MEDS: POTASSIUM CHLORIDE 20 MEQ PACKET PO SCH (21:14)
[2019-06-02] MEDS: CLONIDINE HCL 0.2 MG TABLET PO SCH ×4 (05:38→23:42)
[2019-06-02] MEDS: HEPARIN SOD (PORCINE) 5,000 UNIT/ML 1 ML VIAL SUBCUT SCH ×2 (06:09→13:38)
[2019-06-02] MEDS: FUROSEMIDE INJ/PF 40 MG/4 ML SDV IV SCH ×2 (09:37→21:53)
[2019-06-02] MEDS: PREDNISONE 20 MG TABLET PO SCH ×2 (09:38→17:32)
[2019-06-02] MEDS: LOSARTAN POTASSIUM 25 MG TABLET PO SCH ×2 (09:38→21:53)
[2019-06-02] MEDS: POTASSIUM CHLORIDE 20 MEQ PACKET PO SCH ×2 (09:38→21:54)
[2019-06-02] MEDS: THIAMINE HCL 100 MG TABLET PO SCH (09:38)
[2019-06-02] MEDS: ASPIRIN 81 MG TABLET, ENT COATED PO SCH (09:38)
[2019-06-02] MEDS: DOCUSATE SODIUM 100 MG CAPSULE PO SCH (09:38)
--- NOTE | 2019-06-02 13:46 | PDOC PROGRESS REPORT ---
Subjective Progress Note for:: 06/02/19 Subjective:: This is a 63 year old female with past medical history hypertension, COPD, alcohol tobacco and cocaine abuse who presents with approximately 2 months of increased lower extremity edema, shortness of breath and abdominal distention. CT of the abdomen pelvis reveals large volume ascites increased from previous CT and calcified gallbladder. 06/01: Upon encounter, she appears comfortable. She does complain of abdominal distention. She says that her shortness of breath is improved. She does have mild bilateral wheezes on examination. Denies chest pain. 06/02: No acute event overnight. She still complains of abdominal distention. Denies abdominal pain. She says that she feels short of breath when she tries to crawl up. Denies chest pain. She is scheduled for paracentesis tomorrow by radiology. Reason For Visit: COPD,ANASACRA HEART FAILURE Physical Exam Vital Signs: Temp Pulse Resp BP Pulse Ox 97.8 F 88 17 105/75 99 06/02/19 07:15 06/02/19 07:15 06/02/19 07:15 06/02/19 07:15 06/02/19 07:15 Intake & Output 06/01/19 06/02/19 06/03/19 06:59 06:59 06:59 Intake Total 525 590 Output Total 2050 600 Balance -1525 -10 Weight 139 lb 15.896 oz 138 lb 14.259 oz General appearance: PRESENT: no acute distress, well-developed, well-nourished Head exam: PRESENT: atraumatic, normocephalic Eye exam: PRESENT: conjunctiva pink, EOMI, PERRLA. ABSENT: scleral icterus Ear exam: PRESENT: normal external ear exam Mouth exam: PRESENT: moist, tongue midline Neck exam: ABSENT: carotid bruit, JVD, lymphadenopathy, thyromegaly Respiratory exam: PRESENT: clear to auscultation adelso. ABSENT: rales, rhonchi, wheezes Cardiovascular exam: PRESENT: RRR. ABSENT: diastolic murmur, rubs, systolic murmur Pulses: PRESENT: normal dorsalis pedis pul GI/Abdominal exam: PRESENT: ascites, distended, normal bowel sounds, soft. ABSENT: guarding, mass, organolmegaly, rebound, tenderness Rectal exam: PRESENT: deferred Extremities exam: PRESENT: +1 edema Neurological exam: PRESENT: alert, awake, oriented to person, oriented to place, oriented to time, oriented to situation, CN II-XII grossly intact. ABSENT: motor sensory deficit Results Laboratory Results: 06/01/19 05:45 06/01/19 11:44 06/01/19 06/01/19 11:44 11:44 Sodium 142.7 Potassium 3.6 Chloride 103 Carbon Dioxide 24 Anion Gap 16 BUN 19 Creatinine 1.11 Est GFR ( Amer) > 60 Glucose 167 H Calcium 9.6 Total Bilirubin 1.3 AST 36 Alkaline Phosphatase 78 Total Protein 7.6 Albumin 3.9 Free T4 1.28 Free T3 pg/mL 2.13 L 05/31/19 05/31/19 05/31/19 19:20 23:25 23:25 Creatine Kinase 34 CK-MB (CK-2) Troponin I 0.037 Cancelled NT-Pro-B Natriuret Pep 8300 H 05/31/19 06/01/19 06/01/19 23:25 05:45 05:45 Creatine Kinase 30 CK-MB (CK-2) 0.65 0.61 Troponin I 0.032 0.024 NT-Pro-B Natriuret Pep 06/01/19 06/01/19 11:44 11:44 Creatine Kinase 36 CK-MB (CK-2) 0.74 Troponin I 0.020 NT-Pro-B Natriuret Pep Impressions: Chest X-Ray 05/31/19 18:03 IMPRESSION: Cardiomegaly without pulmonary edema. Abdomen/Pelvis CT 05/31/19 20:18 IMPRESSION: 1. Ascites, increased since 04/05/2019 2. Exam is otherwise unchanged. 3. Gallstones versus gallbladder wall calcification 4. No bowel obstruction or perforation 5. Diffuse soft tissue edema, suggesting hypoproteinemia Assessment and Plan - Diagnosis (1) Ascites Qualifiers: Ascites type: other type Qualified Code(s): R18.8 - Other ascites Is this a current diagnosis for this admission?: Yes Plan: CT of the abdomen pelvis reveals large volume ascites increased from previous CT and calcified gallbladder. Will order for paracentesis and ascitic fluid analysis. Patient had a recent echo in November this year and showed normal EF and normal diastolic function, it did show mild-moderate pulmonary HTN. 06/01: Patient is scheduled for paracentesis tomorrow by radiology. (2) COPD exacerbation Is this a current diagnosis for this admission?: Yes Plan: Continue breathing treatments. Continue prednisone. (3) Elevated TSH Is this a current diagnosis for this admission?: Yes Plan: Start patient on Synthroid. (4) Alcohol use disorder Is this a current diagnosis for this admission?: Yes Plan: Patient reports that she has cut on her drinking and only now drinks very occasionally (once a month). (5) History of atrial fibrillation Is this a current diagnosis for this admission?: Yes (6) Hypertension Qualifiers: Hypertension type: essential hypertension Qualified Code(s): I10 - Essential (primary) hypertension Is this a current diagnosis for this admission?: Yes - Time Time Spent with patient: 25-34 minutes
[2019-06-02] MEDS: LEVOTHYROXINE SODIUM 0.05 MG TABLET PO SCH (17:31)
[2019-06-03 05:29] LABS: PROTHROMBIN TIME 15.2 SEC (11.4-15.4)
[2019-06-03] MEDS: CLONIDINE HCL 0.2 MG TABLET PO SCH ×3 (05:35→17:18)
[2019-06-03] MEDS: LEVOTHYROXINE SODIUM 0.05 MG TABLET PO SCH (05:36)
--- NOTE | 2019-06-03 08:45 | RADIOLOGY REPORT (SQ) ---
EXAM DESCRIPTION: CHEST SINGLE VIEW COMPLETED DATE/TIME: 06/03/2019 8:30 am REASON FOR STUDY: Short of breath COMPARISON: CT angio chest 04/02/2019 AP chest 05/31/2019, 10/12/2018 EXAM PARAMETERS: NUMBER OF VIEWS: One view. TECHNIQUE: Single frontal radiographic view of the chest acquired. RADIATION DOSE: NA LIMITATIONS: Low lung volumes, AP portable film, obese patient FINDINGS: LUNGS AND PLEURA: No opacities, masses or pneumothorax. No pleural effusion. MEDIASTINUM AND HILAR STRUCTURES: No masses. Contour normal. HEART AND VASCULAR STRUCTURES: Marked cardiomegaly, accentuated by patient positioning. BONES: No acute findings. HARDWARE: None in the chest. OTHER: No other significant finding. IMPRESSION: Cardiomegaly. No acute findings TECHNICAL DOCUMENTATION: JOB ID: [id number] [employer]- All Rights Reserved Reading location - IP/workstation name: [email or web address]
[2019-06-03] MEDS: ASPIRIN 81 MG TABLET, ENT COATED PO SCH (09:38)
[2019-06-03] MEDS: THIAMINE HCL 100 MG TABLET PO SCH (09:38)
[2019-06-03] MEDS: LOSARTAN POTASSIUM 25 MG TABLET PO SCH (09:38)
[2019-06-03] MEDS: DOCUSATE SODIUM 100 MG CAPSULE PO SCH (09:38)
[2019-06-03] MEDS: FUROSEMIDE INJ/PF 40 MG/4 ML SDV IV SCH (09:38)
[2019-06-03] MEDS: POTASSIUM CHLORIDE 20 MEQ PACKET PO SCH (09:38)
[2019-06-03] MEDS: PREDNISONE 20 MG TABLET PO SCH ×2 (09:38→17:22)
[2019-06-03] MEDS: ACETAMINOPHEN 325 MG TABLET PO PRN (11:17)
[2019-06-03 11:41] LABS: ANION GAP 14 (5-19); BLOOD UREA NITROGEN 27 mg/dL (7-20); CALCIUM 9.7 mg/dL (8.4-10.2); CARBON DIOXIDE 27 mmol/L (22-30); CHLORIDE 99 mmol/L (98-107); GLUCOSE 100 mg/dL (75-110); POTASSIUM 4.2 mmol/L (3.6-5.0)
--- NOTE | 2019-06-03 12:53 | PDOC PROGRESS REPORT ---
Subjective Progress Note for:: 06/03/19 Subjective:: This is a 63 year old female with past medical history hypertension, COPD, alcohol tobacco and cocaine abuse who presents with approximately 2 months of increased lower extremity edema, shortness of breath and abdominal distention. CT of the abdomen pelvis reveals large volume ascites increased from previous CT and calcified gallbladder. 06/01: Upon encounter, she appears comfortable. She does complain of abdominal distention. She says that her shortness of breath is improved. She does have mild bilateral wheezes on examination. Denies chest pain. 06/02: No acute event overnight. She still complains of abdominal distention. Denies abdominal pain. She says that she feels short of breath when she tries to crawl up. Denies chest pain. She is scheduled for paracentesis tomorrow by radiology. 06/03: Patient still complaining of shortness of breath when she lies flat in bed this morning. She says she still feels very distended. She is scheduled for paracentesis today. Denies chest pain no other acute events. As mentioned she has cut down on her drinking but used to drink a fifth of gin every day for 40 years. Reason For Visit: COPD,ANASACRA HEART FAILURE Physical Exam Vital Signs: Temp Pulse Resp BP Pulse Ox 97.4 F 71 16 121/89 H 100 06/03/19 08:20 06/03/19 08:20 06/03/19 08:20 06/03/19 08:20 06/03/19 08:20 Intake & Output 06/02/19 06/03/19 06/04/19 06:59 06:59 06:59 Intake Total 590 360 Output Total 600 600 Balance -10 -240 Weight 138 lb 14.259 oz 140 lb 14.006 oz General appearance: PRESENT: no acute distress, well-developed, well-nourished Head exam: PRESENT: atraumatic, normocephalic Eye exam: PRESENT: conjunctiva pink, EOMI, PERRLA. ABSENT: scleral icterus Ear exam: PRESENT: normal external ear exam Mouth exam: PRESENT: moist, tongue midline Neck exam: ABSENT: carotid bruit, JVD, lymphadenopathy, thyromegaly Respiratory exam: PRESENT: clear to auscultation [place]. ABSENT: rales, rhonchi, wheezes Cardiovascular exam: PRESENT: RRR. ABSENT: diastolic murmur, rubs, systolic murmur Pulses: PRESENT: normal dorsalis pedis pul GI/Abdominal exam: PRESENT: ascites, distended. ABSENT: tenderness Rectal exam: PRESENT: deferred Extremities exam: PRESENT: +1 edema Neurological exam: PRESENT: alert, awake, oriented to person, oriented to place, oriented to time, oriented to situation, CN II-XII grossly intact. ABSENT: motor sensory deficit Results Laboratory Results: 06/01/19 05:45 06/03/19 04:51 06/03/19 04:51 Sodium 139.8 Potassium 4.2 Chloride 99 Carbon Dioxide 27 Anion Gap 14 BUN 27 H Creatinine 1.37 H Est GFR ( Amer) 47 L Glucose 100 Calcium 9.7 05/31/19 05/31/19 05/31/19 19:20 23:25 23:25 Creatine Kinase 34 CK-MB (CK-2) Troponin I 0.037 Cancelled NT-Pro-B Natriuret Pep 8300 H 05/31/19 06/01/19 06/01/19 23:25 05:45 05:45 Creatine Kinase 30 CK-MB (CK-2) 0.65 0.61 Troponin I 0.032 0.024 NT-Pro-B Natriuret Pep 06/01/19 06/01/19 11:44 11:44 Creatine Kinase 36 CK-MB (CK-2) 0.74 Troponin I 0.020 NT-Pro-B Natriuret Pep Impressions: Abdomen/Pelvis CT 05/31/19 20:18 IMPRESSION: 1. Ascites, increased since 04/05/2019 2. Exam is otherwise unchanged. 3. Gallstones versus gallbladder wall calcification 4. No bowel obstruction or perforation 5. Diffuse soft tissue edema, suggesting hypoproteinemia Chest X-Ray 06/03/19 00:00 IMPRESSION: Cardiomegaly. No acute findings Assessment and Plan - Diagnosis (1) Ascites Qualifiers: Ascites type: other type Qualified Code(s): R18.8 - Other ascites Is this a current diagnosis for this admission?: Yes Plan: Suspect to be related to alcoholic liver disease but will await for cytology as well to evaluate for malignancy. CT of the abdomen pelvis reveals large volume ascites increased from previous CT and calcified gallbladder. Will order for paracentesis and ascitic fluid analysis. Patient had a recent echo in November this year and showed normal EF and normal diastolic function, it did show mild- moderate pulmonary HTN. 06/02: Patient is scheduled for paracentesis today. Creatinine has slightly trended up. Discontinue IV Lasix 40 q12. Revise to PO diuretics and will start at lower dose. Repeat BMP tomorrow. (2) COPD exacerbation Is this a current diagnosis for this admission?: Yes Plan: Continue breathing treatments. Continue prednisone. (3) Elevated TSH Is this a current diagnosis for this admission?: Yes Plan: Start patient on Synthroid. (4) Alcohol use disorder Is this a current diagnosis for this admission?: Yes Plan: Patient has cut down on her drinking but used to drink a fifth of gin every day for 40 years. She only now drinks once every 2 weeks or so. (5) History of atrial fibrillation Is this a current diagnosis for this admission?: Yes (6) Hypertension Qualifiers: Hypertension type: essential hypertension Qualified Code(s): I10 - Essential (primary) hypertension Is this a current diagnosis for this admission?: Yes - Time Time Spent with patient: 25-34 minutes
[2019-06-03 13:27] LABS: HEMATOCRIT 39.3 % (36.0-47.0); HEMOGLOBIN 12.8 g/dL (12.0-15.5); MEAN CORPUSCULAR HEMOGLOBIN 29.7 pg (27.0-33.4); MEAN CORPUSCULAR HGB CONC 32.7 g/dL (32.0-36.0); MEAN CORPUSCULAR VOLUME 91 fl (80-97); PLATELET COUNT 167 10^3/uL (150-450); RED BLOOD COUNT 4.32 10^6/uL (3.72-5.28); RED CELL DISTRIBUTION WIDTH 15.8 % (11.5-14.0)
[2019-06-03 13:36] LABS: HEPATITS B SURFACE ANTIGEN Negative (Negative)
[2019-06-03 14:02] LABS: WHITE BLOOD COUNT 7.4 10^3/uL (4.0-10.5)
[2019-06-03 14:05] LABS: ABSOLUTE MONOCYTES # (MANUAL) 0.4 10^3/uL (0.1-1.4); BASOPHILS % (MANUAL) 0 % (0-2); EOSINOPHILS % (MANUAL) 0 % (0-6); LYMPHOCYTES % (MANUAL) 12 % (13-45); MONOCYTES % (MANUAL) 5 % (3-13); SEGMENTED NEUTROPHILS % (MAN) 82 % (42-78); TOTAL CELLS COUNTED 100
[2019-06-03 14:06] LABS: ANISOCYTOSIS SLIGHT; OVALOCYTES 1+; PLATELET COMMENT ADEQUATE; POIKILOCYTOSIS 1+; TARGET CELLS 1+; TOXIC GRANULATION 1+; TOXIC VACUOLATION PRESENT
[2019-06-03 14:17] LABS: HEPATITIS C VIRUS ANTIBODY <0.1 s/co ratio (0.0-0.9)
--- NOTE | 2019-06-03 15:24 | RADIOLOGY REPORT (SQ) ---
EXAM DESCRIPTION: U/S ABD PARACENTESIS COMPLETED DATE/TIME: 06/03/2019 2:50 pm REASON FOR STUDY: large ascites COMPARISON CT abdomen pelvis 05/31/2019 Abdominal ultrasound 10/28/2016 LIMITATIONS: None. PROCEDURE: After obtaining informed consent, the patient was brought to the ultrasound suite. The p rocedure was performed with the patient on a gurney. Ultrasound was used to identify a prominent poc ket of ascites in the right lower quadrant. An appropriate access site was selected. The patient wa s prepped and draped in usual sterile fashion. The access site was anesthetized with 7 mL 1% lidoca ine. A Tkeb-[id number]-[id number] needle was advanced into the fluid. After aspiration of fluid the needle, th e catheter was advanced off the needle into the fluid. A total of 3,000 mL of straw-colored cloudy f luid was removed. The patient tolerated the procedure well left the department in satisfactory condit ion. Fluid was sent for routine testing as well as cytology given a cloudy appearance IMPRESSION: Successful ultrasound-guided paracentesis COMMENT: Patient medication list reviewed: Yes TECHNICAL DOCUMENTATION: JOB ID: [id number] [employer] All Rights Reserved Reading location - IP/workstation name: [email or web address]
[2019-06-03 15:53] LABS: FLUID TYPE PERITONEAL
[2019-06-03 15:54] LABS: FLUID APPEARANCE CLOUDY; FLUID COLOR YELLOW; FLUID SOURCE ABDOMEN
[2019-06-03 15:55] LABS: FLUID VISCOSITY LIQUID
[2019-06-03] MEDS: ALBUMIN HUMAN 12.5 GM/50 ML RTUINJ IV SCH ×2 (17:22→17:50)
[2019-06-03] MEDS ORDERED: NORMAL SALINE 1000 ML 1,000 ML IV ONE (21:00)
[2019-06-03] MEDS ORDERED: NALOXONE HCL INJ/PF 0.4 MG/1 ML SDV ONE (21:48)
--- NOTE | 2019-06-03 23:29 | RADIOLOGY REPORT (SQ) ---
CLINICAL HISTORY: shortness of breath/anxiety COMPARISON: 05/31/2019. TECHNIQUE: XR CHEST 1 VIEW 06/03/2019 10:49 PM APPLICATION TECHNICIAN FINDINGS: The heart is moderately enlarged. Lungs are clear without consolidation, atelectasis, mass or edema. There is a small left pleural effusion. There is no pneumothorax. There are no acute osseous findings. IMPRESSION: No change.
[2019-06-03] MEDS: NORMAL SALINE 1000 ML 1,000 ML IV PRN (23:45)
[2019-06-04] MEDS: SPIRONOLACTONE 25 MG TABLET PO SCH ×3 (00:22→21:54)
[2019-06-04] MEDS: LOSARTAN POTASSIUM 25 MG TABLET PO SCH ×3 (00:23→21:54)
[2019-06-04] MEDS: CLONIDINE HCL 0.2 MG TABLET PO SCH ×4 (00:23→17:04)
[2019-06-04] MEDS: NORMAL SALINE 1000 ML 1,000 ML IV PRN (01:50)
[2019-06-04] MEDS ORDERED: NORMAL SALINE 1000 ML 1,000 ML IV ONE (04:45)
[2019-06-04] MEDS ORDERED: MIDODRINE HCL 5 MG TABLET PO ONE (05:00)
[2019-06-04] MEDS: LEVOTHYROXINE SODIUM 0.05 MG TABLET PO SCH (05:32)
[2019-06-04] MEDS: DOCUSATE SODIUM 100 MG CAPSULE PO SCH (09:56)
[2019-06-04] MEDS: THIAMINE HCL 100 MG TABLET PO SCH (10:06)
[2019-06-04] MEDS: ASPIRIN 81 MG TABLET, ENT COATED PO SCH (10:06)
[2019-06-04] MEDS: FUROSEMIDE 20 MG TABLET PO SCH (10:06)
[2019-06-04] MEDS: PREDNISONE 20 MG TABLET PO SCH ×2 (10:07→17:04)
--- NOTE | 2019-06-04 16:09 | PDOC PROGRESS REPORT ---
Subjective Progress Note for:: 06/04/19 Subjective:: Patient still very short of breath but she states this is better than yesterday. Still with inability to complete full sentences. Reason For Visit: COPD,ANASACRA HEART FAILURE Physical Exam Vital Signs: Temp Pulse Resp BP Pulse Ox 97.8 F 95 19 94/64 L 100 06/04/19 15:17 06/04/19 15:17 06/04/19 15:17 06/04/19 15:17 06/04/19 15:17 Intake & Output 06/03/19 06/04/19 06/05/19 06:59 06:59 06:59 Intake Total 360 3563 1118 Output Total 600 150 150 Balance -240 3413 968 Weight 63.9 kg 63.7 kg General appearance: PRESENT: cooperative, mild distress, well-developed Head exam: PRESENT: atraumatic, normocephalic Eye exam: PRESENT: conjunctiva pink. ABSENT: scleral icterus Ear exam: PRESENT: normal external ear exam. ABSENT: bleeding, drainage Mouth exam: PRESENT: moist, tongue midline Respiratory exam: PRESENT: rales - Bilateral bases, symmetrical, unlabored. ABSENT: tachypnea, wheezes Cardiovascular exam: PRESENT: irregular rhythm GI/Abdominal exam: PRESENT: distended, normal bowel sounds, soft. ABSENT: tenderness Rectal exam: PRESENT: deferred Extremities exam: PRESENT: pedal edema Neurological exam: PRESENT: alert, awake, oriented to person, oriented to place, oriented to time, oriented to situation Psychiatric exam: PRESENT: agitated, anxious, flat affect Skin exam: PRESENT: dry, normal color, warm. ABSENT: rash Results Laboratory Results: 06/03/19 12:47 06/03/19 04:51 05/31/19 05/31/19 05/31/19 19:20 23:25 23:25 Creatine Kinase 34 CK-MB (CK-2) Troponin I 0.037 Cancelled NT-Pro-B Natriuret Pep 8300 H 05/31/19 06/01/19 06/01/19 23:25 05:45 05:45 Creatine Kinase 30 CK-MB (CK-2) 0.65 0.61 Troponin I 0.032 0.024 NT-Pro-B Natriuret Pep 06/01/19 06/01/19 11:44 11:44 Creatine Kinase 36 CK-MB (CK-2) 0.74 Troponin I 0.020 NT-Pro-B Natriuret Pep Impressions: Abdomen/Pelvis CT 05/31/19 20:18 IMPRESSION: 1. Ascites, increased since 04/05/2019 2. Exam is otherwise unchanged. 3. Gallstones versus gallbladder wall calcification 4. No bowel obstruction or perforation 5. Diffuse soft tissue edema, suggesting hypoproteinemia Paracentesis Ultrasound 06/03/19 13:16 IMPRESSION: Successful ultrasound-guided paracentesis Chest X-Ray 06/03/19 22:49 IMPRESSION: No change. Assessment and Plan - Diagnosis (1) Ascites Qualifiers: Ascites type: other type Qualified Code(s): R18.8 - Other ascites Is this a current diagnosis for this admission?: Yes Plan: Suspect to be related to alcoholic liver disease but will await for cytology as well to evaluate for malignancy. CT of the abdomen pelvis reveals large volume ascites increased from previous CT and calcified gallbladder. Will order for paracentesis and ascitic fluid analysis. Patient had a recent echo in November this year and showed normal EF and normal diastolic function, it did show mild- moderate pulmonary HTN. 06/02: Patient is scheduled for paracentesis today. Creatinine has slightly trended up. Discontinue IV Lasix 40 q12. Revise to PO diuretics and will start at lower dose. Repeat BMP tomorrow. 06/04/2019-the patient underwent paracentesis. Pathology is pending. Most likely due to liver disease from history of alcohol use. Aldactone 25 mg twice daily at this time. (2) COPD exacerbation Is this a current diagnosis for this admission?: Yes Plan: Continue breathing treatments. Continue prednisone. 06/04/2019-no change in current treatment plan. She did report some shortness of breath today. She still has abdominal distention and this could be the root cause. She was not wheezy. (3) Elevated TSH Is this a current diagnosis for this admission?: Yes Plan: Start patient on Synthroid. 2618-50 mcg of levothyroxine was initiated. Recheck thyroid studies in 3 months. (4) Alcohol use disorder Is this a current diagnosis for this admission?: Yes Plan: Patient has cut down on her drinking but used to drink a fifth of gin every day for 40 years. She only now drinks once every 2 weeks or so. 06/04/2019-marked history of alcohol use. Liver enzymes were normal. With reported limited alcohol intake withdrawal should not be a problem. We will continue to monitor. (5) History of atrial fibrillation Is this a current diagnosis for this admission?: Yes Plan: 06/04/2019-we will continue to monitor on telemetry. (6) Hypertension Qualifiers: Hypertension type: essential hypertension Qualified Code(s): I10 - Essential (primary) hypertension Is this a current diagnosis for this admission?: Yes - Time Time Spent with patient: 15-24 minutes Medications reviewed and adjusted accordingly: Yes
[2019-06-04] MEDS: MIDODRINE HCL 5 MG TABLET PO SCH (17:04)
[2019-06-04] MEDS ORDERED: MIDODRINE HCL 5 MG TABLET PO SCH (18:00)
[2019-06-05] MEDS: CLONIDINE HCL 0.2 MG TABLET PO SCH ×5 (01:27→23:24)
[2019-06-05] MEDS: LEVOTHYROXINE SODIUM 0.05 MG TABLET PO SCH (05:48)
[2019-06-05] MEDS: ASPIRIN 81 MG TABLET, ENT COATED PO SCH (09:48)
[2019-06-05] MEDS: FUROSEMIDE 20 MG TABLET PO SCH (09:48)
[2019-06-05] MEDS: PREDNISONE 20 MG TABLET PO SCH ×2 (09:49→17:35)
[2019-06-05] MEDS: MIDODRINE HCL 5 MG TABLET PO SCH ×3 (09:49→17:35)
[2019-06-05] MEDS: THIAMINE HCL 100 MG TABLET PO SCH (09:49)
[2019-06-05] MEDS: DOCUSATE SODIUM 100 MG CAPSULE PO SCH (09:50)
[2019-06-05] MEDS: LOSARTAN POTASSIUM 25 MG TABLET PO SCH ×2 (09:50→21:40)
[2019-06-05] MEDS: SPIRONOLACTONE 25 MG TABLET PO SCH ×2 (09:50→21:40)
--- NOTE | 2019-06-05 10:44 | RADIOLOGY REPORT (SQ) ---
EXAM DESCRIPTION: CHEST 2 VIEWS COMPLETED DATE/TIME: 06/05/2019 9:28 am REASON FOR STUDY: Heart failure/COPD COMPARISON: AP view of the chest from 06/03/2019 EXAM PARAMETERS: NUMBER OF VIEWS: two views TECHNIQUE: Digital Frontal and Lateral radiographic views of the chest acquired. RADIATION DOSE: NA LIMITATIONS: none FINDINGS: LUNGS AND PLEURA: The left lateral costophrenic sulcus remains blunted. There is no pneum othorax or consolidation. MEDIASTINUM AND HILAR STRUCTURES: Stable mediastinal and hilar contours. HEART AND VASCULAR STRUCTURES: Stable cardiomegaly. BONES: No acute findings. HARDWARE: None in the chest. OTHER: No other finding. IMPRESSION: Stable cardiomegaly and left pleural effusion. TECHNICAL DOCUMENTATION: JOB ID: [id number] [email or web address]- All Rights Reserved Reading location - IP/workstation name: [email or web address]
[2019-06-05 10:49] LABS: HEMATOCRIT 41.4 % (36.0-47.0); HEMOGLOBIN 13.3 g/dL (12.0-15.5); MEAN CORPUSCULAR HEMOGLOBIN 29.4 pg (27.0-33.4); MEAN CORPUSCULAR HGB CONC 32.2 g/dL (32.0-36.0); MEAN CORPUSCULAR VOLUME 91 fl (80-97); PLATELET COUNT 183 10^3/uL (150-450); RED BLOOD COUNT 4.53 10^6/uL (3.72-5.28); RED CELL DISTRIBUTION WIDTH 15.9 % (11.5-14.0); WHITE BLOOD COUNT 8.7 10^3/uL (4.0-10.5)
[2019-06-05 12:09] LABS: ALBUMIN 3.6 g/dL (3.5-5.0); ANION GAP 10 (5-19); BLOOD UREA NITROGEN 29 mg/dL (7-20); CALCIUM 8.8 mg/dL (8.4-10.2); CARBON DIOXIDE 26 mmol/L (22-30); CHLORIDE 102 mmol/L (98-107); GLUCOSE 83 mg/dL (75-110); PHOSPHORUS 2.9 mg/dL (2.5-4.5); POTASSIUM 3.8 mmol/L (3.6-5.0)
[2019-06-05] MEDS ORDERED: 1/2 NORMAL SALINE 1,000 ML IV PRN (12:09)
--- NOTE | 2019-06-05 12:14 | PDOC PROGRESS REPORT ---
Subjective Progress Note for:: 06/05/19 Subjective:: Peritoneal fluid still oozing from the paracentesis site. Patient still distended and uncomfortable. Lower extremity edema has improved slightly. Reason For Visit: COPD,ANASACRA HEART FAILURE Physical Exam Vital Signs: Temp Pulse Resp BP Pulse Ox 97.9 F 83 18 117/90 H 100 06/05/19 08:00 06/05/19 08:00 06/05/19 08:00 06/05/19 08:00 06/05/19 09:44 Intake & Output 06/04/19 06/05/19 06/06/19 06:59 06:59 06:59 Intake Total 3563 1748 Output Total 150 1250 Balance 3413 498 Weight 63.7 kg 65 kg General appearance: PRESENT: cooperative, mild distress, well-developed Head exam: PRESENT: atraumatic, normocephalic Ear exam: PRESENT: normal external ear exam. ABSENT: bleeding, drainage Mouth exam: PRESENT: dry mucosa, tongue midline Respiratory exam: PRESENT: rales - Fine rales at bases, symmetrical, unlabored. ABSENT: accessory muscle use, rhonchi, tachypnea, wheezes Cardiovascular exam: PRESENT: RRR, +S1, +S2 GI/Abdominal exam: PRESENT: distended, normal bowel sounds, soft, tenderness, other - Paracentesis site on the right side of the abdomen is still oozing. Gauze is saturated. Rectal exam: PRESENT: deferred Extremities exam: PRESENT: +1 edema Musculoskeletal exam: PRESENT: ambulatory - Limited Neurological exam: PRESENT: alert, awake, oriented to person, oriented to place, oriented to time, oriented to situation, CN II-XII grossly intact Psychiatric exam: PRESENT: appropriate affect. ABSENT: agitated, anxious Focused psych exam: ABSENT: delusional, restlessness Skin exam: PRESENT: dry, normal color, warm. ABSENT: rash Results Laboratory Results: 06/05/19 10:03 06/05/19 10:03 WBC 8.7 RBC 4.53 Hgb 13.3 Hct 41.4 MCV 91 MCH 29.4 MCHC 32.2 RDW 15.9 H Plt Count 183 05/31/19 05/31/19 05/31/19 19:20 23:25 23:25 Creatine Kinase 34 CK-MB (CK-2) Troponin I 0.037 Cancelled NT-Pro-B Natriuret Pep 8300 H 05/31/19 06/01/19 06/01/19 23:25 05:45 05:45 Creatine Kinase 30 CK-MB (CK-2) 0.65 0.61 Troponin I 0.032 0.024 NT-Pro-B Natriuret Pep 06/01/19 06/01/19 11:44 11:44 Creatine Kinase 36 CK-MB (CK-2) 0.74 Troponin I 0.020 NT-Pro-B Natriuret Pep Impressions: Abdomen/Pelvis CT 05/31/19 20:18 IMPRESSION: 1. Ascites, increased since 04/05/2019 2. Exam is otherwise unchanged. 3. Gallstones versus gallbladder wall calcification 4. No bowel obstruction or perforation 5. Diffuse soft tissue edema, suggesting hypoproteinemia Paracentesis Ultrasound 06/03/19 13:16 IMPRESSION: Successful ultrasound-guided paracentesis Chest X-Ray 06/05/19 09:00 IMPRESSION: Stable cardiomegaly and left pleural effusion. Assessment and Plan - Diagnosis (1) Ascites Qualifiers: Ascites type: other type Qualified Code(s): R18.8 - Other ascites Is this a current diagnosis for this admission?: Yes Plan: Suspect to be related to alcoholic liver disease but will await for cytology as well to evaluate for malignancy. CT of the abdomen pelvis reveals large volume ascites increased from previous CT and calcified gallbladder. Will order for paracentesis and ascitic fluid analysis. Patient had a recent echo in November this year and showed normal EF and normal diastolic function, it did show mild- moderate pulmonary HTN. 06/02: Patient is scheduled for paracentesis today. Creatinine has slightly trended up. Discontinue IV Lasix 40 q12. Revise to PO diuretics and will start at lower dose. Repeat BMP tomorrow. 06/04/2019-the patient underwent paracentesis. Pathology is pending. Most likely due to liver disease from history of alcohol use. Aldactone 25 mg twice daily at this time. 06/05/2019-the patient is still leaking peritoneal fluid from the paracentesis site. We will try and keep up with dressing changes. She may need a compression dressing. (2) COPD exacerbation Is this a current diagnosis for this admission?: Yes Plan: Continue breathing treatments. Continue prednisone. 06/04/2019-no change in current treatment plan. She did report some shortness of breath today. She still has abdominal distention and this could be the root cause. She was not wheezy. 06/05/2019-the patient is stable on the current regimen. No changes at this time. (3) Elevated TSH Is this a current diagnosis for this admission?: Yes Plan: Start patient on Synthroid. 06/04/2019-50 mcg of levothyroxine was initiated. Recheck thyroid studies in 3 months. 06/05/2019-continue 50 mcg of levothyroxine daily. (4) Alcohol use disorder Is this a current diagnosis for this admission?: Yes Plan: Patient has cut down on her drinking but used to drink a fifth of gin every day for 40 years. She only now drinks once every 2 weeks or so. 06/04/2019-marked history of alcohol use. Liver enzymes were normal. With reported limited alcohol intake withdrawal should not be a problem. We will continue to monitor. 06/05/2019-no evidence of withdrawal at this time. (5) History of atrial fibrillation Is this a current diagnosis for this admission?: Yes Plan: 06/04/2019-we will continue to monitor on telemetry. 06/05/2019-good rate control. By auscultation she is in sinus rhythm. Continue to monitor. (6) Hypertension Qualifiers: Hypertension type: essential hypertension Qualified Code(s): I10 - Essential (primary) hypertension Is this a current diagnosis for this admission?: Yes Plan: 06/05/2019-continue current regimen and monitor blood pressure. (7) Acute kidney injury Is this a current diagnosis for this admission?: Yes Plan: 06/05/2019-the patient may be getting over diuresed. Her BUN and creatinine are now slightly higher. They were normal over the last several days. I will give gentle half-normal saline and recheck renal function in the morning. - Time Time Spent with patient: 15-24 minutes Medications reviewed and adjusted accordingly: Yes Anticipated discharge: Home
[2019-06-05] MEDS: MAG HYDROX/AL HYDROX/SIMETH SUSP 30 ML UDCUP PO PRN (18:08)
[2019-06-06] MEDS: ACETAMINOPHEN 325 MG TABLET PO PRN (02:14)
[2019-06-06] MEDS: CLONIDINE HCL 0.2 MG TABLET PO SCH (06:10)
[2019-06-06] MEDS: LEVOTHYROXINE SODIUM 0.05 MG TABLET PO SCH (06:13)
[2019-06-06] MEDS: THIAMINE HCL 100 MG TABLET PO SCH (10:00)
[2019-06-06] MEDS: FUROSEMIDE 20 MG TABLET PO SCH (10:00)
[2019-06-06] MEDS: MIDODRINE HCL 5 MG TABLET PO SCH (10:00)
[2019-06-06] MEDS: DOCUSATE SODIUM 100 MG CAPSULE PO SCH (10:01)
[2019-06-06] MEDS: PREDNISONE 20 MG TABLET PO SCH (10:01)
[2019-06-06] MEDS: ASPIRIN 81 MG TABLET, ENT COATED PO SCH (10:01)
[2019-06-06] MEDS: LOSARTAN POTASSIUM 25 MG TABLET PO SCH ×2 (10:56→22:28)
[2019-06-06] MEDS: SPIRONOLACTONE 25 MG TABLET PO SCH ×2 (10:56→22:28)
--- NOTE | 2019-06-06 12:39 | PDOC PROGRESS REPORT ---
Subjective Progress Note for:: 06/06/19 Subjective:: Patient states that her breathing is better on the abdominal tension and discomfort feels much better since the paracentesis was performed. Patient currently denies any abdominal pain, fevers or chills. Reason For Visit: COPD,ANASACRA HEART FAILURE Physical Exam Vital Signs: Temp Pulse Resp BP Pulse Ox 97.9 F 95 16 122/94 H 100 06/06/19 11:47 06/06/19 11:47 06/06/19 11:47 06/06/19 11:47 06/06/19 11:47 Intake & Output 06/05/19 06/06/19 06/07/19 06:59 06:59 06:59 Intake Total 1748 1300 Output Total 1250 420 60 Balance 498 880 -60 Weight 65 kg 70 kg General appearance: PRESENT: no acute distress, cooperative Neck exam: ABSENT: JVD Respiratory exam: PRESENT: clear to auscultation adelso, symmetrical, unlabored. ABSENT: tachypnea, wheezes Cardiovascular exam: PRESENT: RRR, +S1, +S2. ABSENT: systolic murmur, tachycardia GI/Abdominal exam: PRESENT: ascites, distended, normal bowel sounds, soft. AB SENT: firm, guarding, rebound, rigid, tenderness Musculoskeletal exam: PRESENT: ambulatory Neurological exam: PRESENT: alert, awake, oriented to person, oriented to place, oriented to time, oriented to situation Results Laboratory Results: 06/05/19 10:03 06/05/19 10:03 06/03/19 13:40 Abdominal Fluid Gram Stain - Final 06/03/19 13:40 Abdominal Fluid Body Fluid Culture - Final NO AEROBIC OR ANAEROBIC ORGANISMS RECOVERED 05/31/19 20:30 Blood Blood Culture - Final NO GROWTH IN 5 DAYS 05/31/19 19:20 Blood Blood Culture - Final NO GROWTH IN 5 DAYS 05/31/19 05/31/19 05/31/19 19:20 23:25 23:25 Creatine Kinase 34 CK-MB (CK-2) Troponin I 0.037 Cancelled NT-Pro-B Natriuret Pep 8300 H 05/31/19 06/01/19 06/01/19 23:25 05:45 05:45 Creatine Kinase 30 CK-MB (CK-2) 0.65 0.61 Troponin I 0.032 0.024 NT-Pro-B Natriuret Pep 06/01/19 06/01/19 11:44 11:44 Creatine Kinase 36 CK-MB (CK-2) 0.74 Troponin I 0.020 NT-Pro-B Natriuret Pep Impressions: Abdomen/Pelvis CT 05/31/19 20:18 IMPRESSION: 1. Ascites, increased since 04/05/2019 2. Exam is otherwise unchanged. 3. Gallstones versus gallbladder wall calcification 4. No bowel obstruction or perforation 5. Diffuse soft tissue edema, suggesting hypoproteinemia Paracentesis Ultrasound 06/03/19 13:16 IMPRESSION: Successful ultrasound-guided paracentesis Chest X-Ray 06/05/19 09:00 IMPRESSION: Stable cardiomegaly and left pleural effusion. Assessment and Plan - Diagnosis (1) Ascites Qualifiers: Ascites type: other type Qualified Code(s): R18.8 - Other ascites Is this a current diagnosis for this admission?: Yes Plan: Suspect to be related to alcoholic liver disease but will await for cytology as well to evaluate for malignancy. CT of the abdomen pelvis reveals large volume ascites increased from previous CT and calcified gallbladder. Will order for paracentesis and ascitic fluid analysis. Patient had a recent echo in November this year and showed normal EF and normal diastolic function, it did show mild-mode rate pulmonary HTN. 06/02: Patient is scheduled for paracentesis today. Creatinine has slightly [place] nded up. Discontinue IV Lasix 40 q12. Revise to PO diuretics and will start at lower dose. Repeat BMP tomorrow. 06/04/2019-the patient underwent paracentesis. Pathology is pending. Most likely due to liver disease from history of alcohol use. Aldactone 25 mg twice daily at this time. 06/05/2019-the patient is still leaking peritoneal fluid from the paracentesis site. We will try and keep up with dressing changes. She may need a compression dressing. 06/06/2019-interestingly, patient has normal platelet counts, normal coags, normal albumin and normal liver enzymes all of which are not so characteristic of cirrhosis. This still is a possibility of chronic liver disease from alcohol abuse. Other potential causes of her ascites include diastolic heart failure or Budd-Chiari syndrome. I have called the lab to add on total protein and albumin level to the ascites fluid that was collected a few days ago. This will help him to clear picture as to the true etiology. Also check abdominal ultrasound with Dopplers. Continue Lasix and spironolactone. (2) Acute kidney injury Is this a current diagnosis for this admission?: Yes Plan: Resolved. Continue gentle diuresis with Lasix and spironolactone. (3) COPD exacerbation Is this a current diagnosis for this admission?: Yes Plan: We will discontinue prednisone today. PRN nebs. (4) Elevated TSH Is this a current diagnosis for this admission?: Yes Plan: TSH of occasionally fluctuates in the setting of sickness along with T3 levels. Given normal free T4 levels, I will opt for patient to have repeat thyroid function test in 6 weeks and hold off on thyroid replacement therapy for now. (5) Hypertension Qualifiers: Hypertension type: essential hypertension Qualified Code(s): I10 - Essential (primary) hypertension Is this a current diagnosis for this admission?: Yes Plan: Discontinue Midodrin on clonidine for now. Continue with's losartan and diuretics and monitor blood pressure. - Time Time Spent with patient: 15-24 minutes
[2019-06-06] MEDS: MAG HYDROX/AL HYDROX/SIMETH SUSP 30 ML UDCUP PO PRN (22:32)
[2019-06-07] MEDS: LOSARTAN POTASSIUM 25 MG TABLET PO SCH ×2 (09:40→21:49)
[2019-06-07] MEDS: FUROSEMIDE 20 MG TABLET PO SCH (09:40)
[2019-06-07] MEDS: SPIRONOLACTONE 25 MG TABLET PO SCH ×2 (09:40→21:49)
[2019-06-07] MEDS: DOCUSATE SODIUM 100 MG CAPSULE PO SCH (09:40)
[2019-06-07] MEDS: THIAMINE HCL 100 MG TABLET PO SCH (09:40)
[2019-06-07] MEDS: ASPIRIN 81 MG TABLET, ENT COATED PO SCH (09:40)
--- NOTE | 2019-06-07 12:05 | RADIOLOGY REPORT (SQ) ---
EXAM DESCRIPTION: U/S ABDOMEN COMPLETE W/DOPPLER COMPLETED DATE/TIME: 06/07/2019 9:13 am REASON FOR STUDY: Assess for cirrhosis and budd chiari COMPARISON: Post paracentesis 06/03/2019 CT abdomen pelvis 05/31/2019, 03/16/2019 TECHNIQUE: Dynamic and static grayscale images acquired of the abdomen and recorded on PACS. Additio nal selected color Doppler and spectral images recorded. Note: Study does not meet criteria for complete doppler/duplex scan LIMITATIONS: None. FINDINGS: PANCREAS: No masses. Visualized pancreatic duct normal caliber. LIVER: Coarse liver echotexture from diffuse hepatocellular disease. LIVER VASCULATURE: Normal directional flow of the main portal vein and hepatic veins. No evidence of portal vein or hepatic vein thrombosis GALLBLADDER: Multiple small stones. Normal wall thickness. No pericholecystic fluid. ULTRASOUND-DETECTED MELVIN'S SIGN: Negative. INTRAHEPATIC DUCTS AND COMMON DUCT: CBD and intrahepatic ducts normal caliber. No filling defects. INFERIOR VENA CAVA: Normal flow. AORTA: No aneurysm. RIGHT KIDNEY: Normal size. Normal echogenicity. No solid or suspicious masses. No hydronephros is. No calcifications. LEFT KIDNEY: Normal size. Normal echogenicity. No solid or suspicious masses. No hydronephrosi s. No calcifications. SPLEEN: 5 cm in length. No solid masses. PERITONEAL AND PLEURAL SPACES: Small amount of right upper quadrant free fluid. . OTHER: No other significant finding. IMPRESSION: Stones in the gallbladder. Negative sonographic Melvin sign Liver coarse echotexture from diffuse hepatocellular disease. No ultrasound evidence of portal vein or hepatic vein thrombosis TECHNICAL DOCUMENTATION: JOB ID: [id number] [employer]- All Rights Reserved Reading location - IP/workstation name: [email or web address]
--- NOTE | 2019-06-07 14:15 | PDOC PROGRESS REPORT ---
Subjective Progress Note for:: 06/07/19 Subjective:: Patient today also denies any abdominal pain. States the fluid is draining illness from her peritoneum. Denies any fever chills or shortness of breath Reason For Visit: COPD,ANASACRA HEART FAILURE Physical Exam Vital Signs: Temp Pulse Resp BP Pulse Ox 97.7 F 97 21 H 115/68 100 06/07/19 12:05 06/07/19 12:05 06/07/19 12:05 06/07/19 12:05 06/07/19 12:05 Intake & Output 06/06/19 06/07/19 06/08/19 06:59 06:59 06:59 Intake Total 1300 720 Output Total 420 560 Balance 880 160 Weight 70 kg 72.3 kg General appearance: PRESENT: no acute distress, cooperative Neck exam: ABSENT: JVD Respiratory exam: PRESENT: clear to auscultation adelso, symmetrical, unlabored. ABSENT: tachypnea, wheezes Cardiovascular exam: PRESENT: RRR, +S1, +S2. ABSENT: irregular rhythm, tachycardia GI/Abdominal exam: PRESENT: ascites, distended, normal bowel sounds, soft, other - Ostomy back still present collecting ascites fluid. ABSENT: firm, guarding, rebound, rigid, tenderness Neurological exam: PRESENT: alert, awake, oriented to person, oriented to place, oriented to time Results Laboratory Results: 06/05/19 10:03 06/05/19 10:03 06/03/19 13:40 Abdominal Fluid Gram Stain - Final 06/03/19 13:40 Abdominal Fluid Body Fluid Culture - Final NO AEROBIC OR ANAEROBIC ORGANISMS RECOVERED 05/31/19 05/31/19 05/31/19 19:20 23:25 23:25 Creatine Kinase 34 CK-MB (CK-2) Troponin I 0.037 Cancelled NT-Pro-B Natriuret Pep 8300 H 05/31/19 06/01/19 06/01/19 23:25 05:45 05:45 Creatine Kinase 30 CK-MB (CK-2) 0.65 0.61 Troponin I 0.032 0.024 NT-Pro-B Natriuret Pep 06/01/19 06/01/19 11:44 11:44 Creatine Kinase 36 CK-MB (CK-2) 0.74 Troponin I 0.020 NT-Pro-B Natriuret Pep Impressions: Abdomen/Pelvis CT 05/31/19 20:18 IMPRESSION: 1. Ascites, increased since 04/05/2019 2. Exam is otherwise unchanged. 3. Gallstones versus gallbladder wall calcification 4. No bowel obstruction or perforation 5. Diffuse soft tissue edema, suggesting hypoproteinemia Paracentesis Ultrasound 06/03/19 13:16 IMPRESSION: Successful ultrasound-guided paracentesis Chest X-Ray 06/05/19 09:00 IMPRESSION: Stable cardiomegaly and left pleural effusion. Abdomen Ultrasound 06/07/19 00:00 IMPRESSION: Stones in the gallbladder. Negative sonographic Melvin sign Liver coarse echotexture from diffuse hepatocellular disease. No ultrasound evidence of portal vein or hepatic vein thrombosis Assessment and Plan - Diagnosis (1) Ascites Qualifiers: Ascites type: due to alcoholic cirrhosis Qualified Code(s): K70.31 - Alcoholic cirrhosis of liver with ascites Is this a current diagnosis for this admission?: Yes Plan: Suspect to be related to alcoholic liver disease but will await for cytology as well to evaluate for malignancy. CT of the abdomen pelvis reveals large volume ascites increased from previous CT and calcified gallbladder. Will order for paracentesis and ascitic fluid analysis. Patient had a recent echo in November this year and showed normal EF and normal diastolic function, it did show mild- moderate pulmonary HTN. 06/02: Patient is scheduled for paracentesis today. Creatinine has slightly trended up. Discontinue IV Lasix 40 q12. Revise to PO diuretics and will start at lower dose. Repeat BMP tomorrow. 06/04/2019-the patient underwent paracentesis. Pathology is pending. Most likely due to liver disease from history of alcohol use. Aldactone 25 mg twice daily at this time. 06/05/2019-the patient is still leaking peritoneal fluid from the paracentesis site. We will try and keep up with dressing changes. She may need a compression dressing. 06/06/2019-interestingly, patient has normal platelet counts, normal coags, normal albumin and normal liver enzymes all of which are not so characteristic of cirrhosis. This still is a possibility of chronic liver disease from alcohol abuse. Other potential causes of her ascites include diastolic heart failure or Budd-Chiari syndrome. I have called the lab to add on total protein and albumin level to the ascites fluid that was collected a few days ago. This will help him to clear picture as to the true etiology. Also check abdominal ultrasound with Dopplers. Continue Lasix and spironolactone. 06/07/2019-abdominal ultrasound with Dopplers shows coarse echotexture of the liver likely indicative of cirrhosis chronic liver disease but no evidence of Budd-Chiari. Awaiting peritoneal fluid Albumin and total protein level which would help us determine the etiology of patient's ascites. Patient has been having ascites fluid leak which have been collected and are quantifying with ostomy bag. Collection/leak seems to be decreasing. May be able to remove the ostomy back soon. (2) Acute kidney injury Is this a current diagnosis for this admission?: Yes Plan: Resolved. Continue gentle diuresis with Lasix and spironolactone. (3) COPD exacerbation Is this a current diagnosis for this admission?: Yes Plan: Resolved. PRN nebs. (4) Elevated TSH Is this a current diagnosis for this admission?: Yes Plan: TSH of occasionally fluctuates in the setting of sickness along with T3 levels. Given normal free T4 levels, I will opt for patient to have repeat thyroid function test in 6 weeks and hold off on thyroid replacement therapy for now. (5) Hypertension Qualifiers: Hypertension type: essential hypertension Qualified Code(s): I10 - Essential (primary) hypertension Is this a current diagnosis for this admission?: Yes Plan: Discontinue Midodrin on clonidine for now. Continue with's losartan and diuretics and monitor blood pressure. - Time Time Spent with patient: Less than 15 minutes
[2019-06-08] MEDS: ACETAMINOPHEN 325 MG TABLET PO PRN (07:24)
[2019-06-08] MEDS: FUROSEMIDE 20 MG TABLET PO SCH (09:15)
[2019-06-08] MEDS: SPIRONOLACTONE 25 MG TABLET PO SCH (09:15)
[2019-06-08] MEDS: ASPIRIN 81 MG TABLET, ENT COATED PO SCH (09:18)
[2019-06-08] MEDS: THIAMINE HCL 100 MG TABLET PO SCH (09:18)
[2019-06-08] MEDS: LOSARTAN POTASSIUM 25 MG TABLET PO SCH (09:18)
[2019-06-08] MEDS: DOCUSATE SODIUM 100 MG CAPSULE PO SCH (09:19)
[2019-06-08 12:27] VITALS: BP 88/62
--- NOTE | 2019-06-08 12:37 | PDOC DISCHARGE SUMMARY ---
Impression - Admit/DC Date/PCP Admission Date/Primary Care Provider: 05/31/19 22:51 SMITA DOWNING MD Discharge Date: 06/08/19 - Discharge Diagnosis (1) Ascites Is this a current diagnosis for this admission?: Yes (2) Acute kidney injury Is this a current diagnosis for this admission?: Yes (3) COPD exacerbation Is this a current diagnosis for this admission?: Yes (4) Elevated TSH Is this a current diagnosis for this admission?: Yes (5) Hypertension Is this a current diagnosis for this admission?: Yes (6) Chronic diastolic (congestive) heart failure Is this a current diagnosis for this admission?: Yes (7) Cocaine abuse Is this a current diagnosis for this admission?: Yes (8) Hyperbilirubinemia Is this a current diagnosis for this admission?: Yes (9) AA (alcohol abuse) Is this a current diagnosis for this admission?: Yes (10) 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 On presentation patient was hemodynamically stable. She was started on Lasix intravenously to help with diuresis. Chest x- ray showed stable cardiomegaly and left pleural effusion. Left pleural effusion was likely from hydrothorax from the ascites. Hepatitis panel was negative. Paracentesis was performed with drainage of about 3.5 L of peritoneal fluid. Analysis of the peritoneal fluid showed SAAG of 1.6 with ascites fluid total protein of 4.1. This results of SAAG > 1.1 and ascitic fluid total protein > 3.5 suggest that the ascites is likely secondary to her chronic diastolic CHF more so than patient's chronic liver disease. Abdominal ultrasound showed no evidence of Budd-Chiari syndrome with normal IVC blood flow but did show nodular echotexture of the liver suggestive of some underlying chronic liver disease which is likely from her excessive alcohol history. Patient has been started on a regimen of spironolactone 25 mg every 12 hours and Lasix 20 mg daily to help with the ascites. Patient will need adequate control of her hypertension for management of diastolic CHF and has been placed on losartan. Also during patient stay, patient developed some peritoneal fluid leak after the paracentesis. An ostomy bag was placed over the site and quantification of the peritoneal fluid leak shows that he has substantially decreased over the past 2 days. Patient is being sent home with ostomy bags to continue to dress the area and has been given strict instructions that once there is no leakage for 24 to 48 hours, she can stop placing the ostomy bag over the site. She has also been instructed to contact her doctor if this peritoneal fluid leak persist after 5 days or erythema or pain or swelling starts to develop around the site. - Additional Information Resuscitation Status: Full Code Referrals: SMITA DOWNING MD [Primary Care Provider] - (Please follow-up within 1 to 2 weeks. He will also need referral from your primary care physician to see satellite dish technician.) Prescriptions: Spironolactone [Aldactone 25 mg Tablet] 25 mg PO Q12 #60 tablet Losartan Potassium [Cozaar 25 mg Tablet] 25 mg PO Q12 #60 tablet Furosemide [Lasix 20 mg Tablet] 20 mg PO DAILY #30 tablet Nicotine [Nicoderm Cq] 1 each TD DAILY #15 patch Home Medications: Polyethylene Glycol 3350 [Miralax Powder 17 gm/Packet] 17 gm PO DAILY 06/01/19 Furosemide [Lasix 20 mg Tablet] 20 mg PO DAILY #30 tablet 06/08/19 Losartan Potassium [Cozaar 25 mg Tablet] 25 mg PO Q12 #60 tablet 06/08/19 Nicotine [Nicoderm Cq] 1 each TD DAILY #15 patch 06/08/19 Spironolactone [Aldactone 25 mg Tablet] 25 mg PO Q12 #60 tablet 06/08/19 History of Present Illiness History of Present Illness: SAMARA COLLIER is a 63 year old female with past medical history hypertension, COPD, alcohol tobacco and cocaine abuse who presents with approximately 2 months of increased lower extremity edema and abdominal distention prompting her to seek evaluation emergency room. CT of the abdomen pelvis reveals ascites and calcified gallbladder. She denies chest pain or productive cough but admits regular and recent cocaine and alcohol abuse. She receives supplemental oxygen, IV Lasix and referred to the hospitalist for admission. Patient admits noncompliance with previously prescribed medication. Physical Exam Vital Signs: Temp Pulse Resp BP Pulse Ox 97.5 F 107 H 16 144/98 H 100 06/08/19 07:53 06/08/19 07:53 06/08/19 07:53 06/08/19 07:53 06/08/19 07:53 Intake & Output 06/07/19 06/08/1906/09/19 06:59 06:59 06:59 Intake Total 720 1270 Output Total 560 500 Balance 160 770 Weight 72.3 kg 72 kg General appearance: PRESENT: no acute distress, cooperative Neck exam: ABSENT: JVD Respiratory exam: PRESENT: clear to auscultation adelso Cardiovascular exam: PRESENT: +S1, +S2 GI/Abdominal exam: PRESENT: distended, soft, other - Ostomy bag. ABSENT: firm, guarding, rebound, rigid, tenderness Neurological exam: PRESENT: alert, awake, oriented to person, oriented to place, oriented to time Results Laboratory Results: WBC 8.7 10^3/uL (4.0-10.5) 06/05/19 10:03 RBC 4.53 10^6/uL (3.72-5.28) 06/05/19 10:03 Hgb 13.3 g/dL (12.0-15.5) 06/05/19 10:03 Hct 41.4 % (36.0-47.0) 06/05/19 10:03 MCV 91 fl (80-97) 06/05/19 10:03 MCH 29.4 pg (27.0-33.4) 06/05/19 10:03 MCHC 32.2 g/dL (32.0-36.0) 06/05/19 10:03 RDW 15.9 % (11.5-14.0) H 06/05/19 10:03 Plt Count 183 10^3/uL (150-450) 06/05/19 10:03 Lymph % (Auto) Not Reportable 06/03/19 12:47 Lamar % (Auto) Not Reportable 06/03/19 12:47 Eos % (Auto) Not Reportable 06/03/19 12:47 Baso % (Auto) Not Reportable 06/03/19 12:47 Absolute Neuts (auto) Not Reportable 06/03/19 12:47 Absolute Lymphs (auto) Not Reportable 06/03/19 12:47 Absolute Monos (auto) Not Reportable 06/03/19 12:47 Absolute Eos (auto) Not Reportable 06/03/19 12:47 Absolute Basos (auto) Not Reportable 06/03/19 12:47 Total Counted 100 06/03/19 12:47 Seg Neutrophils % Not Reportable 06/03/19 12:47 Seg Neuts % (Manual) 82 % (42-78) H 06/03/19 12:47 Lymphocytes % (Manual) 12 % (13-45) L 06/03/19 12:47 Atypical Lymphs % 1 % (0) 06/03/19 12:47 Monocytes % (Manual) 5 % (3-13) 06/03/19 12:47 Eosinophils % (Manual) 0 % (0-6) 06/03/19 12:47 Basophils % (Manual) 0 % (0-2) 06/03/19 12:47 Abs Neuts (Manual) 6.1 10^3/uL (1.7-8.2) 06/03/19 12:47 Abs Lymphs (Manual) 1.0 10^3/uL (0.5-4.7) 06/03/19 12:47 Abs Monocytes (Manual) 0.4 10^3/uL (0.1-1.4) 06/03/19 12:47 Absolute Eos (Manual) 0.0 10^3/uL (0.0-0.6) 06/03/19 12:47 Abs Basophils (Manual) 0.0 10^3/uL (0.0-0.2) 06/03/19 12:47 Nucleated RBCs 1 /100 WBC (0) 06/01/19 05:45 Toxic Granulation 1+ 06/03/19 12:47 Toxic Vacuolation PRESENT 06/03/19 12:47 Platelet Comment ADEQUATE 06/03/19 12:47 Polychromasia SLIGHT 06/01/19 05:45 Poikilocytosis 1+ 06/03/19 12:47 Anisocytosis SLIGHT 06/03/19 12:47 Target Cells 1+ 06/03/19 12:47 Tear Drop Cells SLIGHT 06/01/19 05:45 Ovalocytes 1+ 06/03/19 12:47 Ravia Cells SLIGHT 06/01/19 05:45 PT 15.2 SEC (11.4-15.4) 06/03/19 04:51 INR 1.20 06/03/19 04:51 VBG pH 7.33 (7.30-7.42) 05/31/19 19:20 VBG pCO2 51.3 mmHg (35-63) 05/31/19 19:20 VBG HCO3 26.4 mmol/L (20-32) 05/31/19 19:20 VBG Base Excess -0.3 mmol/L 05/31/19 19:20 Sodium 138.3 mmol/L (137-145) 06/05/19 10:03 Potassium 3.8 mmol/L (3.6-5.0) 06/05/19 10:03 Chloride 102 mmol/L (98-107) 06/05/19 10:03 Carbon Dioxide 26 mmol/L (22-30) 06/05/19 10:03 Anion Gap 10 (5-19) 06/05/19 10:03 BUN 29 mg/dL (7-20) H 06/05/19 10:03 Creatinine 1.15 mg/dL (0.52-1.25) 06/05/19 10:03 Est GFR ( Amer) 57 (>60) L 06/05/19 10:03 Est GFR (MDRD) Non-Af 48 (>60) L 06/05/19 10:03 Glucose 83 mg/dL (75-110) 06/05/19 10:03 POC Glucose 103 mg/dL (70-110) 06/03/19 07:48 Lactic Acid (Sepsis) 1.9 mmol/L (0.7-2.1) 05/31/19 23:25 Calcium 8.8 mg/dL (8.4-10.2) 06/05/19 10:03 Phosphorus 2.9 mg/dL (2.5-4.5) 06/05/19 10:03 Magnesium 1.8 mg/dL (1.6-2.3) 06/05/19 10:03 Total Bilirubin 1.3 mg/dL (0.2-1.3) 06/01/19 11:44 Direct Bilirubin 0.5 mg/dL (0.0-0.4) H 06/01/19 11:44 Neonat Total Bilirubin Not Reportable 06/01/19 11:44 Neonat Direct Bilirubin Not Reportable 06/01/19 11:44 Neonat Indirect Bili Not Reportable 06/01/19 11:44 AST 36 U/L (14-36) 06/01/19 11:44 ALT 22 U/L (<35) 06/01/19 11:44 Alkaline Phosphatase 78 U/L (38-126) 06/01/19 11:44 Creatine Kinase 36 U/L (30-135) 06/01/19 11:44 CK-MB (CK-2) 0.74 ng/mL (<4.55) 06/01/19 11:44 Troponin I 0.020 ng/mL 06/01/19 11:44 NT-Pro-B Natriuret Pep 8300 pg/mL (<125) H 05/31/19 19:20 Total Protein 7.6 g/dL (6.3-8.2) 06/01/19 11:44 Albumin 3.6 g/dL (3.5-5.0) 06/05/19 10:03 Triglycerides 63 mg/dL (<150) 06/01/19 05:45 Cholesterol 103.66 mg/dL (0-200) 06/01/19 05:45 LDL Cholesterol Direct 40 mg/dL (<100) 06/01/19 05:45 VLDL Cholesterol 13.0 mg/dL (10-31) 06/01/19 05:45 HDL Cholesterol 42 mg/dL (>40) 06/01/19 05:45 TSH 8.90 uIU/mL (0.47-4.68) H 05/31/19 23:25 Free T4 1.28 ng/dL (0.78-2.19) 06/01/19 11:44 Free T3 pg/mL 2.13 pg/mL (2.77-5.27) L 06/01/19 11:44 Urine Color YELLOW 05/31/19 20:57 Urine Appearance CLEAR 05/31/19 20:57 Urine pH 5.0 (5.0-9.0) 05/31/19 20:57 Ur Specific [place] 1.011 05/31/19 20:57 Urine Protein 30 mg/dL (NEGATIVE) H 05/31/19 20:57 Urine Glucose (UA) NEGATIVE mg/dL (NEGATIVE) 05/31/19 20:57 Urine Ketones NEGATIVE mg/dL (NEGATIVE) 05/31/19 20:57 Urine Blood SMALL (NEGATIVE) H 05/31/19 20:57 Urine Nitrite (Reflex) NEGATIVE (NEGATIVE) 05/31/19 20:57 Urine Bilirubin NEGATIVE (NEGATIVE) 05/31/19 20:57 Urine Urobilinogen NEGATIVE mg/dL (<2.0) 05/31/19 20:57 Leukocyte Esterase Rfl NEGATIVE (NEGATIVE) 05/31/19 20:57 Urine RBC (Auto) 1 /HPF 05/31/19 20:57 U Hyaline Cast (Auto) 1 /LPF 05/31/19 20:57 Urine Bacteria (Auto) TRACE /HPF 05/31/19 20:57 Urine WBC (Reflex) 1 /HPF 05/31/19 20:57 Squamous Epi Cells Auto 1 /HPF 05/31/19 20:57 Urine Mucus (Auto) RARE /LPF 05/31/19 20:57 Urine Ascorbic Acid NEGATIVE (NEGATIVE) 05/31/19 20:57 Fluid Type PERITONEAL 06/03/19 13:40 Fluid Source ABDOMEN 06/03/19 13:40 Fluid Color YELLOW 06/03/19 13:40 Fluid Appearance CLOUDY 06/03/19 13:40 Fluid Viscosity LIQUID 06/03/19 13:40 Fluid WBC 184 /uL 06/03/19 13:40 Fluid RBC 266 /uL 06/03/19 13:40 Fluid Seg Neutrophils 33 % 06/03/19 13:40 Fluid Lymphocytes 65 % 06/03/19 13:40 Fluid Monocytes 2 % 06/03/19 13:40 Fluid Eosinophils 0 % 06/03/19 13:40 Fluid Basophils 0 % 06/03/19 13:40 Fluid Total Protein 06/03/19 13:40 Fluid Albumin 06/03/19 13:40 Urine Opiates Screen NEGATIVE 05/31/19 20:57 Urine Methadone Screen NEGATIVE 05/31/19 20:57 Ur Barbiturates Screen NEGATIVE 05/31/19 20:57 Ur Phencyclidine Scrn NEGATIVE 05/31/19 20:57 Ur Amphetamines Screen NEGATIVE 05/31/19 20:57 U Benzodiazepines Scrn NEGATIVE 05/31/19 20:57 Urine Cocaine Screen UNCONFIRMED POSITIVE 05/31/19 20:57 U Marijuana (THC) Screen NEGATIVE 05/31/19 20:57 Hepatitis A IgM Ab Negative (Negative) 06/01/19 11:44 Hep Bs Antigen Negative (Negative) 06/01/19 11:44 Hep B Core IgM Ab Negative (Negative) 06/01/19 11:44 Hepatitis C Antibody <0.1 s/co ratio (0.0-0.9) 06/01/19 11:44 05/31/19 05/31/19 05/31/19 19:20 23:25 23:25 CK-MB (CK-2) 0.65 Troponin I 0.037 Cancelled 0.032 NT-Pro-B Natriuret Pep 8300 H 06/01/19 06/01/19 05:45 11:44 CK-MB (CK-2) 0.61 0.74 Troponin I 0.024 0.020 NT-Pro-B Natriuret Pep Impressions: Chest X-Ray 05/31/19 18:03 IMPRESSION: Cardiomegaly without pulmonary edema. Abdomen/Pelvis CT 05/31/19 20:18 IMPRESSION: 1. Ascites, increased since 04/05/2019 2. Exam is otherwise unchanged. 3. Gallstones versus gallbladder wall calcification 4. No bowel obstruction or perforation 5. Diffuse soft tissue edema, suggesting hypoproteinemia Chest X-Ray 06/03/19 00:00 IMPRESSION: Cardiomegaly. No acute findings Paracentesis Ultrasound 06/03/19 13:16 IMPRESSION: Successful ultrasound-guided paracentesis Chest X-Ray 06/03/19 22:49 IMPRESSION: No change. Chest X-Ray 06/05/19 09:00 IMPRESSION: Stable cardiomegaly and left pleural effusion. Abdomen Ultrasound 06/07/19 00:00 IMPRESSION: Stones in the gallbladder. Negative sonographic Melvin sign Liver coarse echotexture from diffuse hepatocellular disease. No ultrasound evidence of portal vein or hepatic vein thrombosis Plan Time Spent: Less than 30 Minutes Stroke Is this a Stroke Patient?: No Acute Heart Failure - Is this a Heart Failure Patient?: Yes Documentation of LVEF assessment?: Yes LVEF < 40%?: No- if no continue to question #3 3. Anticoagulant therapy for permanect/persistent/paraoxysmal Afib or Aflutter: N/A
== END 2019-06-08 13:31 | disposition home or self-care (01) | DRG 433 ==
LOC: ER 17:45 → EH 22:51 → 3W 06-01 01:26
PROVIDERS: ADMIT Internal Medicine; ATTEND Internal Medicine
PROC: 0W9G3ZX Drainage of Peritoneal Cavity, Percutaneous Approach, Diagnostic (ICD-10-PCS; principal; 2019-06-03)
PROC: 3E0234Z Introduction of Serum, Toxoid and Vaccine into Muscle, Percutaneous Approach (ICD-10-PCS; 2019-06-08)
DX: K70.31 Alcoholic cirrhosis of liver with ascites (principal); I42.9 Cardiomyopathy, unspecified; J44.1 Chronic obstructive pulmonary disease with (acute) exacerbation; N17.9 Acute kidney failure, unspecified; I50.32 Chronic diastolic (congestive) heart failure; I48.91 Unspecified atrial fibrillation; I11.0 Hypertensive heart disease with heart failure; E78.5 Hyperlipidemia, unspecified; E80.6 Other disorders of bilirubin metabolism; F14.10 Cocaine abuse, uncomplicated; F10.10 Alcohol abuse, uncomplicated; F17.210 Nicotine dependence, cigarettes, uncomplicated; Y90.9 Presence of alcohol in blood, level not specified; Z23 Encounter for immunization; Z79.82 Long term (current) use of aspirin; Z79.52 Long term (current) use of systemic steroids; Z79.899 Other long term (current) drug therapy
CPT/HCPCS: 36415; 49083; 71045; 71046; 74177; 76700; 80048; 80053; 80061; 80069; 80074; 80307; 81001; 82042; 82550; 82553; 82803; 82962; 83605; 83735; 83880; 84157; 84439; 84443; 84481; 84484; 85025; 85027; 85610; 87040; 87070; 87075; 87205; 88305; 88341; 88342; 89050; 90686; 93005; 93010; 93976; 94640; 94799; 96361; 96365; 96375; 99285; J1644; J1940; J2310; J2930; J3475; J3490; J7030; J7512; J7620; P9047

== ENCOUNTER 2019-06-13 00:49 | Emergency (ER) | payer MEDICAID ==
--- NOTE | 2019-06-13 02:32 | RADIOLOGY REPORT (SQ) ---
CLINICAL HISTORY: SOB, chest tightness COMPARISON: 06/05/2019. 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 Lungs are clear without consolidation, atelectasis, mass or edema. There is no pleural effusion. There is no pneumothorax. There are no acute osseous findings. IMPRESSION: Clear lungs.
[2019-06-13 04:00] LABS: HEMATOCRIT 38.2 % (36.0-47.0); HEMOGLOBIN 12.3 g/dL (12.0-15.5); MEAN CORPUSCULAR HGB CONC 32.3 g/dL (32.0-36.0); MEAN CORPUSCULAR VOLUME 90 fl (80-97); PLATELET COUNT 180 10^3/uL (150-450); RED BLOOD COUNT 4.26 10^6/uL (3.72-5.28); RED CELL DISTRIBUTION WIDTH 15.2 % (11.5-14.0); WHITE BLOOD COUNT 6.1 10^3/uL (4.0-10.5)
[2019-06-13 04:21] LABS: ALBUMIN 3.9 g/dL (3.5-5.0); ALKALINE PHOSPHATASE 102 U/L (38-126); ANION GAP 9 (5-19); ASPARTATE AMINO TRANSFERASE 39 U/L (14-36); BILIRUBIN,DIRECT 0.6 mg/dL (0.0-0.4); BILIRUBIN,TOTAL 1.7 mg/dL (0.2-1.3); BLOOD UREA NITROGEN 20 mg/dL (7-20); CARBON DIOXIDE 29 mmol/L (22-30); CHLORIDE 105 mmol/L (98-107); CREATINE KINASE 35 U/L (30-135); GLUCOSE 84 mg/dL (75-110); POTASSIUM 4.2 mmol/L (3.6-5.0); TOTAL PROTEIN 7.1 g/dL (6.3-8.2)
--- NOTE | 2019-06-13 04:31 | ER Document Report ---
ED General - General Chief Complaint: Breathing Difficulty Stated Complaint: ALTERED MENTAL STATUS Time Seen by Provider: 06/13/19 04:30 Primary Care Provider: SMITA DOWNING MD [Primary Care Provider] - Follow up as needed Mode of Arrival: Wheelchair Information source: Patient TRAVEL OUTSIDE OF THE [place] IN LAST 30 DAYS: No - HPI Patient complains to provider of: Trouble breathing and sleeping Onset: Other - over the last several days Onset/Duration: Gradual Quality of pain: No pain Severity: Mild Pain Level: Denies Associated symptoms: Nonproductive cough Exacerbated by: Other - laying flat Relieved by: Denies Similar symptoms previously: Yes - patient was just admitted for volume overload Recently seen / treated by doctor: Yes - patient was just admitted for the same Notes: 63 year old female with a history of New Onset CHF and Ascites (patient was just admitted for this and DCed on 06/08/19), HTN, COPD, Alcohol Abuse, Cocaine Use, Smoker here for shortness of breath and trouble breathing. The patient tells me she has been taking her Lasix and Spironolactone as prescribed but I am not sure that she actually is doing so. The patient tells me she is having trouble speaking due to her shortness of breath but she then falls asleep easily and quickly during my exam. - Related Data Allergies/Adverse Reactions: No Known Allergies Allergy (Verified 04/02/19 14:03) Past Medical History - Social History Smoking Status: Former Smoker Frequency of alcohol use: Heavy Drug Abuse: Cocaine Family History: CAD, CVA, Hypertension, Malignancy Patient has suicidal ideation: No Patient has homicidal ideation: No - Past Medical History Cardiac Medical History: Reports: Hx Atrial Fibrillation, Hx Congestive Heart Failure, Hx Hypercholesterolemia, Hx Hypertension Denies: Hx Coronary Artery Disease, Hx Heart Attack, Hx Pulmonary Embolism Pulmonary Medical History: Reports: Hx COPD Denies: Hx Asthma, Hx Bronchitis, Hx Pneumonia, Hx Tuberculosis Neurological Medical History: Denies: Hx Cerebrovascular Accident, Hx Seizures, Hx Parkinson's Disease Endocrine Medical History: Denies: Hx Hypothyroidism Renal/ Medical History: Denies: Hx End Stage Renal Disease, Hx Kidney Stones, Hx Peritoneal Dialysis GI Medical History: Denies: Hx Cirrhosis, Hx Gastroesophageal Reflux Disease, Hx Hepatitis, Hx Hiatal Hernia, Hx Ulcer Musculoskeletal Medical History: Denies Hx Arthritis, Denies Hx Fibromyalgia, Denies Hx Multiple Sclerosis Skin Medical History: Denies Hx Eczema, Denies Hx Psoriasis Psychiatric Medical History: Denies: Hx Bipolar Disorder, Hx Depression, Hx Schizophrenia Infectious Medical History: Denies: Hx Hepatitis Past Surgical History: Reports: Hx Breast Surgery - biopsy right breast, Other - she had a right breast biopsy, neg for malignancy. Denies: Hx Hysterectomy, Hx Mastectomy, Hx Open Heart Surgery, Hx Pacemaker - Immunizations Hx Diphtheria, Pertussis, Tetanus Vaccination: Yes Review of Systems - Review of Systems Constitutional: No symptoms reported EENT: No symptoms reported Cardiovascular: No symptoms reported Respiratory: Short of breath Gastrointestinal: No symptoms reported Genitourinary: No symptoms reported Female Genitourinary: No symptoms reported Musculoskeletal: No symptoms reported Skin: Other - Edema of Legs to mid shins Neurological/Psychological: No symptoms reported Physical Exam - Vital signs Vitals: Temp Pulse Resp BP Pulse Ox 98.4 F 115 H 26 H 118/94 H 95 06/13/19 01:23 06/13/19 01:23 06/13/19 01:23 06/13/19 01:23 06/13/19 01:23 - Notes Notes: GENERAL: Well-appearing, well-nourished and in no acute distress. HEAD: Atraumatic, normocephalic. EYES: Pupils equal round and reactive to light, extraocular movements intact, sclera anicteric, conjunctiva are normal. ENT: TMs normal, nares patent, oropharynx clear without exudates. Moist mucous membranes. NECK: Normal range of motion, supple without lymphadenopathy or JVD. LUNGS: Breath sounds clear to auscultation bilaterally and equal. No wheezes rales or rhonchi. HEART: Regular rate and rhythm without murmurs, rubs or gallops. ABDOMEN: Soft, mild distension due to asccites, nontender, normoactive bowel sounds. No guarding, no rebound. No masses appreciated. EXTREMITIES: Normal range of motion, pitting edema of legs to mid shins. No clubbing or cyanosis. NEUROLOGICAL: Cranial nerves II through XII grossly intact. Normal speech, normal gait. PSYCH: Normal mood, normal affect. SKIN: Warm, Dry, normal turgor, no rashes or lesions noted. Course - Re-evaluation Re-evalutation: 06/13/19 04:54 The patient is here for shortness of breath and trouble sleeping. She has no trouble sleeping in the ER however as I had to wake her up several times. The patient is also sating fine on room air and not short of breath on exam. The patient's BNP is in the 7000s but it was in the 8000s on her last admission. The patient was just admitted and started on Lasix and Spironolactone which she tells me she has been taking. Will increase patient's Lasix does from 20mg daily to 40mg daily for the next 5 days. The patient says she has an appointment with a doctor next week for follow up from her recent admission but she cannot tell me what type of doctor she is following up with. I told the patient she should follow up with a PCP and a Call Person and a GI Doctor. 06/13/19 04:58 06/13/19 05:07 - Vital Signs Vital signs: Temp Pulse Resp BP Pulse Ox 98.4 F 115 H 24 H 124/89 H 97 06/13/19 01:23 06/13/19 01:23 06/13/19 02:47 06/13/19 02:47 06/13/19 02:47 - Laboratory Result Diagrams: 06/13/19 03:42 06/13/19 03:42 Laboratory results interpreted by me: 06/13/19 06/13/19 06/13/19 03:42 03:42 03:42 RDW 15.2 H Band Neutrophils % 1 L Est GFR ( Amer) 53 L Est GFR (MDRD) Non-Af 44 L Total Bilirubin 1.7 H Direct Bilirubin 0.6 H AST 39 H NT-Pro-B Natriuret Pep 7710 H Discharge - Discharge Clinical Impression: Heart failure Qualifiers: Heart failure type: diastolic Heart failure chronicity: unspecified Qualified Code(s): I50.30 - Unspecified diastolic (congestive) heart failure Condition: Fair Disposition: HOME, SELF-CARE Instructions: Congestive Heart Failure ([facility]), Edema, Peripheral ([facility]) Additional Instructions: Increase your Lasix from 20mg daily to 40mg daily for the next 5 days to help with your leg swelling and abdominal swelling. Follow up with a primary care doctor, a Call Person, and a GI Doctor for your chronic heart failure and liver issues. Prescriptions: Furosemide [Lasix 40 mg Tablet] 40 mg PO DAILY 5 Days #5 tablet Referrals: SMITA DOWNING MD [Primary Care Provider] - Follow up as needed
[2019-06-13 04:33] LABS: CREATINE KINASE MB 1.16 ng/mL (<4.55); TROPONIN I 0.028 ng/mL
[2019-06-13 04:42] LABS: ABSOLUTE LYMPHOCYTES# (MANUAL) 1.1 10^3/uL (0.5-4.7); ABSOLUTE MONOCYTES # (MANUAL) 0.4 10^3/uL (0.1-1.4); BAND NEUTROPHILS % (MANUAL) 1 % (3-5); BASOPHILS % (MANUAL) 0 % (0-2); EOSINOPHILS % (MANUAL) 0 % (0-6); LYMPHOCYTES % (MANUAL) 18 % (13-45); MONOCYTES % (MANUAL) 6 % (3-13); SEGMENTED NEUTROPHILS % (MAN) 75 % (42-78); TOTAL CELLS COUNTED 100
[2019-06-13] MEDS ORDERED: FUROSEMIDE 40 MG TABLET PO ONE (04:42)
[2019-06-13 04:44] LABS: ANISOCYTOSIS SLIGHT; HYPOCHROMASIA SLIGHT; OVALOCYTES SLIGHT; PLATELET COMMENT ADEQUATE; POIKILOCYTOSIS SLIGHT; POLYCHROMASIA SLIGHT; TOXIC GRANULATION SLIGHT
[2019-06-13 08:17] VITALS: BP 128/86
--- NOTE | 2019-06-13 19:13 | EKG REPORT ---
SEVERITY:- ABNORMAL ECG - ATRIAL FLUTTER, A-RATE 283 VENTRICULAR PREMATURE COMPLEX BORDERLINE INFERIOR Q WAVES NONSPECIFIC T ABNORMALITIES, LATERAL LEADS : Confirmed by: Cindy Mandujano MD 13-Jun-2019 19:12:56
== END 2019-06-13 08:16 | disposition home or self-care (01) ==
LOC: ER 00:49
DX: I11.0 Hypertensive heart disease with heart failure (principal); I50.30 Unspecified diastolic (congestive) heart failure; J44.9 Chronic obstructive pulmonary disease, unspecified; R18.8 Other ascites; R06.02 Shortness of breath; F14.10 Cocaine abuse, uncomplicated; Z87.891 Personal history of nicotine dependence
CPT/HCPCS: 93005; 99285; 36415; 82553; 82550; 85025; 80053; 84484; 83880; 71046; 93010; J3490

== ENCOUNTER 2019-06-14 17:42 | Emergency (ER) | payer MEDICAID ==
[2019-06-14] MEDS ORDERED: IPRATROPIUM/ALBUTEROL 0.5-2.5 MG/3 ML AMPUL NEB ONE ×2 (17:54→19:31)
[2019-06-14] MEDS ORDERED: PREDNISONE 20 MG TABLET PO ONE (17:54)
--- NOTE | 2019-06-14 18:00 | ER Document Report ---
ED Medical Screen (RME) - General Chief Complaint: Psych Problem Stated Complaint: SUICIDAL IDEATION Time Seen by Provider: 06/14/19 17:57 Primary Care Provider: SMITA DOWNING MD [Primary Care Provider] - Follow up as needed Mode of Arrival: Ambulatory Information source: Patient Notes: 63-year-old female presents to ED for homicidal ideations. She states she is hearing voices that tell her to kill a woman by sticking her face and water. She states she does not know the man and she does not know the woman. She states the man says that she does not kill the woman that the man is going to kill her. She is short of breath as her usual state when she comes into the emergency room. The added concern is that she is having voices tell her to kill a woman. Patient does have some wheezing inspiratory none drive her expiratory. Will start treatments in the pit area. I have greeted and performed a rapid initial assessment of this patient. A comprehensive ED assessment and evaluation of the patient, analysis of test results and completion of medical decision making process will be conducted by an additional ED providers. TRAVEL OUTSIDE OF THE [place] IN LAST 30 DAYS: No - Related Data Allergies/Adverse Reactions: No Known Allergies Allergy (Verified 04/02/19 14:03) Past Medical History - Past Medical History Cardiac Medical History: Reports: Hx Atrial Fibrillation, Hx Congestive Heart Failure, Hx Hypercholesterolemia, Hx Hypertension Denies: Hx Coronary Artery Disease, Hx Heart Attack, Hx Pulmonary Embolism Pulmonary Medical History: Reports: Hx COPD Denies: Hx Asthma, Hx Bronchitis, Hx Pneumonia, Hx Tuberculosis Neurological Medical History: Denies: Hx Cerebrovascular Accident, Hx Seizures, Hx Parkinson's Disease Endocrine Medical History: Denies: Hx Hypothyroidism Renal/ Medical History: Denies: Hx End Stage Renal Disease, Hx Kidney Stones, Hx Peritoneal Dialysis GI Medical History: Denies: Hx Cirrhosis, Hx Gastroesophageal Reflux Disease, Hx Hepatitis, Hx Hiatal Hernia, Hx Ulcer Musculoskeltal Medical History: Denies Hx Arthritis, Denies Hx Fibromyalgia, Denies Hx Multiple Sclerosis Skin Medical History: Denies Hx Eczema, Denies Hx Psoriasis Psychiatric Medical History: Denies: Hx Bipolar Disorder, Hx Depression, Hx Schizophrenia Infectious Medical History: Denies: Hx Hepatitis Past Surgical History: Reports: Hx Breast Surgery - biopsy right breast, Other - she had a right breast biopsy, neg for malignancy. Denies: Hx Hysterectomy, Hx Mastectomy, Hx Open Heart Surgery, Hx Pacemaker - Immunizations Hx Diphtheria, Pertussis, Tetanus Vaccination: Yes Doctor's Discharge - Discharge Referrals: SMITA DOWNING MD [Primary Care Provider] - Follow up as needed
[2019-06-14] MEDS: ALBUTEROL SULFATE 0.083% NEB 2.5 MG/3 ML AMPUL NEB SCH ×2 (18:04→18:30)
[2019-06-14 19:31] LABS: ABSOLUTE BASOPHILS # (AUTO) 0.1 10^3/uL (0.0-0.2); ABSOLUTE LYMPHOCYTES (AUTO) 0.8 10^3/uL (0.5-4.7); ABSOLUTE MONOCYTES (AUTO) 0.8 10^3/uL (0.1-1.4); ABSOLUTE NEUT (AUTO) 5.6 10^3/uL (1.7-8.2); EOSINOPHILS % (AUTO) 0.1 % (0-6); HEMATOCRIT 38.7 % (36.0-47.0); HEMOGLOBIN 12.5 g/dL (12.0-15.5); MEAN CORPUSCULAR HEMOGLOBIN 29.2 pg (27.0-33.4); MEAN CORPUSCULAR HGB CONC 32.3 g/dL (32.0-36.0); MEAN CORPUSCULAR VOLUME 90 fl (80-97); MONOCYTES % (AUTO) 11.1 % (3-13); PLATELET COUNT 205 10^3/uL (150-450); RED BLOOD COUNT 4.29 10^6/uL (3.72-5.28); SEGMENTED NEUTROPHILS % (AUTO) 76.8 % (42-78); TOTAL CELLS COUNTED % (AUTO) 100 %; WHITE BLOOD COUNT 7.3 10^3/uL (4.0-10.5)
[2019-06-14 19:35] LABS: ACETAMINOPHEN < 10 ug/mL (10-30); ALBUMIN 4.4 g/dL (3.5-5.0); ALCOHOL < 10 mg/dL (NONE DETECTED); ALKALINE PHOSPHATASE 123 U/L (38-126); ANION GAP 17 (5-19); ASPARTATE AMINO TRANSFERASE 41 U/L (14-36); BILIRUBIN,DIRECT 0.8 mg/dL (0.0-0.4); BILIRUBIN,TOTAL 2.2 mg/dL (0.2-1.3); BLOOD UREA NITROGEN 15 mg/dL (7-20); CALCIUM 9.7 mg/dL (8.4-10.2); CARBON DIOXIDE 24 mmol/L (22-30); CHLORIDE 101 mmol/L (98-107); GLUCOSE 79 mg/dL (75-110); SALICYLATE 3.3 mg/dL (2.0-20.0)
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
[2019-06-14 20:21] LABS: TROPONIN I 0.034 ng/mL
[2019-06-14 20:33] LABS: APPEARANCE,URINE CLEAR; BILIRUBIN,URINE NEGATIVE (NEGATIVE); COLOR,URINE YELLOW; GLUCOSE, URINE NEGATIVE (NEGATIVE); KETONES,URINE TRACE mg/dL (NEGATIVE); LEUKOCYTE ESTERASE,URINE SMALL (NEGATIVE); NITRITE,URINE NEGATIVE (NEGATIVE); PROTEIN,URINE 30 mg/dL (NEGATIVE); URINE SPECIFIC GRAVITY 1.011; UROBILINOGEN,URINE NEGATIVE mg/dL (<2.0)
[2019-06-14 20:47] LABS: URINE AMPHETAMINES SCREEN NEGATIVE; URINE BARBITURATES SCREEN NEGATIVE; URINE BENZODIAZEPINES SCREEN NEGATIVE; URINE COCAINE SCREEN UNCONFIRMED POSITIVE; URINE MARIJUANA (THC) SCREEN NEGATIVE; URINE METHADONE SCREEN NEGATIVE; URINE PHENCYCLIDINE SCREEN NEGATIVE
[2019-06-14] MEDS ORDERED: FUROSEMIDE INJ/PF 20 MG/2 ML SDV IV ONE (23:13)
[2019-06-15] MEDS ORDERED: FUROSEMIDE INJ/PF 40 MG/4 ML SDV ONE (02:57)
[2019-06-15] MEDS ORDERED: ALBUTEROL SULFATE 0.083% NEB 2.5 MG/3 ML AMPUL NEB ONE (09:34)
--- NOTE | 2019-06-15 09:41 | ER Document Report ---
Doctor's Note Notes: 06/15/19 09:39 Chart reviewed. Called to patient's room due to excessive coughing. Patient reports she feels short of breath denies chest pain. Reports she has a history of CHF. Slight peripheral edema noted respiratory rate even unlabored no rhonchi no rales. Albuterol neb treatment with labs EKG chest x-ray ordered. PHYSICAL EXAMINATION: GENERAL: Well-appearing and in no acute distress HEAD: Atraumatic, normocephalic. EYES: Pupils equal round and reactive to light, extraocular movements intact, sclera anicteric, conjunctiva are normal. ENT: nares patent, oropharynx clear without exudates. Moist mucous membranes. NECK: Normal range of motion, supple without lymphadenopathy LUNGS: CTAB and equal. No wheezes rales or rhonchi. HEART: Regular rate and rhythm without murmurs ABDOMEN: Soft, no tenderness. No guarding, no rebound BACK: Denies pain EXTREMITIES: Normal range of motion, +1 pitting edema. No cyanosis. NEUROLOGICAL: Cranial nerves grossly intact. Normal sensory/motor exams. PSYCH: Normal mood, normal affect. SKIN: Warm, Dry, normal turgor, no rashes or lesions noted 06/15/19 14:43 BNP increased. Chest x-ray negative. Patient is resting quietly respiratory rate even unlabored. Consulted Dr. Arteaga he advises Lasix discharged to [facility]. 06/15/19 15:38 Patient's daughter here to take her to [facility]. Patient was reminded to take her Lasix as prescribed and all other prescribed medications. She is heart rate gets up when she gets excited. When she is sleeping is within normal limits. No shortness of breath no chest pain. She is very happy that her daughter is here to take her to [facility].
--- NOTE | 2019-06-15 09:58 | RADIOLOGY REPORT (SQ) ---
EXAM DESCRIPTION: CHEST 2 VIEWS COMPLETED DATE/TIME: 06/15/2019 9:43 am REASON FOR STUDY: CHEST COMPARISON: 06/13/2019 NUMBER OF VIEWS: Two view. TECHNIQUE: Frontal and lateral radiographic views of the chest acquired. LIMITATIONS: None. FINDINGS: LUNGS AND PLEURA: No opacities, masses or pneumothorax. No pleural effusion. MEDIASTINUM AND HILAR STRUCTURES: No masses. No contour abnormalities. HEART AND VASCULAR STRUCTURES: Heart enlarged without failure. Aorta normal for age. BONES: No acute findings. HARDWARE: None in the chest. OTHER: No other significant finding. IMPRESSION: CARDIAC ENLARGEMENT WITHOUT FAILURE. TECHNICAL DOCUMENTATION: JOB ID: [id number] [employer]- All Rights Reserved Reading location - IP/workstation name: [email or web address]
[2019-06-15 10:47] LABS: ABSOLUTE BASOPHILS # (AUTO) 0.1 10^3/uL (0.0-0.2); ABSOLUTE LYMPHOCYTES (AUTO) 0.7 10^3/uL (0.5-4.7); ABSOLUTE MONOCYTES (AUTO) 0.7 10^3/uL (0.1-1.4); BASOPHILS % (AUTO) 1.9 % (0-2); HEMATOCRIT 35.7 % (36.0-47.0); HEMOGLOBIN 11.9 g/dL (12.0-15.5); LYMPHOCYTES % (AUTO) 12.2 % (13-45); MEAN CORPUSCULAR HEMOGLOBIN 29.5 pg (27.0-33.4); MEAN CORPUSCULAR HGB CONC 33.3 g/dL (32.0-36.0); MEAN CORPUSCULAR VOLUME 89 fl (80-97); MONOCYTES % (AUTO) 12.5 % (3-13); PLATELET COUNT 185 10^3/uL (150-450); RED BLOOD COUNT 4.03 10^6/uL (3.72-5.28); RED CELL DISTRIBUTION WIDTH 15.4 % (11.5-14.0); SEGMENTED NEUTROPHILS % (AUTO) 73.4 % (42-78); TOTAL CELLS COUNTED % (AUTO) 100 %; WHITE BLOOD COUNT 5.5 10^3/uL (4.0-10.5)
[2019-06-15 11:09] LABS: ALBUMIN 3.9 g/dL (3.5-5.0); ALKALINE PHOSPHATASE 99 U/L (38-126); ANION GAP 13 (5-19); ASPARTATE AMINO TRANSFERASE 36 U/L (14-36); BILIRUBIN,DIRECT 0.6 mg/dL (0.0-0.4); BILIRUBIN,TOTAL 1.6 mg/dL (0.2-1.3); BLOOD UREA NITROGEN 19 mg/dL (7-20); CALCIUM 9.2 mg/dL (8.4-10.2); CARBON DIOXIDE 27 mmol/L (22-30); CHLORIDE 101 mmol/L (98-107); GLUCOSE 132 mg/dL (75-110); TOTAL PROTEIN 7.4 g/dL (6.3-8.2)
[2019-06-15 11:20] LABS: ARTERIAL BLOOD BASE EXCESS 2.8 mmol/L; ARTERIAL BLOOD H2CO3 1.11 mmol/L (1.05-1.35); ARTERIAL BLOOD HCO3 26.4 mmol/L (20-24); ARTERIAL BLOOD O2 SATURATION 97.4 % (94-98); ARTERIAL BLOOD PCO2 36.8 mmHg (35-45); ARTERIAL BLOOD PH 7.47 (7.35-7.45); ARTERIAL BLOOD PO2 89.8 mmHg (80-100); ARTERIAL BLOOD TOTAL CO2 27.5 mmol/L (21-25)
[2019-06-15 11:22] LABS: ARTERIAL BLOOD FIO2 ROOM AIR
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
[2019-06-15] MEDS ORDERED: FUROSEMIDE 40 MG TABLET PO ONE (13:02)
[2019-06-15 15:51] VITALS: BP 134/103
--- NOTE | 2019-06-15 20:03 | EKG REPORT ---
SEVERITY:- ABNORMAL ECG - ATRIAL FLUTTER WITH 2:1 AV BLOCK PROBABLE INFERIOR INFARCT, AGE INDETERMINATE : Confirmed by: Cindy Mandujano MD 15-Jun-2019 20:02:21
--- NOTE | 2019-06-17 08:05 | EKG REPORT ---
SEVERITY:- ABNORMAL ECG - SINUS OR ECTOPIC ATRIAL TACHYCARDIA PROBABLE INFERIOR INFARCT, AGE INDETERMINATE CONSIDER ANTEROLATERAL INFARCT : Confirmed by: Wing Casey MD 17-Jun-2019 08:05:19
== END 2019-06-15 15:48 | disposition home or self-care (01) ==
LOC: ER 17:42
DX: R44.1 Visual hallucinations (principal); E87.70 Fluid overload, unspecified; F14.10 Cocaine abuse, uncomplicated; Z91.14 Patient's other noncompliance with medication regimen; R45.851 Suicidal ideations; R06.02 Shortness of breath; I48.91 Unspecified atrial fibrillation; I50.9 Heart failure, unspecified; E78.00 Pure hypercholesterolemia, unspecified; I11.0 Hypertensive heart disease with heart failure
CPT/HCPCS: 93005; 94640 ×2; 99285; 96374; 36415; 80307 ×4; 82803; 82550; 85025; 80053; 81001; 84484; 83880; 71046; 93010; J1940; J3490; J7512; J7620

== ENCOUNTER 2019-06-16 01:28 | Inpatient (IN) | payer MEDICAID ==
[2019-06-16] MEDS ORDERED: IPRATROPIUM/ALBUTEROL 0.5-2.5 MG/3 ML AMPUL NEB ONE ×2 (01:38→02:37)
[2019-06-16] MEDS: ALBUTEROL SULFATE 0.083% NEB 2.5 MG/3 ML AMPUL NEB SCH (01:43)
[2019-06-16 02:51] LABS: ALBUMIN 3.7 g/dL (3.5-5.0); ALKALINE PHOSPHATASE 99 U/L (38-126); ANION GAP 10 (5-19); ASPARTATE AMINO TRANSFERASE 35 U/L (14-36); BILIRUBIN,DIRECT 0.6 mg/dL (0.0-0.4); BILIRUBIN,TOTAL 1.4 mg/dL (0.2-1.3); BLOOD UREA NITROGEN 22 mg/dL (7-20); CARBON DIOXIDE 27 mmol/L (22-30); CHLORIDE 103 mmol/L (98-107); GLUCOSE 115 mg/dL (75-110); POTASSIUM 3.2 mmol/L (3.6-5.0); TOTAL PROTEIN 7.1 g/dL (6.3-8.2)
[2019-06-16 03:02] LABS: ABSOLUTE LYMPHOCYTES (AUTO) 1.2 10^3/uL (0.5-4.7); ABSOLUTE MONOCYTES (AUTO) 0.6 10^3/uL (0.1-1.4); ABSOLUTE NEUT (AUTO) 4.5 10^3/uL (1.7-8.2); BASOPHILS % (AUTO) 0.6 % (0-2); EOSINOPHILS % (AUTO) 0.4 % (0-6); HEMOGLOBIN 11.6 g/dL (12.0-15.5); MEAN CORPUSCULAR HEMOGLOBIN 29.1 pg (27.0-33.4); MEAN CORPUSCULAR HGB CONC 32.3 g/dL (32.0-36.0); MEAN CORPUSCULAR VOLUME 90 fl (80-97); MONOCYTES % (AUTO) 9.4 % (3-13); PLATELET COUNT 208 10^3/uL (150-450); RED BLOOD COUNT 3.99 10^6/uL (3.72-5.28); SEGMENTED NEUTROPHILS % (AUTO) 70.6 % (42-78); TOTAL CELLS COUNTED % (AUTO) 100 %; WHITE BLOOD COUNT 6.4 10^3/uL (4.0-10.5)
[2019-06-16 03:03] LABS: TROPONIN I 0.031 ng/mL
--- NOTE | 2019-06-16 03:32 | RADIOLOGY REPORT (SQ) ---
Chest 2 view on 06/16/2019 at 2:44 AM CLINICAL INDICATION: Shortness of breath COMPARISON: 06/15/2019 FINDINGS: Mild cardiomegaly is noted. Vascular calcification is noted in the aorta. The lungs are clear. Hilar and mediastinal contours are within normal limits. No bony abnormality is noted. IMPRESSION: No significant change in the appearance of the chest.
[2019-06-16 04:42] LABS: APPEARANCE,URINE SLIGHTLY-CLOUDY; BILIRUBIN,URINE NEGATIVE (NEGATIVE); COLOR,URINE YELLOW; GLUCOSE, URINE NEGATIVE (NEGATIVE); KETONES,URINE NEGATIVE (NEGATIVE); LEUKOCYTE ESTERASE,URINE SMALL (NEGATIVE); NITRITE,URINE NEGATIVE (NEGATIVE); PROTEIN,URINE 30 mg/dL (NEGATIVE); URINE SPECIFIC GRAVITY 1.014; UROBILINOGEN,URINE NEGATIVE mg/dL (<2.0)
[2019-06-16 04:54] LABS: URINE AMPHETAMINES SCREEN NEGATIVE; URINE BARBITURATES SCREEN NEGATIVE; URINE BENZODIAZEPINES SCREEN NEGATIVE; URINE COCAINE SCREEN UNCONFIRMED POSITIVE; URINE MARIJUANA (THC) SCREEN NEGATIVE; URINE METHADONE SCREEN NEGATIVE; URINE PHENCYCLIDINE SCREEN NEGATIVE
--- NOTE | 2019-06-16 05:25 | ER Document Report ---
ED Respiratory Problem - General Chief Complaint: Shortness Of Breath Stated Complaint: RESPIRATORY DISTRESS Time Seen by Provider: 06/16/19 02:11 Notes: Ms. Richardson is a 63-year-old female with multiple medical problems including cirrhosis, COPD, hypertension, hyperlipidemia CHF, alcohol dependence, A. fib with RVR, cocaine abuse and medication noncompliance brought in by EMS for cough and shortness of breath. Patient states that she did not get her medications when discharged yesterday. She states she is not taking them as prescribed. She endorses some improvement in her lower extremity edema however her cough is significantly worse with ongoing wheezing. Patient states she is having ongoing coughing fits. She denies any new use of cocaine. She denies any fevers or chills. TRAVEL OUTSIDE OF THE [place] IN LAST 30 DAYS: No COUNTRY TRAVELED TO/FROM: [facility] - Related Data Allergies/Adverse Reactions: No Known Allergies Allergy (Verified 04/02/19 14:03) Past Medical History - Social History Smoking Status: Smoker,Current Status Unk Family History: CAD, CVA, Hypertension, Malignancy Patient has suicidal ideation: No Patient has homicidal ideation: No - Past Medical History Cardiac Medical History: Reports: Hx Atrial Fibrillation, Hx Congestive Heart Failure, Hx Hypercholesterolemia, Hx Hypertension Denies: Hx Coronary Artery Disease, Hx Heart Attack, Hx Pulmonary Embolism Pulmonary Medical History: Reports: Hx COPD Denies: Hx Asthma, Hx Bronchitis, Hx Pneumonia, Hx Tuberculosis Neurological Medical History: Denies: Hx Cerebrovascular Accident, Hx Seizures, Hx Parkinson's Disease Endocrine Medical History: Denies: Hx Hypothyroidism Renal/ Medical History: Denies: Hx End Stage Renal Disease, Hx Kidney Stones, Hx Peritoneal Dialysis GI Medical History: Denies: Hx Cirrhosis, Hx Gastroesophageal Reflux Disease, Hx Hepatitis, Hx Hiatal Hernia, Hx Ulcer Musculoskeletal Medical History: Denies Hx Arthritis, Denies Hx Fibromyalgia, Denies Hx Multiple Sclerosis Skin Medical History: Denies Hx Eczema, Denies Hx Psoriasis Psychiatric Medical History: Denies: Hx Bipolar Disorder, Hx Depression, Hx Schizophrenia Infectious Medical History: Denies: Hx Hepatitis Past Surgical History: Reports: Hx Breast Surgery - biopsy right breast, Other - she had a right breast biopsy, neg for malignancy. Denies: Hx Hysterectomy, Hx Mastectomy, Hx Open Heart Surgery, Hx Pacemaker - Immunizations Hx Diphtheria, Pertussis, Tetanus Vaccination: Yes Review of Systems - Review of Systems Constitutional: See HPI EENT: No symptoms reported Cardiovascular: No symptoms reported Respiratory: See HPI Gastrointestinal: No symptoms reported Genitourinary: No symptoms reported Female Genitourinary: No symptoms reported Musculoskeletal: No symptoms reported Skin: No symptoms reported Hematologic/Lymphatic: No symptoms reported Neurological/Psychological: No symptoms reported Physical Exam - Vital signs Vitals: Pulse Ox 98 06/16/19 01:41 Interpretation: Hypertensive, Tachycardic, Tachypneic - General General appearance: Appears well, Alert - HEENT Head: Normocephalic, Atraumatic Eyes: Normal Pupils: PERRL - Respiratory Respiratory status: No respiratory distress Chest status: Nontender Breath sounds: Decreased air movement, Nonproductive cough, Rhonchi, Wheezing Chest palpation: Normal - Cardiovascular Rhythm: Regular Heart sounds: Normal auscultation Murmur: No - Abdominal Inspection: Normal Distension: No distension Bowel sounds: Normal Tenderness: Nontender Organomegaly: No organomegaly - Back Back: Normal, Nontender - Extremities General upper extremity: Normal inspection, Nontender, Normal color, Normal ROM, Normal temperature General lower extremity: Nontender, Edema - 1+ pitting edema bilaterally. Improved from yesterday., Normal color, Normal ROM, Normal temperature, Normal weight bearing. No: Severo's sign - Neurological Neuro grossly intact: Yes Cognition: Normal Orientation: AAOx4 [place] Coma Scale Eye Opening: Spontaneous Shann[place] Coma Scale Verbal: Oriented Shannan Coma Scale Motor: Obeys Commands [place] Coma Scale Total: 15 Speech: Normal Motor strength normal: LUE, RUE, LLE, RLE Sensory: Normal - Psychological Associated symptoms: Normal affect, Normal mood - Skin Skin Temperature: Warm Skin Moisture: Dry Skin Color: Normal Course - Re-evaluation Re-evalutation: Patient is generally well-appearing and nontoxic. Initial vitals notable for tachycardia, tachypnea and elevated blood pressure. EKG nonischemic. Patient has multiple medical problems and is noncompliant with most medications and continues to smoke crack cocaine. She has been seen here over the past 3 days 3 times. Differential diagnosis includes COPD exacerbation, CHF exacerbation, pneumonia, URI. CBC does not show significant leukocytosis or left shift. H&H is slightly low but stable. BNP is elevated at 9000 but improved from yesterday. Patient was primarily wheezing and given multiple breathing treatment with significant improvement. However attempted to ambulate patient around nursing ED area at about 5 AM and the patient became acutely hypoxic to the low 90s and tachycardic to 130s. She was actively dyspneic and more short of breath. Chest x-ray does not show any significant change from the prior multiple x-rays done over the past few days here in the ED. 06/16/19 05:[address] Meléndez tele obs. - Vital Signs Vital signs: Temp Pulse Resp BP Pulse Ox 98.1 F 124 H 28 H 149/108 H 94 06/16/19 05:39 06/16/19 01:44 06/16/19 06:01 06/16/19 06:00 06/16/19 06:01 - Laboratory Result Diagrams: 06/16/19 02:25 06/16/19 02:25 Laboratory results interpreted by me: 06/16/19 06/16/19 06/16/19 02:25 02:25 02:25 Hgb 11.6 L RDW 16.0 H Potassium 3.2 L BUN 22 H Creatinine 1.28 H Est GFR ( Amer) 51 L Est GFR (MDRD) Non-Af 42 L Glucose 115 H Total Bilirubin 1.4 H Direct Bilirubin 0.6 H NT-Pro-B Natriuret Pep 9440 H Urine Protein Ur Leukocyte Esterase 06/16/19 04:01 Hgb RDW Potassium BUN Creatinine Est GFR ( Amer) Est GFR (MDRD) Non-Af Glucose Total Bilirubin Direct Bilirubin NT-Pro-B Natriuret Pep Urine Protein 30 H Ur Leukocyte Esterase SMALL H - EKG Interpretation by Tn EKG shows normal: [place], QRS Complexes, ST-T Waves Rate: Tachycardia Rhythm: A.Fib Additional EKG results interpreted by me: 06/16/19 06:39 Initial EKG performed at 1:55AM shows a heart rate of 140. However the patient was actively coughing during this EKG. Repeat EKG was performed 0206 AM shows a heart rate of 110 with atrial fibrillation. Discharge - Discharge Clinical Impression: COPD exacerbation, Hypoxia, Cocaine abuse CHF (congestive heart failure) Qualifiers: Heart failure type: unspecified Heart failure chronicity: acute on chronic Qualified Code(s): I50.9 - Heart failure, unspecified Condition: Good Disposition: ADMITTED OBSERVATION Admitting Provider: [facility] (Hospitalist) Unit Admitted: Telemetry
[2019-06-16] MEDS ORDERED: MAG HYDROX/AL HYDROX/SIMETH SUSP 30 ML UDCUP PO PRN (05:52)
[2019-06-16] MEDS ORDERED: ACETAMINOPHEN 325 MG TABLET PO PRN (05:52)
[2019-06-16] MEDS ORDERED: MAGNESIUM HYDROXIDE SUSP 30 ML UDCUP PO PRN (05:52)
--- NOTE | 2019-06-16 06:04 | PDOC H&P ---
History of Present Illness Admission Date/PCP: 06/16/19 05:39 SMITA DOWNING MD Patient complains of: Shortness of breath History of Present Illness: SAMARA COLLIER is a 63 year old female with a past medical history of diastolic heart failure, hypertension, COPD, alcohol, tobacco and cocaine abuse despite discharge for the same 1 week ago. She presents with shortness of breath, tachycardia, hypoxia. Imaging reveals pulmonary vascular congestion and labs reveal elevated BNP, hypokalemia and cocaine. She started on BiPAP, Lasix and referred to the hospitalist for admission. Patient is uncooperative with exam. Past Medical History Cardiac Medical History: Reports: Atrial Fibrillation, Congestive Heart Failure, Hyperlipidema, Hypertension Denies: Coronary Artery Disease, Myocardial Infarction, Pulmonary Embolism Pulmonary Medical History: Reports: Chronic Obstructive Pulmonary Disease (COPD) Denies: Asthma, Bronchitis, Pneumonia, Tuberculosis Neurological Medical History: Denies: Seizures Endocrine Medical History: Denies: Hypothyroidism Renal/ Medical History: Denies: End Stage Renal Disease GI Medical History: Denies: Cirrhosis, Gastroesophageal Reflux Disease, Hepatitis, Hiatal Hernia Musculoskeltal Medical History: Denies: Arthritis, Fibromyalgia Skin Medical History: Denies: Eczema, Psoriasis Psychiatric Medical History: Reports: Alcohol Dependency, Substance Abuse, Tobacco Dependency Denies: Bipolar Disorder, Depression Hematology: Denies: Anemia, Sickle Cell Disease, Bleeding Tendencies Past Surgical History Past Surgical History: Reports: Other - she had a right breast biopsy, neg for malignancy Denies: Amputation, Hysterectomy, Mastectomy, Pacemaker Social History Information Source: Patient, [facility] Records Smoking Status: Current Every Day Smoker Frequency of Alcohol Use: Heavy Hx Recreational Drug Use: No Drugs: Cocaine Hx Prescription Drug Abuse: No - Advance Directive Resuscitation Status: Full Code Family History Family History: CAD, CVA, Hypertension, Malignancy Parental Family History Reviewed: Yes Children Family History Reviewed: Yes Sibling(s) Family History Reviewed.: Yes Medication/Allergy Home Medications: Polyethylene Glycol 3350 [Miralax Powder 17 gm/Packet] 17 gm PO DAILY 06/01/19 Furosemide [Lasix 20 mg Tablet] 20 mg PO DAILY #30 tablet 06/08/19 Losartan Potassium [Cozaar 25 mg Tablet] 25 mg PO Q12 #60 tablet 06/08/19 Nicotine [Nicoderm Cq] 1 each TD DAILY #15 patch 06/08/19 Spironolactone [Aldactone 25 mg Tablet] 25 mg PO Q12 #60 tablet 06/08/19 Furosemide [Lasix 40 mg Tablet] 40 mg PO DAILY 5 Days #5 tablet 06/13/19 Allergies/Adverse Reactions: No Known Allergies Allergy (Verified 04/02/19 14:03) Review of Systems ROS unobtainable: Due to mental status - Uncooperative Physical Exam Vital Signs: Temp Pulse Resp BP Pulse Ox 98.1 F 124 H 26 H 131/98 H 94 06/16/19 05:39 06/16/19 01:44 06/16/19 04:01 06/16/19 04:00 06/16/19 04:01 Intake & Output 06/14/19 06/15/19 06/16/19 11:59 11:59 11:59 Weight 62.596 kg General appearance: PRESENT: disheveled, severe distress, well-developed, well-nourished. ABSENT: cooperative Head exam: PRESENT: atraumatic, normocephalic Eye exam: PRESENT: conjunctiva pink, EOMI, PERRLA. ABSENT: scleral icterus Ear exam: PRESENT: normal external ear exam Mouth exam: PRESENT: moist, tongue midline Neck exam: PRESENT: JVD. ABSENT: carotid bruit, lymphadenopathy, thyromegaly Respiratory exam: PRESENT: accessory muscle use, crackles, decreased breath sounds, prolonged expiratory phas, retraction, tachypnea Cardiovascular exam: PRESENT: gallop, +S1, +S2, tachycardia Pulses: PRESENT: normal dorsalis pedis pul Vascular exam: PRESENT: normal capillary refill GI/Abdominal exam: PRESENT: normal bowel sounds, soft. ABSENT: distended, guarding, mass, organolmegaly, rebound, tenderness Rectal exam: PRESENT: deferred Extremities exam: PRESENT: full ROM, +2 edema. ABSENT: tenderness Neurological exam: PRESENT: alert, awake, oriented to person, oriented to place, CN II-XII grossly intact Psychiatric exam: PRESENT: flat affect Skin exam: PRESENT: dry, intact, warm. ABSENT: cyanosis, rash Results Laboratory Results: 06/16/19 02:25 06/16/19 02:25 06/16/19 06/16/19 06/16/19 02:25 02:25 04:01 WBC 6.4 RBC 3.99 Hgb 11.6 L Hct 36.0 MCV 90 MCH 29.1 MCHC 32.3 RDW 16.0 H Plt Count 208 Seg Neutrophils % 70.6 Sodium 140.4 Potassium 3.2 L Chloride 103 Carbon Dioxide 27 Anion Gap 10 BUN 22 H Creatinine 1.28 H Est GFR ( Amer) 51 L Glucose 115 H Calcium 9.0 Total Bilirubin 1.4 H AST 35 Alkaline Phosphatase 99 Total Protein 7.1 Albumin 3.7 Urine Color YELLOW Urine Appearance SLIGHTLY-CLOUDY Urine pH 5.0 Ur Specific [place] 1.014 Urine Protein 30 H Urine Glucose (UA) NEGATIVE Urine Ketones NEGATIVE Urine Blood NEGATIVE Urine Nitrite NEGATIVE Ur Leukocyte Esterase SMALL H Urine WBC (Auto) 11 Urine RBC (Auto) 1 06/16/19 02:25 Troponin I 0.031 NT-Pro-B Natriuret Pep 9440 H Impressions: Chest X-Ray 06/16/19 01:38 IMPRESSION: No significant change in the appearance of the chest. Assessment and Plan - Diagnosis (1) CHF (congestive heart failure) Qualifiers: Heart failure type: unspecified Heart failure chronicity: acute on chronic Qualified Code(s): I50.9 - Heart failure, unspecified Is this a current diagnosis for this admission?: Yes Plan: Secondary to noncompliance and cocaine abuse. CHF care set deployed, fluid restriction, education (2) COPD exacerbation Is this a current diagnosis for this admission?: Yes Plan: Albuterol, Atrovent, supplemental oxygen and flutter valve (3) Cocaine abuse Is this a current diagnosis for this admission?: Yes Plan: Avoid beta blockade, supportive care (4) Hypokalemia Is this a current diagnosis for this admission?: Yes Plan: IV repletion, follow-up chemistry and magnesium level - Time Time Spent with patient: 25-34 minutes - Inpatient Certification Medical Necessity: Need Close Monitoring Due to Risk of Patient Decompensation
[2019-06-16] MEDS: HEPARIN SOD (PORCINE) 5,000 UNIT/ML 1 ML VIAL SUBCUT SCH ×3 (06:41→22:17)
[2019-06-16] MEDS: DILTIAZEM HCL 60 MG TABLET PO SCH ×4 (06:41→23:15)
[2019-06-16] MEDS: FUROSEMIDE INJ/PF 40 MG/4 ML SDV IV SCH ×2 (09:10→22:20)
[2019-06-16] MEDS: NITROGLYCERIN 2.5 MG (0.1 MG/HR) PATCH.TD24 TD SCH (09:11)
[2019-06-16] MEDS: ASPIRIN 81 MG TABLET, ENT COATED PO SCH (09:13)
[2019-06-16] MEDS ORDERED: ENALAPRIL MALEATE 10 MG TABLET PO SCH (10:00)
[2019-06-16] MEDS ORDERED: POTASSIUM CHLORIDE 10 MEQ TABLET.ER PO SCH (10:00)
[2019-06-16] MEDS: POTASSIUM CHLORIDE 20 MEQ PACKET PO SCH ×2 (11:35→22:19)
--- NOTE | 2019-06-16 12:06 | EKG REPORT ---
SEVERITY:- ABNORMAL ECG - SINUS OR ECTOPIC ATRIAL TACHYCARDIA PROBABLE INFERIOR INFARCT, AGE INDETERMINATE LATERAL LEADS ARE ALSO INVOLVED : Confirmed by: Cindy Mandujano MD 16-Jun-2019 12:05:04
--- NOTE | 2019-06-16 12:06 | EKG REPORT ---
SEVERITY:- ABNORMAL ECG - ATRIAL FIBRILLATION INFERIOR INFARCT, AGE INDETERMINATE LATERAL LEADS ARE ALSO INVOLVED BORDERLINE PROLONGED QT INTERVAL : Confirmed by: Cindy Mandujano MD 16-Jun-2019 12:05:01
--- NOTE | 2019-06-16 17:49 | PDOC PROGRESS REPORT ---
Subjective Progress Note for:: 06/16/19 Subjective:: The patient is a 63-year-old female with a past medical history of diastolic heart failure, atrial fibrillation, hypertension, hyperlipidemia, COPD, alcohol, tobacco, and cocaine abuse who was admitted 06/16/2019 for acute CHF exacerbation and COPD exacerbation. Patient was seen on morning rounds. She was found sitting up to the recliner, comfortably, on room air. She reports that she is feeling significantly better, though does continue to have shortness of breath with minimal activity. She denies fever, chills, chest pain, palpitation, orthopnea, cough, abdominal pain, nausea vomiting and diarrhea. She has no new questions or concerns. No concerns per nursing.. Reason For Visit: COCAINE ABUSE,HEART FAILURE Physical Exam Vital Signs: Temp Pulse Resp BP Pulse Ox 98.3 F 95 17 127/91 H 96 06/16/19 16:19 06/16/19 16:19 06/16/19 16:19 06/16/19 16:19 06/16/19 16:19 Intake & Output 06/15/19 06/16/19 06/17/19 06:59 06:59 06:59 Intake Total 240 Balance 240 Weight 62.596 kg General appearance: PRESENT: no acute distress, cooperative, well-developed, well-nourished Head exam: PRESENT: atraumatic, normocephalic Eye exam: PRESENT: conjunctiva pink, EOMI, PERRLA. ABSENT: scleral icterus Ear exam: PRESENT: normal external ear exam Mouth exam: PRESENT: moist, tongue midline Teeth exam: PRESENT: poor dentation Respiratory exam: PRESENT: crackles - Bibasilar, prolonged expiratory phas, symmetrical, unlabored. ABSENT: rales, rhonchi, wheezes Cardiovascular exam: PRESENT: RRR, +S1, +S2. ABSENT: diastolic murmur, rubs, systolic murmur Vascular exam: PRESENT: normal capillary refill Rectal exam: PRESENT: deferred Extremities exam: PRESENT: full ROM. ABSENT: calf tenderness, clubbing, pedal edema Musculoskeletal exam: PRESENT: ambulatory Neurological exam: PRESENT: alert, awake, oriented to person, oriented to place, oriented to time, oriented to situation, CN II-XII grossly intact. ABSENT: motor sensory deficit Psychiatric exam: PRESENT: appropriate affect, normal mood. ABSENT: homicidal ideation, suicidal ideation Skin exam: PRESENT: dry, intact, warm. ABSENT: cyanosis, rash Results Laboratory Results: 06/16/19 02:25 06/16/19 02:25 06/16/19 06/16/19 06/16/19 02:25 02:25 02:25 WBC 6.4 RBC 3.99 Hgb 11.6 L Hct 36.0 MCV 90 MCH 29.1 MCHC 32.3 RDW 16.0 H Plt Count 208 Seg Neutrophils % 70.6 Sodium 140.4 Potassium 3.2 L Chloride 103 Carbon Dioxide 27 Anion Gap 10 BUN 22 H Creatinine 1.28 H Est GFR ( Amer) 51 L Glucose 115 H Calcium 9.0 Magnesium 2.0 Total Bilirubin 1.4 H AST 35 Alkaline Phosphatase 99 Total Protein 7.1 Albumin 3.7 Urine Color Urine Appearance Urine pH Ur Specific [place] Urine Protein Urine Glucose (UA) Urine Ketones Urine Blood Urine Nitrite Ur Leukocyte Esterase Urine WBC (Auto) Urine RBC (Auto) 06/16/19 04:01 WBC RBC Hgb Hct MCV MCH MCHC RDW Plt Count Seg Neutrophils % Sodium Potassium Chloride Carbon Dioxide Anion Gap BUN Creatinine Est GFR ( Amer) Glucose Calcium Magnesium Total Bilirubin AST Alkaline Phosphatase Total Protein Albumin Urine Color YELLOW Urine Appearance SLIGHTLY-CLOUDY Urine pH 5.0 Ur Specific [place] 1.014 Urine Protein 30 H Urine Glucose (UA) NEGATIVE Urine Ketones NEGATIVE Urine Blood NEGATIVE Urine Nitrite NEGATIVE Ur Leukocyte Esterase SMALL H Urine WBC (Auto) 11 Urine RBC (Auto) 1 06/16/19 06/16/19 06/16/19 02:25 08:34 08:34 Creatine Kinase 36 Troponin I 0.031 0.018 NT-Pro-B Natriuret Pep 9440 H 06/16/19 06/16/19 14:37 14:37 Creatine Kinase 35 Troponin I 0.016 NT-Pro-B Natriuret Pep Impressions: Chest X-Ray 06/16/19 01:38 IMPRESSION: No significant change in the appearance of the chest. Assessment and Plan - Diagnosis (1) CHF (congestive heart failure) Qualifiers: Heart failure type: unspecified Heart failure chronicity: acute on chronic Qualified Code(s): I50.9 - Heart failure, unspecified Is this a current diagnosis for this admission?: Yes Plan: Secondary to noncompliance and cocaine abuse. The patient is admitted to the medical floor and continuous cardiac telemetry. She is placed on diltiazem. Her home dose losartan and spironolactone. She is currently receiving IV furosemide for diuresis. She is placed on a cardiac diet. Daily weights and strict I&O's. The registered dietitian and patient educator consulted. Discharge planning is consulted. (2) COPD exacerbation Is this a current diagnosis for this admission?: Yes Plan: Significantly improved. Patient is provided supplemental oxygen as needed to maintain saturations greater than 89%. She is provided as needed nebulizer treatments. There are no indications for antibiotic or steroid therapy at this time. (3) Cocaine abuse Is this a current diagnosis for this admission?: Yes Plan: Avoid beta blockade, supportive care Discharge planning is consulted. (4) Hypokalemia Is this a current diagnosis for this admission?: Yes Plan: IV repletion, follow-up chemistry and magnesium level - Time Time Spent with patient: 15-24 minutes Medications reviewed and adjusted accordingly: Yes Anticipated discharge: Home Within: within 48 hours
[2019-06-16] MEDS: SPIRONOLACTONE 25 MG TABLET PO SCH (22:20)
[2019-06-16] MEDS: LOSARTAN POTASSIUM 25 MG TABLET PO SCH (22:20)
[2019-06-17] MEDS: DILTIAZEM HCL 60 MG TABLET PO SCH ×4 (05:24→23:09)
[2019-06-17] MEDS: HEPARIN SOD (PORCINE) 5,000 UNIT/ML 1 ML VIAL SUBCUT SCH ×2 (05:24→13:51)
[2019-06-17 06:07] LABS: HEMATOCRIT 36.4 % (36.0-47.0); HEMOGLOBIN 12.1 g/dL (12.0-15.5); MEAN CORPUSCULAR HEMOGLOBIN 29.4 pg (27.0-33.4); MEAN CORPUSCULAR HGB CONC 33.1 g/dL (32.0-36.0); MEAN CORPUSCULAR VOLUME 89 fl (80-97); PLATELET COUNT 233 10^3/uL (150-450); RED CELL DISTRIBUTION WIDTH 15.2 % (11.5-14.0); WHITE BLOOD COUNT 7.7 10^3/uL (4.0-10.5)
[2019-06-17 06:24] LABS: ANION GAP 12 (5-19); BLOOD UREA NITROGEN 23 mg/dL (7-20); CALCIUM 9.3 mg/dL (8.4-10.2); CARBON DIOXIDE 26 mmol/L (22-30); CHLORIDE 103 mmol/L (98-107); GLUCOSE 127 mg/dL (75-110); POTASSIUM 4.8 mmol/L (3.6-5.0)
[2019-06-17 06:58] LABS: ABSOLUTE LYMPHOCYTES# (MANUAL) 0.8 10^3/uL (0.5-4.7); ABSOLUTE MONOCYTES # (MANUAL) 0.5 10^3/uL (0.1-1.4); BAND NEUTROPHILS % (MANUAL) 5 % (3-5); BASOPHILS % (MANUAL) 0 % (0-2); EOSINOPHILS % (MANUAL) 1 % (0-6); LYMPHOCYTES % (MANUAL) 10 % (13-45); MONOCYTES % (MANUAL) 7 % (3-13); NUCLEATED RED BLOOD CELLS 1 /100 WBC (0); SEGMENTED NEUTROPHILS % (MAN) 77 % (42-78); TOTAL CELLS COUNTED 100
[2019-06-17 06:59] LABS: ANISOCYTOSIS 1+; PLATELET COMMENT ADEQUATE; POLYCHROMASIA 1+; TARGET CELLS 1+; TEAR DROP CELLS 1+
[2019-06-17] MEDS ORDERED: FUROSEMIDE 20 MG TABLET PO SCH (10:00)
[2019-06-17] MEDS: ASPIRIN 81 MG TABLET, ENT COATED PO SCH (11:12)
[2019-06-17] MEDS: POTASSIUM CHLORIDE 20 MEQ PACKET PO SCH ×2 (11:13→21:12)
[2019-06-17] MEDS: POLYETHYLENE GLYCOL 3350 POWDER 17 GM/1 PACKET PO SCH (11:14)
[2019-06-17] MEDS: FUROSEMIDE 40 MG TABLET PO SCH (11:14)
[2019-06-17] MEDS: LOSARTAN POTASSIUM 25 MG TABLET PO SCH ×2 (11:14→21:12)
[2019-06-17] MEDS: SPIRONOLACTONE 25 MG TABLET PO SCH ×2 (11:14→21:12)
[2019-06-17] MEDS: NITROGLYCERIN 2.5 MG (0.1 MG/HR) PATCH.TD24 TD SCH (11:24)
--- NOTE | 2019-06-17 18:01 | PDOC PROGRESS REPORT ---
Subjective Progress Note for:: 06/17/19 Subjective:: The patient is a 63-year-old female with a past medical history of diastolic heart failure, atrial fibrillation, hypertension, hyperlipidemia, COPD, alcohol, tobacco, and cocaine abuse who was admitted 06/16/2019 for acute CHF exacerbation and COPD exacerbation. Patient was seen on afternoon rounds. She was found sitting up to the edge of the bed, comfortably, on room air eating her breakfast. She reports that she is feeling significantly better, though does continue to have shortness of breath with minimal activity. She also notes increased abdominal distention with continued leaking from her paracentesis site (done during her last admission). She denies fever, chills, chest pain, palpitation, orthopnea, cough, abdominal pain, nausea vomiting and diarrhea. She has no new questions or concerns. No concerns per nursing. Reason For Visit: COCAINE ABUSE,HEART FAILURE Physical Exam Vital Signs: Temp Pulse Resp BP Pulse Ox 97.5 F 70 22 H 122/87 H 100 06/17/19 15:48 06/17/19 15:48 06/17/19 15:48 06/17/19 15:48 06/17/19 15:48 Intake & Output 06/16/19 06/17/19 06/18/19 06:59 06:59 06:59 Intake Total 1250 400 Output Total 325 Balance 925 400 Weight 62.596 kg 65.5 kg General appearance: PRESENT: no acute distress, cooperative, well-developed, well-nourished - overweight Head exam: PRESENT: atraumatic, normocephalic Eye exam: PRESENT: conjunctiva pink, EOMI, PERRLA. ABSENT: scleral icterus Ear exam: PRESENT: normal external ear exam Mouth exam: PRESENT: moist, tongue midline Teeth exam: PRESENT: poor dentation Neck exam: ABSENT: carotid bruit, JVD, lymphadenopathy, thyromegaly Respiratory exam: PRESENT: crackles - bibasilar, symmetrical, unlabored, other - room air. ABSENT: rales, rhonchi, wheezes Cardiovascular exam: PRESENT: RRR, +S1, +S2. ABSENT: diastolic murmur, rubs, systolic murmur Pulses: PRESENT: normal dorsalis pedis pul Vascular exam: PRESENT: normal capillary refill GI/Abdominal exam: PRESENT: ascites, distended, normal bowel sounds, soft, other - cloudy yellow fluid draining from paracentesis site. ABSENT: guarding, mass, organolmegaly, rebound, tenderness Rectal exam: PRESENT: deferred Extremities exam: PRESENT: full ROM. ABSENT: calf tenderness, clubbing, pedal edema Musculoskeletal exam: PRESENT: ambulatory Neurological exam: PRESENT: alert, awake, oriented to person, oriented to place, oriented to time, oriented to situation, CN II-XII grossly intact. ABSENT: motor sensory deficit Psychiatric exam: PRESENT: appropriate affect, normal mood. ABSENT: homicidal ideation, suicidal ideation Skin exam: PRESENT: dry, intact, warm. ABSENT: cyanosis, rash Results Laboratory Results: 06/17/19 05:28 06/17/19 05:28 06/17/19 06/17/19 05:28 05:28 WBC 7.7 RBC 4.10 Hgb 12.1 Hct 36.4 MCV 89 MCH 29.4 MCHC 33.1 RDW 15.2 H Plt Count 233 Seg Neutrophils % Not Reportable Sodium 141.2 Potassium 4.8 Chloride 103 Carbon Dioxide 26 Anion Gap 12 BUN 23 H Creatinine 1.18 Est GFR ( Amer) 56 L Glucose 127 H Calcium 9.3 06/16/19 06/16/19 06/16/19 02:25 08:34 08:34 Creatine Kinase 36 Troponin I 0.031 0.018 NT-Pro-B Natriuret Pep 9440 H 06/16/19 06/16/19 06/16/19 14:37 14:37 20:45 Creatine Kinase 35 34 Troponin I 0.016 NT-Pro-B Natriuret Pep 06/16/19 20:45 Creatine Kinase Troponin I 0.015 NT-Pro-B Natriuret Pep Impressions: Chest X-Ray 06/16/19 01:38 IMPRESSION: No significant change in the appearance of the chest. Assessment and Plan - Diagnosis (1) CHF (congestive heart failure) Qualifiers: Heart failure type: unspecified Heart failure chronicity: acute on chronic Qualified Code(s): I50.9 - Heart failure, unspecified Is this a current diagnosis for this admission?: Yes Plan: Echocardiogram (12/04/18) LVEF 60%, nml diastolic function, mild to moderate pulmonary htn proBNP 9k The patient is admitted to the medical floor and continuous cardiac telemetry. She is placed on diltiazem and her her home dose losartan Now on spironolacton 100 mg daily and furosemide 40 mg daily Avoiding Betablockade 2/2 continued cocaine use She is placed on a cardiac diet. Daily weights and strict I&O's. The registered dietitian and patient educator consulted. Discharge planning is consulted. (2) COPD exacerbation Is this a current diagnosis for this admission?: Yes Plan: Resolved. Patient is provided supplemental oxygen as needed to maintain saturations greater than 89%. She is provided as needed nebulizer treatments. There are no indications for antibiotic or steroid therapy at this time. (3) Cocaine abuse Is this a current diagnosis for this admission?: Yes Plan: Avoid beta blockade, supportive care Discharge planning is consulted. (4) Hypokalemia Is this a current diagnosis for this admission?: Yes Plan: Resolved. Follow up chemistries. (5) Ascites Qualifiers: Ascites type: due to alcoholic cirrhosis Qualified Code(s): K70.31 - Alcoholic cirrhosis of liver with ascites Is this a current diagnosis for this admission?: Yes Plan: Complicated by CHF. Hepatitis panel is negative. Management of CHF as above. Repeat paracentesis tomorrow. Prior site continues to leak fluid (from 06/03/19). If follow up cultures are negative (low suspicion for bacterial peritonitis as patient is afebrile and with normal WBCs) can trial Dermabond to stop leakage. Currently has ostomy bag in place for collection of fluid.
[2019-06-18] MEDS: DILTIAZEM HCL 60 MG TABLET PO SCH ×4 (05:08→17:12)
[2019-06-18 06:21] LABS: HEMATOCRIT 36.9 % (36.0-47.0); MEAN CORPUSCULAR HEMOGLOBIN 29.1 pg (27.0-33.4); MEAN CORPUSCULAR HGB CONC 32.7 g/dL (32.0-36.0); MEAN CORPUSCULAR VOLUME 89 fl (80-97); PLATELET COUNT 232 10^3/uL (150-450); RED BLOOD COUNT 4.14 10^6/uL (3.72-5.28); RED CELL DISTRIBUTION WIDTH 15.3 % (11.5-14.0); WHITE BLOOD COUNT 7.9 10^3/uL (4.0-10.5)
[2019-06-18 06:36] LABS: ALBUMIN 3.5 g/dL (3.5-5.0); ALKALINE PHOSPHATASE 80 U/L (38-126); ANION GAP 13 (5-19); ASPARTATE AMINO TRANSFERASE 37 U/L (14-36); BILIRUBIN,DIRECT 0.4 mg/dL (0.0-0.4); BILIRUBIN,TOTAL 1.1 mg/dL (0.2-1.3); BLOOD UREA NITROGEN 29 mg/dL (7-20); CALCIUM 9.3 mg/dL (8.4-10.2); CARBON DIOXIDE 25 mmol/L (22-30); CHLORIDE 104 mmol/L (98-107); GLUCOSE 92 mg/dL (75-110); POTASSIUM 4.8 mmol/L (3.6-5.0); TOTAL PROTEIN 6.7 g/dL (6.3-8.2)
[2019-06-18 06:40] LABS: INTERNATIONAL RATION (INR) 1.19; PARTIAL THROMBOPLASTIN TIME 26.1 SEC (23.5-35.8); PROTHROMBIN TIME 15.2 SEC (11.4-15.4)
[2019-06-18] MEDS: POLYETHYLENE GLYCOL 3350 POWDER 17 GM/1 PACKET PO SCH (09:47)
[2019-06-18] MEDS: FUROSEMIDE 40 MG TABLET PO SCH (09:50)
[2019-06-18] MEDS: LOSARTAN POTASSIUM 25 MG TABLET PO SCH ×2 (09:50→22:01)
[2019-06-18] MEDS: NITROGLYCERIN 2.5 MG (0.1 MG/HR) PATCH.TD24 TD SCH (09:50)
[2019-06-18] MEDS: SPIRONOLACTONE 25 MG TABLET PO SCH ×2 (09:50→22:01)
[2019-06-18] MEDS: POTASSIUM CHLORIDE 20 MEQ PACKET PO SCH ×2 (09:51→22:01)
--- NOTE | 2019-06-18 10:21 | RADIOLOGY REPORT (SQ) ---
EXAM DESCRIPTION: U/S ABD PARACENTESIS COMPLETED DATE/TIME: 06/18/2019 9:45 am REASON FOR STUDY: Ascites COMPARISON: 06/07/2019 LIMITATIONS: None. PROCEDURE: Procedure, risks, benefit, and alternative explained to patient who then gave written con sent. The right lower abdominal wall marked using ultrasound guidance. A time-out was called for c orrect marking verification. Abdomen prepped and draped using sterile technique. Local anesthesia ac hieved using 10 ml of 1% lidocaine injection. A 6fr [id number] set was introduced into the mack toneal cavity. Fluid was drained. The catheter was removed and entry site was covered with sterile bandage. No immediate complications noted. Images acquired during the procedure were stored on PACS. FINDINGS: ENTRY SITE: Right lower quadrant FLUID VOLUME: 4,000 cc FLUID ANALYSIS: Cloudy straw-colored OTHER: Fluid sent to the lab for testing. IMPRESSION: SUCCESSFUL ULTRASOUND GUIDED PARACENTESIS. COMMENT: Patient medication list reviewed:Yes- Quality ID# [id number]:Eligible professional attests to docu menting in the medical record they obtained, updated, or reviewed the patient's current medications. TECHNICAL DOCUMENTATION: JOB ID: [id number] [employer]- All Rights Reserved Reading location - IP/workstation name: [email or web address]
[2019-06-18 11:48] LABS: FLUID APPEARANCE CLOUDY; FLUID COLOR YELLOW; FLUID SOURCE ABDOMEN; FLUID TYPE PERITONEAL; FLUID VISCOSITY SLIGHTLY VISCOUS
--- NOTE | 2019-06-18 13:42 | PDOC PROGRESS REPORT ---
Subjective Progress Note for:: 06/18/19 Subjective:: The patient is a 63-year-old female with a past medical history of diastolic heart failure, atrial fibrillation, hypertension, hyperlipidemia, COPD, alcohol, tobacco, and cocaine abuse who was admitted 06/16/2019 for acute CHF exacerbation and COPD exacerbation. 06/18/2018. No acute events overnight. Patient is status post paracentesis today. Enjoying her lunch, in no acute distress, denying any fever, chills, nausea, vomiting, diarrhea, constipation or any urinary symptoms. Reason For Visit: COCAINE ABUSE,HEART FAILURE Physical Exam Vital Signs: Temp Pulse Resp BP Pulse Ox 97.5 F 69 18 116/80 98 06/18/19 10:58 06/18/19 10:58 06/18/19 10:58 06/18/19 10:58 06/18/19 10:58 Intake & Output 06/17/19 06/18/19 06/19/19 06:59 06:59 06:59 Intake Total 1250 600 Output Total 325 450 Balance 925 150 Weight 65.5 kg 65.5 kg General appearance: PRESENT: no acute distress, obese, well-developed, well- nourished Respiratory exam: PRESENT: clear to auscultation adelso. ABSENT: rales, rhonchi, wheezes Cardiovascular exam: PRESENT: RRR. ABSENT: diastolic murmur, rubs, systolic murmur GI/Abdominal exam: PRESENT: normal bowel sounds, soft. ABSENT: distended, guarding, mass, organolmegaly, rebound, tenderness Extremities exam: PRESENT: +1 edema Neurological exam: PRESENT: alert, awake, oriented to person, oriented to place, CN II-XII grossly intact. ABSENT: motor sensory deficit Results Laboratory Results: 06/18/19 06:11 06/18/19 06:11 06/18/19 06/18/19 06/18/19 06:11 06:11 08:50 WBC 7.9 RBC 4.14 Hgb 12.0 Hct 36.9 MCV 89 MCH 29.1 MCHC 32.7 RDW 15.3 H Plt Count 232 Sodium 141.9 Potassium 4.8 Chloride 104 Carbon Dioxide 25 Anion Gap 13 BUN 29 H Creatinine 1.23 Est GFR ( Amer) 53 L Glucose 92 Calcium 9.3 Total Bilirubin 1.1 AST 37 H Alkaline Phosphatase 80 Total Protein 6.7 Albumin 3.5 Fluid Type PERITONEAL Fluid Source ABDOMEN Fluid Color YELLOW Fluid Appearance CLOUDY Fluid Viscosity SLIGHTLY VISCOUS Fluid WBC 317 Fluid RBC 4972 06/16/19 06/16/19 06/16/19 02:25 08:34 08:34 Creatine Kinase 36 Troponin I 0.031 0.018 NT-Pro-B Natriuret Pep 9440 H 06/16/19 06/16/19 06/16/19 14:37 14:37 20:45 Creatine Kinase 35 34 Troponin I 0.016 NT-Pro-B Natriuret Pep 06/16/19 06/18/19 20:45 06:11 Creatine Kinase Troponin I 0.015 NT-Pro-B Natriuret Pep 4130 H Impressions: Chest X-Ray 06/16/19 01:38 IMPRESSION: No significant change in the appearance of the chest. Paracentesis Ultrasound 06/18/19 00:00 IMPRESSION: SUCCESSFUL ULTRASOUND GUIDED PARACENTESIS. Assessment and Plan - Diagnosis (1) CHF (congestive heart failure) Qualifiers: Heart failure type: unspecified Heart failure chronicity: acute on chronic Qualified Code(s): I50.9 - Heart failure, unspecified Is this a current diagnosis for this admission?: Yes Plan: Acute lower right systolic and diastolic dysfunction most likely due to noncompliance. proBNP 4130. From 9440 on admission. Baseline 8-12,000 within last year. Echocardiogram (12/04/18) LVEF 60%, nml diastolic function, mild to moderate pulmonary htn Continue RICA, spironolactone, diuretics. Strict in and out. Cardiac diet. Daily weights. Avoid beta-blockers due to history of cocaine abuse. (2) COPD exacerbation Is this a current diagnosis for this admission?: Yes Plan: Resolved. Patient is provided supplemental oxygen as needed to maintain saturations greater than 89%. She is provided as needed nebulizer treatments. There are no indications for antibiotic or steroid therapy at this time. (3) Ascites Qualifiers: Ascites type: due to alcoholic cirrhosis Qualified Code(s): K70.31 - Alcoholic cirrhosis of liver with ascites Is this a current diagnosis for this admission?: Yes Plan: Given history of chronic alcohol abuse and recurrent ascites patient may have underlying cirrhosis. Has not been evaluated by gastroenterology. Hepatitis panel negative. Status post paracentesis 06/28/2019 4 L removed. Fluid analysis shows WBC 317 with neutrophil count of 27. Afebrile. Denies any abdominal pain. Unlikely patient has SBP. Prior site continues to leak fluid (from 06/03/19). Can trial Dermabond to stop leakage. Currently has ostomy bag in place for collection of fluid. Continue fluid restriction, Lasix, Spironolactone. Outpatient gastroenterology follow-up. (4) Cocaine abuse Is this a current diagnosis for this admission?: Yes
[2019-06-19] MEDS: DILTIAZEM HCL 60 MG TABLET PO SCH ×2 (01:12→05:11)
[2019-06-19 06:26] LABS: ALBUMIN 3.5 g/dL (3.5-5.0); ALKALINE PHOSPHATASE 78 U/L (38-126); ANION GAP 9 (5-19); ASPARTATE AMINO TRANSFERASE 39 U/L (14-36); BILIRUBIN,DIRECT 0.4 mg/dL (0.0-0.4); BILIRUBIN,TOTAL 1.2 mg/dL (0.2-1.3); BLOOD UREA NITROGEN 25 mg/dL (7-20); CALCIUM 9.3 mg/dL (8.4-10.2); CARBON DIOXIDE 30 mmol/L (22-30); CHLORIDE 102 mmol/L (98-107); GLUCOSE 110 mg/dL (75-110); POTASSIUM 4.7 mmol/L (3.6-5.0); TOTAL PROTEIN 6.9 g/dL (6.3-8.2)
[2019-06-19 06:28] LABS: ABSOLUTE BASOPHILS # (AUTO) 0.1 10^3/uL (0.0-0.2); ABSOLUTE LYMPHOCYTES (AUTO) 1.2 10^3/uL (0.5-4.7); ABSOLUTE MONOCYTES (AUTO) 0.6 10^3/uL (0.1-1.4); ABSOLUTE NEUT (AUTO) 4.8 10^3/uL (1.7-8.2); EOSINOPHILS % (AUTO) 0.4 % (0-6); HEMATOCRIT 39.2 % (36.0-47.0); HEMOGLOBIN 12.9 g/dL (12.0-15.5); LYMPHOCYTES % (AUTO) 18.1 % (13-45); MEAN CORPUSCULAR HEMOGLOBIN 29.2 pg (27.0-33.4); MEAN CORPUSCULAR HGB CONC 32.8 g/dL (32.0-36.0); MEAN CORPUSCULAR VOLUME 89 fl (80-97); PLATELET COUNT 235 10^3/uL (150-450); RED BLOOD COUNT 4.41 10^6/uL (3.72-5.28); RED CELL DISTRIBUTION WIDTH 15.6 % (11.5-14.0); SEGMENTED NEUTROPHILS % (AUTO) 70.5 % (42-78); TOTAL CELLS COUNTED % (AUTO) 100 %; WHITE BLOOD COUNT 6.9 10^3/uL (4.0-10.5)
[2019-06-19] MEDS: LOSARTAN POTASSIUM 25 MG TABLET PO SCH ×2 (09:37→22:03)
[2019-06-19] MEDS: POLYETHYLENE GLYCOL 3350 POWDER 17 GM/1 PACKET PO SCH (09:37)
[2019-06-19] MEDS: NITROGLYCERIN 2.5 MG (0.1 MG/HR) PATCH.TD24 TD SCH (09:38)
[2019-06-19] MEDS: DILTIAZEM HCL 180 MG CAPSULE.CR PO SCH (09:38)
[2019-06-19] MEDS: POTASSIUM CHLORIDE 20 MEQ PACKET PO SCH ×2 (09:38→22:03)
[2019-06-19] MEDS: SPIRONOLACTONE 25 MG TABLET PO SCH (09:38)
[2019-06-19] MEDS: FUROSEMIDE 40 MG TABLET PO SCH (09:39)
--- NOTE | 2019-06-19 11:49 | PDOC PROGRESS REPORT ---
Subjective Progress Note for:: 06/19/19 Subjective:: The patient is a 63-year-old female with a past medical history of diastolic heart failure, atrial fibrillation, hypertension, hyperlipidemia, COPD, alcohol, tobacco, and cocaine abuse who was admitted 06/16/2019 for acute CHF exacerbation and COPD exacerbation. 06/18/2019. No acute events overnight. Patient is status post paracentesis today. Enjoying her lunch, in no acute distress, denying any fever, chills, nausea, vomiting, diarrhea, constipation or any urinary symptoms. 06/19/2019. No acute events overnight. Resting in bed comfortably. In no apparent distress, denies any fever, chills, nausea, vomiting, diarrhea, constipation or any urinary symptoms. Patient still has 1+ pitting edema in bilateral lower extremities. Reason For Visit: COCAINE ABUSE,HEART FAILURE Physical Exam Vital Signs: Temp Pulse Resp BP Pulse Ox 98.4 F 68 17 121/78 95 06/19/19 07:44 06/19/19 07:44 06/19/19 07:44 06/19/19 07:44 06/19/19 07:44 Intake & Output 06/18/19 06/19/19 06/20/19 06:59 06:59 06:59 Intake Total 600 920 Output Total 450 Balance 150 920 Weight 65.5 kg 65.2 kg General appearance: PRESENT: no acute distress, well-developed, well-nourished Head exam: PRESENT: atraumatic, normocephalic Respiratory exam: PRESENT: clear to auscultation adelso. ABSENT: rales, rhonchi, wheezes GI/Abdominal exam: PRESENT: normal bowel sounds, soft. ABSENT: distended, guarding, mass, organolmegaly, rebound, tenderness Extremities exam: PRESENT: +1 edema Neurological exam: PRESENT: alert, awake, oriented to person, oriented to place, oriented to time, oriented to situation, CN II-XII grossly intact. ABSENT: motor sensory deficit Results Laboratory Results: 06/19/19 05:32 06/19/19 05:32 06/18/19 06/19/19 06/19/19 08:50 05:32 05:32 WBC 6.9 RBC 4.41 Hgb 12.9 Hct 39.2 MCV 89 MCH 29.2 MCHC 32.8 RDW 15.6 H Plt Count 235 Seg Neutrophils % 70.5 Sodium 141.0 Potassium 4.7 Chloride 102 Carbon Dioxide 30 Anion Gap 9 BUN 25 H Creatinine 1.37 H Est GFR ( Amer) 47 L Glucose 110 Calcium 9.3 Magnesium 2.0 Total Bilirubin 1.2 AST 39 H Alkaline Phosphatase 78 Total Protein 6.9 Albumin 3.5 Fluid Type PERITONEAL Fluid Source ABDOMEN Fluid Color YELLOW Fluid Appearance CLOUDY Fluid Viscosity SLIGHTLY VISCOUS Fluid WBC 317 Fluid RBC 4972 06/16/19 06/16/19 06/16/19 02:25 08:34 08:34 Creatine Kinase 36 Troponin I 0.031 0.018 NT-Pro-B Natriuret Pep 9440 H 06/16/19 06/16/19 06/16/19 14:37 14:37 20:45 Creatine Kinase 35 34 Troponin I 0.016 NT-Pro-B Natriuret Pep 06/16/19 06/18/19 20:45 06:11 Creatine Kinase Troponin I 0.015 NT-Pro-B Natriuret Pep 4130 H Impressions: Chest X-Ray 06/16/19 01:38 IMPRESSION: No significant change in the appearance of the chest. Paracentesis Ultrasound 06/18/19 00:00 IMPRESSION: SUCCESSFUL ULTRASOUND GUIDED PARACENTESIS. Assessment and Plan - Diagnosis (1) CHF (congestive heart failure) Qualifiers: Heart failure type: unspecified Heart failure chronicity: acute on chronic Qualified Code(s): I50.9 - Heart failure, unspecified Is this a current diagnosis for this admission?: Yes Plan: Improving. Acute lower right systolic and diastolic dysfunction most likely due to non compliance. proBNP 4130. From 9440 on admission. Baseline 8-12,000 within last year. Echocardiogram (12/04/18) LVEF 60%, nml diastolic function, mild to moderate pulmonary htn Continue ARB, spironolactone, diuretics. Strict in and out. Cardiac diet. Daily weights. Avoid beta-blockers due to history of cocaine abuse. (2) COPD exacerbation Is this a current diagnosis for this admission?: Yes Plan: Resolved. Patient is provided supplemental oxygen as needed to maintain saturations greater than 89%. She is provided as needed nebulizer treatments. There are no indications for antibiotic or steroid therapy at this time. (3) Ascites Qualifiers: Ascites type: due to alcoholic cirrhosis Qualified Code(s): K70.31 - Alcoholic cirrhosis of liver with ascites Is this a current diagnosis for this admission?: Yes Plan: Given history of chronic alcohol abuse and recurrent ascites patient may have u nderlying cirrhosis. Has not been evaluated by gastroenterology. Hepatitis panel negative. Status post paracentesis 06/28/2019 and 06/03/2019. Fluid analysis shows WBC 317 with neutrophil count of 27. Afebrile. Denies any abdominal pain. Unlikely patient has SBP. Continue fluid restriction, Lasix, Spironolactone. Outpatient gastroenterology follow-up. (4) Cocaine abuse Is this a current diagnosis for this admission?: Yes Plan: Avoid beta blockade, supportive care Discharge planning is consulted.
[2019-06-20 06:28] LABS: ANION GAP 6 (5-19); BLOOD UREA NITROGEN 24 mg/dL (7-20); CALCIUM 9.1 mg/dL (8.4-10.2); CARBON DIOXIDE 29 mmol/L (22-30); CHLORIDE 102 mmol/L (98-107); GLUCOSE 90 mg/dL (75-110); POTASSIUM 5.3 mmol/L (3.6-5.0)
[2019-06-20] MEDS ORDERED: SODIUM POLYSTYRENE SULFONATE 15 GM/60 ML PO ONE (09:30)
[2019-06-20] MEDS: NITROGLYCERIN 2.5 MG (0.1 MG/HR) PATCH.TD24 TD SCH (09:34)
[2019-06-20] MEDS: LOSARTAN POTASSIUM 25 MG TABLET PO SCH (09:34)
[2019-06-20] MEDS: DILTIAZEM HCL 180 MG CAPSULE.CR PO SCH (09:34)
[2019-06-20] MEDS: POLYETHYLENE GLYCOL 3350 POWDER 17 GM/1 PACKET PO SCH (09:34)
[2019-06-20] MEDS ORDERED: SPIRONOLACTONE 25 MG TABLET PO SCH (10:00)
[2019-06-20] MEDS ORDERED: FUROSEMIDE 40 MG TABLET PO SCH (10:00)
[2019-06-20] MEDS ORDERED: FUROSEMIDE 20 MG TABLET PO SCH (10:00)
[2019-06-20 17:45] VITALS: BP 104/74
--- NOTE | 2019-06-20 18:13 | PDOC DISCHARGE SUMMARY ---
Impression - Admit/DC Date/PCP Admission Date/Primary Care Provider: 06/16/19 05:52 SMITA DOWNING MD Discharge Date: 06/20/19 - Discharge Diagnosis (1) CHF (congestive heart failure) Is this a current diagnosis for this admission?: Yes (2) COPD exacerbation Is this a current diagnosis for this admission?: Yes (3) Ascites Is this a current diagnosis for this admission?: Yes (4) Cocaine abuse Is this a current diagnosis for this admission?: Yes - Additional Information Resuscitation Status: Full Code Discharge Diet: Cardiac Discharge Activity: Activity As Tolerated, Balance Activity w/Rest, Weigh Daily Referrals: SMITA DOWNING MD [Primary Care Provider] - 06/27/19 10:00 am Prescriptions: Diltiazem HCl [Cardizem Cd 180 mg Capsule] 180 mg PO DAILY 30 Days #30 capsule.cr Lactulose [Enulose] 10 gm PO BID 30 Days #60 ml Home Medications: Furosemide [Lasix 20 mg Tablet] 20 mg PO DAILY #30 tablet 06/08/19 Losartan Potassium [Cozaar 25 mg Tablet] 25 mg PO Q12 #60 tablet 06/08/19 Spironolactone [Aldactone 25 mg Tablet] 25 mg PO Q12 #60 tablet 06/08/19 Diltiazem HCl [Cardizem Cd 180 mg Capsule] 180 mg PO DAILY 30 Days #30 capsule.cr 06/20/19 Lactulose [Enulose] 10 gm PO BID 30 Days #60 ml 06/20/19 History of Present Illiness History of Present Illness: The patient is a 63-year-old female with a past medical history of diastolic heart failure, atrial fibrillation, hypertension, hyperlipidemia, COPD, alcohol, tobacco, and cocaine abuse who was admitted 06/16/2019 for acute CHF exacerbation and COPD exacerbation. Hospital Course Hospital Course: (1) CHF (congestive heart failure) Compensated. Euvolemic at the time of discharge. Presented with acute systolic and diastolic heart failure most likely due to noncompliance the setting of continued cocaine abuse and liver cirrhosis. proBNP 4130. From 9440 on admission. Baseline 8-12,000 within last year. Echocardiogram (12/04/18) LVEF 60%, nml diastolic function, mild to moderate pulmonary htn Started on ARB, spironolactone, diuretics, strict in and out, cardiac diet, and daily weights. Avoided beta-blockers due to history of cocaine abuse. Was discharged on ARB, Spironolactone, Lasix and advised to follow-up with identification clerk. Attempted to make a follow-up appoint with identification clerk but of which patient not followed. Patient was asked to follow-up with PCP and asked to be referred to identification clerk. (2) COPD exacerbation Resolved. Patient is provided supplemental oxygen as needed to maintain saturations greater than 89%. She is provided as needed nebulizer treatments. There are no indications for antibiotic or steroid therapy at this time. (3) Ascites Given history of chronic alcohol abuse and recurrent ascites patient may have underlying cirrhosis. Has not been evaluated by gastroenterology. Hepatitis panel negative. Status post paracentesis 06/28/2019 and 06/03/2019. Fluid analysis shows WBC 317 with neutrophil count of 27. Afebrile. Denied any abdominal pain. Unlikely patient has SBP. Was started on fluid restriction, Lasix, Spironolactone. Unfortunately could not make an outpatient gastroenterology follow-up due to patient not being funded. Patient advised to follow-up with PCP and get referral to see gastroenterology. (4) Cocaine abuse No withdrawals during hospitalization. Avoided beta blockade, supportive care Encouraged abstinence. Physical Exam Vital Signs: Temp Pulse Resp BP Pulse Ox 98.5 F 70 20 104/74 97 06/20/19 17:40 06/20/19 17:40 06/20/19 17:40 06/20/19 17:40 06/20/19 17:40 Intake & Output 06/19/19 06/20/19 06/21/19 06:59 06:59 06:59 Intake Total 920 630 598 Balance 920 630 598 Weight 65.2 kg 57.6 kg Results Laboratory Results: WBC 6.9 10^3/uL (4.0-10.5) 06/19/19 05:32 RBC 4.41 10^6/uL (3.72-5.28) 06/19/19 05:32 Hgb 12.9 g/dL (12.0-15.5) 06/19/19 05:32 Hct 39.2 % (36.0-47.0) 06/19/19 05:32 MCV 89 fl (80-97) 06/19/19 05:32 MCH 29.2 pg (27.0-33.4) 06/19/19 05:32 MCHC 32.8 g/dL (32.0-36.0) 06/19/19 05:32 RDW 15.6 % (11.5-14.0) H 06/19/19 05:32 Plt Count 235 10^3/uL (150-450) 06/19/19 05:32 Lymph % (Auto) 18.1 % (13-45) 06/19/19 05:32 Campbell % (Auto) 9.0 % (3-13) 06/19/19 05:32 Eos % (Auto) 0.4 % (0-6) 06/19/19 05:32 Baso % (Auto) 2.0 % (0-2) 06/19/19 05:32 Absolute Neuts (auto) 4.8 10^3/uL (1.7-8.2) 06/19/19 05:32 Absolute Lymphs (auto) 1.2 10^3/uL (0.5-4.7) 06/19/19 05:32 Absolute Monos (auto) 0.6 10^3/uL (0.1-1.4) 06/19/19 05:32 Absolute Eos (auto) 0.0 10^3/uL (0.0-0.6) 06/19/19 05:32 Absolute Basos (auto) 0.1 10^3/uL (0.0-0.2) 06/19/19 05:32 Total Counted 100 06/17/19 05:28 Seg Neutrophils % 70.5 % (42-78) 06/19/19 05:32 Seg Neuts % (Manual) 77 % (42-78) 06/17/19 05:28 Band Neutrophils % 5 % (3-5) 06/17/19 05:28 Lymphocytes % (Manual) 10 % (13-45) L 06/17/19 05:28 Monocytes % (Manual) 7 % (3-13) 06/17/19 05:28 Eosinophils % (Manual) 1 % (0-6) 06/17/19 05:28 Basophils % (Manual) 0 % (0-2) 06/17/19 05:28 Abs Neuts (Manual) 6.3 10^3/uL (1.7-8.2) 06/17/19 05:28 Abs Lymphs (Manual) 0.8 10^3/uL (0.5-4.7) 06/17/19 05:28 Abs Monocytes (Manual) 0.5 10^3/uL (0.1-1.4) 06/17/19 05:28 Absolute Eos (Manual) 0.1 10^3/uL (0.0-0.6) 06/17/19 05:28 Abs Basophils (Manual) 0.0 10^3/uL (0.0-0.2) 06/17/19 05:28 Nucleated RBCs 1 /100 WBC (0) 06/17/19 05:28 Platelet Comment ADEQUATE 06/17/19 05:28 Polychromasia 1+ 06/17/19 05:28 Anisocytosis 1+ 06/17/19 05:28 Target Cells 1+ 06/17/19 05:28 Tear Drop Cells 1+ 06/17/19 05:28 PT 15.2 SEC (11.4-15.4) 06/18/19 06:11 INR 1.19 06/18/19 06:11 APTT 26.1 SEC (23.5-35.8) 06/18/19 06:11 Sodium 137.3 mmol/L (137-145) 06/20/19 05:15 Potassium 4.2 mmol/L (3.6-5.0) D 06/20/19 13:00 Chloride 102 mmol/L (98-107) 06/20/19 05:15 Carbon Dioxide 29 mmol/L (22-30) 06/20/19 05:15 Anion Gap 6 (5-19) 06/20/19 05:15 BUN 24 mg/dL (7-20) H 06/20/19 05:15 Creatinine 1.18 mg/dL (0.52-1.25) 06/20/19 05:15 Est GFR ( Amer) 56 (>60) L 06/20/19 05:15 Est GFR (MDRD) Non-Af 46 (>60) L 06/20/19 05:15 Glucose 90 mg/dL (75-110) 06/20/19 05:15 Calcium 9.1 mg/dL (8.4-10.2) 06/20/19 05:15 Magnesium 2.0 mg/dL (1.6-2.3) 06/19/19 05:32 Total Bilirubin 1.2 mg/dL (0.2-1.3) 06/19/19 05:32 Direct Bilirubin 0.4 mg/dL (0.0-0.4) 06/19/19 05:32 Neonat Total Bilirubin Not Reportable 06/19/19 05:32 Neonat Direct Bilirubin Not Reportable 06/19/19 05:32 Neonat Indirect Bili Not Reportable 06/19/19 05:32 AST 39 U/L (14-36) H 06/19/19 05:32 ALT 28 U/L (<35) 06/19/19 05:32 Alkaline Phosphatase 78 U/L (38-126) 06/19/19 05:32 Creatine Kinase 34 U/L (30-135) 06/16/19 20:45 Troponin I 0.015 ng/mL 06/16/19 20:45 NT-Pro-B Natriuret Pep 4130 pg/mL (<125) H 06/18/19 06:11 Total Protein 6.9 g/dL (6.3-8.2) 06/19/19 05:32 Albumin 3.5 g/dL (3.5-5.0) 06/19/19 05:32 Urine Color YELLOW 06/16/19 04:01 Urine Appearance SLIGHTLY-CLOUDY 06/16/19 04:01 Urine pH 5.0 (5.0-9.0) 06/16/19 04:01 Ur Specific Dumont 1.014 06/16/19 04:01 Urine Protein 30 mg/dL (NEGATIVE) H 06/16/19 04:01 Urine Glucose (UA) NEGATIVE mg/dL (NEGATIVE) 06/16/19 04:01 Urine Ketones NEGATIVE mg/dL (NEGATIVE) 06/16/19 04:01 Urine Blood NEGATIVE (NEGATIVE) 06/16/19 04:01 Urine Nitrite NEGATIVE (NEGATIVE) 06/16/19 04:01 Urine Bilirubin NEGATIVE (NEGATIVE) 06/16/19 04:01 Urine Urobilinogen NEGATIVE mg/dL (<2.0) 06/16/19 04:01 Ur Leukocyte Esterase SMALL (NEGATIVE) H 06/16/19 04:01 Urine WBC (Auto) 11 /HPF 06/16/19 04:01 Urine RBC (Auto) 1 /HPF 06/16/19 04:01 U Hyaline Cast (Auto) 15 /LPF 06/16/19 04:01 Urine Bacteria (Auto) TRACE /HPF 06/16/19 04:01 Urine WBC Clumps FEW /HPF 06/16/19 04:01 Squamous Epi Cells Auto 1 /HPF 06/16/19 04:01 Urine Mucus (Auto) RARE /LPF 06/16/19 04:01 Urine Ascorbic Acid NEGATIVE (NEGATIVE) 06/16/19 04:01 Fluid Type PERITONEAL 06/18/19 08:50 Fluid Source ABDOMEN 06/18/19 08:50 Fluid Color YELLOW 06/18/19 08:50 Fluid Appearance CLOUDY 06/18/19 08:50 Fluid Viscosity SLIGHTLY VISCOUS 06/18/19 08:50 Fluid WBC 317 /uL 06/18/19 08:50 Fluid RBC 4972 /uL 06/18/19 08:50 Fluid Seg Neutrophils 27 % 06/18/19 08:50 Fluid Lymphocytes 70 % 06/18/19 08:50 Fluid Monocytes 3 % 06/18/19 08:50 Fluid Eosinophils 0 % 06/18/19 08:50 Fluid Basophils 0 % 06/18/19 08:50 Urine Opiates Screen NEGATIVE 06/16/19 04:01 Urine Methadone Screen NEGATIVE 06/16/19 04:01 Ur Barbiturates Screen NEGATIVE 06/16/19 04:01 Ur Phencyclidine Scrn NEGATIVE 06/16/19 04:01 Ur Amphetamines Screen NEGATIVE 06/16/19 04:01 U Benzodiazepines Scrn NEGATIVE 06/16/19 04:01 Urine Cocaine Screen UNCONFIRMED POSITIVE 06/16/19 04:01 U Marijuana (THC) Screen NEGATIVE 06/16/19 04:01 06/16/19 06/16/19 06/16/19 02:25 08:34 14:37 Troponin I 0.031 0.018 0.016 NT-Pro-B Natriuret Pep 9440 H 06/16/19 06/18/19 20:45 06:11 Troponin I 0.015 NT-Pro-B Natriuret Pep 4130 H Impressions: Chest X-Ray 06/16/19 01:38 IMPRESSION: No significant change in the appearance of the chest. Paracentesis Ultrasound 06/18/19 00:00 IMPRESSION: SUCCESSFUL ULTRASOUND GUIDED PARACENTESIS. Stroke Is this a Stroke Patient?: No Acute Heart Failure - Is this a Heart Failure Patient?: No
== END 2019-06-20 18:19 | disposition home or self-care (01) | DRG 190 ==
LOC: ER 01:28 → EH 05:39 → OBSVTOIN 05:52 → 4S 07:19
PROVIDERS: ADMIT Internal Medicine; ATTEND Internal Medicine
PROC: 0W9G3ZX Drainage of Peritoneal Cavity, Percutaneous Approach, Diagnostic (ICD-10-PCS; principal; 2019-06-18)
DX: J44.1 Chronic obstructive pulmonary disease with (acute) exacerbation (principal); I50.43 Acute on chronic combined systolic (congestive) and diastolic (congestive) heart failure; F14.10 Cocaine abuse, uncomplicated; I11.0 Hypertensive heart disease with heart failure; E78.5 Hyperlipidemia, unspecified; I48.91 Unspecified atrial fibrillation; F10.20 Alcohol dependence, uncomplicated; E87.6 Hypokalemia; F17.210 Nicotine dependence, cigarettes, uncomplicated; K70.31 Alcoholic cirrhosis of liver with ascites; Z79.899 Other long term (current) drug therapy; Z82.3 Family history of stroke; Z82.49 Family history of ischemic heart disease and other diseases of the circulatory system; Z80.9 Family history of malignant neoplasm, unspecified; Z91.14 Patient's other noncompliance with medication regimen
CPT/HCPCS: 36415; 49083; 71046; 80048; 80053; 80307; 81001; 82550; 83735; 83880; 84132; 84484; 85025; 85027; 85610; 85730; 87070; 87075; 87205; 89050; 93005; 93010; 94640; 99285; J1644; J1940; J3490; J7620

== ENCOUNTER 2019-07-07 09:25 | Emergency (ER) | payer MEDICAID ==
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
--- NOTE | 2019-07-07 10:44 | RADIOLOGY REPORT (SQ) ---
EXAM DESCRIPTION: KNEE RIGHT 4 VIEWS COMPLETED DATE/TIME: 07/07/2019 10:22 am REASON FOR STUDY: fall COMPARISON: None. NUMBER OF VIEWS: Four views right knee LIMITATIONS: None. FINDINGS: There is no acute or significant bone, joint or soft tissue abnormality. OTHER: Osteopenia. IMPRESSION: No acute radiographic abnormality. TECHNICAL DOCUMENTATION: JOB ID: [id number] Reading location - IP/workstation name: [email or web address]
[2019-07-07 11:36] VITALS: BP 132/88
== END 2019-07-07 11:36 | disposition home or self-care (01) ==
LOC: ER 09:25
DX: S63.502A Unspecified sprain of left wrist, initial encounter (principal); S89.91XA Unspecified injury of right lower leg, initial encounter; W01.0XXA Fall on same level from slipping, tripping and stumbling without subsequent striking against object, initial encounter; I48.91 Unspecified atrial fibrillation; I50.9 Heart failure, unspecified; E78.00 Pure hypercholesterolemia, unspecified; I11.0 Hypertensive heart disease with heart failure
CPT/HCPCS: 99283; 73564; 73110; L1830; L3908

== ENCOUNTER 2019-08-16 14:08 | Emergency (ER) | payer MEDICAID ==
--- NOTE | 2019-08-16 14:27 | ER Document Report ---
ED Medical Screen (RME) - General Chief Complaint: Leg Swelling Stated Complaint: SWELLING/ITCHING LEFT LEG Time Seen by Provider: 08/16/19 14:24 Primary Care Provider: NAVID KEBEDE MD [Primary Care Provider] - Follow up as needed TRAVEL OUTSIDE OF THE [place] IN LAST 30 DAYS: No COUNTRY TRAVELED TO/FROM: [facility] - [facility] Notes: 08/16/19 14:27 Patient is a 63-year-old female with a history of diastolic heart failure, hypertension, COPD, alcohol, tobacco and cocaine abuse presents complaining of left ankle and foot swelling, pain that began a couple days ago without precipitating event that she is aware of. Patient denies any IV drug abuse. No known history of gout. No fever, chest pain, shortness of breath. I have treated and performed a rapid initial assessment of this patient. A comprehensive ED assessment and evaluation of the patient, analysis of test results and completion of medical decision making process will be conducted by additional ED providers. PHYSICAL EXAMINATION: GENERAL: Well-appearing, well-nourished and in no acute distress. A&Ox4. Answers questions appropriately. Left ankle/foot: + swelling to the ankle and dorsal prox foot with tenderness associated. LROM due to pain at the ankle. N/V intact distal. No streaks. No calf tenderness. - Related Data Allergies/Adverse Reactions: No Known Allergies Allergy (Verified 04/02/19 14:03) Past Medical History - Past Medical History Cardiac Medical History: Reports: Hx Atrial Fibrillation, Hx Congestive Heart Failure, Hx Hypercholesterolemia, Hx Hypertension Denies: Hx Coronary Artery Disease, Hx Heart Attack, Hx Pulmonary Embolism Pulmonary Medical History: Reports: Hx COPD Denies: Hx Asthma, Hx Bronchitis, Hx Pneumonia, Hx Tuberculosis Neurological Medical History: Denies: Hx Cerebrovascular Accident, Hx Seizures, Hx Parkinson's Disease Endocrine Medical History: Denies: Hx Hypothyroidism Renal/ Medical History: Denies: Hx End Stage Renal Disease, Hx Kidney Stones, Hx Peritoneal Dialysis GI Medical History: Denies: Hx Cirrhosis, Hx Gastroesophageal Reflux Disease, Hx Hepatitis, Hx Hiatal Hernia, Hx Ulcer Musculoskeltal Medical History: Denies Hx Arthritis, Denies Hx Fibromyalgia, Denies Hx Multiple Sclerosis Skin Medical History: Denies Hx Eczema, Denies Hx Psoriasis Psychiatric Medical History: Denies: Hx Bipolar Disorder, Hx Depression, Hx Schizophrenia Infectious Medical History: Denies: Hx Hepatitis Past Surgical History: Reports: Hx Breast Surgery - biopsy right breast, Other - she had a right breast biopsy, neg for malignancy. Denies: Hx Hysterectomy, Hx Mastectomy, Hx Open Heart Surgery, Hx Pacemaker - Immunizations Hx Diphtheria, Pertussis, Tetanus Vaccination: Yes Physical Exam - Vital signs Vitals: Temp Pulse Resp BP Pulse Ox 98.1 F 87 16 122/76 100 08/16/19 14:24 08/16/19 14:24 08/16/19 14:24 08/16/19 14:24 08/16/19 14:24 Course - Vital Signs Vital signs: Temp Pulse Resp BP Pulse Ox 98.1 F 87 16 122/76 100 08/16/19 14:24 08/16/19 14:24 08/16/19 14:24 08/16/19 14:24 08/16/19 14:24 Doctor's Discharge - Discharge Referrals: NAVID KEBEDE MD [Primary Care Provider] - Follow up as needed
[2019-08-16 15:08] LABS: ABSOLUTE EOSINOPHILS # (AUTO) 0.1 10^3/uL (0.0-0.6); ABSOLUTE LYMPHOCYTES (AUTO) 1.6 10^3/uL (0.5-4.7); ABSOLUTE MONOCYTES (AUTO) 0.4 10^3/uL (0.1-1.4); ABSOLUTE NEUT (AUTO) 1.7 10^3/uL (1.7-8.2); BASOPHILS % (AUTO) 1.2 % (0-2); EOSINOPHILS % (AUTO) 3.7 % (0-6); HEMATOCRIT 35.1 % (36.0-47.0); HEMOGLOBIN 11.5 g/dL (12.0-15.5); LYMPHOCYTES % (AUTO) 41.1 % (13-45); MEAN CORPUSCULAR HEMOGLOBIN 27.2 pg (27.0-33.4); MEAN CORPUSCULAR HGB CONC 32.6 g/dL (32.0-36.0); MEAN CORPUSCULAR VOLUME 84 fl (80-97); MONOCYTES % (AUTO) 9.2 % (3-13); PLATELET COUNT 271 10^3/uL (150-450); RED BLOOD COUNT 4.21 10^6/uL (3.72-5.28); RED CELL DISTRIBUTION WIDTH 16.3 % (11.5-14.0); SEGMENTED NEUTROPHILS % (AUTO) 44.8 % (42-78); TOTAL CELLS COUNTED % (AUTO) 100 %; WHITE BLOOD COUNT 3.9 10^3/uL (4.0-10.5)
--- NOTE | 2019-08-16 15:21 | RADIOLOGY REPORT (SQ) ---
EXAM DESCRIPTION: FOOT LEFT COMPLETE COMPLETED DATE/TIME: 08/16/2019 3:04 pm REASON FOR STUDY: pain/swelling COMPARISON: None. NUMBER OF VIEWS: Three views. TECHNIQUE: AP, lateral and oblique radiographic images acquired of the left foot. LIMITATIONS: None. FINDINGS: MINERALIZATION: Decreased. BONES: No acute fracture or dislocation. No worrisome bone lesions. JOINTS: No effusions. SOFT TISSUES: No soft tissue swelling. No foreign body. OTHER: No other significant finding. IMPRESSION: Decreased osseous mineralization. No evidence of acute bony abnormality. TECHNICAL DOCUMENTATION: JOB ID: [id number] [employer]- All Rights Reserved Reading location - IP/workstation name: [email or web address]
--- NOTE | 2019-08-16 15:22 | RADIOLOGY REPORT (SQ) ---
EXAM DESCRIPTION: ANKLE LEFT COMPLETE COMPLETED DATE/TIME: 08/16/2019 3:04 pm REASON FOR STUDY: pain/swelling COMPARISON: None. NUMBER OF VIEWS: Three views. TECHNIQUE: AP, lateral, and oblique radiographic images acquired of the left ankle. LIMITATIONS: None. FINDINGS: MINERALIZATION: Decreased. BONES: No acute fracture or dislocation. No worrisome bone lesions. Degenerative changes about the ankle with osteophytosis. JOINTS: No dislocation. SOFT TISSUES: Soft tissue swelling about the ankle and lower leg. OTHER: No other significant finding. IMPRESSION: Soft tissue swelling about the ankle without evidence of acute bony abnormality. Decreased osseous mineralization with mild degenerative change about the ankle. TECHNICAL DOCUMENTATION: JOB ID: [id number] [employer]- All Rights Reserved Reading location - IP/workstation name: [email or web address]
[2019-08-16 15:32] LABS: ALBUMIN 4.3 g/dL (3.5-5.0); ALKALINE PHOSPHATASE 105 U/L (38-126); ANION GAP 15 (5-19); ASPARTATE AMINO TRANSFERASE 30 U/L (14-36); BILIRUBIN,DIRECT 0.2 mg/dL (0.0-0.4); BILIRUBIN,TOTAL 0.6 mg/dL (0.2-1.3); BLOOD UREA NITROGEN 13 mg/dL (7-20); CALCIUM 9.5 mg/dL (8.4-10.2); CARBON DIOXIDE 22 mmol/L (22-30); CHLORIDE 106 mmol/L (98-107); GLUCOSE 80 mg/dL (75-110); POTASSIUM 3.5 mmol/L (3.6-5.0); TOTAL PROTEIN 7.8 g/dL (6.3-8.2); URIC ACID 7.1 mg/dL (2.5-7.5)
[2019-08-16 15:54] LABS: ERYTHROCYTE SEDIMENTATION RATE 15 mm/hr (0-30)
--- NOTE | 2019-08-16 17:31 | ER Document Report ---
ED General - General Chief Complaint: Foot Pain Stated Complaint: SWELLING/ITCHING LEFT LEG Time Seen by Provider: 08/16/19 14:24 Primary Care Provider: NAVID KEBEDE MD [Primary Care Provider] - Follow up as needed TRAVEL OUTSIDE OF THE [place] IN LAST 30 DAYS: No COUNTRY TRAVELED TO/FROM: [facility] - Related Data Allergies/Adverse Reactions: No Known Allergies Allergy (Verified 04/02/19 14:03) Home Medications: Cardizem, Losartan, Proair, Cardia Past Medical History - Social History Smoking Status: Current Every Day Smoker Family History: CAD, CVA, Hypertension, Malignancy Patient has suicidal ideation: No Patient has homicidal ideation: No - Past Medical History Cardiac Medical History: Reports: Hx Atrial Fibrillation, Hx Congestive Heart Failure, Hx Hypercholesterolemia, Hx Hypertension Denies: Hx Coronary Artery Disease, Hx Heart Attack, Hx Pulmonary Embolism Pulmonary Medical History: Reports: Hx COPD Denies: Hx Asthma, Hx Bronchitis, Hx Pneumonia, Hx Tuberculosis Neurological Medical History: Denies: Hx Cerebrovascular Accident, Hx Seizures, Hx Parkinson's Disease Endocrine Medical History: Denies: Hx Hypothyroidism Renal/ Medical History: Denies: Hx End Stage Renal Disease, Hx Kidney Stones, Hx Peritoneal Dialysis GI Medical History: Denies: Hx Cirrhosis, Hx Gastroesophageal Reflux Disease, Hx Hepatitis, Hx Hiatal Hernia, Hx Ulcer Musculoskeletal Medical History: Denies Hx Arthritis, Denies Hx Fibromyalgia, Denies Hx Multiple Sclerosis Skin Medical History: Denies Hx Eczema, Denies Hx Psoriasis Psychiatric Medical History: Denies: Hx Bipolar Disorder, Hx Depression, Hx Schizophrenia Infectious Medical History: Denies: Hx Hepatitis Past Surgical History: Reports: Hx Breast Surgery - biopsy right breast, Other - she had a right breast biopsy, neg for malignancy. Denies: Hx Hysterectomy, Hx Mastectomy, Hx Open Heart Surgery, Hx Pacemaker - Immunizations Hx Diphtheria, Pertussis, Tetanus Vaccination: Yes Physical Exam - Vital signs Vitals: Temp Pulse Resp BP Pulse Ox 98.1 F 87 16 122/76 100 08/16/19 14:24 08/16/19 14:24 08/16/19 14:24 08/16/19 14:24 08/16/19 14:24 Course - Vital Signs Vital signs: Temp Pulse Resp BP Pulse Ox 98.1 F 87 16 122/76 100 08/16/19 14:24 08/16/19 14:24 08/16/19 14:24 08/16/19 14:24 08/16/19 14:24 - Laboratory Result Diagrams: 08/16/19 14:40 08/16/19 14:40 Laboratory results interpreted by me: 08/16/19 08/16/19 14:40 14:40 WBC 3.9 L Hgb 11.5 L Hct 35.1 L RDW 16.3 H Potassium 3.5 L C-Reactive Protein 11.0 H Discharge - Discharge Referrals: NAVID KEBEDE MD [Primary Care Provider] - Follow up as needed
[2019-08-16] MEDS ORDERED: FUROSEMIDE INJ/PF 20 MG/2 ML SDV IV ONE (17:47)
--- NOTE | 2019-08-16 17:47 | ER Document Report ---
ED General - General Chief Complaint: Foot Pain Stated Complaint: SWELLING/ITCHING LEFT LEG Time Seen by Provider: 08/16/19 14:24 Primary Care Provider: NAVID KEBEDE MD [Primary Care Provider] - Follow up as needed Mode of Arrival: Ambulatory Information source: Patient TRAVEL OUTSIDE OF THE [place] IN LAST 30 DAYS: No COUNTRY TRAVELED TO/FROM: [facility] - Related Data Allergies/Adverse Reactions: No Known Allergies Allergy (Verified 08/16/19 17:35) Home Medications: Cardizem, Losartan, Proair, Cardia Past Medical History - Social History Smoking Status: Current Every Day Smoker Family History: CAD, CVA, Hypertension, Malignancy Patient has suicidal ideation: No Patient has homicidal ideation: No - Past Medical History Cardiac Medical History: Reports: Hx Atrial Fibrillation, Hx Congestive Heart Failure, Hx Hypercholesterolemia, Hx Hypertension Denies: Hx Coronary Artery Disease, Hx Heart Attack, Hx Pulmonary Embolism Pulmonary Medical History: Reports: Hx COPD Denies: Hx Asthma, Hx Bronchitis, Hx Pneumonia, Hx Tuberculosis Neurological Medical History: Denies: Hx Cerebrovascular Accident, Hx Seizures, Hx Parkinson's Disease Endocrine Medical History: Denies: Hx Hypothyroidism Renal/ Medical History: Denies: Hx End Stage Renal Disease, Hx Kidney Stones, Hx Peritoneal Dialysis GI Medical History: Denies: Hx Cirrhosis, Hx Gastroesophageal Reflux Disease, Hx Hepatitis, Hx Hiatal Hernia, Hx Ulcer Musculoskeletal Medical History: Denies Hx Arthritis, Denies Hx Fibromyalgia, Denies Hx Multiple Sclerosis Skin Medical History: Denies Hx Eczema, Denies Hx Psoriasis Psychiatric Medical History: Denies: Hx Bipolar Disorder, Hx Depression, Hx Schizophrenia Infectious Medical History: Denies: Hx Hepatitis Past Surgical History: Reports: Hx Breast Surgery - biopsy right breast, Other - she had a right breast biopsy, neg for malignancy. Denies: Hx Hysterectomy, Hx Mastectomy, Hx Open Heart Surgery, Hx Pacemaker - Immunizations Hx Diphtheria, Pertussis, Tetanus Vaccination: Yes Physical Exam - Vital signs Vitals: Temp Pulse Resp BP Pulse Ox 98.1 F 87 16 122/76 100 08/16/19 14:24 08/16/19 14:24 08/16/19 14:24 08/16/19 14:24 08/16/19 14:24 Course - Vital Signs Vital signs: Temp Pulse Resp BP Pulse Ox 98.1 F 87 16 122/76 100 08/16/19 14:24 08/16/19 14:24 08/16/19 14:24 08/16/19 14:24 08/16/19 14:24 - Laboratory Result Diagrams: 08/16/19 14:40 08/16/19 14:40 Laboratory results interpreted by me: 08/16/19 08/16/19 14:40 14:40 WBC 3.9 L Hgb 11.5 L Hct 35.1 L RDW 16.3 H Potassium 3.5 L C-Reactive Protein 11.0 H Discharge - Discharge Referrals: NAVID KEBEDE MD [Primary Care Provider] - Follow up as needed
--- NOTE | 2019-08-16 18:30 | ER Document Report ---
ED General - General Chief Complaint: Foot Pain Stated Complaint: SWELLING/ITCHING LEFT LEG Time Seen by Provider: 08/16/19 14:24 Primary Care Provider: NAVID KEBEDE MD [Primary Care Provider] - Follow up as needed Mode of Arrival: Ambulatory Information source: Patient Notes: 63-year-old woman presents to the emergency department with a complaint of swelling in her ankles bilaterally right greater than left and history of CHF, COPD, cocaine abuse, ascites. Patient states that she was told if her swelling increases she should return for further evaluation. She denies any history of trauma or injury. TRAVEL OUTSIDE OF THE [place] IN LAST 30 DAYS: No COUNTRY TRAVELED TO/FROM: [facility] - Related Data Allergies/Adverse Reactions: No Known Allergies Allergy (Verified 08/16/19 17:35) Home Medications: Cardizem, Losartan, Proair, Cardia Past Medical History - General Information source: Patient - Social History Smoking Status: Current Every Day Smoker Family History: CAD, CVA, Hypertension, Malignancy Patient has suicidal ideation: No Patient has homicidal ideation: No - Past Medical History Cardiac Medical History: Reports: Hx Atrial Fibrillation, Hx Congestive Heart Failure, Hx Hypercholesterolemia, Hx Hypertension Denies: Hx Coronary Artery Disease, Hx Heart Attack, Hx Pulmonary Embolism Pulmonary Medical History: Reports: Hx COPD Denies: Hx Asthma, Hx Bronchitis, Hx Pneumonia, Hx Tuberculosis Neurological Medical History: Denies: Hx Cerebrovascular Accident, Hx Seizures, Hx Parkinson's Disease Endocrine Medical History: Denies: Hx Hypothyroidism Renal/ Medical History: Denies: Hx End Stage Renal Disease, Hx Kidney Stones, Hx Peritoneal Dialysis GI Medical History: Denies: Hx Cirrhosis, Hx Gastroesophageal Reflux Disease, Hx Hepatitis, Hx Hiatal Hernia, Hx Ulcer Musculoskeletal Medical History: Denies Hx Arthritis, Denies Hx Fibromyalgia, Denies Hx Multiple Sclerosis Skin Medical History: Denies Hx Eczema, Denies Hx Psoriasis Psychiatric Medical History: Denies: Hx Bipolar Disorder, Hx Depression, Hx Schizophrenia Infectious Medical History: Denies: Hx Hepatitis Past Surgical History: Reports: Hx Breast Surgery - biopsy right breast, Other - she had a right breast biopsy, neg for malignancy. Denies: Hx Hysterectomy, Hx Mastectomy, Hx Open Heart Surgery, Hx Pacemaker - Immunizations Hx Diphtheria, Pertussis, Tetanus Vaccination: Yes Review of Systems - Review of Systems Notes: Constitutional: Negative for fever. HENT: Negative for sore throat. Eyes: Negative for visual changes. Cardiovascular: Negative for chest pain. Respiratory: Negative for shortness of breath. Gastrointestinal: Negative for abdominal pain, vomiting or diarrhea. Genitourinary: Negative for dysuria. Musculoskeletal: + Bilateral ankle swelling Skin: Negative for rash. Neurological: Negative for headaches, weakness or numbness. 10 point ROS negative except as marked above and in HPI. Physical Exam - Vital signs Vitals: Temp Pulse Resp BP Pulse Ox 98.1 F 87 16 122/76 100 08/16/19 14:24 08/16/19 14:24 08/16/19 14:24 08/16/19 14:24 08/16/19 14:24 - Notes Notes: PHYSICAL EXAMINATION: Physical Exam: General: Alert and responsive 63-year-old woman in no acute distress HEENT: NC/AT, pupils equal round and reactive to light, MM moist,nares clear, Neck: supple, no adenopathy, no masses. Lungs: clear, no wheezing, no rales no rhonchi CVS: Regular rate and rhythm no murmur gallop or rub Abdomen: Soft active nontender, no masses, no hepatosplenomegaly Ext: 2+ ankle edema with some swelling that extends into the feet bilateral. Neuro: Alert and responsive, moving all 4 extremities on command, cranial nerves intact. Skin: Intact no open lesions, no rash PSYCH: Normal mood, normal affect. Course - Re-evaluation Re-evalutation: 08/16/19 18:27 Patient presents with third spacing of fluid in the lower extremity likely due to inflammation, x-ray reveals some demineralization and degenerative changes involving the left ankle and foot. C-reactive protein is slightly elevated at 11. Patient is not diabetic and I have suggested a short course of steroids with compression stockings and elevation of the feet. She is encouraged to follow-up with her primary care doctor in approximately 4 days for recheck at that time. Patient is knowledges understanding of this plan and is in agreement. 08/16/19 18:28 - Vital Signs Vital signs: Temp Pulse Resp BP Pulse Ox 98.3 F 73 18 125/84 100 08/16/19 19:13 08/16/19 19:13 08/16/19 19:13 08/16/19 19:13 08/16/19 19:13 - Laboratory Result Diagrams: 08/16/19 14:40 08/16/19 14:40 Laboratory results interpreted by me: 08/16/19 08/16/19 14:40 14:40 WBC 3.9 L Hgb 11.5 L Hct 35.1 L RDW 16.3 H Potassium 3.5 L C-Reactive Protein 11.0 H - Diagnostic Test Radiology reviewed: Image reviewed, Reports reviewed - X-ray left ankle: Demineralization, mild degenerative changes, no fracture seen. X-ray Discharge - Discharge Clinical Impression: Lower extremity edema, Arthritis of left ankle, Chronic diastolic (congestive) heart failure Condition: Good Disposition: HOME, SELF-CARE Instructions: Edema, Peripheral ([facility]), Osteoarthritis ([facility]) Additional Instructions: You are diagnosed with peripheral edema (swelling and ankles and feet) tonight in the emergency department. Please continue your medications for fluid control. Your x-rays reveal some degenerative arthritis in the ankles and feet, please take the prednisone as prescribed you may use Tylenol for pain. Please follow-up with your doctor in 5 to 7 days for a recheck as they may want to adjust your medications. If your symptoms are worsening or if you have other concerns you may return to the emergency department for further evaluation. Prescriptions: Prednisone [Deltasone 20 mg Tablet] 1 tab PO BID 5 Days #10 tablet Referrals: NAVID KEBEDE MD [Primary Care Provider] - Follow up as needed
[2019-08-16 19:14] VITALS: BP 125/84
== END 2019-08-16 19:16 | disposition home or self-care (01) ==
LOC: ER 14:08
DX: M19.072 Primary osteoarthritis, left ankle and foot (principal); M79.89 Other specified soft tissue disorders; I50.9 Heart failure, unspecified; I48.91 Unspecified atrial fibrillation; I11.0 Hypertensive heart disease with heart failure; J44.9 Chronic obstructive pulmonary disease, unspecified; F17.200 Nicotine dependence, unspecified, uncomplicated; F10.10 Alcohol abuse, uncomplicated; F14.10 Cocaine abuse, uncomplicated
CPT/HCPCS: 99284; 96374; 36415; 84550; 85025; 85652; 86140; 80053; 73610; 73630; J1940

== ENCOUNTER 2020-02-26 20:21 | Emergency (ER) | payer MEDICARE, MEDICAID ==
--- NOTE | 2020-02-26 21:45 | ER Document Report ---
Entered by LINDA CONNER SCRIBE 02/26/208 Acting as scribe for:RASHAUN REIS IV, MD ED General - General Chief Complaint: Left ear/throat pain, SOB Stated Complaint: DIFFICULTY BREATHING Time Seen by Provider: 02/26/20 21:14 Primary Care Provider: NAVID KEBEDE MD [Primary Care Provider] - 02/27/20 Mode of Arrival: Medic Information source: Patient Notes: This 64 year old female patient with a history of HTN, A fib, CHF, and COPD (not on home O2) brought in by EMS from home presents to the ED today with complaints of shortness of breath that woke her up after her nap today. Patient also reports left ear, jaw, and neck pain for the past x2 days. She states that she can tolerate PO, but it hurts to swallow. Upon EMS arrival, patient was found to have labored breathing and rales in all lobes with an O2 sat of 95% on RA. Ruy davidson was placed on CPAP with improvement in respiratory effort. Patient reports that she is somewhat compliant with her medications (Losartan, Lasix, Cardizem), stating that she does miss some doses. She also mentions that she was placed on a x2 week supply of Xarelto, but she has been out of it "for a while." Denies fever, chills, headache, or history of PE. TRAVEL OUTSIDE OF THE [place] IN LAST 30 DAYS: No - Related Data Allergies/Adverse Reactions: No Known Allergies Allergy (Verified 08/16/19 17:35) Home Medications: Lasix. cardizem. inhaler Past Medical History - General Information source: Patient, [facility] Records - Social History Smoking Status: Current Every Day Smoker Cigarette use (# per day): Yes Chew tobacco use (# tins/day): No Smoking Education Provided: No Frequency of alcohol use: Heavy Drug Abuse: Cocaine Family History: CAD, CVA, Hypertension, Malignancy Patient has suicidal ideation: No Patient has homicidal ideation: No - Past Medical History Cardiac Medical History: Reports: Hx Atrial Fibrillation, Hx Congestive Heart Failure, Hx Hypercholesterolemia, Hx Hypertension Pulmonary Medical History: Reports: Hx COPD Past Surgical History: Reports: Hx Breast Surgery - biopsy right breast - Immunizations Hx Diphtheria, Pertussis, Tetanus Vaccination: Yes Review of Systems - Review of Systems Constitutional: See HPI. denies: Chills, Fever EENT: See HPI, Ear pain, Other - Jaw pain Cardiovascular: No symptoms reported Respiratory: See HPI, Short of breath Gastrointestinal: No symptoms reported Genitourinary: No symptoms reported Female Genitourinary: No symptoms reported Musculoskeletal: See HPI, Neck pain Skin: No symptoms reported Hematologic/Lymphatic: No symptoms reported Neurological/Psychological: See HPI. denies: Headaches -: Yes All other systems reviewed and negative Physical Exam - Vital signs Vitals: Temp Resp Pulse Ox 98.4 F 21 H 100 02/26/20 20:20 02/26/20 20:20 02/26/20 20:20 - General General appearance: Alert In distress: None - HEENT Head: Normocephalic, Atraumatic, Tenderness - Tenderness to palpation of left angle of jaw, Other - No masses appreciated on palpation of the face Eyes: Normal Pupils: PERRL Tympanic membrane: Normal - Left TM. No: Injected Mouth/Lips: Other - General poor dentition, limited opening of mouth secondary to pain - Respiratory Respiratory status: No respiratory distress Chest status: Nontender Breath sounds: Normal Chest palpation: Normal - Cardiovascular Rhythm: Regular, Tachycardia Heart sounds: Normal auscultation Murmur: Yes Systolic murmur grade 1-6: 3 Friction rub: No Gallop: None auscultated - Abdominal Inspection: Normal Distension: No distension Bowel sounds: Normal Tenderness: Nontender - Abdomen soft Organomegaly: No organomegaly - Back Back: Normal, Nontender - Extremities General upper extremity: Normal inspection General lower extremity: Normal inspection, Normal color. No: Edema - Neurological Neuro grossly intact: Yes Orientation: AAOx4 Shannan Coma Scale Eye Opening: Spontaneous Shannan Coma Scale Verbal: Oriented Franklin Coma Scale Motor: Obeys Commands Franklin Coma Scale Total: 15 - Psychological Associated symptoms: Normal affect, Normal mood - Skin Skin Temperature: Warm Skin Moisture: Dry Skin Color: Normal Skin irregularity: negative: Rash Course - Re-evaluation Re-evalutation: 02/27/20 05:20 Previous lady is seen reported thrombus of left internal carotid no longer seen on review of the study in comparison with most recent head CTA which include the neck. Results of ED MSE discussed with patient. All questions were answered prior to discharge. Emergency signs and symptoms, reasons to return to the emergency department discussed with patient. Patient admitted to this MD noncompliance with her other medications including Cardizem. Compliance with medications stressed to patient. - Vital Signs Vital signs: Temp Pulse Resp BP Pulse Ox 98.5 F 20 137/92 H 100 02/27/20 04:49 02/27/20 04:34 02/27/20 04:34 02/27/20 04:34 - Laboratory Result Diagrams: 02/26/20 20:29 02/26/20 21:45 Laboratory results interpreted by me: 02/26/20 02/26/20 02/26/20 20:29 20:29 20:29 Hgb 11.9 L RDW 16.9 H PT 15.8 H Total Bilirubin AST Alkaline Phosphatase C-Reactive Protein NT-Pro-B Natriuret Pep 3830 H Total Protein Urine Protein Urine Ketones Urine Blood 02/26/20 02/26/20 02/27/20 21:45 21:45 01:55 Hgb RDW PT Total Bilirubin 2.2 H AST 46 H Alkaline Phosphatase 175 H C-Reactive Protein 16.1 H NT-Pro-B Natriuret Pep Total Protein 8.3 H Urine Protein >=500 H Urine Ketones TRACE H Urine Blood SMALL H - EKG Interpretation by Me Additional EKG results interpreted by me: 02/27/20 05:23 Initial EKG done on patient on 02/26/2020 at 2327 hrs. was interpreted by this MD. Findings: Atrial flutter, rate 114, QRS complex appears narrow, there are no obvious patterns of ST segment elevation or depression present to suggest acute myocardial ischemia or infarction. Impression atrial fibrillation with RVR. Repeat EKG done at 0446 hrs. on 02/27/2020 was interpreted by this MD. Findings normal sinus rhythm, rate 89, P waves preceding QRS complexes, QRS complexes appear normal, there are no obvious patterns of ST segment elevation or depression present to suggest acute myocardial ischemia or infarction. Impression normal sinus rhythm with nonspecific ST segments. - Consults [facility] Time consulted: 01:00 - dr. tom recommended doing a CTA of the head as well as checking a ESR and CRP. He reviewed the results of these and found that there appears to be no evidence of thrombus or dissection. Reason for consultation: 02/27/20 05:[address] of the neck reported a left internal carotid thrombus and possible dissection. dr calderon Time consulted: 04:40 - stated previously seen ? thrombus/dissection no longer seen Reason for consultation: 02/27/20 05:29 compare cta of neck with cta of head including neck Discharge - Discharge Clinical Impression: Strep throat, Atrial fibrillation with RVR, Noncompliance with medication regimen Condition: Stable Disposition: HOME, SELF-CARE Additional Instructions: Return to the Emergency Department without delay if any worse. HOME CARE INSTRUCTIONS & INFORMATION: Thank you for choosing us for your medical needs. We hope you're satisfied with the care you received. After you leave, you must properly care for your problem and, at the same time, observe its progress. Any condition can change. Some illnesses can change rapidly over hours or days. If your condition worsens, return to the Emergency Department or see your physician promptly. ABOUT YOUR X-RAYS AND EKG'S: If you had an EKG or X-rays taken, they have been read by the Emergency Physician. The X-rays and EKG's will also be read by a Radiologist or Taker Down within 24 hours. If discrepancies are noted, you will be notified by telephone. Please be certain the ED has a correct telephone number & address where you can be reached. Also, realize that some fractures or abnormalities do not show up on initial X-rays. If your symptoms continue, see your physician. ABOUT YOUR LABORATORY TEST: If you had laboratory tests, the results have been reviewed by the Emergency Physician. Some test results (for example cultures) may not be available for several days. You will be contacted if any test result shows you need additional treatment. Please be certain the ED has a correct telephone number and address where you can be reached. ABOUT YOUR MEDICATIONS: You will receive instructions on how to take your medicine on the prescription label you receive. Additional information may be provided by the Pharmacy. If you have questions afterwards, call the ED for clarification or further instructions. Some prescribed medications may cause d rowsiness. Do not perform tasks such as driving a car or operating machinery without consulting your Pharmacist. If you feel you need a refill of pain medication, your condition will need re-evaluation. Please do not call for a refill of any medication. ABOUT YOUR SIGNATURE: Signature of this document acknowledges to followin. Understanding that you received emergency treatment and that you may be released before al medical problems are known or treated. Please be certain the ED has a correct phone number & address where you can be reached. 2. Acknowledgement that you will arrange for follow-up care as recommended. 3. Authorization for the Emergency Physician to provide information to your follow-up Physician in order to maximize your care. AT ANY TIME, IF YOUR SYMPTOMS CHANGE SIGNIFICANTLY OR WORSEN OR YOU DEVELOP NEW SYMPTOMS, RETURN TO THE EMERGENCY DEPARTMENT IMMEDIATELY FOR RE-EVALUATION. OUR GOAL IS TO PROVIDE EXCELLENT MEDICAL CARE! WE HOPE THAT WE HAVE MET YOUR EXPECTATIONS DURING YOUR EMERGENCY DEPARTMENT VISIT AND THAT YOU FEEL YOU HAVE RECEIVED EXCELLENT CARE! Sore Throat Sore throats may be caused by viruses, bacteria, or fungi. Most are due to a virus, and must get better on their own. Bacterial sore throats, particularly those due to "strep," need treatment with antibiotics. If an antibiotic is prescribed, be sure to take the medication for a full 10 days. Failure to take the antibiotic can result in complications such as rheumatic fever. Sometimes, an injection of antibiotics is given instead of pills or liquid. This single "shot" is equal in effectiveness to the oral medication. To relieve symptoms, take acetaminophen for pain. Sip clear liquids frequently, or eat popsicles or ice chips. Anesthetic sprays or lozenges may help. Make sure the air in the room is not too dry. Avoid using decongestants or antihistamines. Call the doctor if there is no improvement in two days, or if you have difficulty breathing, increasing throat pain, high fever, rash, or frequent vomiting. Prescriptions: Azithromycin [Zithromax 250 mg Tablet] 500 mg PO DAILY 4 Days #8 tablet Referrals: NAVID KEBEDE MD [Primary Care Provider] - 02/27/20 I personally performed the services described in the documentation, reviewed and edited the documentation which was dictated to the scribe in my presence, and it accurately records my words and actions.
[2020-02-26 22:10] LABS: ABSOLUTE EOSINOPHILS # (AUTO) 0.1 10^3/uL (0.0-0.6); ABSOLUTE LYMPHOCYTES (AUTO) 1.2 10^3/uL (0.5-4.7); ABSOLUTE MONOCYTES (AUTO) 0.5 10^3/uL (0.1-1.4); ABSOLUTE NEUT (AUTO) 2.4 10^3/uL (1.7-8.2); BASOPHILS % (AUTO) 0.7 % (0-2); HEMATOCRIT 36.8 % (36.0-47.0); HEMOGLOBIN 11.9 g/dL (12.0-15.5); LYMPHOCYTES % (AUTO) 27.4 % (13-45); MEAN CORPUSCULAR HEMOGLOBIN 30.2 pg (27.0-33.4); MEAN CORPUSCULAR HGB CONC 32.3 g/dL (32.0-36.0); MEAN CORPUSCULAR VOLUME 94 fl (80-97); MONOCYTES % (AUTO) 12.7 % (3-13); PLATELET COUNT 150 10^3/uL (150-450); RED BLOOD COUNT 3.94 10^6/uL (3.72-5.28); RED CELL DISTRIBUTION WIDTH 16.9 % (11.5-14.0); SEGMENTED NEUTROPHILS % (AUTO) 56.2 % (42-78); TOTAL CELLS COUNTED % (AUTO) 100 %; WHITE BLOOD COUNT 4.2 10^3/uL (4.0-10.5)
[2020-02-26 22:15] LABS: INTERNATIONAL RATION (INR) 1.24; PROTHROMBIN TIME 15.8 SEC (11.4-15.4)
[2020-02-26 22:16] LABS: PARTIAL THROMBOPLASTIN TIME 32.8 SEC (23.5-35.8)
[2020-02-26 22:17] LABS: ALBUMIN 4.4 g/dL (3.5-5.0); ALKALINE PHOSPHATASE 175 U/L (38-126); ANION GAP 11 (5-19); ASPARTATE AMINO TRANSFERASE 46 U/L (14-36); BILIRUBIN,DIRECT 0.4 mg/dL (0.0-0.4); BILIRUBIN,TOTAL 2.2 mg/dL (0.2-1.3); BLOOD UREA NITROGEN 15 mg/dL (7-20); CALCIUM 9.2 mg/dL (8.4-10.2); CARBON DIOXIDE 26 mmol/L (22-30); CHLORIDE 103 mmol/L (98-107); GLUCOSE 86 mg/dL (75-110); POTASSIUM 3.9 mmol/L (3.6-5.0); TOTAL PROTEIN 8.3 g/dL (6.3-8.2)
[2020-02-26 22:18] LABS: APPEARANCE,URINE CLEAR; BILIRUBIN,URINE NEGATIVE (NEGATIVE); COLOR,URINE YELLOW; GLUCOSE, URINE NEGATIVE (NEGATIVE); KETONES,URINE TRACE mg/dL (NEGATIVE); LEUKOCYTE ESTERASE,URINE NEGATIVE (NEGATIVE); NITRITE,URINE NEGATIVE (NEGATIVE); PROTEIN,URINE >=500 mg/dL (NEGATIVE); URINE SPECIFIC GRAVITY 1.024; UROBILINOGEN,URINE NEGATIVE mg/dL (<2.0)
[2020-02-26 22:27] LABS: ALCOHOL < 10 mg/dL (NONE DETECTED)
[2020-02-26 22:28] LABS: URINE AMPHETAMINES SCREEN NEGATIVE; URINE BARBITURATES SCREEN NEGATIVE; URINE BENZODIAZEPINES SCREEN NEGATIVE; URINE COCAINE SCREEN NEGATIVE; URINE MARIJUANA (THC) SCREEN NEGATIVE; URINE METHADONE SCREEN NEGATIVE; URINE PHENCYCLIDINE SCREEN NEGATIVE
[2020-02-26 22:28] LABS: TROPONIN I 0.013 ng/mL
--- NOTE | 2020-02-26 22:53 | RADIOLOGY REPORT (SQ) ---
EXAM DESCRIPTION: XR CHEST 1 VIEW COMPLETED DATE/TME: 02/26/2020 21:37 CLINICAL HISTORY: 64 years, Female, dyspnea COMPARISON: 06/16/2019 chest NUMBER OF VIEWS: 1 TECHNIQUE: Portable chest LIMITATIONS: None. FINDINGS: Stable cardiomegaly. Osteopenia. Lungs are clear. No pneumothorax IMPRESSION: Cardiomegaly. Lungs are clear copyright 2011 [email or web address]- All Rights Reserved
[2020-02-26] MEDS ORDERED: DILTIAZEM HCL INJ 25 MG/5 ML VIAL IV ONE (23:37)
--- NOTE | 2020-02-27 00:30 | RADIOLOGY REPORT (SQ) ---
CTA NECK: NASCET Criteria was utilized for evaluation of potential vascular stenosis in the neck. This exam was performed according to our departmental dose-optimization program, which includes automated exposure control, adjustment of the mA and/or KV according to the patient's size and/or use of iterative reconstruction technique. Comparison: None available HISTORY: 64-year-old patient with left ear and jaw pain. FINDINGS: There are groundglass changes within the apices which may represent scarring. These are most pronounced on the left side. There are multilevel degenerative changes seen at the visualized cervical spine. There is normal three-vessel aortic arch morphology. The brachiocephalic and proximal subclavian arteries are patent and normal in course and caliber. The common carotid arteries, carotid bulbs and proximal external carotid arteries are patent and normal in course and caliber. The cervical segments of the internal carotid arteries are patent and normal in course and caliber. There is some moderate atherosclerotic calcification seen at the distal right internal carotid artery. There is a filling defect seen within the petrous segment of the left internal carotid artery at the base of the skull, best seen on image seven of 137. This is concerning for small thrombus. There is a codominant vertebral arterial system. There is mild mucoperiosteal thickening at the ethmoid sinuses. The vertebral arteries are patent and normal in course and caliber. IMPRESSION: There is a small filling defect seen at the petrous portion of the left internal carotid artery concerning for small thrombus. A subtle dissection at this area cannot be fully excluded.
--- NOTE | 2020-02-27 00:35 | RADIOLOGY REPORT (SQ) ---
CT ANGIOGRAM CHEST WITH IV CONTRAST: 02/26/2020 11:32 PM CDT HISTORY: 54-year old patient with atrial fibrillation, tachycardia, recently off blood thinners. TECHNIQUE: Postcontrast CT through the chest was performed per protocol for CT angiography. 3D Multiplanar reformations were performed at the workstation. Reconstructed sagittal and coronal images were also obtained through the chest. This exam was performed according to our departmental dose-optimization program, which includes automated exposure control, adjustment of the mA and/or KV according to the patient's size and/or use of iterative reconstruction technique. COMPARISON: None available FINDINGS: The heart size is enlarged. No large pericardial effusion is seen. No significant mediastinal, supraclavicular, or axillary lymphadenopathy is seen. The thoracic aorta is within normal limits of size. No filling defects are seen within the pulmonary arteries to suggest a pulmonary artery embolism. The main pulmonary artery is enlarged and measures at least 3.2 cm in transverse dimension. The thyroid gland is unremarkable. The central tracheobronchial tree is patent. There are some groundglass airspace opacity seen at the apices which may represent scarring. Mild paraseptal emphysematous changes are seen. There are some groundglass airspace opacity seen at the left lower lobe and right middle lobe. These may reflect early developing infection. The visualized esophagus is patulous. No discrete pleural effusion is seen. There is no evidence of a pneumothorax. The bones demonstrate no suspicious lytic or blastic lesion. Multilevel degenerative changes are seen within the thoracic spine. Trace free fluid is seen at the upper abdomen. IMPRESSION: There are bilateral groundglass airspace opacities which may represent developing infection. No filling defect is seen to suggest a pulmonary artery embolism. The main pulmonary artery is enlarged, which can be seen with pulmonary hypertension.
[2020-02-27] MEDS ORDERED: DILTIAZEM HCL/D5W 125 MG/125 ML RTUINJ IV PRN (00:58)
[2020-02-27] MEDS ORDERED: AZITHROMYCIN INJ 500 MG VIAL IV ONE (01:00)
[2020-02-27] MEDS ORDERED: NORMAL SALINE 500 ML IV ONE (01:29)
--- NOTE | 2020-02-27 03:35 | RADIOLOGY REPORT (SQ) ---
CLINICAL HISTORY: neck pain, ? dissection COMPARISON: None. TECHNIQUE: CT HEAD ANGIOGRAPHY WITHOUT THEN WITH IV CONTRAST on 02/27/2020 1:20 AM CDT This exam was performed according to our departmental dose-optimization program, which includes automated exposure control, adjustment of the mA and/or kV according to patient size and/or use of iterative reconstruction technique. MIP reconstructions were generated. Stenoses are calculated by NASCET criteria. FINDINGS: The visualized aortic arch and origins of the great vessels unremarkable. The common carotid arteries are patent and symmetric bilaterally. No hemodynamically significant stenosis is observed at the common carotid bifurcations or origins of the internal carotid arteries bilaterally. Vertebral arteries are unremarkable without evidence of pseudoaneurysm, hemodynamically significant stenosis, or dissection. Intracranially the cavernous segments of the internal carotid arteries are patent and symmetric bilaterally. Vertebral basilar system within normal limits for age. No aneurysm identified within the [place]. Anterior, middle, and posterior cerebral circulations patent and symmetric bilaterally. Dural sinuses are well opacified and without filling defect. IMPRESSION: Unremarkable CT angiogram of the neck for age without dissection or hemodynamically significant stenosis. Unremarkable CTA of the brain without evidence of hemodynamically significant stenosis, aneurysm or AVM. CAROTID STENOSIS REFERENCE USING NASCET CRITERIA: % ICA stenosis = (1 - narrowest ICA diameter/diameter of distal cervical ICA) x 100. Mild - <50% stenosis. Moderate - 50-69% stenosis. Severe - 70-94% stenosis. Near occlusion - 95-99% stenosis. Occluded - 100% stenosis.
[2020-02-27] MEDS ORDERED: DILTIAZEM HCL 180 MG CAPSULE.CR PO ONE (05:31)
[2020-02-27 06:06] VITALS: BP 146/94
--- NOTE | 2020-02-27 09:41 | EKG REPORT ---
SEVERITY:- ABNORMAL ECG - SINUS RHYTHM PROBABLE INFERIOR INFARCT, AGE INDETERMINATE CONSIDER POSTERIOR WALL INVOLVEMENT BORDERLINE PROLONGED QT INTERVAL : Confirmed by: Afia Rodrigues 27-Feb-2020 09:40:42
--- NOTE | 2020-02-27 09:41 | EKG REPORT ---
SEVERITY:- ABNORMAL ECG - ATRIAL FIB, CONSIDER INFERIOR INFARCT BORDERLINE T WAVE ABNORMALITIES : Confirmed by: Afia Rodrigues 27-Feb-2020 09:41:07
== END 2020-02-27 06:34 | disposition home or self-care (01) ==
LOC: ER 20:21
DX: I48.91 Unspecified atrial fibrillation (principal); T46.1X6A Underdosing of calcium-channel blockers, initial encounter; J02.0 Streptococcal pharyngitis; I11.0 Hypertensive heart disease with heart failure; I50.9 Heart failure, unspecified; T46.5X6A Underdosing of other antihypertensive drugs, initial encounter; T50.1X6A Underdosing of loop [high-ceiling] diuretics, initial encounter; Z91.14 Patient's other noncompliance with medication regimen; F17.210 Nicotine dependence, cigarettes, uncomplicated; J44.9 Chronic obstructive pulmonary disease, unspecified; M54.2 Cervicalgia; R68.84 Jaw pain; Z79.899 Other long term (current) drug therapy; Z20.828 Contact with and (suspected) exposure to other viral communicable diseases
CPT/HCPCS: 93005 ×2; 99285; 96361; 96365; 96366; 96367; 36415; 87040; 87880; 80307 ×2; 85025; 85652; 85610; 85730; 86140; 80053; 81001; 84484; 83880; 71045; 70496; 70498; 71275; 93010 ×2; U0003; A9270; J7040; J0456; J3490; C9803; 87635

== ENCOUNTER 2020-06-15 07:17 | Emergency (ER) | payer MEDICARE, MEDICAID ==
[2020-06-15] MEDS ORDERED: NORMAL SALINE 250 ML IV ONE (08:36)
[2020-06-15 09:18] LABS: ABSOLUTE EOSINOPHILS # (AUTO) 0.2 10^3/uL (0.0-0.6); ABSOLUTE LYMPHOCYTES (AUTO) 0.7 10^3/uL (0.5-4.7); ABSOLUTE MONOCYTES (AUTO) 0.3 10^3/uL (0.1-1.4); ABSOLUTE NEUT (AUTO) 2.6 10^3/uL (1.7-8.2); BASOPHILS % (AUTO) 0.9 % (0-2); HEMOGLOBIN 12.2 g/dL (12.0-15.5); LYMPHOCYTES % (AUTO) 19.1 % (13-45); MEAN CORPUSCULAR VOLUME 88 fl (80-97); MONOCYTES % (AUTO) 7.3 % (3-13); PLATELET COUNT 207 10^3/uL (150-450); SEGMENTED NEUTROPHILS % (AUTO) 67.7 % (42-78); TOTAL CELLS COUNTED % (AUTO) 100 %; WHITE BLOOD COUNT 3.9 10^3/uL (4.0-10.5)
[2020-06-15 09:23] LABS: INTERNATIONAL RATION (INR) 1.31; PROTHROMBIN TIME 16.5 SEC (11.4-15.4)
--- NOTE | 2020-06-15 09:23 | RADIOLOGY REPORT (SQ) ---
EXAM DESCRIPTION: ACUTE ABDOMEN SERIES IMAGES COMPLETED DATE/TIME: 06/15/2020 9:09 am REASON FOR STUDY: ascites/sobr COMPARISON: CT of the chest from 02/26/2020 NUMBER OF VIEWS: Three views. TECHNIQUE: A PA view of the chest and AP supine and upright views of the abdomen were obtained. LIMITATIONS: None. FINDINGS: CHEST: The cardiac silhouette is enlarged. The mediastinal and hilar contours are unchang ed. There is no consolidation, pleural effusion or pneumothorax. FREE AIR: None. BOWEL GAS PATTERN: Centralization of the bowel without differential air-fluid levels or dilated loops of bowel. CALCIFICATIONS: No calcifications projecting within the renal fossae. HARDWARE: None in the abdomen. SOFT TISSUES: No acute gross abnormality. BONES: No acute abnormality. OTHER: No other findings. IMPRESSION: 1. Centralization of the bowel is a common finding in the setting of ascites. There is no evidence of a bowel obstruction. 2. Cardiomegaly without a superimposed acute cardiopulmonary process. TECHNICAL DOCUMENTATION: JOB ID: [id number] 2010 [employer]- All Rights Reserved Reading location - IP/workstation name: [email or web address]
[2020-06-15 09:37] LABS: ALBUMIN 4.5 g/dL (3.5-5.0); ALKALINE PHOSPHATASE 131 U/L (38-126); ANION GAP 13 (5-19); ASPARTATE AMINO TRANSFERASE 56 U/L (14-36); BILIRUBIN,DIRECT 0.3 mg/dL (0.0-0.4); BILIRUBIN,TOTAL 1.3 mg/dL (0.2-1.3); BLOOD UREA NITROGEN 18 mg/dL (7-20); CALCIUM 9.4 mg/dL (8.4-10.2); CARBON DIOXIDE 22 mmol/L (22-30); CHLORIDE 106 mmol/L (98-107); GLUCOSE 83 mg/dL (75-110); POTASSIUM 4.2 mmol/L (3.6-5.0); TOTAL PROTEIN 8.6 g/dL (6.3-8.2)
[2020-06-15 09:41] LABS: ACETAMINOPHEN < 10 ug/mL (10-30)
[2020-06-15 09:58] LABS: VENOUS BLOOD BASE EXCESS 1.2 mmol/L; VENOUS BLOOD HCO3 26.9 mmol/L (20-32); VENOUS BLOOD PCO2 46.8 mmHg (35-63); VENOUS BLOOD PH 7.38 (7.30-7.42)
[2020-06-15 11:48] LABS: APPEARANCE,URINE SLIGHTLY-CLOUDY; BILIRUBIN,URINE NEGATIVE (NEGATIVE); COLOR,URINE YELLOW; GLUCOSE, URINE NEGATIVE (NEGATIVE); KETONES,URINE TRACE mg/dL (NEGATIVE); LEUKOCYTE ESTERASE,URINE MODERATE (NEGATIVE); NITRITE,URINE NEGATIVE (NEGATIVE); PROTEIN,URINE >=500 mg/dL (NEGATIVE); UROBILINOGEN,URINE NEGATIVE mg/dL (<2.0)
[2020-06-15 12:09] LABS: URINE AMPHETAMINES SCREEN NEGATIVE; URINE BARBITURATES SCREEN NEGATIVE; URINE BENZODIAZEPINES SCREEN NEGATIVE; URINE COCAINE SCREEN NEGATIVE; URINE MARIJUANA (THC) SCREEN NEGATIVE; URINE METHADONE SCREEN NEGATIVE; URINE PHENCYCLIDINE SCREEN NEGATIVE
[2020-06-15 12:14] VITALS: BP 158/95
[2020-06-15] MEDS ORDERED: FUROSEMIDE INJ/PF 40 MG/4 ML SDV IV ONE (12:25)
[2020-06-15] MEDS ORDERED: DILTIAZEM HCL 120 MG CAP.SR.24H PO ONE (15:01)
[2020-06-15] MEDS ORDERED: LOSARTAN POTASSIUM 25 MG TABLET PO ONE (15:01)
--- NOTE | 2020-06-15 15:57 | ER Document Report ---
Entered by LINDA CONNER SCRIBE 06/15/20 0836 Acting as scribe for:RAEANN MARTINEZ MD ED GI/ - General Chief Complaint: Abdominal Pain Stated Complaint: ABDOMINAL SWELLING,DIFFICULTY BREATHING Time Seen by Provider: 06/15/20 08:15 Mode of Arrival: Wheelchair Information source: Patient Notes: This 64 year old female patient with a history of hypertension, CHF, COPD, cocaine abuse, and chronic liver disease due to alcohol abuse presents to the ED today with complaint of abdominal swelling and shortness of breath for the past x1 week. When the patient was seen here on 05/31/2019 with the same symptoms, she was admitted for CHF exacerbation and ascites; she had a paracentesis ultrasound at that time. Patient denies constipation, last bowel movement was th is morning. She admits to having a beer last night. TRAVEL OUTSIDE OF THE [place] IN LAST 30 DAYS: No - Related Data Allergies/Adverse Reactions: No Known Allergies Allergy (Verified 08/16/19 17:35) Past Medical History - General Information source: Patient, [facility] - Social History Smoking Status: Current Every Day Smoker Smoking Education Provided: No Frequency of alcohol use: Occasional Drug Abuse: Cocaine Family History: Reviewed & Not Pertinent, CAD, CVA, Hypertension, Malignancy Patient has suicidal ideation: No Patient has homicidal ideation: No - Past Medical History Cardiac Medical History: Reports: Hx Atrial Fibrillation, Hx Congestive Heart Failure, Hx Hypercholesterolemia, Hx Hypertension Pulmonary Medical History: Reports: Hx COPD Past Surgical History: Reports: Hx Breast Surgery - right breast biopsy, neg for malignancy - Immunizations Hx Diphtheria, Pertussis, Tetanus Vaccination: Yes Review of Systems - Review of Systems Constitutional: No symptoms reported EENT: No symptoms reported Cardiovascular: No symptoms reported Respiratory: See HPI, Short of breath Gastrointestinal: See HPI, Abdomen distended. denies: Constipation Genitourinary: No symptoms reported Female Genitourinary: No symptoms reported Musculoskeletal: No symptoms reported Skin: No symptoms reported Hematologic/Lymphatic: No symptoms reported Neurological/Psychological: No symptoms reported -: Yes All other systems reviewed and negative Physical Exam - Vital signs Vitals: Temp Pulse Resp BP Pulse Ox 98.0 F 127 H 26 H 179/127 H 93 06/15/20 07:27 06/15/20 07:27 06/15/20 07:27 06/15/20 07:27 06/15/20 07:27 - General General appearance: Alert In distress: None - HEENT Head: Normocephalic, Atraumatic Eyes: Normal Pupils: PERRL - Respiratory Respiratory status: No respiratory distress Chest status: Nontender Breath sounds: Decreased air movement - Diminished breath sounds in the bases Chest palpation: Normal - Cardiovascular Rhythm: Regular, Tachycardia Heart sounds: Normal auscultation Murmur: No Friction rub: No Gallop: None auscultated - Abdominal Inspection: Other - Ascites Distension: Fluid wave Tenderness: Nontender Organomegaly: No organomegaly - Back Back: Normal, Nontender - Extremities General upper extremity: Normal inspection General lower extremity: Normal inspection. No: Edema - Neurological Neuro grossly intact: Yes Orientation: AAOx4 [place] Coma Scale Eye Opening: Spontaneous [place] Coma Scale Verbal: Oriented [place] Coma Scale Motor: Obeys Commands [place] Coma Scale Total: 15 - Psychological Associated symptoms: Normal affect, Normal mood - Skin Skin Temperature: Warm Skin Moisture: Dry Skin Color: Normal Course - Re-evaluation Re-evalutation: 06/15/20 15:59 Patient diuresed after getting IV Lasix. Patient also has received her baseline blood pressure medication of losartan 25 mg and diltiazem 120 mg extended release. Patient's blood pressure is down to 130s over 102 heart rate is down to 9710. Patient has chronic A. fib. 06/15/20 16:21 Patient has diuresed from IV Lasix and patient's blood pressure and heart rate has improved after she has been receiving her p.o. diltiazem extended release and her losartan 25 mg tablet today. Patient also received IV Lasix with a a b risk response of diuresis and decreasing her ascites. - Vital Signs Vital signs: Temp Pulse Resp BP Pulse Ox 98.0 F 127 H 20 158/95 H 100 06/15/20 07:27 06/15/20 07:27 06/15/20 12:01 06/15/20 12:01 06/15/20 12:01 06/15/20 16:00 Vital signs stable. Pulse is 127. - Laboratory Result Diagrams: 06/15/20 09:00 06/15/20 09:00 Laboratory results interpreted by me: 06/15/20 06/15/20 06/15/20 09:00 09:00 09:00 WBC 3.9 L RDW 15.0 H PT 16.5 H AST 56 H Alkaline Phosphatase 131 H NT-Pro-B Natriuret Pep Total Protein 8.6 H Urine Protein Urine Ketones Urine Blood Ur Leukocyte Esterase Acetaminophen < 10 L 06/15/20 06/15/20 09:00 10:20 WBC RDW PT AST Alkaline Phosphatase NT-Pro-B Natriuret Pep 3530 H Total Protein Urine Protein >=500 H Urine Ketones TRACE H Urine Blood SMALL H Ur Leukocyte Esterase MODERATE H Acetaminophen Patient has moderate leukocyte esterase small amount of blood on urinalysis. Will discuss with patient if patient has any symptoms of urinary tract infection patient has chronically elevated BNP today is 3530 - Diagnostic Test Radiology reviewed: Image reviewed, Reports reviewed Radiology results interpreted by me: 06/15/20 16:02 Acute Abdomen Series 06/15/20 08:35 IMPRESSION: 1. Centralization of the bowel is a common finding in the setting of ascites. There is no evidence of a bowel obstruction. 2. Cardiomegaly without a superimposed acute cardiopulmonary process. Acute abdominal series shows centralization of the bowel consistent with findings in the setting of ascites. There is no bowel obstruction. Patient's chest shows cardiomegaly without any superimposed acute cardiopulmonary process. - EKG Interpretation by Me Additional EKG results interpreted by me: 06/15/20 16:16 Twelve-lead EKG shows atrial fibrillation/flutter with a ventricular rate of 113. Left ventricular hypertrophy noted consider inferior infarct age indeterminate SD interval variable QRS within normal interval QT interval within normal intervals normal axis no acute ST elevation. Discharge - Discharge Clinical Impression: Chronic atrial fibrillation, Hypertension, Ascites Condition: Stable Disposition: HOME, SELF-CARE Additional Instructions: You have chronic ascites which is fluid buildup in your abdomen secondary to liver disease. You have been given diuretic medications of which medications you take at home which includes blood pressure medicines and diltiazem medications for chronic A. fib and Lasix therapy for controlling fluid ascites buildup. You have responded well to your usual medications today and you have been discharged home on no new prescriptions but you are required and and and encouraged to take your medications on a daily basis. I personally performed the services described in the documentation, reviewed and edited the documentation which was dictated to the scribe in my presence, and it accurately records my words and actions.
--- NOTE | 2020-06-15 16:37 | EKG REPORT ---
SEVERITY:- ABNORMAL ECG - ATRIAL FLUTTER/FIBRILLATION, A-RATE 252 CONSIDER LEFT VENTRICULAR HYPERTROPHY CONSIDER INFERIOR INFARCT : Confirmed by: Afia Rodrigues 15-Jun-2020 16:36:44
== END 2020-06-15 17:11 | disposition home or self-care (01) ==
LOC: ER 07:17
DX: I48.20 Chronic atrial fibrillation, unspecified (principal); I11.0 Hypertensive heart disease with heart failure; I50.9 Heart failure, unspecified; R18.8 Other ascites; R10.9 Unspecified abdominal pain; J44.9 Chronic obstructive pulmonary disease, unspecified; I48.91 Unspecified atrial fibrillation; R06.02 Shortness of breath; R14.0 Abdominal distension (gaseous); F10.10 Alcohol abuse, uncomplicated; F17.200 Nicotine dependence, unspecified, uncomplicated; Z79.899 Other long term (current) drug therapy
CPT/HCPCS: 93005; 99285; 96361; 96374; 36415; 87040; 80307 ×3; 83690; 85025; 85610; 85730; 80053; 81001; 84484; 82803; 83880; 74022; 93010; A9270 ×2; J1940; J7050